=== PATIENT | male | born 2000 | race Caucasian/White ===

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

== ENCOUNTER 2021-01-10 13:19 | Emergency (ER) | payer OTHER, MEDICAID ==
[~2021-01-10] VITALS: Ht 175.3 cm; Wt 90.0 kg
[2021-01-10] MEDS ORDERED: PRED20TA PO (14:54)
[2021-01-10] MEDS ORDERED: predniSONE 20 MG TAB PO ONE (14:55)
[2021-01-10 15:16] VITALS: BP 125/75
== END 2021-01-10 15:15 | disposition home or self-care (01) ==
LOC: M ED 13:19
DX: L23.9 Allergic contact dermatitis, unspecified cause (principal); Z79.899 Other long term (current) drug therapy; Z91.018 Allergy to other foods
CPT/HCPCS: 99283; J7512

== ENCOUNTER → 2021-02-11 | Emergency (ER) | payer OTHER, MEDICAID ==
[~2021-02-11] VITALS: Ht 172.7 cm; Wt 76.8 kg
[~2021-02-11] MED LIST changes: +PRED20TA PO; +VRAY6CAP PO
[2021-02-11 19:05] LABS: HEMATOCRIT 48.2 % (42.0-52.0); HEMOGLOBIN 16.7 g/dl (13.5-17.5); MEAN CORPUSCULAR HEMOGLOBIN 30.4 pg (27.0-33.0); MEAN CORPUSCULAR HGB CONC 34.6 g/dl (32.0-36.5); MEAN CORPUSCULAR VOLUME 87.8 fl (80.0-96.0); PLATELET COUNT, AUTOMATED 238 10^3/uL (150-450); RED BLOOD COUNT 5.49 10^6/uL (4.30-6.10); WHITE BLOOD COUNT 6.7 10^3/uL (4.0-10.0)
[2021-02-11 19:55] LABS: AMPHETAMINES LEVEL URINE NEGATIVE (NEGATIVE); BARBITURATES URINE NEGATIVE (NEGATIVE); BENZODIAZEPINES URINE NEGATIVE (NEGATIVE); CANNABINOIDS URINE NEGATIVE (NEGATIVE); COCAINE METABOLITE URINE NEGATIVE (NEGATIVE); METHADONE URINE NEGATIVE (NEGATIVE); OPIATES URINE NEGATIVE (NEGATIVE); PHENCYCLIDINE URINE NEGATIVE (NEGATIVE)
[2021-02-11 22:24] LABS: ACETAMINOPHEN LEVEL < 2.0 UG/ML (10.0-30.0); ALBUMIN 4.1 GM/DL (3.2-5.2); ALT/SGPT 61 U/L (12-78); BILIRUBIN,DIRECT 0.1 MG/DL (0.0-0.2); BILIRUBIN,TOTAL 0.3 MG/DL (0.2-1.0); BLOOD UREA NITROGEN 13 MG/DL (7-18); CALCIUM LEVEL 8.8 MG/DL (8.5-10.1); CARBON DIOXIDE LEVEL 25 MEQ/L (21-32); CHLORIDE LEVEL 111 MEQ/L (98-107); ETHYL ALCOHOL (ETHANOL) 0.004 % (0.000-0.010); GLUCOSE, FASTING 121 MG/DL (70-100); POTASSIUM SERUM 3.9 MEQ/L (3.5-5.1); SALICYLATE LEVEL < 1.7 MG/DL (5.0-30.0); SODIUM LEVEL 143 MEQ/L (136-145); TOTAL PROTEIN 7.3 GM/DL (6.4-8.2)
[2021-02-11 23:48] VITALS: BP 136/71
== END | disposition home or self-care (01) ==
LOC: M ED 18:31
DX: F43.0 Acute stress reaction (principal); J45.909 Unspecified asthma, uncomplicated; F31.9 Bipolar disorder, unspecified; F90.9 Attention-deficit hyperactivity disorder, unspecified type; F43.10 Post-traumatic stress disorder, unspecified; Z79.899 Other long term (current) drug therapy; Z91.018 Allergy to other foods

== ENCOUNTER 2021-02-12 02:16 | Inpatient (IN) | payer OTHER, MEDICAID ==
[~2021-02-12] VITALS: Ht 170.2 cm; Wt 76.8 kg
[2021-02-12] MEDS ORDERED: VRAY6CAP PO (02:40)
[2021-02-12] MEDS ORDERED: PRAZ2CAP PO (02:40)
[2021-02-12] MEDS ORDERED: PRAZ1CAP PO (02:40)
[2021-02-12] MEDS ORDERED: HOME MED LIST COMPLETE! XX SCH (02:45)
[2021-02-12] MEDS ORDERED: OLANZapine ORAL DISINTEGRATING TAB 5MG PO ONE (02:55)
[2021-02-12] MEDS ORDERED: LORazepam 2 MG TAB PO ONE (02:55)
[2021-02-12 03:20] LABS: MEAN CORPUSCULAR HEMOGLOBIN 30.9 pg (27.0-33.0); MEAN CORPUSCULAR HGB CONC 34.8 g/dl (32.0-36.5); MEAN CORPUSCULAR VOLUME 88.8 fl (80.0-96.0); PLATELET COUNT, AUTOMATED 228 10^3/uL (150-450); RED BLOOD COUNT 5.18 10^6/uL (4.30-6.10); WHITE BLOOD COUNT 7.6 10^3/uL (4.0-10.0)
[2021-02-12 03:48] LABS: AMPHETAMINES LEVEL URINE NEGATIVE (NEGATIVE); BARBITURATES URINE NEGATIVE (NEGATIVE); BENZODIAZEPINES URINE NEGATIVE (NEGATIVE); CANNABINOIDS URINE NEGATIVE (NEGATIVE); COCAINE METABOLITE URINE NEGATIVE (NEGATIVE); METHADONE URINE NEGATIVE (NEGATIVE); OPIATES URINE NEGATIVE (NEGATIVE); PHENCYCLIDINE URINE NEGATIVE (NEGATIVE)
[2021-02-12 04:02] LABS: ACETAMINOPHEN LEVEL < 2.0 UG/ML (10.0-30.0); ALBUMIN 3.8 GM/DL (3.2-5.2); ALT/SGPT 54 U/L (12-78); BILIRUBIN,DIRECT < 0.1 MG/DL (0.0-0.2); BILIRUBIN,TOTAL 0.2 MG/DL (0.2-1.0); BLOOD UREA NITROGEN 14 MG/DL (7-18); CALCIUM LEVEL 8.7 MG/DL (8.5-10.1); CARBON DIOXIDE LEVEL 27 MEQ/L (21-32); CHLORIDE LEVEL 109 MEQ/L (98-107); CREATININE FOR GFR 1.07 MG/DL (0.70-1.30); ETHYL ALCOHOL (ETHANOL) < 0.003 % (0.000-0.010); GLUCOSE, FASTING 155 MG/DL (70-100); POTASSIUM SERUM 3.6 MEQ/L (3.5-5.1); SALICYLATE LEVEL < 1.7 MG/DL (5.0-30.0); SODIUM LEVEL 143 MEQ/L (136-145); TOTAL PROTEIN 6.7 GM/DL (6.4-8.2)
--- NOTE | 2021-02-12 16:21 | MHIPNPDOC ---
[facility] Progress Note Progress Note DATE OF SERVICE: 02/12/21 Communicated to PSA for admission after being presented the patient. Patient is a 20-year-old man who was disposed of his discharge last night went back to [facility] in [place] and had argument with his cousin, broke up with his girlfriend and had a plan to jump [place] the [place] and burn cousins house down killing him. Has a history of bipolar, ADHD, PTSD. Was last admitted to [facility] in October 2020. Vital Signs Vital Signs Date Time Temp Pulse Resp B/P (MAP) Pulse Ox O2 Delivery O2 Flow Rate FiO2 02/12/21 15:28 97.8 95 16 133/67 (89) 95 02/12/21 06:20 Room Air Laboratory Data 24H Labs Laboratory Tests 2 02/12/21 02:59: Nucleated Red Blood Cells % (auto) 0.0, Anion Gap 7L, Calcium Level 8.7, Total Bilirubin 0.2, Direct Bilirubin < 0.1, Aspartate Amino Transf (AST/SGOT) 24, A lanine Aminotransferase (ALT/SGPT) 54, Alkaline Phosphatase 89, Total Protein 6.7, Albumin 3.8, Albumin/Globulin Ratio 1.3, Thyroid Stimulating Hormone (TSH) 3.230, Salicylates Level < 1.7L, Urine Opiates Screen NEGATIVE, Urine Methadone Screen NEGATIVE, Acetaminophen Level < 2.0L, Urine Barbiturates Screen NEGATIVE, Urine Phencyclidine Screen NEGATIVE, Urine Amphetamines Screen NEGATIVE, Urine Benzodiazepines Screen NEGATIVE, Urine Cocaine Metabolite Screen NEGATIVE, Urine Cannabinoids Screen NEGATIVE, Ethyl Alcohol Level < 0.003 CBC/BMP Laboratory Tests 02/12/21 02:59 Current Medications Current Medications Medications (Trade) Dose Ordered Sig/Yessi Route PRN Reason Start Time Stop Time Status Last Admin Dose Admin Home Med (Home Med List Complete!) ASDIRECTED XX 02/12/21 02:45 02/12/21 02:47 DC Allergies Coded Allergies: Kiwi (Verified Allergy, Severe, SWELLING, 07/25/18) ELOY MORAN MD Feb 12, 2021 16:21
[2021-02-12] MEDS ORDERED: MOM 30ML SUSPENSION UDC PO PRN (20:05)
[2021-02-12] MEDS ORDERED: ACETAMINOPHEN TAB 650MG DOSE (2X325MG) PO PRN (20:05)
[2021-02-12] MEDS ORDERED: MAALOX 30 ML SUSP *UDC PO PRN (20:05)
[2021-02-12 21:45] LABS: RSV AMPLIFICATION NEGATIVE (NEGATIVE)
[2021-02-12 22:15] VITALS: BP 144/95
[2021-02-13] VITALS (9 sets, daily range): BP systolic 116–171; BP diastolic 57–92
--- NOTE | 2021-02-13 12:03 | MHHPEPDOC ---
General Legal Status: 9.39 Chief Complaint I have suicidal thoughts ". History of Present Illness HISTORY OF THE PRESENT ILLNESS: Patient is a 20 -year-old , male, who is diagnosed with bipolar disorder and has multiple psychiatric hospitalizations, recently admitted to [facility] in December 08. Now currently complains of suicidal thoughts without plans. Reports he has been depressed for the last 4 to 5 days and 2 days ago he broke up with his girlfriend, he thinks his cousin is responsible for it. Complains of decreased sleep, low energy , hopelessness and helplessness denies any grandiosity or manic symptoms. Complains of suicidal thoughts without plans but no homicidal thoughts. E D report :Pt brought to ED from [id number]) on a 9.41 after pt was evaluated and discharged from [facility] earlier tonight. Pt denied SI and HI prior to discharge, however once he returned home he began arguing with cousin again. Pt then expressed SI with plan to jump into the [place] and then made homicidal threats towards cousin with plan to burn her house down. Pt was uncooperative upon arrival... * pt states, "I was fine when I left, but when I got home my cousin started accusing me of being a meth addict and selling my prescription drugs." States he was unable to control his anger due GF terminating their relationship over cousin's accusations. He admits losing his temper and threatened to kill his cousin with a plan to burn her house down, and then made a suicidal threat with a plan to jump into the [place] and drown himself. Pt is calm currently, but continues to express SI with plan and HI with plan. Pt has a long hx of Bipolar Disorder, Borderline Personality Disorder, ADHD, ODD and PTSD, last admitted to [facility] 11/13/20 and d/c 11/18/20.. Past Psychiatric History Previous Psychiatric Diagnosis: Bipolar, ADHD, ODD Previous Psychiatric Admissions: [facility] [place] when he was an adolescent, 2 psychiatric admissions to this facility as an adult Suicide Attempts: None Psychiatric Follow-up: [facility] Psychiatric medications: Trazodone and Prazosin and Vraylar Past Medical History Medical Problems Asthma No surgeries Head Injury: No Seizures: No Hospitalizations: Yes Surgeries: No Family Medical/Psychiatric HX Medical Problems Medical Problems Maternal Aunt - Diabetes Psychiatric Disorders: Yes (Bio Mother has had many psychiatric admissions) Addiction: Yes (Biological Mother - Drugs) Suicide Attemps/Completions: No Addiction History denies Social History Childhood: Born in [place], special classes, decribes childhood as "living hell when he was younger" Adopted from age 6. Was kicked out of his adoptive family and his mother kicked him out, May 2020 Abuse/Trauma: yes Current Living Situation: living on his own Education: in 12th grade Employment: [employer] Social Support: Friends and Family Legal: None Marital: Not , no children Mental Status Examination General Appearance: well groomed Build: average Demeanor: average Eye Contact: average Activity: average Behavior: cooperative Speech: clear Mood: depressed, anxious Affect: appropriate Thought Process: logical/linear Thought Content (Delusions): none reported Thought Content (Other): none reported Thought Content (Aggressive): none reported Perception (Hallucinations): none reported Perception (Other): none reported Cognition (Impairment of): none reported Oriented: Awake, Alert, Oriented times three Insight: good, fair Psychosis: Denies Diagnoses 1. Major depressive disorder #2 rule out bipolar disorder unspecified A-FIB/CHADSVASC A-FIB History Current/History of A-Fib/PAF?: No Current PO Anticoag Therapy: No Age/Risk Factor Scoring CHADSVASC: CHADSVASC Response (Comments) Value Age Risk Factor Age < 65 years old 0 Gender Risk Factor Male 0 Hx of CHF No 0 Hx of HTN No 0 Hx of Stroke/TIA/or VTE No 0 Hx of Diabetes No 0 Hx of Vascular Disease No 0 Total 0 Assessment Patient has a history of bipolar disorder and history of significant drug use issue, currently denies any homicidal thoughts however continues to have some depressed mood will place him on Vryalar 6 mg Prazocin 2 mg hs Initial Treatment Plan 1. Patient was admitted on a [9.39] status. 2. Complete history was obtained. 3. With patients permission, family will be contacted and database will be expanded. 4. Patients medication regimen will be reviewed and changed accordingly. 5. Patient will be provided with protected environment. 6. Patient will be treated with individual, group, and milieu therapies. 7. Patient will receive supportive psych-education. 8. Discharge planning will commence immediately. 9. Outpatient follow-up treatment will be strongly recommended. 10. The initial treatment plan will focus initially on: * Depression. * Risk for suicide. ESTIMATED LENGTH OF STAY: - DAYS. TIME SPENT COUNSELING AND COORDINATING INITIAL CARE: minutes. Tobacco Cessation Screen Tobacco Cessation Tx Ordered?: No r/t adverse reaction Pt Refused Vital Signs Vital Signs Date Time Temp Pulse Resp B/P (MAP) Pulse Ox O2 Delivery O2 Flow Rate FiO2 02/13/21 08:03 Room Air 02/13/21 05:36 98.7 65 16 134/67 (89) 96 Laboratory Data 24H Labs Laboratory Tests 2 02/12/21 20:47: Coronavirus (COVID-19)(PCR) NEGATIVE, Influenza Type A (RT-PCR) NEGATIVE, Influenza Type B (RT-PCR) NEGATIVE, Respiratory Syncytial Virus (PCR) NEGATIVE Medications Scheduled Cariprazine HCl (Vraylar) 6 Mg Capsule, 6 MG PO QHS, (Reported) Prazosin Hcl (Prazosin HCl) 1 Mg Capsule, 1 MG PO QHS, (Reported) TAKES WITH 2MG FOR 3MG TOTAL Prazosin Hcl (Prazosin HCl) 2 Mg Capsule, 2 MG PO QHS, (Reported) TAKES WITH 1MG FOR 3 MG TOTAL Scheduled PRN Trazodone HCl (Trazodone HCl) 50 Mg Tablet, 50 MG PO QHS PRN for INSOMNIA, (Reported) Allergies Coded Allergies: Kiwi (Verified Allergy, Severe, SWELLING, 07/25/18) DONNA ALEX MD Feb 13, 2021 12:03
--- NOTE | 2021-02-13 14:55 | HPEPDOC ---
General Date of Admission Feb 12, 2021 at 20:02 Date of Service: Feb 13, 2021 Attending Physician: Td Rey MD Chief Complaint The patient is a 20-year-old male admitted with a reason for visit of Unspecified Psychotic Disorder. Source: Patient, Old records History of Present Illness Americo was admitted with concerns for suicidal and homicidal ideation. He states that he has been dealing with difficulties in his life surrounding his adoptive family, accusations they are levying against him, and the impact this had on the relationship with his girlfriend. Please see the psychiatric history and physical for full details. He has no acute medical concerns. Home Medications Scheduled Cariprazine HCl (Vraylar) 6 Mg Capsule, 6 MG PO QHS, (Reported) Prazosin Hcl (Prazosin HCl) 1 Mg Capsule, 1 MG PO QHS, (Reported) TAKES WITH 2MG FOR 3MG TOTAL Prazosin Hcl (Prazosin HCl) 2 Mg Capsule, 2 MG PO QHS, (Reported) TAKES WITH 1MG FOR 3 MG TOTAL Scheduled PRN Trazodone HCl (Trazodone HCl) 50 Mg Tablet, 50 MG PO QHS PRN for INSOMNIA, (Reported) Allergies Coded Allergies: Kiwi (Verified Allergy, Severe, SWELLING, 07/25/18) Past Medical History Medical History Asthma Psychiatric diagnoses including: Bipolar disorder, ADHD, oppositional defiant disorder, borderline personality disorder, posttraumatic stress disorder Family History He is adopted and does not know an awful lot about his biological family. He does not know who his father is. He does know that his mother has been admitted for psychiatric illness multiple times and that she is currently in shelter because of involvement with production of methamphetamines. He has a brother who is alive with no known medical problems. He has 2 sisters who are alive one of them has a history of depression. Social History * Smoker: current smoker, less than 1 pack/day (He reports 2 cigarettes daily) Alcohol: occationally (He reports he drinks 1-2 beers about twice a month) Drugs: denies (In fact accusations that he uses other substances was a large part of the problem and brought him here) He is currently living in [facility] with 12 other individuals. He is sexually active. He reports 1 lifetime sexual partner. He reports no concerns for sexually transmitted diseases as he "gets tested regularly." A-FIB/CHADSVASC A-FIB History Current/History of A-Fib/PAF?: No Current PO Anticoag Therapy: No Age/Risk Factor Scoring CHADSVASC: CHADSVASC Response (Comments) Value Age Risk Factor Age < 65 years old 0 Gender Risk Factor Male 0 Hx of CHF No 0 Hx of HTN No 0 Hx of Stroke/TIA/or VTE No 0 Hx of Diabetes No 0 Hx of Vascular Disease No 0 Total 0 Review of Systems Constitutional: Denies: Chills, Fever ENT: Reports: Dysphagia; Denies: Head Aches, Ear Pain Skin: Denies: Rash, Lesions Pulmonary: Denies: Dyspnea, Cough Cardiovascular: Denies: Chest Pain, Palpitations Gastrointestinal: Denies: Nausea, Vomiting, Abdominal Pain, Diarrhea, Constipation, Melena, Hematochezia Genitourinary: Denies: Dysuria, Hematuria Endocrine: Denies: Heat Intolerance, Cold Intolerance Musculoskeletal: Denies: Joint Pain, Muscle Pain Neurological: Denies: Change in speech, Confusion Physical Examination General Exam: Positive: Alert, Cooperative, No Acute Distress Eye Exam: Positive: PERRLA, Conjunctiva & lids normal, EOMI; Negative: Sclera icteric ENT Exam: Positive: Atraumatic, Mucous membr. moist/pink, Pharynx Normal Neck Exam: Positive: Supple; Negative: JVD, thyromegaly, Lymphadenopathy Chest Exam: Positive: Clear to auscultation, Normal air movement Heart Exam: Positive: Rate Normal, Regular Rhythm, Normal S1, Normal S2; Negative: Murmurs, Rubs Abdomen Exam: Positive: Normal bowel sounds, Soft; Negative: Tenderness, Hepatospenomegaly Extremity Exam: Negative: Edema, Tenderness Skin Exam: Positive: Nl turgor and temperature Neuro Exam: Positive: Normal Gait, Normal Speech, Normal Tone, Sensation Intact Psych Exam: Positive: Mood NL (Reported as depressed and bored), Memory Intact, Oriented x 3; Negative: Mental status NL (His affect is restricted eye contact is moderate at best) Vital Signs Vital Signs Date Time Temp Pulse Resp B/P (MAP) Pulse Ox O2 Delivery O2 Flow Rate FiO2 02/13/21 08:03 Room Air 02/13/21 05:36 98.7 65 16 134/67 (89) 96 Laboratory Data Labs 24H Laboratory Tests 2 02/12/21 20:47: Coronavirus (COVID-19)(PCR) NEGATIVE, Influenza Type A (RT-PCR) NEGATIVE, Influenza Type B (RT-PCR) NEGATIVE, Respiratory Syncytial Virus (PCR) NEGATIVE Problems (1) Suicidal ideations Status: Acute Problem Text: He is receiving psychiatric care on the inpatient mental health unit. I will defer to them. (2) Homicidal ideation Status: Acute Problem Text: He is receiving psychiatric care on the inpatient mental health unit. I will defer to them. (3) Asthma Status: Chronic Response to Treatment: Stable Problem Text: He reports that he has not used a rescue inhaler for about 3 years. This makes me wonder if he has outgrown his asthma. Nonetheless, at this time, we will leave it on his list of chronic medical problems until he has a chance to have follow-up pulmonary function tests and clarify whether or not he still has asthma. I am going to order albuterol as needed, but I doubt that he will need it. (4) Tobacco use Status: Chronic Problem Text: We discussed the fact that he no longer addicted to nicotine, but rather has a hand mouth habit that he uses for stress release. I encouraged him to find a different habit to work to relieve his stressors. Certainly continued tobacco use, even at low levels, is not helping his asthma. I do not think that he needs nicotine replacement therapy as I do not think he is addicted to nicotine per se. Plan / VTE VTE Prophylaxis Ordered?: No VTE Exclusion Mechanical Proph: Low Risk for VTE VTE Exclusion Pharmacological: At Low Risk for VTE Td Rey MD Feb 13, 2021 14:55
[2021-02-13] MEDS ORDERED: ALBUTEROL 90 MCG/ACT 8GM HFA INHALER INH PRN (15:00)
[2021-02-13] MEDS: NICOTINE 21MG/24HR 1 EA TRANSDERMAL TD PRN (16:37)
[2021-02-13] MEDS ORDERED: HALOPERIDOL 5MG/ML VIAL (J1630 PER 1) IM STA ×2 (22:00→22:31)
[2021-02-13] MEDS ORDERED: LORazepam 2 MG/ML VIAL IM STA (22:00)
[2021-02-13] MEDS ORDERED: diphenhydrAMINE 50MG/ML VIAL (J1200) IM STA (22:00)
[2021-02-14 06:44] VITALS: BP 106/51
[2021-02-14 16:22] VITALS: BP 145/87
[2021-02-14] MEDS: NICOTINE 21MG/24HR 1 EA TRANSDERMAL TD PRN (16:48)
[2021-02-14] MEDS: PRAZOSIN 1 MG CAP PO SCH (20:19)
[2021-02-14] MEDS: OLANZapine ORAL DISINTEGRATING TAB 5MG PO PRN (20:19)
[2021-02-14] MEDS: CARIPRAZINE 3MG CAPSULE (VRAYLAR) PO SCH (20:19)
[2021-02-15 06:21] VITALS: BP 135/56
[2021-02-15] MEDS: OLANZapine ORAL DISINTEGRATING TAB 5MG PO PRN (15:02)
[2021-02-15 19:05] VITALS: BP 143/89
--- NOTE | 2021-02-15 20:56 | MHIPN ---
[facility] PROGRESS NOTE DATE: 02/14/2021 SUBJECTIVE: Patient was diagnosed with schizoaffective disorder, had suicidal thoughts, recently broke up with his girlfriend, had argument with his cousin, he wanted to jump out in the [facility]. He has been diagnosed with bipolar disorder, borderline personality disorder, and attention deficit hyperactivity disorder (ADHD). Currently reports he is doing better. Patient was medicated yesterday for acting out behavior on the unit. He was given Haldol and Ativan. Today, he has been feeling better. He reports he is not angry or agitated. OBJECTIVE: He is a 20-year-old, male diagnosed with schizoaffective disorder, was admitted because of suicidal thoughts after he broke up with his girlfriend, was medicated yesterday for acting out behavior. He has also been diagnosed with bipolar disorder, borderline personality disorder, and ADHD. He has a history of multiple psychiatric hospitalizations. MENTAL STATUS EXAMINATION: Cooperative, made good eye contact, wearing clean clothes. Psychomotor activity is normal. Speech rate, rhythm, volume are good. Thought process linear, goal-directed. Denied any auditory or visual hallucinations. Denied any suicidal or homicidal ideas. He is oriented to time, place, and person. His memory immediate, remote, recent are good. Mood is depressed, affect is constricted. VITAL SIGNS: Temperature 97.4, pulse 69, respirations 18, blood pressure 106/51, pulse oximetry 96. CURRENT MEDICATIONS: - cariprazine (Vraylar) 6 mg at night - prazosin 3 mg at night LABORATORY DATA: CBC within normal limits. Chemistry within normal limits. Toxicology was negative. DIAGNOSES: 1. Bipolar 1 disorder with psychotic features. 2. Rule out schizoaffective disorder. 3. Attention deficit hyperactivity disorder (ADHD) by history. PLAN: Is to: Continue Vraylar 6 mg at night and continue prazosin 3 mg at night. Estimated length of stay: 4-5 days. Time spent is 25 minutes.
[2021-02-15] MEDS: CARIPRAZINE 3MG CAPSULE (VRAYLAR) PO SCH (21:52)
[2021-02-15] MEDS: PRAZOSIN 1 MG CAP PO SCH (21:54)
[2021-02-16 06:20] VITALS: BP 122/57
--- NOTE | 2021-02-16 08:44 | MHIPN ---
[facility] PROGRESS NOTE DATE: 02/15/2021 SUBJECTIVE: "I did not sleep well yesterday, I felt cold." OBJECTIVE: He is a 20-year-old, male diagnosed with bipolar disorder with history of multiple psychiatric hospitalizations, was admitted because of suicidal thoughts. He recently broke up with his girlfriend. He was angry with his cousin, thinks that she was responsible for the breakup. Patient currently was unwilling to wake up, he was somewhat disheveled. Otherwise, reported that he is doing fine. Reported that he does not have any suicidal thoughts. Compliant with his medications, denied any side effects. MENTAL STATUS EXAMINATION: Casually dressed in hospital attire, disheveled. Made intermittent eye contact. Speech is few words, however goal-directed. Thought content: Denied any suicidal or homicidal ideas or delusions. Mood is mildly depressed, affect is appropriate for the mood. Insight and judgment are limited. He is oriented to time, place, and person. VITAL SIGNS: Temperature is 97.6, pulse is 56, respiratory rate is 16, blood pressure is 135/56, pulse oximetry 98. MEDICATIONS: - prazosin 3 mg at night - cariprazine 6 mg at night DIAGNOSES: 1. Major depressive disorder. 2. Rule out bipolar disorder unspecified. ASSESSMENT: Patient needs further prompting about his personal hygiene. Continue current medications. ESTIMATED LENGTH OF STAY: 4-5 days. TIME SPENT: 25 minutes.
--- NOTE | 2021-02-16 11:36 | MHIPNPDOC ---
[facility] Progress Note Progress Note DATE OF SERVICE: 02/16/21 SUBJECTIVE: "I have been doing well, I slept well trazodone is helping me." OBJECTIVE: He is a 20-year-old, male diagnosed with bipolar disorder with history of multiple psychiatric hospitalizations, was admitted because of suicidal thoughts. He recently broke up with his girlfriend. He was angry with his cousin, thinks that she was responsible for the breakup. Patient currently was unwilling to wake up, he was somewhat disheveled. Otherwise, reported that he is doing fine. Reported that he does not have any suicidal thoughts. Compliant with his medications, denied any side effects. MENTAL STATUS EXAMINATION: Casually dressed in hospital attire, disheveled. Made intermittent eye contact. Speech is few words, however goal-directed. Thought content: Denied any suicidal or homicidal ideas or delusions. Mood is mildly depressed, affect is appropriate for the mood. Insight and judgment are limited. He is oriented to time, place, and person. MEDICATIONS: - prazosin 3 mg at night - cariprazine 6 mg at night -Trazodone 50 mg at night DIAGNOSES: 1. Revised, bipolar disorder unspecified. 2 PTSD ASSESSMENT: Patient seems to be improving, reports trazodone is helping him denies any psychosis or mood swings. ESTIMATED LENGTH OF STAY: 1-2 days. Vital Signs Vital Signs Date Time Temp Pulse Resp B/P (MAP) Pulse Ox O2 Delivery O2 Flow Rate FiO2 02/16/21 06:20 97.3 76 18 122/57 (78) 97 Room Air Current Medications Current Medications Medications (Trade) Dose Ordered Sig/Yessi Route PRN Reason Start Time Stop Time Status Last Admin Dose Admin Acetaminophen (Tylenol Tab) 650 mg Q6HP PRN PO HEADACHE or MILD DISCOMFORT 02/12/21 20:05 Al Hydrox/Mg Hydrox/Simethicone (Mylanta) 30 ml Q4HP PRN PO HEARTBURN/INDIGESTION 02/12/21 20:05 Albuterol Sulfate (Proventil, Ventolin Hfa) 2 puff Q4HP PRN INH SHORTNESS OF BREATH 02/13/21 15:00 Cariprazine (Vraylar) 6 mg QHS PO 02/14/21 21:00 02/15/21 21:52 Diphenhydramine HCl (Benadryl) 50 mg STAT STAT IM 02/13/21 22:00 02/13/21 22:02 DC 02/13/21 22:07 Haloperidol (Haldol) 5 mg STAT STAT IM 02/13/21 22:00 02/13/21 22:02 DC 02/13/21 22:07 Haloperidol (Haldol) 5 mg STAT STAT IM 02/13/21 22:31 02/13/21 22:32 DC 02/13/21 22:34 Home Med (Home Med List Complete!) ASDIRECTED XX 02/12/21 02:45 02/12/21 02:47 DC Lorazepam (Ativan) 2 mg STAT STAT IM 02/13/21 22:00 02/13/21 22:02 DC 02/13/21 22:07 Magnesium Hydroxide (Milk Of Magnesia) 30 ml DAILYPRN PRN PO CONSTIPATION 02/12/21 20:05 Nicotine (Nicoderm Cq 21mg) 1 patch DAILY PRN TD NICOTINE WITHDRAWAL 02/12/21 20:05 02/14/21 16:48 Olanzapine (ZyPREXA ZYDIS) 5 mg Q4HP PRN PO AGITATION 02/12/21 20:05 02/15/21 15:02 Prazosin HCl (Minipress) 3 mg QHS PO 02/14/21 21:00 02/15/21 21:54 Trazodone HCl (Desyrel) 50 mg QHSP PRN PO INSOMNIA 02/12/21 20:05 Allergies Coded Allergies: Kiwi (Verified Allergy, Severe, SWELLING, 07/25/18) DONNA ALEX MD Feb 16, 2021 11:36
[2021-02-16 16:32] VITALS: BP 140/88
[2021-02-16] MEDS: NICOTINE 21MG/24HR 1 EA TRANSDERMAL TD PRN (18:15)
[2021-02-16] MEDS: PRAZOSIN 1 MG CAP PO SCH (20:11)
[2021-02-16] MEDS: CARIPRAZINE 3MG CAPSULE (VRAYLAR) PO SCH (20:11)
[2021-02-16] MEDS: traZODone 50 MG TAB PO PRN (21:18)
--- NOTE | 2021-02-16 22:14 | IPNPDOC ---
Text Note Date of Service The patient was seen on 02/13/21, at 22:20 NOTE CODE 25 Report: Subjective: Patient was combative and being aggressive towards staff. Physical exam: Vitals: Tech obtaining after restraints are placed. General:Patient is laying in bed, patient has rakan appearance after screaming, all 4 extremities are restrained, 2 finger widths allowable within the restraints and patient with brisk cap refill, patient during course of res traints begins to have withdrawn affect and not answering questions. Assessment and Plan: - Patient was restrained - The patient was a danger to the staff - Failed de-escalation interventions - Staff has contacted Psychiatry; they have placed orders for physical and chemical restraints with de-escalation parameters accordingly VS,Fishbone, I+O VS, Fishbone, I+O Vital Signs Date Time Temp Pulse Resp B/P (MAP) Pulse Ox O2 Delivery O2 Flow Rate FiO2 02/16/21 20:11 151/78 02/16/21 16:32 98.1 99 18 96 Room Air DWAYNE MALONE NP Feb 16, 2021 22:12
[2021-02-17 05:53] VITALS: BP 128/60
[2021-02-17] MEDS: OLANZapine ORAL DISINTEGRATING TAB 5MG PO PRN (12:03)
--- NOTE | 2021-02-17 13:07 | MHIPNPDOC ---
[facility] Progress Note Progress Note DATE OF SERVICE: 02/17/21 SUBJECTIVE: "I have been doing well, I slept well trazodone is helping me." I do not have any suicidal or homicidal thoughts. OBJECTIVE: He is a 20-year-old, male diagnosed with bipolar disorder with history of multiple psychiatric hospitalizations, was admitted because of suicidal thoughts. He recently broke up with his girlfriend. He was angry with his cousin, thinks that she was responsible for the breakup. Patient currently was unwilling to wake up, he was somewhat disheveled. Otherwise, reported that he is doing fine. Reported that he does not have any suicidal thoughts. Compliant with his medications, denied any side effects. MENTAL STATUS EXAMINATION: Casually dressed in hospital attire, disheveled. Made intermittent eye contact. Speech is few words, however goal-directed. Thought content: Denied any suicidal or homicidal ideas or delusions. Mood is mildly depressed, affect is appropriate for the mood. Insight and judgment are limited. He is oriented to time, place, and person. MEDICATIONS: - prazosin 3 mg at night - cariprazine 6 mg at night -Trazodone 50 mg at night DIAGNOSES: 1. Revised, bipolar disorder unspecified. 2 PTSD ASSESSMENT: Patient seems to be improving, reports trazodone is helping him denies any psychosis or mood swings. Can be discharged tomorrow ESTIMATED LENGTH OF STAY: 1-2 days. Vital Signs Vital Signs Date Time Temp Pulse Resp B/P (MAP) Pulse Ox O2 Delivery O2 Flow Rate FiO2 02/17/21 05:53 97.3 67 16 128/60 (82) 96 Room Air Current Medications Current Medications Medications (Trade) Dose Ordered Sig/Yessi Route PRN Reason Start Time Stop Time Status Last Admin Dose Admin Acetaminophen (Tylenol Tab) 650 mg Q6HP PRN PO HEADACHE or MILD DISCOMFORT 02/12/21 20:05 Al Hydrox/Mg Hydrox/Simethicone (Mylanta) 30 ml Q4HP PRN PO HEARTBURN/INDIGESTION 02/12/21 20:05 Albuterol Sulfate (Proventil, Ventolin Hfa) 2 puff Q4HP PRN INH SHORTNESS OF BREATH 02/13/21 15:00 Cariprazine (Vraylar) 6 mg QHS PO 02/14/21 21:00 02/16/21 20:11 Diphenhydramine HCl (Benadryl) 50 mg STAT STAT IM 02/13/21 22:00 02/13/21 22:02 DC 02/13/21 22:07 Haloperidol (Haldol) 5 mg STAT STAT IM 02/13/21 22:00 02/13/21 22:02 DC 02/13/21 22:07 Haloperidol (Haldol) 5 mg STAT STAT IM 02/13/21 22:31 02/13/21 22:32 DC 02/13/21 22:34 Home Med (Home Med List Complete!) ASDIRECTED XX 02/12/21 02:45 02/12/21 02:47 DC Lorazepam (Ativan) 2 mg STAT STAT IM 02/13/21 22:00 02/13/21 22:02 DC 02/13/21 22:07 Magnesium Hydroxide (Milk Of Magnesia) 30 ml DAILYPRN PRN PO CONSTIPATION 02/12/21 20:05 Nicotine (Nicoderm Cq 21mg) 1 patch DAILY PRN TD NICOTINE WITHDRAWAL 02/12/21 20:05 02/16/21 18:15 Olanzapine (ZyPREXA ZYDIS) 5 mg Q4HP PRN PO AGITATION 02/12/21 20:05 02/17/21 12:03 Prazosin HCl (Minipress) 3 mg QHS PO 02/14/21 21:00 02/16/21 20:11 Trazodone HCl (Desyrel) 50 mg QHSP PRN PO INSOMNIA 02/12/21 20:05 02/16/21 21:18 Allergies Coded Allergies: Kiwi (Verified Allergy, Severe, SWELLING, 07/25/18) DONNA ALEX MD Feb 17, 2021 13:07
[2021-02-17] MEDS: NICOTINE 21MG/24HR 1 EA TRANSDERMAL TD PRN (14:22)
[2021-02-17 18:59] VITALS: BP 135/87
[2021-02-17] MEDS: traZODone 50 MG TAB PO PRN (20:26)
[2021-02-17] MEDS: PRAZOSIN 1 MG CAP PO SCH (20:26)
[2021-02-17] MEDS: CARIPRAZINE 3MG CAPSULE (VRAYLAR) PO SCH (20:26)
[2021-02-18 06:09] VITALS: BP 119/56
--- NOTE | 2021-02-18 13:16 | MHIPNPDOC ---
[facility] Progress Note Progress Note DATE OF SERVICE: 02/18/21 SUBJECTIVE: Patient was upset because his discharge was delayed, reportedly he made a statement to appear in [facility] stating That he will take care of his cousin once he is discharged. Patient reports that he is not to it is only he said That he would not like to confront her, denied any homicidal thoughts or suicidal thoughts. OBJECTIVE: He is a 20-year-old, male diagnosed with bipolar disorder with history of multiple psychiatric hospitalizations, was admitted because of suicidal thoughts. He recently broke up with his girlfriend. He was angry with his cousin, thinks that she was responsible for the breakup. Patient currently was unwilling to wake up, he was somewhat disheveled. Otherwise, reported that he is doing fine. Reported that he does not have any suicidal thoughts. Compliant with his medications, denied any side effects. Patient's discharge was delayed because of the statements reportedly he made but patient denies it. Otherwise patient is doing well. MENTAL STATUS EXAMINATION: Casually dressed in hospital attire, disheveled. Made intermittent eye contact. Speech is few words, however goal-directed. Thought content: Denied any suicidal or homicidal ideas or delusions. Mood is mildly depressed, affect is appropriate for the mood. Insight and judgment are limited. He is oriented to time, place, and person. MEDICATIONS: - prazosin 3 mg at night - cariprazine 6 mg at night -Trazodone 50 mg at night DIAGNOSES: 1. Revised, bipolar disorder unspecified. 2 PTSD ASSESSMENT: The marriage and family social worker will call [facility] for further clarification and the patient is stable we can discharge him tomorrow. End of dictation ESTIMATED LENGTH OF STAY: 1-2 days. Vital Signs Vital Signs Date Time Temp Pulse Resp B/P (MAP) Pulse Ox O2 Delivery O2 Flow Rate FiO2 02/18/21 06:09 99.0 73 18 119/56 (77) 100 Room Air Current Medications Current Medications Medications (Trade) Dose Ordered Sig/Yessi Route PRN Reason Start Time Stop Time Status Last Admin Dose Admin Acetaminophen (Tylenol Tab) 650 mg Q6HP PRN PO HEADACHE or MILD DISCOMFORT 02/12/21 20:05 Al Hydrox/Mg Hydrox/Simethicone (Mylanta) 30 ml Q4HP PRN PO HEARTBURN/INDIGESTION 02/12/21 20:05 Albuterol Sulfate (Proventil, Ventolin Hfa) 2 puff Q4HP PRN INH SHORTNESS OF BREATH 02/13/21 15:00 Cariprazine (Vraylar) 6 mg QHS PO 02/14/21 21:00 02/17/21 20:26 Diphenhydramine HCl (Benadryl) 50 mg STAT STAT IM 02/13/21 22:00 02/13/21 22:02 DC 02/13/21 22:07 Haloperidol (Haldol) 5 mg STAT STAT IM 02/13/21 22:00 02/13/21 22:02 DC 02/13/21 22:07 Haloperidol (Haldol) 5 mg STAT STAT IM 02/13/21 22:31 02/13/21 22:32 DC 02/13/21 22:34 Home Med (Home Med List Complete!) ASDIRECTED XX 02/12/21 02:45 02/12/21 02:47 DC Lorazepam (Ativan) 2 mg STAT STAT IM 02/13/21 22:00 02/13/21 22:02 DC 02/13/21 22:07 Magnesium Hydroxide (Milk Of Magnesia) 30 ml DAILYPRN PRN PO CONSTIPATION 02/12/21 20:05 Nicotine (Nicoderm Cq 21mg) 1 patch DAILY PRN TD NICOTINE WITHDRAWAL 02/12/21 20:05 02/17/21 14:22 Olanzapine (ZyPREXA ZYDIS) 5 mg Q4HP PRN PO AGITATION 02/12/21 20:05 02/17/21 12:03 Prazosin HCl (Minipress) 3 mg QHS PO 02/14/21 21:00 02/17/21 20:26 Trazodone HCl (Desyrel) 50 mg QHSP PRN PO INSOMNIA 02/12/21 20:05 02/17/21 20:26 Allergies Coded Allergies: Kiwi (Verified Allergy, Severe, SWELLING, 07/25/18) DONNA ALEX MD Feb 18, 2021 13:16
[2021-02-18 16:08] VITALS: BP 138/65
[2021-02-18] MEDS: CARIPRAZINE 3MG CAPSULE (VRAYLAR) PO SCH (20:44)
[2021-02-18] MEDS: traZODone 50 MG TAB PO PRN (20:44)
[2021-02-18 20:45] VITALS: BP 130/83
[2021-02-18] MEDS: PRAZOSIN 1 MG CAP PO SCH (20:45)
[2021-02-19 06:39] VITALS: BP 148/67
--- NOTE | 2021-02-19 09:42 | MHDSPDOC ---
[facility] Discharge Summary Discharge Summary DATE OF ADMISSION: Feb 12, 2021 at 20:02 DATE OF DISCHARGE: 02/19/2021 DISCHARGE DIAGNOSES: Bipolar disorder unspecified Rule out bipolar 2 disorder History of Present Illness HISTORY OF THE PRESENT ILLNESS: Patient is a 20 -year-old , male, who is diagnosed with bipolar disorder and has multiple psychiatric hospitalizations, recently admitted to [facility] in December 08. Now currently complains of suicidal thoughts without plans. Reports he has been depressed for the last 4 to 5 days and 2 days ago he broke up with his girlfriend, he thinks his cousin is responsible for it. Complains of decreased sleep, low energy , hopelessness and helplessness denies any grandiosity or manic symptoms. Complains of suicidal thoughts without plans but no homicidal thoughts. E D report :Pt brought to ED from [facility](Tpr #[id number]) on a 9.41 after pt was evaluated and discharged from [facility] earlier tonight. Pt denied SI and HI prior to discharge, however once he returned home he began arguing with cousin again. Pt then expressed SI with plan to jump into the [place] and then made homicidal threats towards cousin with plan to burn her house down. Pt was uncooperative upon arrival... * pt states, "I was fine when I left, but when I got home my cousin started accusing me of being a meth addict and selling my prescription drugs." States he was unable to control his anger due GF terminating their relationship over cousin's accusations. He admits losing his temper and threatened to kill his cousin with a plan to burn her house down, and then made a suicidal threat with a plan to jump into the [place] and drown himself. Pt is calm currently, but continues to express SI with plan and HI with plan. Pt has a long hx of Bipolar Disorder, Borderline Personality Disorder, ADHD, ODD and PTSD, last admitted to [facility] 11/13/20 and d/c 11/18/20.. Past Psychiatric History Previous Psychiatric Diagnosis: Bipolar, ADHD, ODD Previous Psychiatric Admissions: [facility] when he was an adolescent, 2 psychiatric admissions to this facility as an adult Suicide Attempts: None Psychiatric Follow-up: [facility] Psychiatric medications: Trazodone and Prazosin and Vraylar Past Medical History Medical Problems Asthma No surgeries Head Injury: No Seizures: No Hospitalizations: Yes Surgeries: No Family Medical/Psychiatric HX Medical Problems Medical Problems Maternal Aunt - Diabetes Psychiatric Disorders: Yes (Bio Mother has had many psychiatric admissions) Addiction: Yes (Biological Mother - Drugs) Suicide Attemps/Completions: No Addiction History denies Social History Childhood: Born in [place], special classes, decribes childhood as "living hell when he was younger" Adopted from age 6. Was kicked out of his adoptive family and his mother kicked him out, May 2020 Abuse/Trauma: yes Current Living Situation: living on his own Education: in 12th grade Employment: [employer] Social Support: Friends and Family Legal: None Marital: Not , no children Mental Status Examination General Appearance: well groomed Build: average Demeanor: average Eye Contact: average Activity: average Behavior: cooperative Speech: clear Mood: depressed, anxious Affect: appropriate Thought Process: logical/linear Thought Content (Delusions): none reported Thought Content (Other): none reported Thought Content (Aggressive): none reported Perception (Hallucinations): none reported Perception (Other): none reported Cognition (Impairment of): none reported Oriented: Awake, Alert, Oriented times three Insight: good, fair Psychosis: Denies Course in the hospital: Patient initially was depressed and was angry once he had to be medicated for acting out behavior, he was placed on Vryalar 6 mg at night and prazosin 3 mg at night Patient also received individual group and milieu therapy and psychoeducation. Patient made gradual recovery started attending groups and activities. There wa s a report that he made a statement To a friend in [facility] that he will take care of his cousin after the discharge. However after clarification by the child protective services social worker at [facility] and by asking the patient he only told that he did not want to confront his cousin He had no thoughts of hurting anybody. Patient denied any suicidal thoughts he slept better attended groups and attended activities interacted well with the peers and staff. Denied any side effects from the medications ETOH/Disorder Med Rx ETOH/DRUG DISORDER RX: N/A Vital Signs/I&Os Vital Signs Date Time Temp Pulse Resp B/P (MAP) Pulse Ox O2 Delivery O2 Flow Rate FiO2 02/19/21 06:39 97.9 67 20 148/67 (94) 95 Room Air Laboratory Data Labs 24H Within normal limits CBC/BMP Within normal limits Medications Scheduled Cariprazine HCl (Vraylar) 6 Mg Capsule, 6 MG PO QHS, (Reported) Prazosin Hcl (Prazosin HCl) 1 Mg Capsule, 1 MG PO QHS, (Reported) TAKES WITH 2MG FOR 3MG TOTAL Prazosin Hcl (Prazosin HCl) 2 Mg Capsule, 2 MG PO QHS, (Reported) TAKES WITH 1MG FOR 3 MG TOTAL Scheduled PRN Trazodone HCl (Trazodone HCl) 50 Mg Tablet, 50 MG PO QHS PRN for INSOMNIA, (Reported) Allergies Coded Allergies: Davonte (Verified Allergy, Severe, SWELLING, 07/25/18) DONNA ALEX MD Feb 19, 2021 09:42
== END 2021-02-19 11:08 | disposition home or self-care (01) | DRG 885 ==
LOC: M ED 02:16 → M ED INP 20:02 → M PSY 22:00
PROVIDERS: ADMIT Student in an Organized Health Care Education/Training Program; ATTEND Psychiatry & Neurology Psychiatry
DX: F31.9 Bipolar disorder, unspecified (principal); R45.851 Suicidal ideations; F90.9 Attention-deficit hyperactivity disorder, unspecified type; F43.10 Post-traumatic stress disorder, unspecified; Z91.018 Allergy to other foods; Z20.822 Contact with and (suspected) exposure to COVID-19; Z79.899 Other long term (current) drug therapy; J45.909 Unspecified asthma, uncomplicated; F91.3 Oppositional defiant disorder; F60.3 Borderline personality disorder; F17.210 Nicotine dependence, cigarettes, uncomplicated; R45.850 Homicidal ideations; Z63.0 Problems in relationship with spouse or partner; Z78.1 Physical restraint status

== ENCOUNTER → 2021-04-27 | Outpatient (CLI) | payer OTHER, MEDICAID ==
--- NOTE | 2021-04-27 13:56 | REP ---
INDICATION: PAIN IN RIGHT FINGER(S). COMPARISON: None. FINDINGS: The joint spaces are symmetric and relatively well maintained. There is no evidence of acute fracture or destructive osseous lesion. IMPRESSION: Negative hand. <Electronically signed by Agus Fischer > 04/27/21 [id number]
== END ==
LOC: M RAD 09:49
PROVIDERS: ATTEND Pediatrics
DX: M79.644 Pain in right finger(s) (principal)

== ENCOUNTER 2021-04-29 21:10 | Emergency (ER) | payer OTHER, MEDICAID ==
[~2021-04-29] VITALS: Ht 172.7 cm; Wt 104.1 kg
--- OUTSIDE RECORDS SUMMARY | 2021-04-29 21:16 | CCD ---
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 Name Role Phone DEBRA MORIN MD 3 [phone] Allergies Code Code System Name Reaction Severity Status Onset NKDA Notes: SEASONAL | KIWI FRUIT Medications Name Status Start Date Stop Date amoxicillin 500 mg capsule Completed 04/25 aripiprazole 30 mg tablet TAKE ONE TABLET BY MOUTH EVERY DAY Completed 08/18 buspirone 15 mg tablet Completed buspirone 5 mg tablet TAKE 1 TABLET BY MOUTH 3 TIMES A DAY NEEDED FOR ANXIETY/AGITATION Completed 09/02/2020 clonidine HCl 0.2 mg tablet TAKE ONE TABLET BY MOUTH DAILY AT BEDTIME Completed 09/02/2020 divalproex 250 mg tablet,delayed release Completed 09/02/2020 famotidine 40 mg tablet Take 1 tablet every day by oral route. Active Not available guanfacine 1 mg tablet TAKE 1/2 TABLET BY MOUTH EVERY MORNING Completed 09/02/2020 methylphenidate ER 36 mg tablet,extended release 24 hr Completed 04/25/2020 methylphenidate ER 54 mg tablet,extended release 24 hr Completed 09/02/2020 nicotine 7 mg/24 hr daily transdermal [facility] Apply 1 patch every day by transdermal route. Active Not available ondansetron 4 mg disintegrating tablet DISSOLVE 1 TABLET IN MOUTH EVERY 6 TO 8 HOURS NEEDED FOR NAUSEA AND VOMITING Completed 06/06/2020 prazosin 1 mg capsule Active Not availa ble prazosin 2 mg capsule Active Not availa ble trazodone 50 mg tablet Active Not avail able Vitamin D3 50 mcg (2,000 unit) capsule Take 1 capsule by oral route. Active Not avail able Vraylar 1.5 mg capsule TAKE 3 CAPSULES 4.5MG BY MOUTH DAILY FOR MOOD Completed 03/13/2021 Vraylar 3 mg capsule Completed 03/13/2021 Vraylar 6 mg capsule Active Not availab le Problems Name Status Onset Date Source Mood Disorder Active 06/29/2012 History Reactive Attachment Disorder of Claim Auditor Active 06/29/2012 History Procedure Unknown 06/29/2012 History Influenza Vaccine Needed Unknown 04/24/2013 History Exposure to Second Hand Tobacco Smoke Active 07/28/2015 History Overweight in Childhood Unknown 03/03/2016 History Overweight Unknown 11/22/2019 History Gastroesophageal Reflux Disease Active 03/13/2021 Vitamin D Deficiency Active 04/24/2021 Nicotine Dependence with Current Use Active 04/24/2021 Procedures Date Name Performed by 04/24/2021 XR, Hand, 3 or More View [facility] [address] [place] [address] (Work Place) Notes: APPENDECTAMY- AGE 14, CIRCUMSCION AT Results Lab Results Date Name Specimen Result Interpretation Description Value Range Status Address 04/16/2021 SARS CoV 2 RdRp Gene, QL Probe, Respiratory Spec imen Nasopharyngeal Normal Sars-cov-2 negative negative Final [facility] Medical: [address] [facility] 04/01/2021 Lipid Panel, Serum Blood venous Normal Delmi sterol, Total 153 mg/dL <170 mg/dL Final [facility]: [address] [facility] Blood venous Low HDL Cholesterol 38 mg/dL >45 mg/dL Final [facility]: [address] [facility] Blood venous Normal Triglycerides 74 mg/dL <90 mg /dL Final [facility]: [address] [facility] Blood venous Normal LDL-cholesterol 99 mg/dL (calc) <110 mg/dL (calc) Final [facility]: [address] [facility] Blood venous Normal Chol/hdlc Ratio 4.0 (calc) <5 .0 (calc) Final [facility]: [address] [facility] Blood venous Normal Non HDL Cholesterol 115 mg/dL (calc) <120 mg/dL (calc) Final [facility]: [address] [facility] 04/01/2021 CMP, Serum or Plasma Blood venous Normal Glucose 98 mg/dL 65-99 mg/dL Final [facility]: [address] [facility] Blood venous Normal Urea Nitrogen (BUN) 19 mg/dL 7-20 mg/dL Final [facility]: [address] [facility] Blood venous Normal Creatinine 0.90 mg/dL 0.60-1. 26 mg/dL [facility]: [address] [facility] Blood venous Normal eGFR Non-afr. [place] 1 23 mL/min/1.73m2 > or = 60 mL/min/1.73m2 Final [facility]: [address] [facility] Blood venous Normal eGFR 14 3 mL/min/1.73m2 > or = 60 mL/min/1.73m2 Final [facility]: [address] [facility] Blood venous BUN/creatinine Ratio not applicable (calc) 6-22 (calc) [facility]: [address] [facility] Blood venous Normal Sodium 142 mmol/L 135-146 mmo l/L [facility]: [address] [facility] Blood venous Normal Potassium 4.6 mmol/L 3.8-5.1 mmol/L [facility]: [address] [facility] Blood venous Normal Chloride 107 mmol/L 98-110 mm ol/L [facility]: [address] [facility] Blood venous Normal Carbon Dioxide 28 mmol/L 20-3 2 mmol/L [facility]: [address] [facility] Blood venous Normal Calcium 9.9 mg/dL 8.9-10.4 mg /dL [facility]: [address] [facility] Blood venous Normal Protein, Total 7.1 g/dL 6.3-8 .2 g/dL [facility]: [address] [facility] Blood venous Normal Albumin 4.7 g/dL 3.6-5.1 g/dL [facility]: [address] [facility] Blood venous Normal Globulin 2.4 g/dL (calc) 2.1- 3.5 g/dL (calc) [facility]: [address] [facility] Blood venous Normal Albumin/globulin Ratio 2 .0 (calc) 1.0-2.5 (calc) [facility] [address] [facility] Normal Bilirubin, Total 0.4 mg/dL 0. 2-1.1 mg/dL [facility]: [address] [facility] Blood venous Normal Alkaline Phosphatase 86 U/L 4 6-169 U/L Final [facility]: [address] [facility] Blood venous Normal Ast 17 U/L 12-32 U/L Final [facility]: [address] [facility] Blood venous Normal Alt 35 U/L 8-46 U/L Final [facility]: [address] [facility] 04/01/2021 Tsh Blood venous Normal Tsh 3.05 mIU/L 0.50-4.30 mIU/L Final [facility]: [address] [facility] 04/01/2021 Vitamin D, 25-Hydroxy, Total, Serum Blood venous Low Vitamin D,25-Oh,total,ia 19 NG/mL 30-100 NG/mL Final [facility]: [address] [facility] 04/01/2021 HbA1C (Hemoglobin a1C), Blood Blood venous Normal Hemoglobin a1C 5.0 % of total HGB <5.7 % of total HGB Final [facility]: [address] [facility] 09/16/2020 CT + NG DNA, Qual, PCR, Unspecified Specimen No rmal Chlamydia DNA Amplification negative negative [facility] ical Center: 0 [facility] Normal GC DNA Amplification negative negati ve [facility]: [address] [facility] 09/16/2020 Hepatitis C Ab, Serum Blood venous Normal Hepatitis C Virus Anu Index < 0.0 index <0.8 index Final [facility]: 0 [facility] 09/16/2020 Syphilis Normal Syphilis nonreactive nonreacti ve [facility]: [address] [facility] 09/16/2020 HIV 1+2 AB + HIV 1 P24 Ag, Qualitative Immunoassay, Serum Normal HIV 1&2 Screen Centaur negative negative Final [facility]: [address] [facility] 07/02/2020 Troponin I, Blood Normal Troponin I < 0.02 NG/mL < 0.10 NG/mL [facility]: [address] [facility] 07/01/2020 Glucose, Fingerstick, Blood Normal Bedside Glucose 93 mg/dL 70- 105 mg/dL [facility]: 83 0 [facility] 07/01/2020 Cbc Normal White Blood Count 6.9 10 4.0-10. 0 10 [facility]: [address] [facility] Normal Red Blood Count 5.34 10 4.30-6.10 10 [facility]: [address] [facility] Normal Hemoglobin 16.0 g/dL 13.5-17.5 g/dL [facility]: [address] [facility] Normal Hematocrit 48.0 % 42.0-52.0 % [facility]: [address] [facility] Normal Mean Corpuscular Volume 89.9 fL 80.0 -96.0 fL [facility]: [address] [facility] Normal Mean Corpuscular Hemoglobin 30.0 pg 27.0-33.0 pg [facility]: [address] [facility] Normal Mean Corpuscular HGB Conc 33.3 g/dL 32.0-36.5 g/dL [facility]: [address] [facility] Normal Red Cell Distribution Width 12.3 % 1 1.5-14.5 % [facility]: [address] [facility] Normal Platelet Count, Automated 207 10 150 -450 10 [facility]: [address] [facility] Normal Nucleated Red Blood Cell % 0.0 % 0- 0 % [facility]: [address] [facility] 07/01/2020 CMP, Serum or Plasma Normal Glucose, Fastin g 88 mg/dL 70-100 mg/dL [facility]: [address] 0 [facility] High Blood Urea Nitrogen 19 mg/dL 7-18 mg /dL [facility]: 0 [facility] Normal Creatinine for GFR 1.03 mg/dL 0.70-1 .30 mg/dL [facility]: [address] [facility] Normal Sodium Level 141 mEq/L 136-145 mEq/L [facility]: [address] [facility] Normal Potassium Serum 3.7 mEq/L 3.5-5.1 mE q/L [facility]: [address] [facility] Normal Chloride Level 106 mEq/L 98-107 mEq/ L [facility]: 0 [facility] High Carbon Dioxide Level 33 mEq/L 21-32 mEq/L [facility]: 0 [facility] Low Anion Gap 2 mEq/L 8-16 mEq/L [facility]: [address] [facility] Normal Calcium Level 9.5 mg/dL 8.5-10.1 mg/ dL [facility]: [address] [facility] Normal AST/SGOT 8 U/L 7-37 U/L [facility]: [address] [facility] Normal ALT/SGPT 23 U/L 12-78 U/L [facility]: 0 [facility] Normal Alkaline Phosphatase 103 U/L 45-117 U/L [facility]: 0 [facility] Normal Bilirubin,total 0.6 mg/dL 0.2-1.0 mg /dL [facility]: 0 [facility] Normal Total Protein 7.3 gm/dL 6.4-8.2 gm/d L [facility]: 0 [facility] Normal Albumin 4.5 gm/dL 3.2-5.2 gm/dL Meri l [facility]: 0 [facility] Normal Albumin/globulin Ratio 1.6 [facility]: [address] [facility] 07/01/2020 Troponin I, Blood Normal Troponin I < 0.02 NG/mL < 0.10 NG/mL [facility]: 0 [facility] 07/01/2020 Troponin I, Blood Normal Troponin I < 0.02 NG/mL < 0.10 NG/mL [facility]: 0 [facility] 06/18/2020 Influenza A/B RSV Covid Amp Normal Influenza a Amplification negative negative [facility] nter: [address] [facility] Normal Influenza B Amplification negative n egative [facility]: [address] [facility] Normal RSV Amplification negative negative [facility]: [address] [facility] Normal Sars Covid-19 Amplification negative negative [facility]: [address] [facility] 05/20/2020 CBC W/ Auto Diff Normal White Blood Count 5.3 10 4.0-10.0 10 [facility]: [address] [facility] Normal Red Blood Count 5.84 10 4.30-6.10 10 [facility]: [address] [facility] Normal Hemoglobin 17.3 g/dL 13.5-17.5 g/dL [facility]: [address] [facility] Normal Hematocrit 51.4 % 42.0-52.0 % [facility]: [address] [place] [address] Normal Mean Corpuscular Volume 88.0 fL 80.0 -96.0 fL [facility]: [address] [facility] Normal Mean Corpuscular Hemoglobin 29.6 pg 27.0-33.0 pg [facility]: [address] [facility] Normal Mean Corpuscular HGB Conc 33.7 g/dL 32.0-36.5 g/dL [facility]: 0 [facility] Normal Red Cell Distribution Width 12.7 % 1 1.5-14.5 % [facility]: 0 [facility] Normal Platelet Count, Automated 227 10 150 -450 10 [facility]: [address] [facility] Normal Neutrophils % 52.9 % 36.0-66.0 % [facility]: [address] [facility] Normal Lymph % 35.5 % 24.0-44.0 % Final [facility]: [address] [facility] High Rincon % 5.9 % 0.0-5.0 % Final [facility]: [address] [facility] High Eos % 4.9 % 0.0-3.0 % [facility]: [address] [facility] Normal Baso % 0.6 % 0.0-1.0 % [facility]: [address] [facility] Normal Immature Granulocyte % 0.2 % 0-3.0 % [facility]: [address] [facility] Normal Nucleated Red Blood Cell % 0.0 % 0- 0 % [facility]: [address] [facility] Normal Neutrophils # 2.8 10 1.5-8.5 10 [facility]: [address] [facility] Normal Lymph # 1.9 10 1.5-5.0 10 [facility]: [address] [facility] Normal [place]con # 0.3 10 0.0-0.8 10 [facility]: [address] [facility] Normal Eos # 0.3 10 0.0-0.5 10 [facility]: [address] [facility] Normal Baso # 0.0 10 0.0-0.2 10 [facility]: [address] [facility] 05/20/2020 Hepatic Function Panel, Serum Normal AST/SG OT 19 U/L 7-37 U/L [facility]: 0 [facility] Normal ALT/SGPT 40 U/L 12-78 U/L [facility]: [address] [facility] Normal Alkaline Phosphatase 109 U/L 45-117 U/L [facility]: 0 [facility] Normal Bilirubin,total 0.6 mg/dL 0.2-1.0 mg /dL [facility]: 0 [facility] Normal Bilirubin,direct 0.2 mg/dL 0.0-0.2 m g/dL [facility]: 0 [facility] Normal Total Protein 7.5 gm/dL 6.4-8.2 gm/d L [facility]: 0 [facility] Normal Albumin 4.5 gm/dL 3.2-5.2 gm/dL [facility]: [address] [facility] Normal Albumin/globulin Ratio 1.5 [facility]: [address] [facility] 05/20/2020 BMP, Serum or Plasma Normal Glucose, Fastin g 90 mg/dL 70-100 mg/dL [facility]: 83 0 [facility] Normal Blood Urea Nitrogen 15 mg/dL 7-18 mg /dL [facility]: 0 [facility] Normal Creatinine for GFR 0.84 mg/dL 0.70-1 .30 mg/dL [facility]: [address] [facility] Normal Sodium Level 139 mEq/L 136-145 mEq/L [facility]: [address] [place] [address] Normal Potassium Serum 4.3 mEq/L 3.5-5.1 mE q/L [facility]: [address] [place] [address] Normal Chloride Level 105 mEq/L 98-107 mEq/ L [facility]: 0 [facility] Normal Carbon Dioxide Level 28 mEq/L 21-32 mEq/L [facility]: [address] [facility] Low Anion Gap 6 mEq/L 8-16 mEq/L [facility]: 0 [facility] Normal Calcium Level 9.8 mg/dL 8.5-10.1 mg/ dL [facility]: [address] [facility] 05/20/2020 SARS CoV 2 RNA, QL, Nasopharynx NASOPHARYNX No observation recorded. [facility]: [address] [place] [address] Past Encounters 04/24/2021 Nicotine Dependence with Current Use; Gastroesophageal Reflux Disease; Vitamin D Deficiency; Pain in Right Thumb; Administration of Influenza Vaccine Debra Morin MD: [address] [place] [phone], Ph. 04/16/2021 Exposure to SARS-CoV-2 Josué Bee MD: [address] [place] [phone], Ph. 04/01/2021 Hyperlipidemia Screening; Vitamin D Deficiency; Endocrine/metabolic Screening Jsoué Bee MD: [address] [place] [address], Ph. 03/13/2021 Adult Health Examination; Nicotine Dependence with Current Use; Body Mass Index 30+ - Obesity; Gastroesophageal Reflux Disease; Hyperlipidemia Screening; Endocrine/metabolic Screening; Vitamin D Deficiency Debra Morin MD: [address] [place] [address], Ph. 09/16/2020 Venereal Disease Screening Debra Mroin MD: [address] [place] [address] [address], [place] [address], Ph. 09/02/2020 Moderate Recurrent Major Depression; Venereal Disease Screening; Hospital Inpatient Stay within past 30 Days Debra Morin MD: [address] [facility] [address], [place] [address], Ph. 08/19/2020 Removal of Suture [place] Vel[facility]: [address] [place] [address], Ph. 08/12/2020 Open Wound of Hand [place] [facility]: [address] [place] [address], Ph. 06/06/2020 Attention Deficit Hyperactivity Disorder, Combined Type; Medication Monitoring [place] [facility]: [address] [place] [address], Ph. 04/25/2020 Administration of Influenza Vaccine [place] [facility]: [address] [place] [address], Ph. Social History Tobacco Smoking Status Former Smoker Vaccine List Vaccine Type COVID-19, mRNA, LNP-S, PF, 30 mcg/0.3 mL dose 11/27/2020 12/18/2020 HPV, quadrivalent 04/24/20130.5 mL 07/03/20130.5 mL 10/25/20130.5 mL influenza, injectable, quadrivalent, pre servative free 04/25/20200.5 mL 04/24/2021 influenza, seasonal, injectable 06/30/20120.5 mL 04/23/20150.5 mL 04/02/20160.5 mL 05/30/20170.5 mL 05/22/20180.5 mL influenza, seasonal, injectable, preserv ative free 06/05/20130.5 mL 04/11/2014 meningococcal B, OMV 09/14/20180.5 mL 10/18/20180.5 mL meningococcal MCV4O 09/14/20180.5 mL meningococcal MCV4P 07/03/20130.5 mL Tdap 04/24/20130.5 mL Notes: has had covid vaccine-will bring card next time Plan of Care Reminders Provider Appointments None recorded. Lab None recorded. Referral None recorded. Procedures None recorded. Surgeries None recorded. Imaging None recorded. Vitals 04/24/2021 03:00PM ESTABLISHED [id number] Height Weight BMI Blood Pressure 68.8 in 219 lbs 6 oz 32.6 kg/m2 129/79 mm[Hg] 03/13/2021 02:20PM ANNUAL EXAM Height Weight BMI Blood Pressure 68.8 in 211 lbs 2 oz 31.4 kg/m2 122/79 mm[Hg] 09/02/2020 02:00PM HOSPITAL DISCHARGE Height Weight BMI Blood Pressure 68.8 in 180 lbs 9.6 oz 26.8 kg/m2 129/82 mm[Hg ] 08/19/2020 10:15AM ESTABLISHED PATIENT 15 Height 68.8 in 08/12/2020 10:30AM ESTABLISHED PATIENT 15 Height 68.8 in 06/06/2020 10:45AM ESTABLISHED PATIENT 15 Height Weight BMI Blood Pressure 68.8 in 169 lbs 16 oz 25.3 kg/m2 128/82 mm[Hg] 04/25/2020 10:00AM ESTABLISHED PATIENT 15 Height Weight BMI Blood Pressure 68.8 in 164 lbs 8 oz 24.4 kg/m2 133/78 mm[Hg] 11/22/2019 Height Weight BMI Blood Pressure 68.8 in 177 lbs 26.39 kg/m2 115/72 mm[Hg] 04/27/2019 Weight 175 lbs 6.4 oz 09/06/2018 Height Weight BMI Blood Pressure 67.4 in 194 lbs 30.13 kg/m2 110/60 mm[Hg]"
--- OUTSIDE RECORDS SUMMARY | 2021-04-29 21:16 | CCD ---
Author Organization Unknown Address [address] [place] [address] Phone [phone] Care Team Providers Care Hospitality House Supervisor Name Role Phone DEBRA MORIN MD 3 [phone] Allergies Code Code System Name Reaction Severity [...] release Completed 09/02/2020 famotidine 40 mg tablet Active Not avai lable guanfacine 1 mg tablet TAKE 1/2 TABLET BY MOUTH EVERY MORNING Completed 09/02/2020 methylphenidate ER 36 mg tablet,extended release 24 hr Completed 04/25/2020 methylphenidate ER 54 mg tablet,extended release 24 hr Completed 09/02/2020 nicotine 7 mg/24 hr daily transdermal pa tc Apply 1 patch every day by transdermal route. 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 History Procedure Unknown 06/29/2012 History Influenza Vaccine Needed Unknown 04/24/2013 History Exposure to Second Hand Tobacco Smoke Active 07/28/2015 History Overweight in Childhood Unknown 03/03/2016 History Overweight Unknown 11/22/2019 History Gastroesophageal Reflux Disease Active 03/13/2021 Procedures Notes: APPENDECTAMY- AGE 14, CIRCUMSCION AT Results Lab Results Date Name Specimen Result Interpretation Description Value Range Status Address 04/16/2021 SARS CoV 2 RdRp Gene, QL Probe, Respiratory Spec imen Nasopharyngeal Normal Sars-cov-2 negative negative Final [facility] Medical: [address] [facility] 04/01/2021 Lipid Panel, Serum Blood venous Normal Delmi sterol, Total 153 mg/dL <170 mg/dL Final [facility]: [address] [facility] Blood venous Low HDL Cholesterol 38 mg/dL >45 mg/dL Final [facility]: [address] [facility] Blood venous Normal Triglycerides 74 mg/dL <90 mg /dL Final [facility]: [address] [facility] Blood venous Normal LDL-cholesterol 99 mg/dL (calc) <110 mg/dL (calc) Final [facility]: [address] [facility] Blood venous Normal Chol/hdlc Ratio 4.0 (calc) <5 .0 (calc) Final [facility]: [address] [facility] [facility] Blood venous Normal Non HDL Cholesterol 115 mg/dL (calc) <120 mg/dL (calc) Final [facility]: [address] [facility] [facility] 04/01/2021 CMP, Serum or Plasma Blood venous Normal Glucose 98 mg/dL 65-99 mg/dL Final [facility]: [address] [facility] Blood venous Normal Urea Nitrogen (BUN) 19 mg/dL 7-20 mg/dL Final [facility]: [address] [facility] Blood venous Normal Creatinine 0.90 mg/dL 0.60-1. 26 mg/dL Final [facility]: [address] [facility] Blood venous Normal eGFR Non-afr. Niuean 1 23 mL/min/1.73m2 > or = 60 mL/min/1.73m2 Final [facility]: [address] [facility] Blood venous Normal eGFR 14 3 mL/min/1.73m2 > or = 60 mL/min/1.73m2 [facility] [address] [facility] Blood venous BUN/creatinine Ratio not applicable (calc) 6-22 (calc) [facility]: [address] [facility] Blood venous Normal Sodium 142 mmol/L 135-146 mmo l/L [facility]: [address] [facility] Blood venous Normal Potassium 4.6 mmol/L 3.8-5.1 mmol/L [facility]: [address] [facility] Blood venous Normal Chloride 107 mmol/L 98-110 mm ol/L [facility]: [address] [facility] Blood venous Normal Carbon Dioxide 28 mmol/L 20-3 2 mmol/L [facility]: [address] [facility] Blood venous Normal Calcium 9.9 mg/dL 8.9-10.4 mg /dL [facility]: [address] [facility] Blood venous Normal Protein, Total 7.1 g/dL 6.3-8 .2 g/dL [facility]: [address] [facility] Blood venous Normal Albumin 4.7 g/dL 3.6-5.1 g/dL [facility]: [address] [facility] Blood venous Normal Globulin 2.4 g/dL (calc) 2.1- 3.5 g/dL (calc) [facility]: [address] [facility] Blood venous Normal Albumin/globulin Ratio 2 .0 (calc) 1.0-2.5 (calc) [facility]: [address] [facility] Blood venous Normal Bilirubin, Total 0.4 mg/dL 0. 2-1.1 mg/dL [facility]: [address] [facility] Blood venous Normal Alkaline Phosphatase 86 U/L 4 6-169 U/L [facility]: [address] [facility] Blood venous Normal Ast 17 U/L 12-32 U/L [facility]: [address] [facility] Blood venous Normal Alt 35 U/L 8-46 U/L Final [facility]: [address] [facility] 04/01/2021 Tsh Blood venous Normal Tsh 3.05 mIU/L 0.50-4.30 mIU/L Final [facility]: [address] [place] 04/01/2021 Vitamin D, 25-Hydroxy, Total, Serum Blood venous Low Vitamin D,25-Oh,total,ia 19 NG/mL 30-100 NG/mL Final [facility]: [address] [place] 04/01/2021 HbA1C (Hemoglobin a1C), Blood Blood venous Normal Hemoglobin a1C 5.0 % of total HGB <5.7 % of total HGB Final [facility]: [address] [place] 09/16/2020 CT + NG DNA, Qual, PCR, Unspecified Specimen No rmal Chlamydia DNA Amplification negative negative [facility] Center: 0 [facility] Normal GC DNA Amplification negative negati ve [facility]: 0 [facility] 09/16/2020 Hepatitis C Ab, Serum Blood venous Normal Hepatitis C Virus Anu Index < 0.0 index <0.8 index [facility] Center: [address] [facility] 09/16/2020 Syphilis Normal Syphilis nonreactive nonreacti ve [facility]: 0 [facility] 09/16/2020 HIV 1+2 AB + HIV 1 P24 Ag, Qualitative Immunoassay, Serum Normal HIV 1&2 Screen [facility] negative [facility]: [address] [facility] 07/02/2020 Troponin I, Blood Normal Troponin I < 0.02 NG/mL < 0.10 NG/mL [facility]: [address] [facility] 07/01/2020 Glucose, Fingerstick, Blood Normal Bedside Glucose 93 mg/dL 70- 105 mg/dL [facility]: 83 0 [facility] 07/01/2020 Cbc Normal White Blood Count 6.9 10 4.0-10. 0 10 [facility]: [address] [facility] Normal Red Blood Count 5.34 10 4.30-6.10 10 [facility]: [address] [facility] Normal Hemoglobin 16.0 g/dL 13.5-17.5 g/dL [facility]: [address] [facility] Normal Hematocrit 48.0 % 42.0-52.0 % [facility]: [address] [facility] Normal Mean Corpuscular Volume 89.9 fL 80.0 -96.0 fL [facility]: 0 [facility] Normal Mean Corpuscular Hemoglobin 30.0 pg 27.0-33.0 pg [facility]: [address] [facility] Normal Mean Corpuscular HGB Conc 33.3 g/dL 32.0-36.5 g/dL [facility]: 0 [facility] Normal Red Cell Distribution Width 12.3 % 1 1.5-14.5 % [facility]: 0 [facility] Normal Platelet Count, Automated 207 10 150 -450 10 [facility]: 0 [facility] Normal Nucleated Red Blood Cell % 0.0 % 0- 0 % [facility]: [address] [facility] 07/01/2020 CMP, Serum or Plasma Normal Glucose, Fastin g 88 mg/dL 70-100 mg/dL [facility]: 83 0 [facility] High Blood Urea Nitrogen 19 mg/dL 7-18 mg /dL [facility]: [address] [place] [address] Normal Creatinine for GFR 1.03 mg/dL 0.70-1 .30 mg/dL [facility]: [address] [facility] Normal Sodium Level 141 mEq/L 136-145 mEq/L [facility]: 0 [facility] Normal Potassium Serum 3.7 mEq/L 3.5-5.1 mE q/L [facility]: 0 [facility] Normal Chloride Level 106 mEq/L 98-107 mEq/ L [facility]: 0 [facility] High Carbon Dioxide Level 33 mEq/L 21-32 mEq/L [facility]: 0 [facility] Low Anion Gap 2 mEq/L 8-16 mEq/L [facility]: [address] [facility] Normal Calcium Level 9.5 mg/dL 8.5-10.1 mg/ dL [facility]: [address] [facility] Normal AST/SGOT 8 U/L 7-37 U/L [facility]: [address] [facility] Normal ALT/SGPT 23 U/L 12-78 U/L [facility]: [address] [facility] Normal Alkaline Phosphatase 103 U/L 45-117 U/L [facility]: 8[address] [facility] Normal Bilirubin,total 0.6 mg/dL 0.2-1.0 mg /dL [facility]: [address] [facility] Normal Total Protein 7.3 gm/dL 6.4-8.2 gm/d L [facility]: [address] [facility] Normal Albumin 4.5 gm/dL 3.2-5.2 gm/dL Mer[facility]: [address] [facility] Normal Albumin/globulin Ratio 1.6 [facility]: [address] [facility] 07/01/2020 Troponin I, Blood Normal Troponin I < 0.02 NG/mL < 0.10 NG/mL [facility]: [address] [facility] 07/01/2020 Troponin I, Blood Normal Troponin I < 0.02 NG/mL < 0.10 NG/mL [facility]: 8[address] [facility] 06/18/2020 Influenza A/B RSV Covid Amp Normal Influenza a Amplification negative negative [facility] nter: 8[address] [facility] Normal Influenza B Amplification negative n egative [facility]: [address] [facility] Normal RSV Amplification negative negative [facility]: [address] [facility] Normal Sars Covid-19 Amplification negative negative [facility]: 8[address] [facility] 05/20/2020 CBC W/ Auto Diff Normal White Blood Count 5.3 10 4.0-10.0 10 [facility]: 8[address] [facility] Normal Red Blood Count 5.84 10 4.30-6.10 10 [facility]: 8[address] [facility] Normal Hemoglobin 17.3 g/dL 13.5-17.5 g/dL [facility]: [address] [place] [address] Normal Hematocrit 51.4 % 42.0-52.0 % [facility]: [address] [place] [address] Normal Mean Corpuscular Volume 88.0 fL 80.0 -96.0 fL [facility]: [address] [place] [address] Normal Mean Corpuscular Hemoglobin 29.6 pg 27.0-33.0 pg [facility]: [address] [place] [address] Normal Mean Corpuscular HGB Conc 33.7 g/dL 32.0-36.5 g/dL [facility]: [address] [place] [address] Normal Red Cell Distribution Width 12.7 % 1 1.5-14.5 % [facility]: [address] [place] [address] Normal Platelet Count, Automated 227 10 150 -450 10 [facility]: 0 [facility] Normal Neutrophils % 52.9 % 36.0-66.0 % Fin [facility]: 0 [facility] Normal Lymph % 35.5 % 24.0-44.0 % [facility]: [address] [facility] High [facility] % 5.9 % 0.0-5.0 % [facility]: 0 [facility] High Eos % 4.9 % 0.0-3.0 % [facility]: 0 [facility] Normal Baso % 0.6 % 0.0-1.0 % [facility]: [address] [place] [address] Normal Immature Granulocyte % 0.2 % 0-3.0 % [facility]: [address] [place] [address] Normal Nucleated Red Blood Cell % 0.0 % 0- 0 % [facility]: [address] [place] [address] Normal Neutrophils # 2.8 10 1.5-8.5 10 [facility]: [address] [facility] Normal Lymph # 1.9 10 1.5-5.0 10 [facility]: [address] [facility] Normal [facility] # 0.3 10 0.0-0.8 10 [facility]: [address] [facility] Normal Eos # 0.3 10 0.0-0.5 10 [facility]: [address] [facility] Normal Baso # 0.0 10 0.0-0.2 10 [facility]: [address] [facility] 05/20/2020 Hepatic Function Panel, Serum Normal AST/SG OT 19 U/L 7-37 U/L [facility]: 8[address] [facility] Normal ALT/SGPT 40 U/L 12-78 U/L [facility]: [address] [facility] Normal Alkaline Phosphatase 109 U/L 45-117 U/L [facility]: 8[address] [facility] Normal Bilirubin,total 0.6 mg/dL 0.2-1.0 mg /dL [facility]: 0 [facility] Normal Bilirubin,direct 0.2 mg/dL 0.0-0.2 m g/dL [facility]: 0 [facility] Normal Total Protein 7.5 gm/dL 6.4-8.2 gm/d L [facility]: [address] [facility] Normal Albumin 4.5 gm/dL 3.2-5.2 gm/dL [facility]: [address] [facility] Normal Albumin/globulin Ratio 1.5 [facility]: 0 [facility] 05/20/2020 BMP, Serum or Plasma Normal Glucose, Fastin g 90 mg/dL 70-100 mg/dL [facility]: 83 0 [facility] Normal Blood Urea Nitrogen 15 mg/dL 7-18 mg /dL [facility]: 0 [facility] Normal Creatinine for GFR 0.84 mg/dL 0.70-1 .30 mg/dL Final [facility]: [address] [place] [address] Normal Sodium Level 139 mEq/L 136-145 mEq/L Final [facility]: [address] [place] [address] Normal Potassium Serum 4.3 mEq/L 3.5-5.1 mE q/L Final [facility]: [address] [place] [address] Normal Chloride Level 105 mEq/L 98-107 mEq/ L Final [facility]: [address] [place] [address] Normal Carbon Dioxide Level 28 mEq/L 21-32 mEq/L Final [facility]: [address] [place] [address] Low Anion Gap 6 mEq/L 8-16 mEq/L [facility]: [address] [place] [address] Normal Calcium Level 9.8 mg/dL 8.5-10.1 mg/ dL [facility]: [address] [place] [address] 05/20/2020 SARS CoV 2 RNA, QL, Nasopharynx NASOPHARYNX No observation recorded. [facility]: [address] [place] [address] Past Encounters 04/16/2021 Exposure to SARS-CoV-2 Josué Bee MD: [address] [place] [phone], Ph. 04/01/2021 Hyperlipidemia Screening; Vitamin D Deficiency; Endocrine/metabolic Screening Josué Bee MD: [address] [place] [address], Ph. 03/13/2021 Adult Health Examination; Nicotine Dependence with Current Use; Body Mass Index 30+ - Obesity; Gastroesophageal Reflux Disease; Hyperlipidemia Screening; Endocrine/metabolic Screening; Vitamin D Deficiency Debra Morin MD: [address] [place] [address], Ph. 09/16/2020 Venereal Disease Screening Debra Morin MD: [address] [facility], [facility] [address] [address], Ph. 09/02/2020 Moderate Recurrent Major Depression; Venereal Disease Screening; Hospital Inpatient Stay within past 30 Days Debra Morin MD: [address] [facility], [address], [place] [address], Ph. 08/19/2020 Removal of Suture BOWEN VelazquezC: [address] [place] [address], Ph. 08/12/2020 Open Wound of Hand BOWEN VelazquezC: [address] [place] [address], Ph. 06/06/2020 Attention Deficit Hyperactivity Disorder, Combined Type; Medication Monitoring [place] Velazquez: [address] [place] [address], Ph. 04/25/2020 Administration of Influenza Vaccine BOWEN VelazquezC: [address] [place] [address], Ph. Social History Tobacco Smoking Status Current Every Day Smoker Vaccine List Vaccine Type HPV, quadrivalent 04/24/20130.5 mL 07/03/20130.5 mL 10/25/20130.5 mL influenza, injectable, quadrivalent, pre servative free 04/25/20200.5 mL influenza, seasonal, injectable 06/30/20120.5 mL 04/23/20150.5 mL [...] Surgeries None recorded. Imaging None recorded. Vitals 03/13/2021 02:20PM ANNUAL EXAM Height Weight BMI [...]
--- OUTSIDE RECORDS SUMMARY | 2021-04-29 21:17 | CCD ---
Author Author Ray Jenkins Organization Unknown Address [address] [address] Phone Care Team Providers Care Lead Software Qa Engineer Name Role Phone Carol Jenkins PCP Allergies, Adverse Reactions, Alerts Concept Allergy Name Reaction Severity Onset Date Status Documentation Date Phone Number Npid Taxonomy Code Taxonomy Desc Author Last Name Author Rodolfo rst Name Concept Type [id number] kiwi Unknown Active 03/05/2020 [id number] [phone] [id number] Nurse Practitioner Marck Mcclellan FDDC Problem List Concept Problem Description Status Start Date Created Date Resolv ed Date Snomed Code F31.81 Bipolar II Disorder Active 04/01/2021 F90.2 Attention-Deficit/Hyperactivity Disorder, Combined pre sentation Active 04/01/2021 Medications Rx Norm Medication Route Route Concept Start Date Stop Date Dosage Amilcar quency Duration Formula Strength Dosage Form Dosage Form Code Dosage Description Medication Id Account Npid Author First Name Author Last Name Taxonomy Code Taxonomy Desc Phone Number [id number] prazosin by mouth [id number] 01/16/2021 05/02/2021 at bedtime 30 1 mg capsule [id number] [phone] Nimisha Stephenson [id number] Nurse Amish christy [phone] [id number] prazosin by mouth [id number] 03/03/2021 05/02/2021 at bedtime 30 2 mg capsule [id number] Nimisha Sachin [id number] Nurse Amish christy [phone] Social History Social History Element Description Concept Effective Date Smoking Status Unknown if ever smoked [id number] Immunizations No Data in Section Vital Signs No Data in Section Procedures Date Concept Id Description Targeted Site Concept Targeted Site Concept Type 04/01/2021 31371 Extended Individual Psychotherapy - 45 min CPT Patient has no history of implantable de vices Encounters Encounter Start Date End Date Encounter Type Description Diagnosis Di agnosis Desc Location Author First Name Author Last Name Npid Taxonomy Cod e Taxonomy Desc Phone Number Location Addr1 Location Addr2 Location [facility] Location Sta te Location Zip [id number] 04/01/2021 04/01/2021 [id number] Extended Individual Psych otherapy - 45 min F31.81 Bipolar II disorder [facility] Alice Medina [phone] [id number] Mental Health [phone] [address] [address] Plan of Treatment No Data in Section Lab Results No Data in Section Instructions No Data in Section Insurance Providers Insurance Id Policy Effective Date Policy Thru Date Company N [employer] [id number] [facility] [id number] 2018 MEDICAID
--- OUTSIDE RECORDS SUMMARY | 2021-04-29 21:17 | CCD ---
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 ical Center: [address] [facility] Normal GC DNA Amplification negative negati ve [facility]: [address] [facility] 09/16/2020 Hepatitis C Ab, Serum Blood venous Normal Hepatitis C Virus Anu Index < 0.0 index <0.8 index [facility] Center: [address] [facility] 09/16/2020 Syphilis Normal Syphilis nonreactive nonreacti ve [facility]: [address] [facility] 09/16/2020 HIV 1+2 AB + HIV 1 P24 Ag, Qualitative Immunoassay, Serum Normal HIV 1&2 Screen Centaur negative negative [facility] Center: [address] [facility] 07/02/2020 Troponin I, Blood Normal Troponin I < 0.02 NG/mL < 0.10 NG/mL [facility]: [address] [facility] 07/01/2020 Glucose, Fingerstick, Blood Normal Bedside Glucose 93 mg/dL 70- 105 mg/dL [facility]: [address] 0 [facility] 07/01/2020 Cbc Normal White Blood Count 6.9 10 4.0-10. 0 10 [facility]: [address] [facility] Normal Red Blood Count 5.34 10 4.30-6.10 10 [facility]: [address] [facility] Normal Hemoglobin 16.0 g/dL 13.5-17.5 g/dL [facility]: [address] [facility] Normal Hematocrit 48.0 % 42.0-52.0 % [facility]: [address] [facility] Normal Mean Corpuscular Volume 89.9 fL 80.0 -96.0 fL [facility]: [address] [facility] Normal Mean Corpuscular Hemoglobin 30.0 pg 27.0-33.0 pg [facility]: [address] [facility] Normal Mean Corpuscular HGB Conc 33.3 g/dL 32.0-36.5 g/dL [facility]: [address] [facility] Normal Red Cell Distribution Width 12.3 % 1 1.5-14.5 % [facility]: [address] [facility] Normal Platelet Count, Automated 207 10 150 -450 10 [facility]: 0 [facility] Normal Nucleated Red Blood Cell % 0.0 % 0- 0 % [facility]: 0 [facility] 07/01/2020 CMP, Serum or Plasma Normal Glucose, Fastin g 88 mg/dL 70-100 mg/dL [facility]: [address] [facility] High Blood Urea Nitrogen 19 mg/dL 7-18 mg /dL [facility]: 0 [facility] Normal Creatinine for GFR 1.03 mg/dL 0.70-1 .30 mg/dL [facility]: 0 [facility] Normal Sodium Level 141 mEq/L 136-145 mEq/L [facility]: 0 [facility] Normal Potassium Serum 3.7 mEq/L 3.5-5.1 mE q/L [facility]: [address] [facility] Normal Chloride Level 106 mEq/L 98-107 mEq/ L [facility]: 0 [facility] High Carbon Dioxide Level 33 mEq/L 21-32 mEq/L [facility]: 0 [facility] Low Anion Gap 2 mEq/L 8-16 mEq/L [facility]: 0 [facility] Normal Calcium Level 9.5 mg/dL 8.5-10.1 mg/ dL [facility]: 0 [facility] Normal AST/SGOT 8 U/L 7-37 U/L [facility]: [address] [facility] Normal ALT/SGPT 23 U/L 12-78 U/L [facility]: [address] [facility] Normal Alkaline Phosphatase 103 U/L 45-117 U/L [facility]: [address] [facility] Normal Bilirubin,total 0.6 mg/dL 0.2-1.0 mg /dL [facility]: [address] [facility] Normal Total Protein 7.3 gm/dL 6.4-8.2 gm/d L [facility]: [address] [facility] Normal Albumin 4.5 gm/dL 3.2-5.2 gm/dL Meri l [facility]: [address] [facility] Normal Albumin/globulin Ratio 1.6 [facility]: [address] [facility] 07/01/2020 Troponin I, Blood Normal Troponin I < 0.02 NG/mL < 0.10 NG/mL [facility]: [address] [facility] 07/01/2020 Troponin I, Blood Normal Troponin I < 0.02 NG/mL < 0.10 NG/mL [facility]: [address] [facility] 06/18/2020 Influenza A/B RSV Covid Amp Normal Influenza a Amplification negative negative [facility] nter: [address] [facility] Normal Influenza B Amplification negative n egative [facility]: [address] [facility] Normal RSV Amplification negative negative [facility]: [address] [facility] Normal Sars Covid-19 Amplification negative negative [facility]: [address] [facility] 05/20/2020 CBC W/ Auto Diff Normal White Blood Count 5.3 10 4.0-10.0 10 [facility]: [address] [facility] Normal Red Blood Count 5.84 10 4.30-6.10 10 [facility]: [address] [facility] Normal Hemoglobin 17.3 g/dL 13.5-17.5 g/dL Final [facility]: [address] [facility] Normal Hematocrit 51.4 % 42.0-52.0 % [facility]: [address] [place] [address] Normal Mean Corpuscular Volume 88.0 fL 80.0 -96.0 fL [facility]: [address] [place] [address] Normal Mean Corpuscular Hemoglobin 29.6 pg 27.0-33.0 pg Final [facility]: [address] [facility] Normal Mean Corpuscular HGB Conc 33.7 g/dL 32.0-36.5 g/dL Final [facility]: [address] [place] [address] Normal Red Cell Distribution Width 12.7 % 1 1.5-14.5 % [facility]: [address] [place] [address] Normal Platelet Count, Automated 227 10 150 -450 10 [facility]: 0 [facility] Normal Neutrophils % 52.9 % 36.0-66.0 % [facility]: [address] [facility] Normal Lymph % 35.5 % 24.0-44.0 % [facility]: [address] [facility] High [place] % 5.9 % 0.0-5.0 % [facility]: 0 [facility] High Eos % 4.9 % 0.0-3.0 % [facility]: 0 [facility] Normal Baso % 0.6 % 0.0-1.0 % [facility]: [address] [facility] Normal Immature Granulocyte % 0.2 % 0-3.0 % [facility]: [address] [place] [address] Normal Nucleated Red Blood Cell % 0.0 % 0- 0 % [facility]: 0 [facility] Normal Neutrophils # 2.8 10 1.5-8.5 10 [facility]: [address] [facility] Normal Lymph # 1.9 10 1.5-5.[address] [facility]: [address] [facility] Normal [place] # 0.3 10 0.0-0.8 10 [facility]: [address] [facility] Normal Eos # 0.3 10 0.0-0.5 10 [facility]: [address] [facility] Normal Baso # 0.0 10 0.0-0.2 10 [facility]: [address] [facility] 05/20/2020 Hepatic Function Panel, Serum Normal AST/SG OT 19 U/L 7-37 U/L [facility]: [address] [facility] Normal ALT/SGPT 40 U/L 12-78 U/L [facility]: [address] [facility] Normal Alkaline Phosphatase 109 U/L 45-117 U/L [facility]: [address] [facility] Normal Bilirubin,total 0.6 mg/dL 0.2-1.0 mg /dL [facility]: [address] [facility] Normal Bilirubin,direct 0.2 mg/dL 0.0-0.2 m g/dL [facility]: [address] [facility] Normal Total Protein 7.5 gm/dL 6.4-8.2 gm/d L [facility]: [address] [facility] Normal Albumin 4.5 gm/dL 3.2-5.2 gm/dL Meri l [facility]: [address] [facility] Normal Albumin/globulin Ratio 1.5 [facility]: [address] [facility] 05/20/2020 BMP, Serum or Plasma Normal Glucose, Fastin g 90 mg/dL 70-100 mg/dL [facility]: [address] 0 [facility] Normal Blood Urea Nitrogen 15 mg/dL 7-18 mg /dL [facility]: 0 [facility] Normal Creatinine for GFR 0.84 mg/dL 0.70-1 .30 mg/dL [facility]: [address] [facility] Normal Sodium Level 139 mEq/L 136-145 mEq/L [facility]: [address] [facility] Normal Potassium Serum 4.3 mEq/L 3.5-5.1 mE q/L [facility]: [address] [place] [address] Normal Chloride Level 105 mEq/L 98-107 mEq/ L [facility]: [address] [place] [address] Normal Carbon Dioxide Level 28 mEq/L 21-32 mEq/L [facility]: [address] [place] [address] Low Anion Gap 6 mEq/L 8-16 mEq/L [facility]: [address] [place] [address] Normal Calcium Level 9.8 mg/dL 8.5-10.1 mg/ dL [facility]: [address] [place] [address] 05/20/2020 SARS CoV 2 RNA, QL, Nasopharynx NASOPHARYNX No observation recorded. [facility]: [address] [place] [address] Past Encounters 03/13/2021 Adult Health Examination; Nicotine Dependence with Current Use; Body Mass Index 30+ - Obesity; Gastroesophageal Reflux Disease; Hyperlipidemia Screening; Endocrine/metabolic Screening; Vitamin D Deficiency Debra Morin MD: [address] [place] [address], Ph. 09/16/2020 Venereal Disease Screening Debra Morin MD: [address] [facility] [address] [address], Ph. 09/02/2020 Moderate Recurrent Major Depression; Venereal Disease Screening; Hospital Inpatient Stay within past 30 Days Debra Morin MD: [address] [facility] [address], [place] [address], Ph. 08/19/2020 Removal of Suture BOWEN VelazquezC: [address] [place] [address], Ph. 08/12/2020 Open Wound of Hand BOWEN VelazquezC: [address] [place] [address], Ph. 06/06/2020 Attention Deficit Hyperactivity Disorder, Combined Type; Medication Monitoring Dianna ArmendarizAGUSTIN-C: [address] [place] [address], Ph. 04/25/2020 Administration of Influenza Vaccine Dianna ArmendarizAGUSTIN-C: [address] [place] [address], Ph. Social History Tobacco Smoking Status Current [...]
--- OUTSIDE RECORDS SUMMARY | 2021-04-29 21:17 | CCD ---
Author Author Rya Panchal Organization [facility] Address Unknown Phone Unavailable Care Team Providers Care Vice President Pharmacy Name Role Phone Norah Panchal PCP Unavailable Allergies, Adverse Reactions, Alerts Allergy Substance Code C odeSystem Reaction Severity Critic ality Status Start Date Moderate Medications Medication Medication Code Medication CodeSystem Start Date Stop Date Route Dose Status Fill Instructions RxNorm Problems Problem Name Code CodeSy stem Alternate Code Alternate CodeSystem Start Date End Date Status Narrative Recurrent depressive disorder, current episode mild 565125734 SNOMED-CT 2020-09-09 Active Relevant diagnostic tests/laboratory data Narrative No Information Procedures Procedure Name Code Code System Target Site Date of Procedure Status Service Delivery Location Device Cod e Device Name Device UID SNOMED-CT () 2020-10-18 completed [facility] [address] [place], [place], [id number] SNOMED-CT () 2020-11-18 completed [facility] [address] [place], [place], [id number] SNOMED-CT () 2020-12-18 completed [facility] [address] [place], [place], [id number] SNOMED-CT () 2021-01-18 completed [facility] [address] [place], [place], [id number] SNOMED-CT () 2021-02-18 completed [facility] [address] [place], [place], [id number] SNOMED-CT () 2021-03-20 completed [facility] [address] [place], [id number] [id number] SNOMED-CT () 2020-10-18 completed [facility] [address] [place], [id number] SNOMED-CT () 2020-11-18 completed [facility] [address] [place], [id number] SNOMED-CT () 2020-12-18 completed [facility] [address] [place], [id number] SNOMED-CT () 2021-01-18 completed [facility] [address] [place], [place], [id number] SNOMED-CT () 2021-02-18 completed [facility] [address] [place], [place], [id number] SNOMED-CT () 2021-03-20 completed [facility] [address] [place], [place], [address] [id number] SNOMED-CT () 2020-08-18 completed [facility] [address] [place], [place], [address] [id number] SNOMED-CT () 2020-09-18 completed [facility] [address] [place], [place], [id number] Encounters/Encounter Diagnoses Encounter Name Encounter Code Diagnosis Code Diagnosis Name Diagnosis CodeSystem Date of Diagnosis Service Delivery L ocation non-billable [id number] Recurrent depressive disorder, current episode mild SNOMED- CT 2021-03-23 [facility] , , , Vital Signs No Information Social History Element Description Description Start Date End Date Code CodeSystem AdditionalInfo SexAssignedAtBirth Male 2000 M AdministrativeGender Hospital Discharge Instructions * Reason For Referral Medical Equipment * FDA Assessments * Goals Section Goals Planned DateTime I want to be independent with my medications. 2020-10-06 I will make a conscious effort to be chris re of my personal hygiene and take care myself as needed. 2020-10-06 I will keep better track of my appointme nts so that I don't have to rely on staff. 2020-10-06 I will learn how to independently schedu le my own transportation for my appointments. 2020-10-06 AT: I want to be more assertive. 06-25-16 SM: I will utilize new coping skills. 2021-03-03 RC: I will set goals to allow me to be more successful . 2021-03-03
--- OUTSIDE RECORDS SUMMARY | 2021-04-29 21:17 | CCD ---
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: [address] [facility] Blood venous Low HDL Cholesterol 38 mg/dL >45 mg/dL Final [facility]: [address] [facility] Blood venous Normal Triglycerides 74 mg/dL <90 mg /dL Final [facility]: [address] [facility] Blood venous Normal LDL-cholesterol 99 mg/dL (calc) <110 mg/dL (calc) Final [facility] Normal Chol/hdlc Ratio 4.0 (calc) <5 .0 (calc) Final [facility]: [address] [facility] Blood venous Normal Non HDL Cholesterol 115 mg/dL (calc) <120 mg/dL (calc) Final [facility]: [address] [facility] 04/01/2021 CMP, Serum or Plasma Blood venous Normal Glucose 98 mg/dL 65-99 mg/dL Final [facility]: [address] [facility] Blood venous Normal Urea Nitrogen (BUN) 19 mg/dL 7-20 mg/dL Final [facility]: [address] [facility] Blood venous Normal Creatinine 0.90 mg/dL 0.60-1. 26 mg/dL Final [facility]: [address] [facility] Blood venous Normal eGFR Non-afr. Lithuanian 1 23 mL/min/1.73m2 > or = 60 mL/min/1.73m2 Final [facility]: [address] [facility] Blood venous Normal eGFR 14 3 mL/min/1.73m2 > or = 60 mL/min/1.73m2 Final [facility]: [address] [facility] Blood venous BUN/creatinine Ratio not applicable (calc) 6-22 (calc) Final [facility] [place]: [address] , [place] Blood venous Normal Sodium 142 mmol/L 135-146 mmo l/L [facility]: [address] [facility] Blood venous Normal Potassium 4.6 mmol/L 3.8-5.1 mmol/L [facility]: [address] [facility] Blood venous Normal Chloride 107 mmol/L 98-110 mm ol/L [facility]: [address] [facility] Blood venous Normal Carbon Dioxide 28 mmol/L 20-3 2 mmol/L [facility]: [address] [facility] Blood venous Normal Calcium 9.9 mg/dL 8.9-10.4 mg /dL [facility]: [address] [facility] Blood venous Normal Protein, Total 7.1 g/dL 6.3-8 .2 g/dL [facility]: [address] [facility] Blood venous Normal Albumin 4.7 g/dL 3.6-5.1 g/dL [facility]: [address] [facility] Blood venous Normal Globulin 2.4 g/dL (calc) 2.1- 3.5 g/dL (calc) [facility]: [address] [facility] Blood venous Normal Albumin/globulin Ratio 2 .0 (calc) 1.0-2.5 (calc) [facility] Blood venous Normal Bilirubin, Total 0.4 mg/dL 0. 2-1.1 mg/dL [facility]: [address] [facility] Blood venous Normal Alkaline Phosphatase 86 U/L 4 6-169 U/L [facility]: [address] [facility] Blood venous Normal Ast 17 U/L 12-32 U/L [facility]: [address] [facility] Blood venous Normal Alt 35 U/L 8-46 U/L Final [facility]: [address] [facility] 04/01/2021 Tsh Blood venous Normal Tsh 3.05 mIU/L 0.50-4.30 mIU/L [facility]: [address] [facility] 04/01/2021 Vitamin D, 25-Hydroxy, Total, Serum Blood venous Low Vitamin D,25-Oh,total,ia 19 NG/mL 30-100 NG/mL Final [facility]: [address] [facility] 04/01/2021 HbA1C (Hemoglobin a1C), Blood Blood venous Normal Hemoglobin a1C 5.0 % of total HGB <5.7 % of total HGB Final [facility]: [address] [facility] 09/16/2020 CT + NG DNA, Qual, PCR, Unspecified Specimen No rmal Chlamydia DNA Amplification negative negative Final [facility] ical Center: [address] [facility] Normal GC DNA Amplification negative negati ve [facility]: [address] [facility] 09/16/2020 Hepatitis C Ab, Serum Blood venous Normal Hepatitis C Virus Anu Index < 0.0 index <0.8 index [facility] Center: 0 [facility] 09/16/2020 Syphilis Normal Syphilis nonreactive nonreacti ve [facility]: [address] [facility] 09/16/2020 HIV 1+2 AB + HIV 1 P24 Ag, Qualitative Immunoassay, Serum Normal HIV 1&2 Screen Centaur negative negative [facility]: [address] [facility] 07/02/2020 Troponin I, Blood Normal Troponin I < 0.02 NG/mL < 0.10 NG/mL [facility]: [address] [facility] 07/01/2020 Glucose, Fingerstick, Blood Normal Bedside Glucose 93 mg/dL 70- 105 mg/dL [facility]: 83 0 [facility] 07/01/2020 Cbc Normal White Blood Count 6.9 10 4.0-10. 0 10 [facility]: [address] [facility] Normal Red Blood Count 5.34 10 4.30-6.10 10 [facility]: 8[address] [facility] Normal Hemoglobin 16.0 g/dL 13.5-17.5 g/dL [facility]: [address] [facility] Normal Hematocrit 48.0 % 42.0-52.0 % [facility]: [address] [facility] Normal Mean Corpuscular Volume 89.9 fL 80.0 -96.0 fL [facility]: [address] [facility] Normal Mean Corpuscular Hemoglobin 30.0 pg 27.0-33.0 pg [facility]: [address] [facility] Normal Mean Corpuscular HGB Conc 33.3 g/dL 32.0-36.5 g/dL [facility]: [address] [facility] Normal Red Cell Distribution Width 12.3 % 1 1.5-14.5 % [facility]: [address] [facility] Normal Platelet Count, Automated 207 10 150 -450 10 [facility]: [address] [facility] Normal Nucleated Red Blood Cell % 0.0 % 0- 0 % [facility]: [address] [facility] 07/01/2020 CMP, Serum or Plasma Normal Glucose, Fastin g 88 mg/dL 70-100 mg/dL [facility]: 83 0 [facility] High Blood Urea Nitrogen 19 mg/dL 7-18 mg /dL [facility]: 0 [facility] Normal Creatinine for GFR 1.03 mg/dL 0.70-1 .30 mg/dL [facility]: [address] [facility] Normal Sodium Level 141 mEq/L 136-145 mEq/L [facility]: 0 [facility] Normal Potassium Serum 3.7 mEq/L 3.5-5.1 mE q/L [facility]: [address] [facility] Normal Chloride Level 106 mEq/L 98-107 mEq/ L [facility]: 0 [facility] High Carbon Dioxide Level 33 mEq/L 21-32 mEq/L [facility]: 0 [facility] Low Anion Gap 2 mEq/L 8-16 mEq/L [facility]: [address] [facility] Normal Calcium Level 9.5 mg/dL 8.5-10.1 mg/ dL [facility]: [address] [facility] Normal AST/SGOT 8 U/L 7-37 U/L [facility]: [address] [facility] Normal ALT/SGPT 23 U/L 12-78 U/L [facility]: [address] [facility] Normal Alkaline Phosphatase 103 U/L 45-117 U/L [facility]: [address] [facility] Normal Bilirubin,total 0.6 mg/dL 0.2-1.0 mg /dL [facility]: [address] [facility] Normal Total Protein 7.3 gm/dL 6.4-8.2 gm/d L [facility]: [address] [facility] Normal Albumin 4.5 gm/dL 3.2-5.2 gm/dL [facility]: [address] [facility] Normal Albumin/globulin Ratio 1.6 [facility]: [address] [facility] 07/01/2020 Troponin I, Blood Normal Troponin I < 0.02 NG/mL < 0.10 NG/mL [facility]: [address] [facility] 07/01/2020 Troponin I, Blood Normal Troponin I < 0.02 NG/mL < 0.10 NG/mL [facility]: [address] [facility] 06/18/2020 Influenza A/B RSV Covid Amp Normal Influenza a Amplification negative negative [facility] nter: [address] [facility] Normal Influenza B Amplification negative n egative [facility]: [address] [facility] Normal RSV Amplification negative negative [facility]: [address] [facility] Normal Sars Covid-19 Amplification negative negative [facility]: [address] [facility] 05/20/2020 CBC W/ Auto Diff Normal White Blood Count 5.3 10 4.0-10.0 10 [facility]: [address] [facility] Normal Red Blood Count 5.84 10 4.30-6.10 10 [facility]: [address] [facility] Normal Hemoglobin 17.3 g/dL 13.5-17.5 g/dL [facility]: [address] [facility] Normal Hematocrit 51.4 % 42.0-52.0 % [facility]: [address] [place] [address] Normal Mean Corpuscular Volume 88.0 fL 80.0 -96.0 fL [facility]: [address] [place] [address] Normal Mean Corpuscular Hemoglobin 29.6 pg 27.0-33.0 pg Final [facility]: [address] [facility] Normal Mean Corpuscular HGB Conc 33.7 g/dL 32.0-36.5 g/dL Final [facility]: [address] [place] [address] Normal Red Cell Distribution Width 12.7 % 1 1.5-14.5 % [facility]: [address] [place] [address] Normal Platelet Count, Automated 227 10 150 -450 10 [facility]: 0 [facility] Normal Neutrophils % 52.9 % 36.0-66.0 % [facility]: [address] [facility] Normal Lymph % 35.5 % 24.0-44.0 % [facility]: [address] [facility] High [place] % 5.9 % 0.0-5.0 % Final [facility]: 0 [facility] High Eos % 4.9 % 0.0-3.0 % [facility]: [address] [facility] Normal Baso % 0.6 % 0.0-1.0 % [facility]: 0 [facility] Normal Immature Granulocyte % 0.2 % 0-3.0 % [facility]: 0 [facility] Normal Nucleated Red Blood Cell % 0.0 % 0- 0 % [facility]: 0 [facility] Normal Neutrophils # 2.8 10 1.5-8.5 10 [facility]: [address] [facility] Normal Lymph # 1.9 10 1.5-5.0 10 [facility]: [address] [facility] Normal [place] # 0.3 10 0.0-0.8 10 [facility]: [address] [facility] Normal Eos # 0.3 10 0.0-0.[address] [facility] [place]: [address] [facility] Normal Baso # 0.0 10 0.0-0.2 10 [facility]: 8[address] [facility] 05/20/2020 Hepatic Function Panel, Serum Normal AST/SG OT 19 U/L 7-37 U/L [facility]: 8[address] [facility] Normal ALT/SGPT 40 U/L 12-78 U/L [facility]: 8[address] [facility] Normal Alkaline Phosphatase 109 U/L 45-117 U/L [facility]: 8[address] [facility] Normal Bilirubin,total 0.6 mg/dL 0.2-1.0 mg /dL [facility]: [address] [facility] Normal Bilirubin,direct 0.2 mg/dL 0.0-0.2 m g/dL [facility]: [address] [facility] Normal Total Protein 7.5 gm/dL 6.4-8.2 gm/d L [facility]: [address] [facility] Normal Albumin 4.5 gm/dL 3.2-5.2 gm/dL [facility]: [address] [facility] Normal Albumin/globulin Ratio 1.5 [facility]: [address] [facility] 05/20/2020 BMP, Serum or Plasma Normal Glucose, Fastin g 90 mg/dL 70-100 mg/dL [facility]: 83 0 [facility] Normal Blood Urea Nitrogen 15 mg/dL 7-18 mg /dL [facility]: 0 [facility] Normal Creatinine for GFR 0.84 mg/dL 0.70-1 .30 mg/dL [facility]: [address] [facility] Normal Sodium Level 139 mEq/L 136-145 mEq/L [facility]: [address] [place] [address] Normal Potassium Serum 4.3 mEq/L 3.5-5.1 mE q/L Final [facility]: [address] [place] [address] Normal Chloride Level 105 mEq/L 98-107 mEq/ L [facility]: [address] [place] [address] Normal Carbon Dioxide Level 28 mEq/L 21-32 mEq/L [facility]: [address] [place] [address] Low Anion Gap 6 mEq/L 8-16 mEq/L [facility]: [address] [place] [address] Normal Calcium Level 9.8 mg/dL 8.5-10.1 mg/ dL [facility]: [address] [place] [address] 05/20/2020 SARS CoV 2 RNA, QL, Nasopharynx NASOPHARYNX No observation recorded. [facility]: [address] [place] [address] Past Encounters 04/01/2021 Hyperlipidemia Screening; Vitamin D Deficiency; Endocrine/metabolic Screening Josué Bee MD: [address] [place] [address], Ph. 03/13/2021 Adult Health Examination; Nicotine Dependence with Current Use; Body Mass Index 30+ - Obesity; Gastroesophageal Reflux Disease; Hyperlipidemia Screening; Endocrine/metabolic Screening; Vitamin D Deficiency Debra Morin MD: [address] [place] [phone], Ph. 09/16/2020 Venereal Disease Screening Debra Morin MD: [address] [place] [address] [address] [address], Ph. 09/02/2020 Moderate Recurrent Major Depression; Venereal Disease Screening; Hospital Inpatient Stay within past 30 Days Debra Morin MD: [address] [facility] [address] [address], Ph. 08/19/2020 Removal of Suture AGUSTIN Velazquez-C: [address] [place] [address], Ph. 08/12/2020 Open Wound of Hand AGUSTIN Velazquez-C: [address] [place] [address], Ph. 06/06/2020 Attention Deficit Hyperactivity Disorder, Combined Type; Medication Monitoring AGUSTIN Velazquez-C: [address] [place] [address], Ph. 04/25/2020 Administration of Influenza Vaccine AGUSTIN Velazquez-C: [address] [place] [address], Ph. Social History Tobacco Smoking Status Current [...]
--- OUTSIDE RECORDS SUMMARY | 2021-04-29 21:17 | CCD ---
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 Name Role Phone Eleuterio Acharya PCP Allergies, Adverse Reactions, Alerts Concept Allergy Name Reaction Severity Onset Date Status Documentation Date Phone Number Npid Taxonomy Code Taxonomy Desc Author Last Name Author Fi rst Name Concept Type [id number] kiwi Unknown Active 03/05/2020 [id number] [phone] [id number] Nurse Practitioner Marck Mcclellan FDDC Problem List Concept Problem Description Status Start Date Created Date Resolv ed Date Snomed Code F31.81 Bipolar II Disorder Active 03/12/2021 F90.2 Attention-Deficit/Hyperactivity Disorder, Combined pre sentation Active 03/12/2021 Medications Rx Norm Medication Route Route Concept Start Date Stop Date Dosage Amilcar quency Duration Formula Strength Dosage Form Dosage Form Code Dosage Description Medication Id Account Npid Author First Name Author Last Name Taxonomy Code Taxonomy Desc Phone Number [phone] Vraylar by mouth [id number] 01/16/2021 03/21/2021 at bedtime 30 6 mg capsule [id number] [phone] Eleuterio Acharya [id number] Nurse Pr actitioner [phone] [id number] trazodone by mouth [id number] 01/16/2021 03/21/2021 at bedtime 30 50 mg tablet as needed 66639 [id number] [id number] Eleuterio Acharya [id number] Nurse Practitioner [phone] [id number] prazosin by mouth [id number] 01/16/2021 05/02/2021 at bedtime 30 1 mg capsule [id number] Nimisha Stephenson [id number] Nurse P ractitioner [phone] [id number] prazosin by mouth [id number] 03/03/2021 05/02/2021 at bedtime 30 2 mg capsule 68315 [id number] [id number] Nimisha Stephenson [id number] Nurse P marviner [phone] Social History Social History Element Description Concept Effective Date Smoking Status Unknown if ever smoked [id number] Immunizations No Data in Section Vital Signs No Data in Section Procedures Date Concept Id Description Targeted Site Concept Targeted Site Concept Type 03/12/2021 [id number] [facility] Telemed E/M Lvl 3--Est pt CPT Patient has no history of implantable de vices Encounters Encounter Start Date End Date Encounter Type Description Diagnosis Di agnosis Desc Location Author First Name Author Last Name Npid Taxonomy Cod e Taxonomy Desc Phone Number Location Addr1 Location Addr2 Location City Location Sta te Location Zip [id number] 03/12/2021 03/12/2021 [id number] [facility] Telemed E/M Lvl 3--Est p t F31.81 Bipolar II disorder [facility] Eleuterio [phone] [id number] Nurse Practitioner [phone] [address] [address] Plan of Treatment No Data in Section Lab Results No Data in Section Instructions No Data in Section Functional Cognitive Status No Data in Section Insurance Providers Insurance Id Policy Effective Date Policy Thru Date Company N [employer] [id number] [facility] [id number] 2018 MEDICAID
--- OUTSIDE RECORDS SUMMARY | 2021-04-29 21:17 | CCD ---
Author Author Ray Panchal Organization [facility] Address Unknown Phone Unavailable Care Team Providers Care Spike Driver Name Role Phone Norah Panchal PCP Unavailable Allergies, Adverse Reactions, Alerts Allergy Substance Code C odeSystem Reaction Severity Critic ality Status Start Date Moderate Medications Medication Medication Code Medication CodeSystem Start Date Stop Date Route Dose Status Fill Instructions RxNorm Problems Problem Name Code CodeSy stem Alternate Code Alternate CodeSystem Start Date End Date Status Narrative Recurrent depressive disorder, current episode mild [id number] SNOMED-CT 2020-09-09 Active Relevant diagnostic tests/laboratory data Narrative No Information Procedures Procedure Name Code Code System Target Site Date of Procedure Status Service Delivery Location Device Cod e Device Name Device UID SNOMED-CT () 2020-10-18 completed [facility] [address], [place], [id number] SNOMED-CT () 2020-11-18 completed [facility] [address], [id number] SNOMED-CT () 2020-12-18 completed [facility] [address], [id number] SNOMED-CT () 2021-01-18 completed [facility] [address], [place], [address] [id number] SNOMED-CT () 2021-02-18 completed [facility] [address], [id number] [id number] SNOMED-CT () 2020-10-18 completed [facility] [address], [address] [id number] SNOMED-CT () 2020-11-18 completed [facility] [address], [place], [address] [id number] SNOMED-CT () 2020-12-18 completed [facility] [address], [place], [address] [id number] SNOMED-CT () 2021-01-18 completed [facility] [address], [place], [address] [id number] SNOMED-CT () 2021-02-18 completed [facility] [address], [place], [address] [id number] SNOMED-CT () 2020-08-18 completed [facility] [address], [place], [address] [id number] SNOMED-CT () 2020-09-18 completed [facility] [address], [place], [address] [id number] Encounters/Encounter Diagnoses Encounter Name Encounter Code Diagnosis Code Diagnosis Name Diagnosis CodeSystem Date of Diagnosis Service Delivery L ocation non-billable [id number] [phone] Recurrent depressive disorder, current episode mild SNOMED- CT 2021-02-[facility] , , , Vital [...]
--- OUTSIDE RECORDS SUMMARY | 2021-04-29 21:19 | CCD ---
Author Author [facility] Organization [facility] Address Unknown Phone Unavailable Care Team Providers Care Administrative Executive Name Role Phone Tahira Bee MD Unavailable Unavailable Tahira Bee MD Unavailable Unavailable Tahira Bee MD Unavailable Unavailable Tahira Bee MD Unavailable Unavailable Tahira Bee MD Unavailable Unavailable Tahira Bee MD Unavailable Unavailable Tahira Bee MD Unavailable Unavailable Tahira Bee MD Unavailable Unavailable Tahira Bee MD Unavailable Unavailable Tahira Bee MD Unavailable Unavailable Tahira Bee MD Unavailable Unavailable Tahira Bee MD Unavailable Unavailable Tahira Bee MD Unavailable Unavailable Tahira Bee MD Unavailable Unavailable Tahira Bee MD Unavailable Unavailable Tahira Bee MD Unavailable Unavailable Tahira Bee MD Unavailable Unavailable Tahira Bee MD Unavailable Unavailable Tahira Bee MD Unavailable Unavailable Tahira Bee MD Unavailable Unavailable Tahira Bee MD Unavailable Unavailable Tahira Bee MD Unavailable Unavailable Tahira Bee MD Unavailable Unavailable Tahira Bee MD Unavailable Unavailable Tahira Bee MD Unavailable Unavailable Tahira Bee MD Unavailable Unavailable Tahira Bee MD Unavailable Unavailable Tahira Bee MD Unavailable Unavailable Tahira Bee MD Unavailable Unavailable Tahira Bee MD Unavailable Unavailable Tahira Bee MD Unavailable Unavailable Tahira Bee MD Unavailable Unavailable Tahira Bee MD Unavailable Unavailable Tahira Bee MD Unavailable Unavailable Tahira Bee MD Unavailable Unavailable Tahira Bee MD Unavailable Unavailable Tahira Bee MD Unavailable Unavailable Tahira Bee MD Unavailable Unavailable Tahira Bee MD Unavailable Unavailable Tahira Bee MD Unavailable Unavailable Tahira Bee MD Unavailable Unavailable Tahira Bee MD Unavailable Unavailable Tahira Bee MD Unavailable Unavailable Tahira Bee MD Unavailable Unavailable Tahira Bee MD Unavailable Unavailable Tahira Bee MD Unavailable Unavailable Tahira Bee MD Unavailable Unavailable Tahira Bee MD Unavailable Unavailable Tahira Bee MD Unavailable Unavailable Tahira Bee MD Unavailable Unavailable Tahira Bee MD Unavailable Unavailable Tahira Bee MD Unavailable Unavailable Tahira Bee MD Unavailable Unavailable Tahira Bee MD Unavailable Unavailable Tahira Bee MD Unavailable Unavailable Tahira Bee MD Unavailable Unavailable Tahira Bee MD Unavailable Unavailable Tahira Bee MD Unavailable Unavailable Tahira Bee MD Unavailable Unavailable Tahira Bee MD Unavailable Unavailable Tahira Bee MD Unavailable Unavailable Tahira Bee MD Unavailable Unavailable Tahira Bee MD Unavailable Unavailable Tahira Bee MD Unavailable Unavailable Tahira Bee MD Unavailable Unavailable Tahira Bee MD Unavailable Unavailable Tahira Bee MD Unavailable Unavailable Tahira Bee MD Unavailable Unavailable Tahira Bee MD Unavailable Unavailable Tahira Bee MD Unavailable Unavailable Tahira Bee MD Unavailable Unavailable Tahira Bee MD Unavailable Unavailable Tahira Bee MD Unavailable Unavailable Tahira Bee MD Unavailable Unavailable Tahira Bee MD Unavailable Unavailable Tahira Bee MD Unavailable Unavailable Tahira Bee MD Unavailable Unavailable Tahira Bee MD Unavailable Unavailable Tahira Bee MD Unavailable Unavailable Rohit, Tahira Moses MD Unavailable Unavailable Tahira Bee MD Unavailable Unavailable Tahira Bee MD Unavailable Unavailable Tahira Bee MD Unavailable Unavailable Tahira Bee MD Unavailable Unavailable Tahira Bee MD Unavailable Unavailable Rohit, Tahira Moses MD Unavailable Unavailable Rohit, Tahira Moses MD Unavailable Unavailable Rohit, Tahira Moses MD Unavailable Unavailable Rohit, Tahira Moses MD Unavailable Unavailable Rohit, Tahira Moses MD Unavailable Unavailable Tahira Bee MD Unavailable Unavailable Rohit, Tahira Moses MD Unavailable Unavailable Tahira Bee MD Unavailable Unavailable Acharya, R Eleuterio CLEAN UP PERSON Unavailable Unavailable Acharya, R Eleuterio CLEAN UP PERSON Unavailable Unavailable Acharya, R Eleuterio CLEAN UP PERSON Unavailable Unavailable Emperatriz, Mirian Unavailable Unavailable Emperatriz, Mirian Unavailable Unavailable Emperatriz, Mirian Unavailable Unavailable Emperatriz, Mirian Unavailable Unavailable Emperatriz, Mirian Unavailable Unavailable Emperatriz, Mirian Unavailable Unavailable Emperatriz, Mirian Unavailable Unavailable Emperatriz, Mirian Unavailable Unavailable Emperatriz, Mirian Unavailable Unavailable Emperatriz, Mirian Unavailable Unavailable Emperatriz, Mirian Unavailable Unavailable Emperatriz, Mirian Unavailable Unavailable Emperatriz, Mirian Unavailable Unavailable Emperatriz, Mirian Unavailable Unavailable Emperatriz, Mirian Unavailable Unavailable Emperatriz, Mirian Unavailable Unavailable Emperatriz, Mirian Unavailable Unavailable Emperatriz, Mirian Unavailable Unavailable Emperatriz, Mirian Unavailable Unavailable Emperatriz, Mirian Unavailable Unavailable Emperatriz, Mirian Unavailable Unavailable Emperatriz, Mirian Unavailable Unavailable Emperatriz, Mirian Unavailable Unavailable Emperatriz, Mirian Unavailable Unavailable Emperatriz, Mirian Unavailable Unavailable Emperatriz, Mirian Unavailable Unavailable Chantelle Hussein Unavailable Rosa Elena Gutierrez Unavailable Carol Chase Unavailable Unavailable Kyle Mistry PA-C Unavailable Kyle Mistry PA-C Unavailable Kyle Mistry PA-C Unavailable Kyle Mistry PA-C Unavailable Fede Kyle PA-C Unavailable Armendariz, [place] Dianna Unavailable Unavailable Armendariz, [place] Dianna Unavailable Unavailable Armendariz, [place] Dianna Unavailable Unavailable Armendariz, [place] Dianna Unavailable Unavailable Armendariz, [place] Dianna Unavailable Unavailable Armendariz, [place] Dianna Unavailable Unavailable Armendariz, [place] Dianna Unavailable Unavailable Armendariz, [place] Dianna Unavailable Unavailable Armendariz, [place] Dianna Unavailable Unavailable Armendariz, [place] Dianna Unavailable Unavailable Armendariz, [place] Dianna Unavailable Unavailable Armendariz, [place] Dianna Unavailable Unavailable Armendariz, [place] Dianna Unavailable Unavailable Re-disclosure Warning The records that [...] is protected by Article 27-F of the [facility] Public Health law. If you continue you may have access to information: Regarding HIV / AIDS; Provided by facilities licensed or operated by the [facility] Office of Mental Health; or Provided by the [facility] Office for People With Developmental Disabilities. If such information is present, then the following [facility] mandated warning applies: This information has [...] law may result in a fine or intermediate sentence or both. A general authorization for the release of medical or other information is NOT sufficient authorization for further disc losure. Allergies and Adverse Reactions Type Description Substance Reaction Status Data Source(s ) Propensity to adverse reactions to substance kiwi Aspirin / Caffeine Oral Powder Active [facility] ([facility] Propensity to adverse reactions to substance kiwi Aspirin / Caffeine Oral Powder Active [facility] ([facility]) Allergy to substance Allergy to substance Allergy to substance [facility] ([facility]) Allergy to substance Allergy to substance Allergy to substance [facility] ([facility]) Allergy to substance Allergy to substance Allergy to substance [facility] ([facility]) Allergy to substance Allergy to substance Allergy to substance [facility] ([facility]) Encounters Encounter Providers Location Date Indications Data Source(s ) Brianne Awan MD: [address] [place] [phone], Ph. Attender: Brianne Awan [facility] Medical 04/24/2021 12:00:00 AM EDT [facility] ([facility]) Josué Bee MD: [address] [place] [phone], Ph. Attender: Josué Bee MD [facility] Medical 04/16/2021 12:00:00 AM EDT [facility] ([facility]) Josué Bee MD: [address] [place] [phone], Ph. Attender: Josué Bee MD [facility] Medical 04/16/2021 12:00:00 AM EDT [facility] ([facility]) Extended Individual Psychotherapy - 45 min Attender: Carol Chase [facility] 04/01/2021 02:00:00 AM EDT - 04/01/2021 02:00:00 AM EDT [facility] ([facility]) oJsué Bee MD: [address] [place] [phone], Ph. Attender: Josué Bee MD [facility] Medical 04/01/2021 12:00:00 AM EDT [facility] ([facility]) Josué Bee MD: [address] [place] [address], Ph. Attender: Josué Bee MD [facility] Medical 04/01/2021 12:00:00 AM EDT [facility] ([facility]) Josué Bee MD: [address] [place] [address], Ph. Attender: Josué Bee MD [facility] Medical 04/01/2021 12:00:00 AM EDT [facility] ([facility]) Attender: Carol Chase 04/01/2021 12:00:00 AM EDT [facility] ([facility]) non-billable Behavioral Health Clinic 03/23/2021 12:00:00 AM EDT [facility] ([facility]) Brianne Awan MD: [address] , [place] [address], Ph. Attender: Brianne Awan [facility] Medical 03/13/2021 12:00:00 AM EDT [facility] ([facility]) Brianne Awan MD: [address], [place] [address], Ph. Attender: Brianne Awan [facility] Medical 03/13/2021 12:00:00 AM EDT [facility] ([facility]) Brianne Awan MD: [address], [facility] [place] [address], Ph. Attender: Brianne Awan [facility] Medical 03/13/2021 12:00:00 AM EDT [facility] ([facility]) Brianne Awan MD: [address], [facility] [place] [place] [address], Ph. Attender: Brianne Awna [facility] Medical 03/13/2021 12:00:00 AM EDT [facility] ([facility]) Outpatient Attender: Eleuterio Acharya NP [facility] 03/12/2021 04:00:00 AM EDT - 03/12/2021 04:00:00 AM EDT [facility] ([facility]) Attender: Eleuterio Acharya NP 03/12/2021 12:00:00 AM EDT [facility] ([facility]) non-billable Behavior[facility] Health Clinic 02/18/2021 12:00:00 AM EDT [facility] ([facility]) non-billable [facility] Clinic 01/20/2021 12:00:00 AM EDT [facility] ([facility]) Brief Individual Psychotherapy - 30 min Attender: Carol [facility] 01/01/2021 09:00:00 AM EDT - 01/01/2021 09:00:00 AM EDT [facility] ([facility]) Attender: Carol Chase 01/01/2021 12:00:00 AM EDT [facility] ([facility]) non-billable [facility] 12/23/2020 12:00:00 AM EDT [facility] ([facility]) Outpatient Attender: Eleuterio Acharya NP [facility] 12/19/2020 10:00:00 AM EDT - 12/19/2020 10:00:00 AM EDT [facility] ([facility]) Extended Individual Psychotherapy - 45 min Attender: Carol Salvatore [facility] 12/19/2020 09:00:00 AM EDT - 12/19/2020 09:00:00 AM EDT [facility] ([facility]) Attender: Eleuterio Acharya NP 12/19/2020 12:00:00 AM EDT [facility] ([facility]) Attender: Carol Chase 12/19/2020 12:00:00 AM EDT [facility] ([facility]) Attender: Carol Chase 12/03/2020 12:00:00 AM EDT [facility] ([facility]) Brief Individual Psychotherapy - 30 min Attender: Carol [facility] 12/02/2020 05:30:00 AM EDT - 12/02/2020 05:30:00 AM EDT [facility] ([facility]) Outpatient Attender: Eleuterio Acharya NP [facility] 11/28/2020 04:00:00 AM EDT - 11/28/2020 04:00:00 AM EDT [facility] ([facility]) Attender: Eleuterio Acharya NP 11/28/2020 12:00:00 AM EDT [facility] ([facility]) non-billable [facility] Health Clinic 11/18/2020 12:00:00 AM EDT [facility] ([facility]) Extended Individual Psychotherapy - 45 min Attender: Carol Salvatore [facility] 10/24/2020 11:45:00 AM EDT - 10/24/2020 11:45:00 AM EDT [facility] ([facility]) Attender: Carol Chase 10/24/2020 12:00:00 AM EDT [facility] ([facility]) Emergency Attender: Kyle Mistry PA-C EMERGENCY ROOM-ER 08/2020 09:53:00 PM EDT - 10/20/2020 10:00:00 PM T [facility] Patient discharged. Outpatient Attender: Eleuterio Acharya NP [facility] 10/09/2020 04:00:00 AM EDT - 10/09/2020 04:00:00 AM EDT [facility] ([facility]) Attender: Eleuterio Acharya NP 10/09/2020 12:00:00 AM EDT [facility] ([facility]) Brief Individual Psychotherapy - 30 min Attender: Carol courtney [facility] 10/08/2020 03:00:00 AM EDT - 10/08/2020 03:00:00 AM EDT [facility] ([facility]) Attender: Carol Chase 10/08/2020 12:00:00 AM EDT [facility] ([facility]) Extended Individual Psychotherapy - 45 min Attender: Carol Chase [facility] 09/17/2020 11:15:00 AM EDT - 09/17/2020 11:15:00 AM EDT [facility] ([facility]) Attender: Carol Chase 09/17/2020 12:00:00 AM EDT [facility] ([facility]) Brianne Awan MD: [address], [place] [address], Ph. Attender: Brianne Awan [facility] Medical 09/16/2020 12:00:00 AM EDT [facility] ([facility]) Brianne Awan MD: [address], [address], [place] [address], Ph. Attender: Brianne Awan [facility] Medical 09/16/2020 12:00:00 AM EDT [facility] ([facility]) Brianne Awan MD: [address], [address], [place] [address], Ph. Attender: Brianne Awan [facility] Medical 09/16/2020 12:00:00 AM EDT [facility] ([facility]) Brianne Awan MD: [address], [address], [place] [address], Ph. Attender: Brianne Awan [facility] Medical 09/16/2020 12:00:00 AM EDT [facility] ([facility]) Brianne Awan MD: [address], [place] [address], Ph. Attender: Brianne Awan [facility] Medical 09/16/2020 12:00:00 AM EDT [facility] ([facility]) Outpatient Attender: Eleuterio Acharya NP [facility] 09/12/2020 09:30:00 AM EDT - 09/12/2020 09:30:00 AM EDT [facility] Attender: Eleuterio Acharya CLEAN UP PERSON 09/12/2020 12:00:00 AM EDT [facility] ([facility]) Brianne Awan MD: [address], [address], [place] [address], Ph. Attender: Brianne Awan [facility] Medical 09/02/2020 12:00:00 AM EDT [facility] ([facility]) Brianne Awan MD: [address], [address], [place] [address], Ph. Attender: Brianne Awan [facility] Medical 09/02/2020 12:00:00 AM EDT [facility] ([facility]) Brianne Awan MD: [address], [place] [address], Ph. Attender: Brianne Awan [facility] Medical 09/02/2020 12:00:00 AM EDT [facility] ([facility]) Brianne Awan MD: [address], [address], [place] [address], Ph. Attender: Brianne Awan [facility] Medical 09/02/2020 12:00:00 AM EDT [facility] ([facility]) Brianne Awan MD: [address], [place] [address], Ph. Attender: Brianne Awan [facility] Medical 09/02/2020 12:00:00 AM EDT [facility] ([facility]) Brianne Awan MD: [facility], [address], [place] [address], Ph. Attender: Brianne Awan [facility] Medical 09/02/2020 12:00:00 AM EDT [facility] ([facility]) Brief Individual Psychotherapy - 30 min Attender: Chantelle tam [facility] 09/01/2020 02:00:00 AM EDT - 09/01/2020 02:00:00 AM EDT [facility] ([facility]) Attender: Chantelle Hussein 09/01/2020 12:00:00 AM EDT [facility] ([facility]) Outpatient Attender: Eleuterio Acharya NP [facility] 08/29/2020 03:00:00 AM EST - 08/29/2020 03:00:00 AM EST [facility] ([facility]) Attender: Eleuterio Acharya NP 08/29/2020 12:00:00 AM EST [facility] ([facility]) BOWEN VelazquezC: [address] [place] [phone], Ph. Attender: Dianna Armendariz [facility] Medical 08/19/2020 12:00:00 AM EST [facility] ([facility]) BOWEN VelazquezC: [address] [place] [address], Ph. Attender: Dianna Armendariz [facility] Medical 08/19/2020 12:00:00 AM EST [facility] ([facility]) BOWEN VelazquezC: [address] [place] [address], Ph. Attender: Dianna Armendariz [facility] Medical 08/19/2020 12:00:00 AM EST [facility] ([facility]) BOWEN VelazquezC: [address] [place] [address], Ph. Attender: Dianna Armendariz [facility] Medical 08/19/2020 12:00:00 AM EST [facility] ([facility]) BOWEN VelazquezC: [address] [place] [address], Ph. Attender: Dianna Armendariz [facility] Medical 08/19/2020 12:00:00 AM EST [facility] ([facility]) BOWEN VelazquezC: [address] [place] [address], Ph. Attender: Dianna Armendariz [facility] Medical 08/19/2020 12:00:00 AM EST [facility] ([facility]) BOWEN VelazquezC: [address] [place] [address], Ph. Attender: Dianna Armendariz [facility] Medical 08/19/2020 12:00:00 AM EST [facility] ([facility]) BOWEN VelazquezC: [address] [place] [address], Ph. Attender: Dianna Armendariz [facility] Medical 08/12/2020 12:00:00 AM EST [facility] ([facility]) BOWEN VelazquezC: [address] [place] [address], Ph. Attender: Dianna Armendariz [facility] Medical 08/12/2020 12:00:00 AM EST [facility] ([facility]) BOWEN VelazquezC: [address] [place] [address], Ph. Attender: Diannajocelyn Armendariz [facility] Medical 08/12/2020 12:00:00 AM EST [facility] ([facility]) AGUSTIN Velazquez-C: [address] [place] [address], Ph. Attender: Dianna Armendariz [facility] Medical 08/12/2020 12:00:00 AM EST [facility] ([facility]) BOWEN VelazquezC: [facility] [place] [address], Ph. Attender: Dianna Armendariz [facility] Medical 08/12/2020 12:00:00 AM EST [facility] ([facility]) BOWEN VelazquezC: [facility] [place] [address], Ph. Attender: Dianna Armendariz [facility] Medical 08/12/2020 12:00:00 AM EST [facility] ([facility]) BOWEN VelazquezC: [address] [place] [address], Ph. Attender: Dianna Armendariz [facility] Medical 08/12/2020 12:00:00 AM EST [facility] ([facility]) BOWEN VelazquezC: [facility] [place] [address], Ph. Attender: Dianna Armendariz [facility] Medical 08/12/2020 12:00:00 AM EST [facility] ([facility]) Outpatient Attender: Eleuterio Acharya NP [facility] 08/08/2020 01:00:00 AM EST - 08/08/2020 01:00:00 AM EST [facility] ([facility]) Attender: Eleuterio Acharya NP 08/08/2020 12:00:00 AM EST [facility] ([facility]) [id number]"Psychotherapy Attender: Rosa Elena Gutierrez [facility] 07/25/2020 03:00:00 AM EST - 07/25/2020 03:00:00 AM EST [facility] ([facility]) Attender: Rosa Elena Gutierrez 07/25/2020 12:00:00 AM EST [facility] ([facility]) Outpatient Attender: Eleuterio Acharya NP [facility] 07/18/2020 01:00:00 AM EST - 07/18/2020 01:00:00 AM EST [facility] ([facility]) Attender: Eleuterio Acharya NP 07/18/2020 12:00:00 AM EST [facility] ([facility]) Extended Individual Psychotherapy - 45 min Attender: Michelle Gutierrez [facility] 07/02/2020 05:00:00 AM EST - 07/02/2020 05:00:00 AM EST [facility] ([facility]) Attender: Rosa Elena Gutierrez 07/02/2020 12:00:00 AM EST [facility] ([facility]) AGUSTIN Velazquez-C: [address] [place] [address], Ph. Attender: Dianna Armendariz [facility] Medical 06/06/2020 12:00:00 AM EST [facility] ([facility]) BOWEN VelazquezC: [address] [place] [address], Ph. Attender: Dianna Armendariz [facility] Medical 06/06/2020 12:00:00 AM EST [facility] ([facility]) BOWEN VelazquezC: [address] [place] [address], Ph. Attender: Dianna Armendariz [facility] Medical 06/06/2020 12:00:00 AM EST [facility] ([facility]) BOWEN VelazquezC: [address] [place] [address], Ph. Attender: Dianna Armendariz [facility] Medical 06/06/2020 12:00:00 AM EST [facility] ([facility]) BOWEN VelazquezC: [address] [place] [address], Ph. Attender: Dianna Armendariz [facility] Medical 06/06/2020 12:00:00 AM EST [facility] ([facility]) BOWEN VelazquezC: [address] [place] [address], Ph. Attender: Dianna Armendariz [facility] Medical 06/06/2020 12:00:00 AM EST [facility] ([facility]) BOWEN VelazquezC: [address] [place] [address], Ph. Attender: Dianna Armendariz [facility] Medical 06/06/2020 12:00:00 AM EST [facility] ([facility]) BOWEN VelazquezC: [address] [place] [address], Ph. Attender: Dianna Armendariz [facility] Medical 06/06/2020 12:00:00 AM EST [facility] ([facility]) BOWEN VelazquezC: [address] [place] [address], Ph. Attender: Dianna Armendariz [facility] Medical 06/06/2020 12:00:00 AM EST [facility] ([facility]) Outpatient Attender: Eleuterio [facility] 06/04/2020 08:30:00 AM EST - 06/04/2020 08:30:00 AM EST [facility] ([facility]) Extended Individual Psychotherapy - 45 min Attender: Michelle Gutierrez [facility] 06/04/2020 05:00:00 AM EST - 06/04/2020 05:00:00 AM EST [facility] ([facility]) Attender: Rosa Elena Gutierrez 06/04/2020 12:00:00 AM EST [facility] ([facility]) Attender: Eleuterio Acharya NP 06/04/2020 12:00:00 AM EST [facility] ([facility]) Extended Individual Psychotherapy - 45 min [facility] 03:00:00 AM EST - 04/25/2020 03:00:00 AM EST [facility] ([facility]) BOWEN VelazquezC: [address] [place] [address], Ph. Attender: Dianna Armendariz [facility] Medical 04/25/2020 12:00:00 AM EST ANGELICA ([facility]) BOWEN VelazquezC: [address] [place] [address], Ph. Attender: Dianna Armendariz [facility] Medical 04/25/2020 12:00:00 AM EST ANGELICA ([facility]) BOWEN VelazquezC: [address] [place] [address], Ph. Attender: Dianna Armendariz [facility] Medical 04/25/2020 12:00:00 AM EST ANGELICA ([facility]) BOWEN VelazquezC: [address] [place] [address], Ph. Attender: Dianna Armendariz [facility] Medical 04/25/2020 12:00:00 AM EST ANGELICA ([facility]) BOWEN VelazquezC: [address] [place] [address], Ph. Attender: Dianna DIAS [facility] Medical 04/25/2020 12:00:00 AM EST ANGELICA ([facility]) BOWEN VelazquezC: [address] [place] [address], Ph. Attender: Dianna Armendariz [facility] Medical 04/25/2020 12:00:00 AM EST ANGELICA ([facility]) BOWEN VelazquezC: [address] [place] [address], Ph. Attender: Dianna Armendariz [facility] Medical 04/25/2020 12:00:00 AM EST ANGELICA ([facility]) BOWEN VelazquezC: [address] [place] [address], Ph. Attender: Dianna DIAS [facility] Medical 04/25/2020 12:00:00 AM EST ANGELICA ([facility]) BOWEN VelazquezC: [address] [place] [address], Ph. Attender: Dianna Armendariz [facility] Medical 04/25/2020 12:00:00 AM EST ANGELICA ([facility]) Attender: Rosa Elena Gutierrez 04/25/2020 12:00:00 AM EST [facility] ([facility]) BOWEN VelazquezC: [address] [place] [address], Ph. Attender: Dianna Armendariz [facility] Medical 04/25/2020 12:00:00 AM EST ANGELICA ([facility]) Outpatient Attender: Eleuterio Acharya NP [facility] 04/17/2020 08:30:00 AM EDT - 04/17/2020 08:30:00 AM EDT [facility] ([facility]) Attender: Eleuterio Acharya NP 04/17/2020 12:00:00 AM EDT [facility] ([facility]) Extended Individual Psychotherapy - 45 min [facility]19/2020 03:00:00 AM EDT - 03/19/2020 03:00:00 AM EDT [facility] ([facility]) Attender: Rosa Elena Gutierrez 03/19/2020 12:00:00 AM EDT [facility] ([facility]) Functional Status Immunizations Vaccine Date Status Description Data Source(s) New in 2011. IIV4 04/24/2021 03:09:00 PM EDT completed 04/24/20 21 ANGELICA ([facility]) COVID-19, mRNA, LNP-S, PF, 30 mcg/0.3 mL dose 12/18/2020 12: 00:00 AM EDT completed 12/18/2020 ANGELICA ([facility]) COVID-19 VACCINE Pfizer 12/18/2020 12:00:00 AM EDT completed [place] Vaccine Series Complete: YESThis Data wa s Submitted to [facility] Via [employer]. COVID-19, mRNA, LNP-S, PF, 30 mcg/0.3 mL dose 11/27/2020 12: 00:00 AM EDT completed 11/27/2020 ANGELICA ([facility]) COVID-19 VACCINE Pfizer 11/27/2020 12:00:00 AM EDT completed [place] Vaccine Series Complete: NOThis Data was Submitted to [facility] Via [employer]. New in 2011. IIV4 04/25/2020 11:43:57 AM EST completed 0.5 mL ANGELICA ([facility]) New in 2011. IIV4 04/25/2020 11:43:57 AM EST completed .5 mL ANGELICA ([facility]) New in 2011. IIV4 04/25/2020 11:43:57 AM EST completed .5 mL ANGELICA ([facility]) New in 2011. IIV4 04/25/2020 11:43:57 AM EST completed .5 mL ANGELICA ([facility]) New in 2011. IIV4 04/25/2020 11:43:57 AM EST completed .5 mL ANGELICA ([facility]) New in 2011. IIV4 04/25/2020 11:43:57 AM EST completed .5 mL ANGELICA ([facility]) New in 2011. IIV4 04/25/2020 11:43:57 AM EST completed .5 mL ANGELICA ([facility]) New in 2011. IIV4 04/25/2020 11:43:57 AM EST completed .5 mL ANGELICA ([facility]) New in 2011. IIV4 04/25/2020 11:43:57 AM EST completed .5 mL ANGELICA ([facility]) New in 2011. IIV4 04/25/2020 11:43:57 AM EST completed .5 mL ANGELICA ([facility]) Medications Medication Brand Name Start Date Product Form Dose Route Admi nistrative Instructions Pharmacy Instructions Status Indications Reaction Description Data Source(s) Prazosin 2 MG Oral Capsule prazosin 03/03/2021 12:00:00 AM EDT 2 mg by mouth completed <td ID="Medicat ionRxNorm_2">622704</td><td ID="MedicationMedication_2">prazosin</td><td ID="MedicationRoute_2">by mouth</td><td ID="MedicationRouteConcept_2">H32236</td><td ID="MedicationStartDate_2">03/03/2021</td><td ID="MedicationStopDate_2">05/02/2021</td><td ID="MedicationDosageFrequency_2">at bedtime</td><td ID="MedicationDuration_2">30</td><td ID="MedicationFormulaStrength_2">2 mg</td><td ID="MedicationDosageForm_2">capsule</td><td ID="MedicationDosageFormCode_2"></td><td ID="MedicationDosageDescription_2"></td><td ID="MedicationMedicationId_2">[id number]</td><td ID="MedicationAccount_2">[id number]</td><td ID="MedicationNpid_2">[id number]</td><td ID="MedicationAuthorFirstName_2">Nimisha</td><td ID="MedicationAuthorLastName_2">Sachin</td><td ID="MedicationTaxonomyCode_2">[id number]</td><td ID="MedicationTaxonomyDesc_2">Nurse Practitioner</td><td ID="MedicationPhoneNumber_2">[phone]</td> [facility] ([facility]) Prazosin 2 MG Oral Capsule prazosin 03/03/2021 12:00:00 AM EDT 2 mg by mouth completed <td ID="Medicat ionRxNorm_4">090558</td><td ID="MedicationMedication_4">prazosin</td><td ID="MedicationRoute_4">by mouth</td><td ID="MedicationRouteConcept_4">E85111</td><td ID="MedicationStartDate_4">03/03/2021</td><td ID="MedicationStopDate_4">05/02/2021</td><td ID="MedicationDosageFrequency_4">at bedtime</td><td ID="MedicationDuration_4">30</td><td ID="MedicationFormulaStrength_4">2 mg</td><td ID="MedicationDosageForm_4">capsule</td><td ID="MedicationDosageFormCode_4"></td><td ID="MedicationDosageDescription_4"></td><td ID="MedicationMedicationId_4">[id number]</td><td ID="MedicationAccount_4">[id number]</td><td ID="MedicationNpid_4">[id number]</td><td ID="MedicationAuthorFirstName_4">Nimisha</td><td ID="MedicationAuthorLastName_4">Sachin</td><td ID="MedicationTaxonomyCode_4">[id number]</td><td ID="MedicationTaxonomyDesc_4">Nurse Practitioner</td><td ID="MedicationPhoneNumber_4">[phone]</td> [facility] ([facility]) Prazosin 1 MG Oral Capsule prazosin 01/16/2021 12:00:00 AM EDT 1 mg by mouth completed <td ID="Medicat ionRxNorm_3">753640</td><td ID="MedicationMedication_3">prazosin</td><td ID="MedicationRoute_3">by mouth</td><td ID="MedicationRouteConcept_3">A73726</td><td ID="MedicationStartDate_3">01/16/2021</td><td ID="MedicationStopDate_3">05/02/2021</td><td ID="MedicationDosageFrequency_3">at bedtime</td><td ID="MedicationDuration_3">30</td><td ID="MedicationFormulaStrength_3">1 mg</td><td ID="MedicationDosageForm_3">capsule</td><td ID="MedicationDosageFormCode_3"></td><td ID="MedicationDosageDescription_3"></td><td ID="MedicationMedicationId_3">[id number]</td><td ID="MedicationAccount_3">[id number]</td><td ID="MedicationNpid_3">[id number]</td><td ID="MedicationAuthorFirstName_3">Nimisha</td><td ID="MedicationAuthorLastName_3">Sachin</td><td ID="MedicationTaxonomyCode_3">[id number]</td><td ID="MedicationTaxonomyDesc_3">Nurse Practitioner</td><td ID="MedicationPhoneNumber_3">[phone]</td> [facility] ([facility]) Prazosin 1 MG Oral Capsule prazosin 01/16/2021 12:00:00 AM EDT 1 mg by mouth completed <td ID="Medicat ionRxNorm_1">295115</td><td ID="MedicationMedication_1">prazosin</td><td ID="MedicationRoute_1">by mouth</td><td ID="MedicationRouteConcept_1">I64623</td><td ID="MedicationStartDate_1">01/16/2021</td><td ID="MedicationStopDate_1">05/02/2021</td><td ID="MedicationDosageFrequency_1">at bedtime</td><td ID="MedicationDuration_1">30</td><td ID="MedicationFormulaStrength_1">1 mg</td><td ID="MedicationDosageForm_1">capsule</td><td ID="MedicationDosageFormCode_1"></td><td ID="MedicationDosageDescription_1"></td><td ID="MedicationMedicationId_1">[id number]</td><td ID="MedicationAccount_1">[id number]</td><td ID="MedicationNpid_1">[id number]</td><td ID="MedicationAuthorFirstName_1">Nimisha</td><td ID="MedicationAuthorLastName_1">Sachin</td><td ID="MedicationTaxonomyCode_1">[id number]</td><td ID="MedicationTaxonomyDesc_1">Nurse Practitioner</td><td ID="MedicationPhoneNumber_1">[phone]</td> [facility] ([facility]) Vraylar Vraylar 01/16/2021 12:00:00 AM EDT 6 mg by mouth completed <td ID="MedicationRxNorm_1">4988500</td><td ID="MedicationMedication_1">Vraylar</td><td ID="MedicationRoute_1">by mouth</td><td ID="MedicationRouteConcept_1">R43088</td><td ID="MedicationStartDate_1">01/16/2021</td><td ID="MedicationStopDate_1">03/21/2021</td><td ID="MedicationDosageFrequency_1">at bedtime</td><td ID="MedicationDuration_1">30</td><td ID="MedicationFormulaStrength_1">6 mg</td><td ID="MedicationDosageForm_1">capsule</td><td ID="MedicationDosageFormCode_1"></td><td ID="MedicationDosageDescription_1"></td><td ID="MedicationMedicationId_1">[id number]</td><td ID="MedicationAccount_1">[id number]</td><td ID="MedicationNpid_1">[id number]</td><td ID="MedicationAuthorFirstName_1">Eleuterio</td><td ID="MedicationAuthorLastName_1">Acharya</td><td ID="MedicationTaxonomyCode_1">[id number]</td><td ID="MedicationTaxonomyDesc_1">Nurse Practitioner</td><td ID="MedicationPhoneNumber_1">[phone]</td> [facility] ([facility]) Trazodone Hydrochloride 50 MG Oral Tablet trazodone 2020 12:00:00 AM EDT 50 mg by mouth completed <td ID="Medic ationRxNorm_2">434180</td><td ID="MedicationMedication_2">trazodone</td><td ID="MedicationRoute_2">by mouth</td><td ID="MedicationRouteConcept_2">Z38111</td><td ID="MedicationStartDate_2">01/16/2021</td><td ID="MedicationStopDate_2">03/21/2021</td><td ID="MedicationDosageFrequency_2">at bedtime</td><td ID="MedicationDuration_2">30</td><td ID="MedicationFormulaStrength_2">50 mg</td><td ID="MedicationDosageForm_2">tablet</td><td ID="MedicationDosageFormCode_2"></td><td ID="MedicationDosageDescription_2">as needed</td><td ID="MedicationMedicationId_2">[id number]</td><td ID="MedicationAccount_2">[id number]</td><td ID="MedicationNpid_2">[id number]</td><td ID="MedicationAuthorFirstName_2">Eleuterio</td><td ID="MedicationAuthorLastName_2">Acharya</td><td ID="MedicationTaxonomyCode_2">[id number]</td><td ID="MedicationTaxonomyDesc_2">Nurse Practitioner</td><td ID="MedicationPhoneNumber_2">[phone]</td> [facility] ([facility]) 1.5 mg 11/18/2020 12:00:00 AM EDT capsule 21 TAKE 3 CAPSULES (4.5MG) BY MOUTH DAILY FOR MOOD TAKE 3 CAPSULES (4.5MG) BY MOUTH DAILY FOR MOOD SOLD: 11/19/2020 [facility] 1.5 mg 11/18/2020 12:00:00 AM EDT capsule 21 TAKE 3 CAPSULES (4.5MG) BY MOUTH DAILY FOR MOOD TAKE 3 CAPSULES (4.5MG) BY MOUTH DAILY FOR MOOD SOLD: 12/04/2020 [facility] Trazodone Hydrochloride 50 MG Oral Tablet trazodone 2020 12:00:00 AM EDT 50 mg by mouth completed <td ID="Medic ationRxNorm_2">349701</td><td ID="MedicationMedication_2">trazodone</td><td ID="MedicationRoute_2">by mouth</td><td ID="MedicationRouteConcept_2">Z40381</td><td ID="MedicationStartDate_2">11/13/2020</td><td ID="MedicationStopDate_2">01/12/2021</td><td ID="MedicationDosageFrequency_2">at bedtime</td><td ID="MedicationDuration_2">30</td><td ID="MedicationFormulaStrength_2">50 mg</td><td ID="MedicationDosageForm_2">tablet</td><td ID="MedicationDosageFormCode_2"></td><td ID="MedicationDosageDescription_2"></td><td ID="MedicationMedicationId_2">[id number]</td><td ID="MedicationAccount_2">[id number]</td><td ID="MedicationNpid_2">[id number]</td><td ID="MedicationAuthorFirstName_2">Eleuterio</td><td ID="MedicationAuthorLastName_2">Acharya</td><td ID="MedicationTaxonomyCode_2">[id number]</td><td ID="MedicationTaxonomyDesc_2">Nurse Practitioner</td><td ID="MedicationPhoneNumber_2">[phone]</td> [facility] ([facility]) Vraylar Vraylar 11/13/2020 12:00:00 AM EDT 6 mg by mouth completed <td ID="MedicationRxNorm_3">3312739</td><td ID="MedicationMedication_3">Vraylar</td><td ID="MedicationRoute_3">by mouth</td><td ID="MedicationRouteConcept_3">P75201</td><td ID="MedicationStartDate_3">11/13/2020</td><td ID="MedicationStopDate_3">01/12/2021</td><td ID="MedicationDosageFrequency_3">at bedtime</td><td ID="MedicationDuration_3">30</td><td ID="MedicationFormulaStrength_3">6 mg</td><td ID="MedicationDosageForm_3">capsule</td><td ID="MedicationDosageFormCode_3"></td><td ID="MedicationDosageDescription_3"></td><td ID="MedicationMedicationId_3">[id number]</td><td ID="MedicationAccount_3">[id number]</td><td ID="MedicationNpid_3">[id number]</td><td ID="MedicationAuthorFirstName_3">Eleuterio</td><td ID="MedicationAuthorLastName_3">Acharya</td><td ID="MedicationTaxonomyCode_3">[id number]</td><td ID="MedicationTaxonomyDesc_3">Nurse Practitioner</td><td ID="MedicationPhoneNumber_3">[phone]</td> [facility] ([facility]) Divalproex Sodium 250 MG Delayed Release Oral Tablet divalpr oex 07/16/2020 12:00:00 AM EST 250 mg by mouth completed <td ID="MedicationRxNorm_6">1720288</td><td ID="MedicationMedication_6">divalproex</td><td ID="MedicationRoute_6">by mouth</td><td ID="MedicationRouteConcept_6">J48773</td><td ID="MedicationStartDate_6">07/16/2020</td><td ID="MedicationStopDate_6">09/14/2020</td><td ID="MedicationDosageFrequency_6">three times a day</td><td ID="MedicationDuration_6">30</td><td ID="MedicationFormulaStrength_6">250 mg</td><td ID="MedicationDosageForm_6">tablet,delayed release (DR/EC)</td><td ID="MedicationDosageFormCode_6"></td><td ID="MedicationDosageDescription_6"></td><td ID="MedicationMedicationId_6">[id number]</td><td ID="MedicationAccount_6">[id number]</td><td ID="MedicationNpid_6">[id number]</td><td ID="MedicationAuthorFirstName_6">Eleuterio</td><td ID="MedicationAuthorLastName_6">Acharya</td><td ID="MedicationTaxonomyCode_6">[id number]</td><td ID="MedicationTaxonomyDesc_6"> Nurse Practitioner</td><td ID="MedicationPhoneNumber_6">[phone]</td> [facility] ([facility]) buspirone hydrochloride 15 MG Oral Tablet buspirone 2020 12:00:00 AM EST 15 mg by mouth completed <td ID="Medic ationRxNorm_4">078692</td><td ID="MedicationMedication_4">buspirone</td><td ID="MedicationRoute_4">by mouth</td><td ID="MedicationRouteConcept_4">D31506</td><td ID="MedicationStartDate_4">07/16/2020</td><td ID="MedicationStopDate_4">09/14/2020</td><td ID="MedicationDosageFrequency_4">three times a day</td><td ID="MedicationDuration_4">30</td><td ID="MedicationFormulaStrength_4">15 mg</td><td ID="MedicationDosageForm_4">tablet</td><td ID="MedicationDosageFormCode_4"></td><td ID="MedicationDosageDescription_4"> </td><td ID="MedicationMedicationId_4">[id number]</td><td ID="MedicationAccount_4">[id number]</td><td ID="MedicationNpid_4">[id number]</td><td ID="MedicationAuthorFirstName_4">Eleuterio</td><td ID="MedicationAuthorLastName_4">Acharya</td><td ID="MedicationTaxonomyCode_4">[id number]</td><td ID="MedicationTaxonomyDesc_4">Nurse Practitioner</td><td ID="MedicationPhoneNumber_4">[phone]</td> [facility] ([facility]) Vraylar Vraylar 07/16/2020 12:00:00 AM EST 3 mg by mouth completed <td ID="MedicationRxNorm_5">4851208</td><td ID="MedicationMedication_5">Vraylar</td><td ID="MedicationRoute_5">by mouth</td><td ID="MedicationRouteConcept_5">V91128</td><td ID="MedicationStartDate_5">07/16/2020</td><td ID="MedicationStopDate_5">09/14/2020</td><td ID="MedicationDosageFrequency_5">at bedtime</td><td ID="MedicationDuration_5">30</td><td ID="MedicationFormulaStrength_5">3 mg</td><td ID="MedicationDosageForm_5">capsule</td><td ID="MedicationDosageFormCode_5"></td><td ID="MedicationDosageDescription_5"></td><td ID="MedicationMedicationId_5">[id number]</td><td ID="MedicationAccount_5">[id number]</td><td ID="MedicationNpid_5">[id number]</td><td ID="MedicationAuthorFirstName_5">Eleuterio</td><td ID="MedicationAuthorLastName_5">Acharya</td><td ID="MedicationTaxonomyCode_5">[id number]</td><td ID="MedicationTaxonomyDesc_5">Nurse Practitioner</td><td ID="MedicationPhoneNumber_5">[phone]</td> [facility] ([facility]) Trazodone Hydrochloride 50 MG Oral Tablet trazodone 2020 12:00:00 AM EST 50 mg by mouth completed <td ID="Medic ationRxNorm_7">181445</td><td ID="MedicationMedication_7">trazodone</td><td ID="MedicationRoute_7">by mouth</td><td ID="MedicationRouteConcept_7">P67923</td><td ID="MedicationStartDate_7">07/16/2020</td><td ID="MedicationStopDate_7">09/14/2020</td><td ID="MedicationDosageFrequency_7">at bedtime</td><td ID="MedicationDuration_7">30</td><td ID="MedicationFormulaStrength_7">50 mg</td><td ID="MedicationDosageForm_7">tablet</td><td ID="MedicationDosageFormCode_7"></td><td ID="MedicationDosageDescription_7">as needed</td><td ID="MedicationMedicationId_7">[id number]</td><td ID="MedicationAccount_7">[id number]</td><td ID="MedicationNpid_7">[id number]</td><td ID="MedicationAuthorFirstName_7">Eleuterio</td><td ID="MedicationAuthorLastName_7">Acharya</td><td ID="MedicationTaxonomyCode_7">[id number]</td><td ID="MedicationTaxonomyDesc_7">Nurse Practitioner</td><td ID="MedicationPhoneNtracey_7">[phone]</td> [facility] ([facility]) 24 HR Methylphenidate Hydrochloride 54 MG Extended Rel ease Oral Tablet methylphenidate HCl 07/14/2020 12:00:00 AM EST 54 mg by mouth completed <td ID="MedicationRxNorm_3">4962823</td> <td ID="MedicationMedication_3">methylphenidate HCl</td><td ID="MedicationRoute_3">by mouth</td><td ID="MedicationRouteConcept_3">X41023</td><td ID="MedicationStartDate_3">07/14/2020</td><td ID="MedicationStopDate_3">08/13/2020</td><td ID="MedicationDosageFrequency_3">once a day</td><td ID="MedicationDuration_3">30</td><td ID="MedicationFormulaStrength_3">54 mg</td><td ID="MedicationDosageForm_3">tablet extended release 24hr</td><td ID="MedicationDosageFormCode_3"></td><td ID="MedicationDosageDescription_3"></td><td ID="MedicationMedicationId_3">[id number]</td><td ID="MedicationAccount_3">[id number]</td><td ID="MedicationNpid_3">[id number]</td><td ID="MedicationAuthorFirstName_3">Eleuterio</td><td ID="MedicationAuthorLastName_3">Acharya</td><td ID="MedicationTaxonomyCode_3">[id number]</td><td ID="MedicationTaxonomyDesc_3"> Nurse Practitioner</td><td ID="MedicationPhoneNumber_3">[phone]</td> [facility] ([facility]) Diphenhydramine Hydrochloride 25 MG Oral Capsule diphenhydra mine HCl 07/11/2020 12:00:00 AM EST 25 mg by mouth completed <td ID="MedicationRxNorm_1">3614101</td><td ID="MedicationMedication_1">diphenhydramine HCl</td><td ID="MedicationRoute_1">by mouth</td><td ID="MedicationRouteConcept_1">T37628</td><td ID="MedicationStartDate_1">07/11/2020</td><td ID="MedicationStopDate_1">08/10/2020</td><td ID="MedicationDosageFrequency_1">once a day</td><td ID="MedicationDuration_1">30</td><td ID="MedicationFormulaStrength_1">25 mg</td><td ID="MedicationDosageForm_1">capsule</td><td ID="MedicationDosageFormCode_1"></td><td ID="MedicationDosageDescription_1">as needed</td><td ID="MedicationMedicationId_1">[id number]</td><td ID="MedicationAccount_1">[id number]</td><td ID="MedicationNpid_1">[id number]</td><td ID="MedicationAuthorFirstName_1">Eleuterio</td><td ID="MedicationAuthorLastName_1">Acharya</td><td ID="MedicationTaxonomyCode_1">[id number]</td><td ID="MedicationTaxonomyDesc_1">Nurse Practitioner</td><td ID="MedicationPhoneNumber_1">[phone]</td> [facility] ([facility]) buspirone hydrochloride 5 MG Oral Tablet BUSPIRONE HCL 07/08/2020 12:00:00 AM EST tablet 21 TAKE 1 TABLET BY MOUTH 3 TIMES A DAY NEEDED FOR ANXIETY/AGITATION TAKE 1 TABLET BY MOUTH 3 TIMES A DAY NEEDED FOR ANXIETY/AGITATION SOLD: 07/08/2020 [facility] 50 mg 07/08/2020 12:00:00 AM EST tablet 7 TAKE ONE TABLET BY MOUTH AT BEDTIME NEEDED FOR INSOMNIA TAKE ONE TABLET BY MOUTH AT BEDTIME N EEDED FOR INSOMNIA SOLD: 07/08/2020 [facility] 250 mg 07/08/2020 12:00:00 AM EST tablet,delayed release (DR/EC) 21 TAKE ONE TABLET BY MOUTH THREE TIMES A DAY FOR MOOD TAKE ONE TABLET BY MOUTH THREE TIMES A DAY FOR MOOD SOLD: 07/08/2020 [facility] 3 mg 07/08/2020 12:00:00 AM EST capsule 7 TAKE ONE CAPSULE BY MOUTH AT BEDTIME FOR MOOD TAKE ONE CAPSULE BY MOUTH AT BEDTIME FOR MOOD SOLD: 07/08/19 21 [facility] 2 mg 07/08/2020 12:00:00 AM EST capsule 7 TAKE ONE CAPSULE BY MOUTH AT BEDTIME FOR NIGHTMARES TAKE ONE CAPSULE BY MOUTH AT BEDTIME FOR NIGHTMARES SO LD: 07/08/2020 [facility] 4 mg 05/20/2020 12:00:00 AM EST tablet,disintegrating 1 6 DISSOLVE 1 TABLET IN MOUTH EVERY 6 TO 8 HOURS NEEDED FOR NAUSEA AND VOMITING DISSOLVE 1 TABLET IN MOUTH EVERY 6 TO 8 HOURS NEEDED FOR NAUSEA AND VOMITING SOLD: 05/20/2020 [facility] Clonidine Hydrochloride 0.2 MG Oral Tablet CLONIDINE HCL 05/16/2020 12:00:00 AM EST tablet 30 TAKE ONE TABLET BY MOUTH AMBIKA LY AT BEDTIME TAKE ONE TABLET BY MOUTH DAILY AT BEDTIME SOLD: 05/20/2020 [facility] 2 mg 05/16/2020 12:00:00 AM EST capsule 30 TAKE ONE CAPSULE BY MOUTH DAILY AT BEDTIME TAKE ONE CAPSULE BY MOUTH DAILY AT BEDTIME SOLD: 05/20/2020 [facility] Clonidine Hydrochloride 0.2 MG Oral Tablet CLONIDINE HCL 04/11/2020 12:00:00 AM EDT tablet 30 TAKE ONE TABLET BY MOUTH AT BEDTIME TAKE ONE TABLET BY MOUTH AT BEDTIME SOLD: 04/11/2020 [facility] 54 mg 04/11/2020 12:00:00 AM EDT tablet extended release 24hr 30 TAKE ONE TABLET BY MOUTH EVERY MORNING MAXIMUM DAILY DOSE = 1 TABLET (54 MG) TAKE ONE TABLET BY MOUTH EVERY MORNING MAXIMUM DAILY DOSE = 1 TABLET (54 MG) SOLD: 04/11/2020 [facility] 1 mg 04/11/2020 12:00:00 AM EDT tablet 15 TAKE 1/2 TABLET BY MOUTH EVERY MORNING TAKE 1/2 TABLET BY MOUTH EVERY MORNING SOLD: 04/11/2020 [facility] 30 mg 04/11/2020 12:00:00 AM EDT tablet 30 TAKE ONE TABLET BY MOUTH EVERY DAY TAKE ONE TABLET BY MOUTH EVERY DAY SOLD: 04/11/2020 [facility] 24 HR Methylphenidate Hydrochloride 54 MG Extended Rel ease Oral Tablet methylphenidate HCl 03/17/2020 12:00:00 AM EDT 54 mg by mouth completed <td ID="MedicationRxNorm_1">[id number]</td> <td ID="MedicationMedication_1">methylphenidate HCl</td><td ID="MedicationRoute_1">by mouth</td><td ID="MedicationRouteConcept_1">[id number]</td><td ID="MedicationStartDate_1">03/17/2020</td><td ID="MedicationStopDate_1"></td><td ID="MedicationDosageFrequency_1">every morning</td><td ID="MedicationDuration_1">30</td><td ID="MedicationFormulaStrength_1">54 mg</td><td ID="MedicationDosageForm_1">tablet extended release 24hr</td><td ID="MedicationDosageFormCode_1"></td><td ID="MedicationDosageDescription_1"></td><td ID="MedicationMedicationId_1">[id number]</td><td ID="MedicationAccount_1">[id number]</td><td ID="MedicationNpid_1">[id number]</td><td ID="MedicationAuthorFirstName_1">Eleuterio</td><td ID="MedicationAuthorLastName_1">Acharya</td><td ID="MedicationTaxonomyCode_1">[id number]</td><td ID="MedicationTaxonomyDesc_1"> Nurse Practitioner</td><td ID="MedicationPhoneNumber_1">[phone]</td> [facility] ([facility]) Clonidine Hydrochloride 0.2 MG Oral Tablet clonidine HCl 03/05/2020 12:00:00 AM EDT 0.2 mg by mouth completed <td ID="MedicationRxNorm_5">828819</td><td ID="MedicationMedication_5">clonidine HCl</td><td ID="MedicationRoute_5">by mouth</td><td ID="MedicationRouteConcept_5">Q39540</td><td ID="MedicationStartDate_5">03/05/2020</td><td ID="MedicationStopDate_5">08/12/2020</td><td ID="MedicationDosageFrequency_5">at bedtime</td><td ID="MedicationDuration_5">30</td><td ID="MedicationFormulaStrength_5">0.2 mg</td><td ID="MedicationDosageForm_5">tablet</td><td ID="MedicationDosageFormCode_5"></td><td ID="MedicationDosageDescription_5"></td><td ID="MedicationMedicationId_5">[id number]</td><td ID="MedicationAccount_5">[id number]</td><td ID="MedicationNpid_5">[id number]</td><td ID="MedicationAuthorFirstName_5">Kaitlin</td><td ID="MedicationAuthorLastName_5">Egorho</td><td ID="MedicationTaxonomyCode_5">[id number]</td><td ID="MedicationTaxonomyDesc_5">Nurse Practitioner</td><td ID="MedicationPhoneNumber_5">[phone]</td> [facility] ([facility]) aripiprazole 30 MG Oral Tablet aripiprazole 03/05/2020 12:00:00 AM ED T 30 mg by mouth completed <td ID="Medica tionRxNorm_5">392077</td><td ID="MedicationMedication_5">aripiprazole</td><td ID="MedicationRoute_5">by mouth</td><td ID="MedicationRouteConcept_5">S64544</td><td ID="MedicationStartDate_5">03/05/2020</td><td ID="MedicationStopDate_5"></td><td ID="MedicationDosageFrequency_5">once a day</td><td ID="MedicationDuration_5">30</td><td ID="MedicationFormulaStrength_5">30 mg</td><td ID="MedicationDosageForm_5">tablet</td><td ID="MedicationDosageFormCode_5"></td><td ID="MedicationDosageDescription_5"></td><td ID="MedicationMedicationId_5">[id number]</td><td ID="MedicationAccount_5">[id number]</td><td ID="MedicationNpid_5">[id number]</td><td ID="MedicationAuthorFirstName_5">Eleuterio</td><td ID="MedicationAuthorLastName_5">Acharya</td><td ID="MedicationTaxonomyCode_5">[id number]</td><td ID="MedicationTaxonomyDesc_5">Nurse Practitioner</td><td ID="MedicationPhoneNumber_5">[phone]</td> [facility] ([facility]) Guanfacine 1 MG Oral Tablet guanfacine 03/05/2020 12:00:00 AM EDT 1 mg by mouth completed <td ID="Medica tionRxNorm_2">455682</td><td ID="MedicationMedication_2">guanfacine</td><td ID="MedicationRoute_2">by mouth</td><td ID="MedicationRouteConcept_2">U25161</td><td ID="MedicationStartDate_2">03/05/2020</td><td ID="MedicationStopDate_2"></td><td ID="MedicationDosageFrequency_2">every morning</td><td ID="MedicationDuration_2">30</td><td ID="MedicationFormulaStrength_2">1 mg</td><td ID="MedicationDosageForm_2">tablet</td><td ID="MedicationDosageFormCode_2"></td><td ID="MedicationDosageDescription_2"></td><td ID="MedicationMedicationId_2">[id number]</td><td ID="MedicationAccount_2">[id number]</td><td ID="MedicationNpid_2">[id number]</td><td ID="MedicationAuthorFirstName_2">Eleuterio</td><td ID="MedicationAuthorLastName_2">Acharya</td><td ID="MedicationTaxonomyCode_2">[id number]</td><td ID="MedicationTaxonomyDesc_2">Nurse Practitioner</td><td ID="MedicationPhoneNumber_2">[phone]</td> [facility] ([facility]) Guanfacine 1 MG Oral Tablet guanfacine 03/05/2020 12:00:00 AM EDT 1 mg by mouth completed <td ID="Medica tionRxNorm_3">215491</td><td ID="MedicationMedication_3">guanfacine</td><td ID="MedicationRoute_3">by mouth</td><td ID="MedicationRouteConcept_3">E58525</td><td ID="MedicationStartDate_3">03/05/2020</td><td ID="MedicationStopDate_3"></td><td ID="MedicationDosageFrequency_3">every morning</td><td ID="MedicationDuration_3">30</td><td ID="MedicationFormulaStrength_3">1 mg</td><td ID="MedicationDosageForm_3">tablet</td><td ID="MedicationDosageFormCode_3"></td><td ID="MedicationDosageDescription_3"></td><td ID="MedicationMedicationId_3">[id number]</td><td ID="MedicationAccount_3">[id number]</td><td ID="MedicationNpid_3">[id number]</td><td ID="MedicationAuthorFirstName_3">Eleuterio</td><td ID="MedicationAuthorLastName_3">Acharya</td><td ID="MedicationTaxonomyCode_3">[id number]</td><td ID="MedicationTaxonomyDesc_3">Nurse Practitioner</td><td ID="MedicationPhoneNumber_3">[phone]</td> [facility] ([facility]) Clonidine Hydrochloride 0.2 MG Oral Tablet clonidine HCl 03/05/2020 12:00:00 AM EDT 0.2 mg by mouth completed <td ID="MedicationRxNorm_4">964739</td><td ID="MedicationMedication_4">clonidine HCl</td><td ID="MedicationRoute_4">by mouth</td><td ID="MedicationRouteConcept_4">L04008</td><td ID="MedicationStartDate_4">03/05/2020</td><td ID="MedicationStopDate_4"></td><td ID="MedicationDosageFrequency_4">at bedtime</td><td ID="MedicationDuration_4">30</td><td ID="MedicationFormulaStrength_4">0.2 mg</td><td ID="MedicationDosageForm_4">tablet</td><td ID="MedicationDosageFormCode_4"></td><td ID="MedicationDosageDescription_4"></td><td ID="MedicationMedicationId_4">[id number]</td><td ID="MedicationAccount_4">[id number]</td><td ID="MedicationNpid_4">[id number]</td><td ID="MedicationAuthorFirstName_4">Eleuterio</td><td ID="MedicationAuthorLastName_4">Acharya</td><td ID="MedicationTaxonomyCode_4">[id number]</td><td ID="MedicationTaxonomyDesc_4">Nurse Practitioner</td><td ID="MedicationPhoneNumber_4">[phone]</td> [facility] ([facility]) aripiprazole 30 MG Oral Tablet aripiprazole 03/05/2020 12:00:00 AM ED T 30 mg by mouth completed <td ID="Medica tionRxNorm_3">491759</td><td ID="MedicationMedication_3">aripiprazole</td><td ID="MedicationRoute_3">by mouth</td><td ID="MedicationRouteConcept_3">X24250</td><td ID="MedicationStartDate_3">03/05/2020</td><td ID="MedicationStopDate_3"></td><td ID="MedicationDosageFrequency_3">once a day</td><td ID="MedicationDuration_3">30</td><td ID="MedicationFormulaStrength_3">30 mg</td><td ID="MedicationDosageForm_3">tablet</td><td ID="MedicationDosageFormCode_3"></td><td ID="MedicationDosageDescription_3"></td><td ID="MedicationMedicationId_3">[id number]</td><td ID="MedicationAccount_3">[id number]</td><td ID="MedicationNpid_3">[id number]</td><td ID="MedicationAuthorFirstName_3">Eleuterio</td><td ID="MedicationAuthorLastName_3">Acharya</td><td ID="MedicationTaxonomyCode_3">[id number]</td><td ID="MedicationTaxonomyDesc_3">Nurse Practitioner</td><td ID="MedicationPhoneNumber_3">[phone]</td> [facility] ([facility]) Clonidine Hydrochloride 0.2 MG Oral Tablet CLONIDINE HCL 01/17/2020 12:00:00 AM EDT tablet 30 TAKE ONE TABLET BY MOUTH AT BEDTIME TAKE ONE TABLET BY MOUTH AT BEDTIME SOLD: 03/12/2020 [facility] Amoxicillin 500 MG Oral Capsule amoxicillin 500 mg cap karen amoxicillin 500 mg capsule completed amoxicillin 50 0 MG Oral Capsule ANGELICA ([facility]) Vraylar 3 mg capsule [id number] completed cariprazine 3 MG Oral Capsule [Vraylar] ANGELICA ([facility]) Clonidine Hydrochloride 0.2 MG Oral Tabl et clonidine HCl 0.2 mg tablet TAKE ONE TABLET BY MOUTH DAILY AT BEDTIME clonidine HCl 0.2 mg tablet TAKE ONE TAB LET BY MOUTH DAILY AT BEDTIME completed clonidine hydrochloride 0.2 MG Oral Tablet [facility] ([facility]) Vraylar 1.5 mg capsule TAKE 3 CAPSULES 4.5MG BY MOUTH DAILY FO R MOOD [id number] completed cariprazine 1. 5 MG Oral Capsule [Vraylar] AN[facility]ICA ([facility]) Clonidine Hydrochloride 0.2 MG Oral Tabl et clonidine HCl 0.2 mg tablet TAKE ONE TABLET BY MOUTH DAILY AT BEDTIME clonidine HCl 0.2 mg tablet TAKE ONE TAB LET BY MOUTH DAILY AT BEDTIME completed clonidine hydrochloride 0.2 MG Oral Tablet [facility] ([facility]) Prazosin 1 MG Oral Capsule prazosin 1 mg capsule prazosin 1 mg capsule completed prazosin 1 MG Oral Capsul e AN[facility]ICA ([facility]) Guanfacine 1 MG Oral Tablet guanfacine 1 mg tablet TAKE 1/2 TABLET BY MOUTH EVERY MORNING guanfacine 1 mg tablet TAKE 1/2 TABLET BY MOUTH EVERY MORNING completed guanfacine 1 MG Oral T ablet AN[facility]ICA ([facility]) Prazosin 1 MG Oral Capsule prazosin 1 mg capsule prazosin 1 mg capsule completed prazosin 1 MG Oral Capsul e AN[facility]ICA ([facility]) buspirone hydrochloride 15 MG Oral Tablet buspirone 15 mg tablet buspirone 15 mg tablet completed buspirone hydr ochloride 15 MG Oral Tablet [facility] ([facility]) Vraylar 3 mg capsule [id number] completed cariprazine 3 MG Oral Capsule [Vraylar] ANGELICA ([facility]) methylphenidate ER 54 mg tablet,extended release 24 hr [id number] completed BX Rating 24 HR meth ylphenidate hydrochloride 54 MG Extended Release Oral Tablet AN[facility] ([facility]) buspirone hydrochloride 5 MG Oral Tablet buspirone 5 mg tablet TAKE 1 TABLET BY MOUTH 3 TIMES A DAY NEEDED FOR ANXIETY/AGITATION buspirone 5 mg tablet TAKE 1 TABLET BY MOUTH 3 TIMES A DAY NEEDED FOR ANXIETY/AGITATION completed buspirone hydrochloride 5 MG Ora l Tablet AN[facility]ICA ([facility]) Guanfacine 1 MG Oral Tablet guanfacine 1 mg tablet TAKE 1/2 TABLET BY MOUTH EVERY MORNING guanfacine 1 mg tablet TAKE 1/2 TABLET BY MOUTH EVERY MORNING completed guanfacine 1 MG Oral T ablet AN[facility]ICA ([facility]) Divalproex Sodium 250 MG Delayed Release Oral Tablet divalproex 250 mg tablet,delayed release divalproex 250 mg tablet,delayed release completed divalproex sodium 250 MG Delayed Release Oral Tablet [facility] ([facility]) Ondansetron 4 MG Disintegrating Oral Tab let ondansetron 4 mg disintegrating tablet DISSOLVE 1 TABLET IN MOUTH EVERY 6 TO 8 HOURS NEEDED FOR NAUSEA AND VOMITING ondansetron 4 mg disintegrating tablet D ISSOLVE 1 TABLET IN MOUTH EVERY 6 TO 8 HOURS NEEDED FOR NAUSEA AND VOMITING completed ondansetron 4 MG Disintegrating Oral Tablet [facility] ([facility]) buspirone hydrochloride 15 MG Oral Tablet buspirone 15 mg tablet buspirone 15 mg tablet completed buspirone hydr ochloride 15 MG Oral Tablet [facility] ([facility]) Ondansetron 4 MG Disintegrating Oral Tab let ondansetron 4 mg disintegrating tablet DISSOLVE 1 TABLET IN MOUTH EVERY 6 TO 8 HOURS NEEDED FOR NAUSEA AND VOMITING ondansetron 4 mg disintegrating tablet D ISSOLVE 1 TABLET IN MOUTH EVERY 6 TO 8 HOURS NEEDED FOR NAUSEA AND VOMITING completed ondansetron 4 MG Disintegrating Oral Tablet [facility] ([facility]) Amoxicillin 500 MG Oral Capsule amoxicillin 500 mg cap karen amoxicillin 500 mg capsule completed amoxicillin 50 0 MG Oral Capsule [facility] ([facility]) aripiprazole 30 MG Oral Tablet aripipraz ole 30 mg tablet TAKE ONE TABLET BY MOUTH EVERY DAY aripiprazole 30 mg tablet TAKE ONE TABLET BY MOUTH EVERY DAY completed aripiprazole 3 0 MG Oral Tablet [facility] ([facility]) Clonidine Hydrochloride 0.2 MG Oral Tabl et clonidine HCl 0.2 mg tablet TAKE ONE TABLET BY MOUTH DAILY AT BEDTIME clonidine HCl 0.2 mg tablet TAKE ONE TAB LET BY MOUTH DAILY AT BEDTIME completed clonidine hydrochloride 0.2 MG Oral Tablet [facility] ([facility]) Amoxicillin 500 MG Oral Capsule amoxicillin 500 mg cap karen amoxicillin 500 mg capsule completed amoxicillin 50 0 MG Oral Capsule [facility] ([facility]) Guanfacine 1 MG Oral Tablet guanfacine 1 mg tablet TAKE 1/2 TABLET BY MOUTH EVERY MORNING guanfacine 1 mg tablet TAKE 1/2 TABLET BY MOUTH EVERY MORNING completed guanfacine 1 MG Oral T ablet [facility] ([facility]) Ondansetron 4 MG Disintegrating Oral Tab let ondansetron 4 mg disintegrating tablet DISSOLVE 1 TABLET IN MOUTH EVERY 6 TO 8 HOURS NEEDED FOR NAUSEA AND VOMITING ondansetron 4 mg disintegrating tablet D ISSOLVE 1 TABLET IN MOUTH EVERY 6 TO 8 HOURS NEEDED FOR NAUSEA AND VOMITING completed ondansetron 4 MG Disintegrating Oral Tablet [facility] ([facility]) Clonidine Hydrochloride 0.2 MG Oral Tabl et clonidine HCl 0.2 mg tablet TAKE ONE TABLET BY MOUTH DAILY AT BEDTIME clonidine HCl 0.2 mg tablet TAKE ONE TAB LET BY MOUTH DAILY AT BEDTIME completed clonidine hydrochloride 0.2 MG Oral Tablet [facility] ([facility]) buspirone hydrochloride 5 MG Oral Tablet buspirone 5 mg tablet TAKE 1 TABLET BY MOUTH 3 TIMES A DAY NEEDED FOR ANXIETY/AGITATION buspirone 5 mg tablet TAKE 1 TABLET BY MOUTH 3 TIMES A DAY NEEDED FOR ANXIETY/AGITATION completed buspirone hydrochloride 5 MG Ora l Tablet [facility] ([facility]) Vraylar 1.5 mg capsule TAKE 3 CAPSULES 4.5MG BY MOUTH DAILY FO R MOOD [id number] completed cariprazine 1. 5 MG Oral Capsule [Vraylar] [facility] ([facility]) buspirone hydrochloride 15 MG Oral Tablet buspirone 15 mg tablet buspirone 15 mg tablet completed buspirone hydr ochloride 15 MG Oral Tablet [facility] ([facility]) buspirone hydrochloride 5 MG Oral Tablet buspirone 5 mg tablet TAKE 1 TABLET BY MOUTH 3 TIMES A DAY NEEDED FOR ANXIETY/AGITATION buspirone 5 mg tablet TAKE 1 TABLET BY MOUTH 3 TIMES A DAY NEEDED FOR ANXIETY/AGITATION completed buspirone hydrochloride 5 MG Ora l Tablet [facility] ([facility]) Amoxicillin 500 MG Oral Capsule amoxicillin 500 mg cap karen amoxicillin 500 mg capsule completed amoxicillin 50 0 MG Oral Capsule [facility] ([facility]) Ondansetron 4 MG Disintegrating Oral Tab let ondansetron 4 mg disintegrating tablet DISSOLVE 1 TABLET IN MOUTH EVERY 6 TO 8 HOURS NEEDED FOR NAUSEA AND VOMITING ondansetron 4 mg disintegrating tablet D ISSOLVE 1 TABLET IN MOUTH EVERY 6 TO 8 HOURS NEEDED FOR NAUSEA AND VOMITING completed ondansetron 4 MG Disintegrating Oral Tablet [facility] ([facility]) methylphenidate ER 54 mg tablet,extended release 24 hr [id number] completed BX Rating 24 HR meth ylphenidate hydrochloride 54 MG Extended Release Oral Tablet [facility] ([facility]) Amoxicillin 500 MG Oral Capsule amoxicillin 500 mg cap karen amoxicillin 500 mg capsule completed amoxicillin 50 0 MG Oral Capsule [facility] ([facility]) Divalproex Sodium 250 MG Delayed Release Oral Tablet divalproex 250 mg tablet,delayed release divalproex 250 mg tablet,delayed release completed divalproex sodium 250 MG Delayed Release Oral Tablet [facility] ([facility]) Guanfacine 1 MG Oral Tablet guanfacine 1 mg tablet TAKE 1/2 TABLET BY MOUTH EVERY MORNING guanfacine 1 mg tablet TAKE 1/2 TABLET BY MOUTH EVERY MORNING completed guanfacine 1 MG Oral T ablet [facility] ([facility]) aripiprazole 30 MG Oral Tablet aripipraz ole 30 mg tablet TAKE ONE TABLET BY MOUTH EVERY DAY aripiprazole 30 mg tablet TAKE ONE TABLET BY MOUTH EVERY DAY completed aripiprazole 3 0 MG Oral Tablet [facility] ([facility]) Amoxicillin 500 MG Oral Capsule amoxicillin 500 mg cap karen amoxicillin 500 mg capsule completed amoxicillin 50 0 MG Oral Capsule [facility] ([facility]) buspirone hydrochloride 5 MG Oral Tablet buspirone 5 mg tablet TAKE 1 TABLET BY MOUTH 3 TIMES A DAY NEEDED FOR ANXIETY/AGITATION buspirone 5 mg tablet TAKE 1 TABLET BY MOUTH 3 TIMES A DAY NEEDED FOR ANXIETY/AGITATION completed buspirone hydrochloride 5 MG Ora l Tablet [facility] ([facility]) Vraylar 1.5 mg capsule TAKE 3 CAPSULES 4.5MG BY MOUTH DAILY FO R MOOD [id number] completed cariprazine 1. 5 MG Oral Capsule [Vraylar] [facility] ([facility]) Prazosin 1 MG Oral Capsule prazosin 1 mg capsule prazosin 1 mg capsule completed prazosin 1 MG Oral Capsul e [facility]) methylphenidate ER 54 mg tablet,extended release 24 hr [id number] completed BX Rating 24 HR meth ylphenidate hydrochloride 54 MG Extended Release Oral Tablet [facility] ([facility]) Ondansetron 4 MG Disintegrating Oral Tab let ondansetron 4 mg disintegrating tablet DISSOLVE 1 TABLET IN MOUTH EVERY 6 TO 8 HOURS NEEDED FOR NAUSEA AND VOMITING ondansetron 4 mg disintegrating tablet D ISSOLVE 1 TABLET IN MOUTH EVERY 6 TO 8 HOURS NEEDED FOR NAUSEA AND VOMITING completed ondansetron 4 MG Disintegrating Oral Tablet [facility] ([facility]) Guanfacine 1 MG Oral Tablet guanfacine 1 mg tablet TAKE 1/2 TABLET BY MOUTH EVERY MORNING guanfacine 1 mg tablet TAKE 1/2 TABLET BY MOUTH EVERY MORNING completed guanfacine 1 MG Oral T ablet [facility] ([facility]) Amoxicillin 500 MG Oral Capsule amoxicillin 500 mg cap karen amoxicillin 500 mg capsule completed amoxicillin 50 0 MG Oral Capsule [facility] ([facility]) Clonidine Hydrochloride 0.2 MG Oral Tabl et clonidine HCl 0.2 mg tablet TAKE ONE TABLET BY MOUTH DAILY AT BEDTIME clonidine HCl 0.2 mg tablet TAKE ONE TAB LET BY MOUTH DAILY AT BEDTIME completed clonidine hydrochloride 0.2 MG Oral Tablet [facility] ([facility]) aripiprazole 30 MG Oral Tablet aripipraz ole 30 mg tablet TAKE ONE TABLET BY MOUTH EVERY DAY aripiprazole 30 mg tablet TAKE ONE TABLET BY MOUTH EVERY DAY completed aripiprazole 3 0 MG Oral Tablet [facility] ([facility]) methylphenidate ER 54 mg tablet,extended release 24 hr [id number] completed BX Rating 24 HR meth ylphenidate hydrochloride 54 MG Extended Release Oral Tablet [facility] ([facility]) Prazosin 1 MG Oral Capsule prazosin 1 mg capsule prazosin 1 mg capsule completed prazosin 1 MG Oral Capsul e [facility] ([facility]) Ondansetron 4 MG Disintegrating Oral Tab let ondansetron 4 mg disintegrating tablet DISSOLVE 1 TABLET IN MOUTH EVERY 6 TO 8 HOURS NEEDED FOR NAUSEA AND VOMITING ondansetron 4 mg disintegrating tablet D ISSOLVE 1 TABLET IN MOUTH EVERY 6 TO 8 HOURS NEEDED FOR NAUSEA AND VOMITING completed ondansetron 4 MG Disintegrating Oral Tablet [facility] ([facility]) Vraylar 3 mg capsule [id number] completed cariprazine 3 MG Oral Capsule [Vraylar] [facility] ([facility]) Amoxicillin 500 MG Oral Capsule amoxicillin 500 mg cap karen amoxicillin 500 mg capsule completed amoxicillin 50 0 MG Oral Capsule [facility] ([facility]) methylphenidate ER 36 mg tablet,extended release 24 hr [id number] completed BX Rating 24 HR meth ylphenidate hydrochloride 36 MG Extended Release Oral Tablet [facility] ([facility]) Vraylar 1.5 mg capsule TAKE 3 CAPSULES 4.5MG BY MOUTH DAILY FO R MOOD [id number] completed cariprazine 1. 5 MG Oral Capsule [Vraylar] [facility] ([facility]) Divalproex Sodium 250 MG Delayed Release Oral Tablet divalproex 250 mg tablet,delayed release divalproex 250 mg tablet,delayed release completed divalproex sodium 250 MG Delayed Release Oral Tablet [facility] ([facility]) Guanfacine 1 MG Oral Tablet guanfacine 1 mg tablet TAKE 1/2 TABLET BY MOUTH EVERY MORNING guanfacine 1 mg tablet TAKE 1/2 TABLET BY MOUTH EVERY MORNING completed guanfacine 1 MG Oral T ablet [facility] ([facility]) buspirone hydrochloride 15 MG Oral Tablet buspirone 15 mg tablet buspirone 15 mg tablet completed buspirone hydr ochloride 15 MG Oral Tablet [facility] ([facility]) buspirone hydrochloride 5 MG Oral Tablet buspirone 5 mg tablet TAKE 1 TABLET BY MOUTH 3 TIMES A DAY NEEDED FOR ANXIETY/AGITATION buspirone 5 mg tablet TAKE 1 TABLET BY MOUTH 3 TIMES A DAY NEEDED FOR ANXIETY/AGITATION completed buspirone hydrochloride 5 MG Ora l Tablet [facility] ([facility]) Ondansetron 4 MG Disintegrating Oral Tab let ondansetron 4 mg disintegrating tablet DISSOLVE 1 TABLET IN MOUTH EVERY 6 TO 8 HOURS NEEDED FOR NAUSEA AND VOMITING ondansetron 4 mg disintegrating tablet D ISSOLVE 1 TABLET IN MOUTH EVERY 6 TO 8 HOURS NEEDED FOR NAUSEA AND VOMITING completed ondansetron 4 MG Disintegrating Oral Tablet [facility] ([facility]) buspirone hydrochloride 5 MG Oral Tablet buspirone 5 mg tablet TAKE 1 TABLET BY MOUTH 3 TIMES A DAY NEEDED FOR ANXIETY/AGITATION buspirone 5 mg tablet TAKE 1 TABLET BY MOUTH 3 TIMES A DAY NEEDED FOR ANXIETY/AGITATION completed buspirone hydrochloride 5 MG Ora l Tablet [facility] ([facility]) Prazosin 1 MG Oral Capsule prazosin 1 mg capsule prazosin 1 mg capsule completed prazosin 1 MG Oral Capsul e [facility] ([facility]) methylphenidate ER 36 mg tablet,extended release 24 hr [id number] completed BX Rating 24 HR meth ylphenidate hydrochloride 36 MG Extended Release Oral Tablet [facility] ([facility]) Clonidine Hydrochloride 0.2 MG Oral Tabl et clonidine HCl 0.2 mg tablet TAKE ONE TABLET BY MOUTH DAILY AT BEDTIME clonidine HCl 0.2 mg tablet TAKE ONE TAB LET BY MOUTH DAILY AT BEDTIME completed clonidine hydrochloride 0.2 MG Oral Tablet [facility] ([facility]) methylphenidate ER 36 mg tablet,extended release 24 hr [id number] completed BX Rating 24 HR meth ylphenidate hydrochloride 36 MG Extended Release Oral Tablet [facility] ([facility]) Ondansetron 4 MG Disintegrating Oral Tab let ondansetron 4 mg disintegrating tablet DISSOLVE 1 TABLET IN MOUTH EVERY 6 TO 8 HOURS NEEDED FOR NAUSEA AND VOMITING ondansetron 4 mg disintegrating tablet D ISSOLVE 1 TABLET IN MOUTH EVERY 6 TO 8 HOURS NEEDED FOR NAUSEA AND VOMITING completed ondansetron 4 MG Disintegrating Oral Tablet [facility] ([facility]) Amoxicillin 500 MG Oral Capsule amoxicillin 500 mg cap karen amoxicillin 500 mg capsule completed amoxicillin 50 0 MG Oral Capsule [facility] ([facility]) aripiprazole 30 MG Oral Tablet aripipraz ole 30 mg tablet TAKE ONE TABLET BY MOUTH EVERY DAY aripiprazole 30 mg tablet TAKE ONE TABLET BY MOUTH EVERY DAY completed aripiprazole 3 0 MG Oral Tablet [facility] ([facility]) Amoxicillin 500 MG Oral Capsule amoxicillin 500 mg cap karen amoxicillin 500 mg capsule completed amoxicillin 50 0 MG Oral Capsule [facility] ([facility]) aripiprazole 30 MG Oral Tablet aripipraz ole 30 mg tablet TAKE ONE TABLET BY MOUTH EVERY DAY aripiprazole 30 mg tablet TAKE ONE TABLET BY MOUTH EVERY DAY completed aripiprazole 3 0 MG Oral Tablet [facility] ([facility]) methylphenidate ER 36 mg tablet,extended release 24 hr 103696 completed BX Rating 24 HR meth ylphenidate hydrochloride 36 MG Extended Release Oral Tablet [facility] ([facility]) Divalproex Sodium 250 MG Delayed Release Oral Tablet divalproex 250 mg tablet,delayed release divalproex 250 mg tablet,delayed release completed divalproex sodium 250 MG Delayed Release Oral Tablet [facility] ([facility]) methylphenidate ER 36 mg tablet,extended release 24 hr 004650 completed BX Rating 24 HR meth ylphenidate hydrochloride 36 MG Extended Release Oral Tablet [facility] ([facility]) methylphenidate ER 54 mg tablet,extended release 24 hr [id number] completed BX Rating 24 HR meth ylphenidate hydrochloride 54 MG Extended Release Oral Tablet ANGELICA ([facility]) methylphenidate ER 36 mg tablet,extended release 24 hr [id number] completed BX Rating 24 HR meth ylphenidate hydrochloride 36 MG Extended Release Oral Tablet ANGELICA ([facility]) Divalproex Sodium 250 MG Delayed Release Oral Tablet divalproex 250 mg tablet,delayed release divalproex 250 mg tablet,delayed release completed divalproex sodium 250 MG Delayed Release Oral Tablet LAWN ([facility]) Divalproex Sodium 250 MG Delayed Release Oral Tablet divalproex 250 mg tablet,delayed release divalproex 250 mg tablet,delayed release completed divalproex sodium 250 MG Delayed Release Oral Tablet LAWN ([facility]) buspirone hydrochloride 15 MG Oral Tablet buspirone 15 mg tablet buspirone 15 mg tablet completed buspirone hydr ochloride 15 MG Oral Tablet LAWN ([facility]) methylphenidate ER 36 mg tablet,extended release 24 hr [id number] completed BX Rating 24 HR meth ylphenidate hydrochloride 36 MG Extended Release Oral Tablet LAWN ([facility]) aripiprazole 30 MG Oral Tablet aripipraz ole 30 mg tablet TAKE ONE TABLET BY MOUTH EVERY DAY aripiprazole 30 mg tablet TAKE ONE TABLET BY MOUTH EVERY DAY completed aripiprazole 3 0 MG Oral Tablet LAWN ([facility]) buspirone hydrochloride 15 MG Oral Tablet buspirone 15 mg tablet buspirone 15 mg tablet completed buspirone hydr ochloride 15 MG Oral Tablet LAWN ([facility]) methylphenidate ER 36 mg tablet,extended release 24 hr [id number] completed BX Rating 24 HR meth ylphenidate hydrochloride 36 MG Extended Release Oral Tablet ANGELICA ([facility]) methylphenidate ER 54 mg tablet,extended release 24 hr [id number] completed BX Rating 24 HR meth ylphenidate hydrochloride 54 MG Extended Release Oral Tablet ANGELICA ([facility]) Ondansetron 4 MG Disintegrating Oral Tab let ondansetron 4 mg disintegrating tablet DISSOLVE 1 TABLET IN MOUTH EVERY 6 TO 8 HOURS NEEDED FOR NAUSEA AND VOMITING ondansetron 4 mg disintegrating tablet D ISSOLVE 1 TABLET IN MOUTH EVERY 6 TO 8 HOURS NEEDED FOR NAUSEA AND VOMITING completed ondansetron 4 MG Disintegrating Oral Tablet ANGELICA ([facility]) methylphenidate ER 36 mg tablet,extended release 24 hr [id number] completed BX Rating 24 HR meth ylphenidate hydrochloride 36 MG Extended Release Oral Tablet ANGELICA ([facility]) Vraylar 3 mg capsule [id number] completed cariprazine 3 MG Oral Capsule [Vraylar] ANGELICA ([facility]) methylphenidate ER 36 mg tablet,extended release 24 hr 061927 completed BX Rating 24 HR meth ylphenidate hydrochloride 36 MG Extended Release Oral Tablet ANGELICA ([facility]) Insurance Providers Payer name Policy type / Coverage type Policy ID Covered alliance party ID Covered alliance party's relationship to martin Policy Martin Plan Information [facility] P [id number] O [id number] U [id number] Child [id number] EXCELLUS I [id number] Self [id number] Managed Care BCBS [id number] S [id number] Medicaid S [id number] S [id number] MEDICAID M [id number] Self [id number] [place] 12 [id number] O [id number] PGBA [facility] [id number] FA2 [id number] [facility] P [id number] O 0 [id number] Medicaid S [id number] S [id number] Medicaid S [id number] S [id number] Medicaid S [id number] S [id number] Medicaid P [id number] S [id number] [facility] PL[facility] U [id number] Se lf [id number] [facility] [id number] SP [id number] Medicaid S [id number] S [id number] Medicaid S [id number] S [id number] MEDICAID [id number] S [id number] Medicaid Dental 10 [id number] S [id number] D 13 [id number] O [id number] D [employer] Dental Program O [id number] S [id number] [facility]ILABLE S UNAVAILA BLE zzMedicaid FFS O [id number] S [id number] D Managed Care [facility] O [id number] S [id number] [facility] MEDICAID [id number] SP [id number] C [id number] [facility] [id number] SP [id number] FAMILY HEALTH PLAN [id number] S [id number] MEDICAID [id number] S [id number] SELF PAY UNAVAILABLE S UNAVAILA BLE [facility] [id number] SP [id number] [facility] O [id number] S [id number] MEDICAID M [id number] S [id number] [facility] P [id number] O 0 [id number] MEDICAID [id number] SP [id number] [facility] [id number] SP [id number] [facility] O [id number] S [id number] [facility] O [id number] S [id number] [employer] [id number] SP [id number] [facility] O [id number] S [id number] [employer] [place] PLAN [id number] SP [id number] [facility] [place] O [id number] C [id number] [facility] O UNAVAILABLE [id number] S UNAV AILABLE Problems, Conditions, and Diagnoses Code Display Name Description Problem Type Effective Dates Data Source(s) 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 Diagnosis 10/20/2020 09:53:00 PM [facility] 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 Diagnosis 10/20/2020 09:53:00 PM [facility] Z20.822 CONTACT WITH AND (SUSPECTED) EXPOSURE TO COVID-19 CONTACT WITH AND (SUSPECTED) EXPOSURE TO COVID-19 Diagnosis 10/20/2020 09:53:00 PM [facility] F90.9 Attention-deficit hyperactivity disorder , unspecified type ATTENTION- DEFICIT HYPERACTIVITY DISORDER, UNSPECIF Diagnosis 10/20/2020 09:53:00 PM [facility] Z00.00 Encounter for general adult medical examination without abnormal findings ENCNTR FOR GENERAL ADULT MEDICAL EXAM W/O ABNORMAL Diagnosis 10/20/2020 09:53:00 PM [facility] M79.10 MYALGIA, UNSPECIFIED SITE MYALGIA, UNSPECIFIED SITE Di agnosis 10/20/2020 09:53:00 PM EDT [facility] [id number] Nicotine dependence with current use Ihsan otine Dependence with Current Use Problem 04/24/2021 12:00:00 AM EDT ANGELICA ([facility]) [id number] Vitamin D deficiency Vitamin D Deficiency Problem 04/24/2021 12:00:00 AM EDT ANGELICA ([facility]) F90.2 Attention-deficit hyperactivity disorder , combined type Attention- Deficit/Hyperactivity Disorder, Combined presentation Condition 04/01/2021 12:00:00 AM EDT [facility] ([facility]) F31.81 Bipolar II disorder Bipolar II Disorder Condition 1 12:00:00 AM EDT [facility] [id number] Gastroesophageal reflux disease Gastroesophageal Reflux Disease Problem 03/13/2021 12:00:00 AM EDT ANGELICA ([facility]) [id number] Gastroesophageal reflux disease Gastroesophageal Reflux Disease Problem 03/13/2021 12:00:00 AM EDT ANGELICA ([facility]) [id number] Gastroesophageal reflux disease Gastroesophageal Reflux Disease Problem 03/13/2021 12:00:00 AM EDT ANGELICA ([facility]) [id number] Gastroesophageal reflux disease Gastroesophageal Reflux Disease Problem 03/13/2021 12:00:00 AM EDT ANGELICA ([facility]) F33.0 Major depressive disorder, recurrent, mi ld Major Depressive Disorder, Recurrent episode, Mild Condition 01/01/2021 12:00:00 AM EDT [facility] ([facility]) [id number] Recurrent depressive disorder, current e pisode mild Recurrent depressive disorder, current episode mild Condition 09/09/2020 12:00:0 0 AM EDT [employer] ([facility]) [id number] Recurrent depressive disorder, current e pisode mild Recurrent depressive disorder, current episode mild Condition 09/09/2020 12:00:0 0 AM EDT [employer] ([facility]) [id number] Recurrent depressive disorder, current e pisode mild Recurrent depressive disorder, current episode mild Condition 09/09/2020 12:00:0 0 AM EDT [employer] ([facility]) [id number] Recurrent depressive disorder, current e pisode mild Recurrent depressive disorder, current episode mild Condition 09/09/2020 12:00:0 0 AM EDT [facility] ([facility]) 334726182 Recurrent depressive disorder, current e pisode mild Recurrent depressive disorder, current episode mild Condition 09/09/2020 12:00:0 0 AM EDT Ranjana ([facility]) 286977199 Overweight Overweight Problem 11/22/2019 12:0 0:00 AM EDT - 09/02/2020 12:00:00 AM EDT ANGELICA ([facility]) 504713815 Overweight Overweight Problem 11/22/2019 12:0 0:00 AM EDT - 09/02/2020 12:00:00 AM EDT ANGELICA ([facility]) 537931503 Overweight Overweight Problem 11/22/2019 12:0 0:00 AM EDT - 09/02/2020 12:00:00 AM EDT ANGELICA ([facility]) [id number] Overweight Overweight Problem 11/22/2019 12:0 0:00 AM EDT - 09/02/2020 12:00:00 AM EDT ANGELICA ([facility]) 662644985 Overweight Overweight Problem 11/22/2019 12:0 0:00 AM EDT - 09/02/2020 12:00:00 AM EDT ANGELICA ([facility]) 714769465 Overweight Overweight Problem 11/22/2019 12:0 0:00 AM EDT - 09/02/2020 12:00:00 AM EDT ANGELICA ([facility]) 771397504 Overweight in childhood Overweight in Childhood Proble 03/03/2016 12:00:00 AM EDT - 09/02/2020 12:00:00 AM EDT ANGELICA ([facility]) 587152214 Overweight in childhood Overweight in Childhood Proble 03/03/2016 12:00:00 AM EDT - 09/02/2020 12:00:00 AM EDT ANGELICA ([facility]) 071845443 Overweight in childhood Overweight in Childhood Proble 03/03/2016 12:00:00 AM EDT - 09/02/2020 12:00:00 AM EDT ANGELICA ([facility]) 358329194 Overweight in childhood Overweight in Childhood Proble 03/03/2016 12:00:00 AM EDT - 09/02/2020 12:00:00 AM EDT ANGELICA ([facility]) 059218526 Overweight in childhood Overweight in Childhood Proble 03/03/2016 12:00:00 AM EDT - 09/02/2020 12:00:00 AM EDT ANGELICA ([facility]) 395307112 Overweight in childhood Overweight in Childhood Proble 03/03/2016 12:00:00 AM EDT - 09/02/2020 12:00:00 AM EDT ANGELICA ([facility]) [id number] Influenza vaccine needed Influenza Vaccine Needed Pro blem 04/24/2013 12:00:00 AM EST - 06/06/2020 12:00:00 AM EST ANGELICA ([facility]) [id number] Influenza vaccine needed Influenza Vaccine Needed Pro blem 04/24/2013 12:00:00 AM EST - 06/06/2020 12:00:00 AM EST ANGELICA ([facility]) [id number] Influenza vaccine needed Influenza Vaccine Needed Pro blem 04/24/2013 12:00:00 AM EST - 06/06/2020 12:00:00 AM EST ANGELICA ([facility]) [id number] Influenza vaccine needed Influenza Vaccine Needed Pro blem 04/24/2013 12:00:00 AM EST - 06/06/2020 12:00:00 AM EST ANGELICA ([facility]) [id number] Influenza vaccine needed Influenza Vaccine Needed Pro blem 04/24/2013 12:00:00 AM EST - 06/06/2020 12:00:00 AM EST ANGELICA ([facility]) [id number] Influenza vaccine needed Influenza Vaccine Needed Pro blem 04/24/2013 12:00:00 AM EST - 06/06/2020 12:00:00 AM EST ANGELICA ([facility]) [id number] Influenza vaccine needed Influenza Vaccine Needed Pro blem 04/24/2013 12:00:00 AM EST - 06/06/2020 12:00:00 AM EST ANGELICA ([facility]) [id number] Influenza vaccine needed Influenza Vaccine Needed Pro blem 04/24/2013 12:00:00 AM EST - 06/06/2020 12:00:00 AM EST ANGELICA ([facility]) [id number] Influenza vaccine needed Influenza Vaccine Needed Pro blem 04/24/2013 12:00:00 AM EST - 06/06/2020 12:00:00 AM EST ANGELICA ([facility]) [id number] Procedure Procedure Problem 06/29/2012 12:0 0:00 AM EST - 09/02/2020 12:00:00 AM EDT ANGELICA ([facility]) [id number] Procedure Procedure Problem 06/29/2012 12:0 0:00 AM EST - 09/02/2020 12:00:00 AM EDT ANGELICA ([facility]) [id number] Procedure Procedure Problem 06/29/2012 12:0 0:00 AM EST - 09/02/2020 12:00:00 AM EDT ANGELICA ([facility]) [id number] Procedure Procedure Problem 06/29/2012 12:0 0:00 AM EST - 09/02/2020 12:00:00 AM EDT ANGELICA ([facility]) [id number] Procedure Procedure Problem 06/29/2012 12:0 0:00 AM EST - 09/02/2020 12:00:00 AM EDT ANGELICA ([facility]) [id number] Procedure Procedure Problem 06/29/2012 12:0 0:00 AM EST - 09/02/2020 12:00:00 AM EDT ANGELICA ([facility]) Surgeries/Procedures Procedure Description Date Indications Data Source(s) Extended Individual Psychotherapy - 45 min 04/01/2021 12:00:00 AM EDT - 04/01/2021 12:00:00 AM EDT [facility] ([facility]) Extended Individual Psychotherapy - 45 min 12:00:00 AM EDT [facility] ([facility]) [facility] Telemed E/M Lvl 3--Est pt 03/12/2021 12:00:00 AM EDT - 03/12/2021 12:00:00 AM EDT [facility] ([facility]) MHC Telemed E/M Lvl 3--Est pt 03/12/2021 12:00:00 AM E DT [facility] ([facility]) Brief Individual Psychotherapy - 30 min 01/01/2021 12:00:00 AM EDT - 01/01/2021 12:00:00 AM EDT [facility] ([facility]) Brief Individual Psychotherapy - 30 min 01/01/2021 12: 00:00 AM EDT [facility] ([facility]) MHCTelemed E/M Lvl 4--Est pt 12/19/2020 12:00:00 AM EDT - 12/19/2020 12:00:00 AM EDT [facility] ([facility]) MHCTelemed E/M Lvl 4--Est pt 12/19/2020 12:00:00 AM ED T [facility] ([facility]) Extended Individual Psychotherapy - 45 min 12/19/2020 12:00:00 AM EDT - 12/19/2020 12:00:00 AM EDT [facility] ([facility]) Extended Individual Psychotherapy - 45 min 12:00:00 AM EDT [facility] ([facility]) Brief Individual Psychotherapy - 30 min 12/03/2020 12:00:00 AM EDT - 12/03/2020 12:00:00 AM EDT [facility] ([facility]) Brief Individual Psychotherapy - 30 min 12/02/2020 12: 00:00 AM EDT [facility] ([facility]) MHC Telemed E/M Lvl 3--Est pt 11/28/2020 12:00:00 AM EDT - 11/28/2020 12:00:00 AM EDT [facility] ([facility]) MHC Telemed E/M Lvl 3--Est pt 11/28/2020 12:00:00 AM E DT [facility] ([facility]) Extended Individual Psychotherapy - 45 min 10/24/2020 12:00:00 AM EDT - 10/24/2020 12:00:00 AM EDT [facility] ([facility]) Extended Individual Psychotherapy - 45 min 12:00:00 AM EDT [facility] ([facility]) MHC Telemed E/M Lvl 3--Est pt 10/09/2020 12:00:00 AM EDT - 10/09/2020 12:00:00 AM EDT [facility] ([facility]) MHC Telemed E/M Lvl 3--Est pt 10/09/2020 12:00:00 AM E DT [facility] ([facility]) Brief Individual Psychotherapy - 30 min 10/08/2020 12:00:00 AM EDT - 10/08/2020 12:00:00 AM EDT [facility] ([facility]) Brief Individual Psychotherapy - 30 min 10/08/2020 12: 00:00 AM EDT [facility] ([facility]) Extended Individual Psychotherapy - 45 min 09/17/2020 12:00:00 AM EDT - 09/17/2020 12:00:00 AM EDT [facility] ([facility]) Extended Individual Psychotherapy - 45 min 12:00:00 AM EDT [facility] ([facility]) MHC Telemed E/M Lvl 3--Est pt 09/12/2020 12:00:00 AM EDT - 09/12/2020 12:00:00 AM EDT [facility] ([facility]) MHC Telemed E/M Lvl 3--Est pt 09/12/2020 12:00:00 AM E DT [facility] ([facility]) Brief Individual Psychotherapy - 30 min 09/01/2020 12:00:00 AM EDT - 09/01/2020 12:00:00 AM EDT [facility] ([facility]) Brief Individual Psychotherapy - 30 min 09/01/2020 12: 00:00 AM EDT [facility] ([facility]) MHC Telemed E/M Lvl 3--Est pt 08/29/2020 12:00:00 AM EST - 08/29/2020 12:00:00 AM EST [facility] ([facility]) MHC Telemed E/M Lvl 3--Est pt 08/29/2020 12:00:[address] [facility] ([facility]) MHC Telemed E/M Lvl 3--Est pt 08/08/2020 12:00:00 AM EST - 08/08/2020 12:00:00 AM EST [facility] ([facility]) MHC Telemed E/M Lvl 3--Est pt 08/08/2020 12:00:[address] [facility] ([facility]) [id number]"Psychotherapy 12:00:00 AM EST - 07/25/2020 12:00:00 AM EST [facility] ([facility]) [id number]"Psychotherapy 07/25/2020 12:00:00 AM EST [facility] ([facility]) MHC Telemed E/M Lvl 3--Est pt 07/18/2020 12:00:00 AM EST - 07/18/2020 12:00:00 AM EST [facility] ([facility]) MHC Telemed E/M Lvl 3--Est pt 07/18/2020 12:00:[address] [facility] ([facility]) Extended Individual Psychotherapy - 45 min 07/02/2020 12:00:00 AM EST - 07/02/2020 12:00:00 AM EST [facility] ([facility]) Extended Individual Psychotherapy - 45 min 12:00:00 AM EST [facility] ([facility]) Extended Individual Psychotherapy - 45 min 06/04/2020 12:00:00 AM EST - 06/04/2020 12:00:00 AM EST [facility] ([facility]) Extended Individual Psychotherapy - 45 min 12:00:00 AM EST [facility] ([facility]) MHC Telemed E/M Lvl 3--Est pt 06/04/2020 12:00:00 AM EST - 06/04/2020 12:00:00 AM EST [facility] ([facility]) MHC Telemed E/M Lvl 3--Est pt 06/04/2020 12:00:[address] [facility] ([facility]) Extended Individual Psychotherapy - 45 min 04/25/2020 12:00:00 AM EST - 04/25/2020 12:00:00 AM EST [facility] ([facility]) Extended Individual Psychotherapy - 45 min 0 12:00:00 AM EST [facility] ([facility]) MHC Telemed E/M Lvl 3--Est pt 04/17/2020 12:00:00 AM EDT - 04/17/2020 12:00:00 AM EDT [facility] ([facility]) Telemed A/O 30" 04/17/2020 12:00:00 AM EDT [facility] ([facility]) MHC Telemed E/M Lvl 3--Est pt 04/17/2020 12:00:00 AM E DT [facility] ([facility]) Extended Individual Psychotherapy - 45 min 03/19/2020 12:00:00 AM EDT - 03/19/2020 12:00:00 AM EDT [facility] ([facility]) Extended Individual Psychotherapy - 45 min 0 12:00:00 AM EDT [facility] ([facility]) Results ID Date Data Source [id number] 04/16/2021 08:21:00 AM EDT [facility]) Name Value Range Interpretation Code Description Data Roz rce(s) Supporting Document(s) sars-cov-2 negative negative Sars-cov-2 [facility]) ID Date Data Source [id number] 04/16/2021 08:21:00 AM EDT [facility]) Name Value Range Interpretation Code Description Data Roz rce(s) Supporting Document(s) sars-cov-2 negative negative Sars-cov-2 LAWN ([facility]) ID Date Data Source [id number] 04/16/2021 08:20:00 AM EDT [facility] Name Value Range Interpretation Code Description Data Roz rce(s) Supporting Document(s) SARS coronavirus 2 RdRp gene [Presence] in Respiratory specimen by JEN with probe detection Not detected [facility] This lab was ordered by [facility] and reported by [facility]. ID Date Data Source [id number] 04/01/2021 08:50:00 AM EDT LAWN ([facility]) Name Value Range Interpretation Code Description Data Roz rce(s) Supporting Document(s) Hemoglobin A1c/Hemoglobin.total in Blood 5.0 %_of_total_HGB <5.7 Hemoglobin a1C LAWN ([facility]) ID Date Data Source [id number] 04/01/2021 08:50:00 AM EDT [facility]) Name Value Range Interpretation Code Description Data Roz rce(s) Supporting Document(s) Calcidiol [Mass/volume] in Serum or Plasma 19 NG/mL 30-100 Below low normal Vitamin D,25-Oh,total,ia [facility]) ID Date Data Source [id number] 04/01/2021 08:50:00 AM EDT [facility]) Name Value Range Interpretation Code Description Data Roz rce(s) Supporting Document(s) Thyrotropin [Units/volume] in Serum or Plasma 3.05 mIU/L 0.50-4.30 Tsh [facility]) ID Date Data Source [id number] 04/01/2021 08:50:00 AM EDT [facility]) Name Value Range Interpretation Code Description Data Roz rce(s) Supporting Document(s) Urea nitrogen [Mass/volume] in Serum or Plasma 19 mg/dL 7-20 Urea Nitrogen (BUN) ANGELICA ([facility]) Glucose [Mass/volume] in Serum or Plasma 98 mg/dL 65-99 Glucose ANGELICA ([facility]) Glomerular filtration rate/1.73 sq M.pre dicted among blacks [Volume Rate/Area] in Serum, Plasma or Blood by Creatinine-based formula (CKD-EPI) 143 mL/min/1.73m2 > or = 60 eGFR ANGELICA ([facility]) Creatinine [Mass/volume] in Serum or Plasma 0.90 mg/dL 0.60-1.26 Creatinine ANGELICA ([facility]) Glomerular filtration rate/1.73 sq M.pre dicted among non-blacks [Volume Rate/Area] in Serum, Plasma or Blood by Creatinine-based formula (CKD-EPI) 123 mL/min/1.73m2 > or = 60 eGFR Non-afr. Syrian ANGELICA ([facility]) Sodium [Moles/volume] in Serum or Plasma 142 mmol/L 135-146 Sodium ANGELICA ([facility]) Urea nitrogen/Creatinine [Mass Ratio] in Serum or Plasma not applic able 6-22 BUN/creatinine Ratio ANGELICA ([facility]) Potassium [Moles/volume] in Serum or Plasma 4.6 mmol/L 3.8-5.1 Potassium ANGELICA ([facility]) Carbon dioxide, total [Moles/volume] in Serum or Plasma 28 mmol/L 20-32 Carbon Dioxide ANGELICA ([facility]) Chloride [Moles/volume] in Serum or Plasma 107 mmol/L 98-110 Chloride ANGELICA ([facility]) Protein [Mass/volume] in Serum or Plasma 7.1 g/dL 6.3-8.2 Protein, Total ANGELICA ([facility]) Albumin [Mass/volume] in Serum or Plasma 4.7 g/dL 3.6-5.1 Albumin ANGELICA ([facility]) Calcium [Mass/volume] in Serum or Plasma 9.9 mg/dL 8.9-10.4 [facility]cium [facility] Globulin [Mass/volume] in Serum by calculation 2.4 g/dL_(calc) 2.1- 3.5 Globulin ANGELICA ([facility]) Albumin/Globulin [Mass Ratio] in Serum or Plasma 2.0 (calc) 1.0-2 .5 Albumin/globulin Ratio ANGELICA ([facility]) Alkaline phosphatase [Enzymatic activity/volume] in Serum or Plasma 86 U/L 46-169 Alkaline Phosphatase ANGELICA ([facility]) Bilirubin.total [Mass/volume] in Serum or Plasma 0.4 mg/dL 0.2-1 .1 Bilirubin, Total ANGELICA ([facility]) Aspartate aminotransferase [Enzymatic activity/volume] in Serum or Plasma 17 U/L 12-32 Ast ANGELICA ([facility]) Alanine aminotransferase [Enzymatic activity/volume] in Seru m or Plasma 35 U/L 8-46 Alt ANGELICA ([facility]) ID Date Data Source [id number] 04/01/2021 08:50:00 AM EDT ANGELICA ([facility]) Name Value Range Interpretation Code Description Data Roz rce(s) Supporting Document(s) Cholesterol [Mass/volume] in Serum or Plasma 153 mg/dL <170 Cholesterol, Total ANGELICA ([facility]) Triglyceride [Mass/volume] in Serum or Plasma 74 mg/dL <90 Triglycerides ANGELICA ([facility]) Cholesterol in HDL [Mass/volume] in Serum or Plasma 38 mg/dL >45 Below low normal HDL Cholesterol ANGELICA ([facility]) Cholesterol in LDL [Mass/volume] in Serum or Plasma by calculation 99 mg/dL_(calc) <110 LDL-cholesterol ANGELICA ([facility]) Cholesterol.total/Cholesterol in HDL [Mass Ratio] in Serum o r Plasma 4.0 (calc) <5.0 Chol/hdlc Ratio ANGELICA ([facility]) Cholesterol non HDL [Mass/volume] in Serum or Plasma 115 mg/dL_(stephenie c) <120 Non HDL Cholesterol ANGELICA ([facility]) ID Date Data Source [id number] 04/01/2021 08:50:00 AM EDT LAWN ([facility]) Name Value Range Interpretation Code Description Data Roz rce(s) Supporting Document(s) Hemoglobin A1c/Hemoglobin.total in Blood 5.0 %_of_total_HGB <5.7 Hemoglobin a1C LAWN ([facility]) ID Date Data Source [id number] 04/01/2021 08:50:00 AM EDT [facility]) Name Value Range Interpretation Code Description Data Roz rce(s) Supporting Document(s) Calcidiol [Mass/volume] in Serum or Plasma 19 NG/mL 30-100 Below low normal Vitamin D,25-Oh,total,ia [facility]) ID Date Data Source [id number] 04/01/2021 08:50:00 AM EDT [facility]) Name Value Range Interpretation Code Description Data Roz rce(s) Supporting Document(s) Thyrotropin [Units/volume] in Serum or Plasma 3.05 mIU/L 0.50-4.30 Tsh [facility]) ID Date Data Source [id number] 04/01/2021 08:50:00 AM EDT [facility]) Name Value Range Interpretation Code Description Data Roz rce(s) Supporting Document(s) Glucose [Mass/volume] in Serum or Plasma 98 mg/dL 65-99 Glucose ANGELICA ([facility]) Creatinine [Mass/volume] in Serum or Plasma 0.90 mg/dL 0.60-1.26 Creatinine LAWN ([facility]) Urea nitrogen [Mass/volume] in Serum or Plasma 19 mg/dL 7-20 Urea Nitrogen (BUN) [facility] Glomerular filtration rate/1.73 sq M.pre dicted among non-blacks [Volume Rate/Area] in Serum, Plasma or Blood by Creatinine-based formula (CKD-EPI) 123 mL/min/1.73m2 > or = 60 eGFR Non-afr. Syrian ANGELICA ([facility]) Urea nitrogen/Creatinine [Mass Ratio] in Serum or Plasma not applic able 6-22 BUN/creatinine Ratio [facility]) Glomerular filtration rate/1.73 sq M.pre dicted among blacks [Volume Rate/Area] in Serum, Plasma or Blood by Creatinine-based formula (CKD-EPI) 143 mL/min/1.73m2 > or = 60 eGFR ANGELICA ([facility]) Sodium [Moles/volume] in Serum or Plasma 142 mmol/L 135-146 Sodium ANGELICA ([facility]) Potassium [Moles/volume] in Serum or Plasma 4.6 mmol/L 3.8-5.1 Potassium ANGELICA ([facility]) Carbon dioxide, total [Moles/volume] in Serum or Plasma 28 mmol/L 20-32 Carbon Dioxide ANGELICA ([facility]) Chloride [Moles/volume] in Serum or Plasma 107 mmol/L 98-110 Chloride ANGELICA ([facility]) Protein [Mass/volume] in Serum or Plasma 7.1 g/dL 6.3-8.2 Protein, Total LAWN ([facility]) Albumin [Mass/volume] in Serum or Plasma 4.7 g/dL 3.6-5.1 Albumin ANGELICA ([facility]) Calcium [Mass/volume] in Serum or Plasma 9.9 mg/dL 8.9-10.4 Calcium LAWN ([facility]) Globulin [Mass/volume] in Serum by calculation 2.4 g/dL_(calc) 2.1- 3.5 Globulin LAWN ([facility]) Albumin/Globulin [Mass Ratio] in Serum or Plasma 2.0 (calc) 1.0-2 .5 Albumin/globulin Ratio LAWN ([facility]) Bilirubin.total [Mass/volume] in Serum or Plasma 0.4 mg/dL 0.2-1 .1 Bilirubin, Total ANGELICA ([facility]) Aspartate aminotransferase [Enzymatic activity/volume] in Serum or Plasma 17 U/L 12-32 Ast ANGELICA ([facility]) Alkaline phosphatase [Enzymatic activity/volume] in Serum or Plasma 86 U/L 46-169 Alkaline Phosphatase ANGELICA ([facility]) Alanine aminotransferase [Enzymatic activity/volume] in Seru m or Plasma 35 U/L 8-46 Alt ANGELICA ([facility]) ID Date Data Source [id number] 04/01/2021 08:50:00 AM EDT LAWN ([facility]) Name Value Range Interpretation Code Description Data Roz rce(s) Supporting Document(s) Cholesterol [Mass/volume] in Serum or Plasma 153 mg/dL <170 Cholesterol, Total ANGELICA ([facility]) Cholesterol in HDL [Mass/volume] in Serum or Plasma 38 mg/dL >45 Below low normal HDL Cholesterol ANGELICA ([facility]) Cholesterol in LDL [Mass/volume] in Serum or Plasma by calculation 99 mg/dL_(calc) <110 LDL-cholesterol ANGELICA ([facility]) Triglyceride [Mass/volume] in Serum or Plasma 74 mg/dL <90 Triglycerides ANGELICA ([facility]) Cholesterol.total/Cholesterol in HDL [Mass Ratio] in Serum o r Plasma 4.0 (calc) <5.0 Chol/hdlc Ratio ANGELICA ([facility]) Cholesterol non HDL [Mass/volume] in Serum or Plasma 115 mg/dL_(stephenie c) <120 Non HDL Cholesterol ANGELICA ([facility]) ID Date Data Source [id number] 04/01/2021 08:50:00 AM EDT LAWN ([facility]) Name Value Range Interpretation Code Description Data Roz rce(s) Supporting Document(s) Hemoglobin A1c/Hemoglobin.total in Blood 5.0 %_of_total_HGB <5.7 Hemoglobin a1C ANGELICA ([facility]) ID Date Data Source [id number] 04/01/2021 08:50:00 AM EDT LAWN ([facility]) Name Value Range Interpretation Code Description Data Roz rce(s) Supporting Document(s) Calcidiol [Mass/volume] in Serum or Plasma 19 NG/mL 30-100 Below low normal Vitamin D,25-Oh,total,ia ANGELICA ([facility]) ID Date Data Source [id number] 04/01/2021 08:50:00 AM EDT [facility]) Name Value Range Interpretation Code Description Data Roz rce(s) Supporting Document(s) Thyrotropin [Units/volume] in Serum or Plasma 3.05 mIU/L 0.50-4.30 Tsh [facility]) ID Date Data Source [id number] 04/01/2021 08:50:00 AM EDT ANGELICA ([facility]) Name Value Range Interpretation Code Description Data Roz rce(s) Supporting Document(s) Glucose [Mass/volume] in Serum or Plasma 98 mg/dL 65-99 Glucose LAWN ([facility]) Urea nitrogen [Mass/volume] in Serum or Plasma 19 mg/dL 7-20 Urea Nitrogen (BUN) [facility]) Glomerular filtration rate/1.73 sq M.pre dicted among blacks [Volume Rate/Area] in Serum, Plasma or Blood by Creatinine-based formula (CKD-EPI) 143 mL/min/1.73m2 > or = 60 eGFR ANGELICA ([facility]) Creatinine [Mass/volume] in Serum or Plasma 0.90 mg/dL 0.60-1.26 Creatinine LAWN ([facility]) Glomerular filtration rate/1.73 sq M.pre dicted among non-blacks [Volume Rate/Area] in Serum, Plasma or Blood by Creatinine-based formula (CKD-EPI) 123 mL/min/1.73m2 > or = 60 eGFR Non-afr. Syrian ANGELICA ([facility]) Urea nitrogen/Creatinine [Mass Ratio] in Serum or Plasma not applic able 6-22 BUN/creatinine Ratio ANGELICA ([facility]) Sodium [Moles/volume] in Serum or Plasma 142 mmol/L 135-146 Sodium ANGELICA ([facility]) Carbon dioxide, total [Moles/volume] in Serum or Plasma 28 mmol/L 20-32 Carbon Dioxide ANGELICA ([facility]) Chloride [Moles/volume] in Serum or Plasma 107 mmol/L 98-110 Chloride ANGELICA ([facility]) Potassium [Moles/volume] in Serum or Plasma 4.6 mmol/L 3.8-5.1 Potassium ANGELICA ([facility]) Albumin [Mass/volume] in Serum or Plasma 4.7 g/dL 3.6-5.1 Albumin ANGELICA ([facility]) Protein [Mass/volume] in Serum or Plasma 7.1 g/dL 6.3-8.2 Protein, Total ANGELICA ([facility]) Calcium [Mass/volume] in Serum or Plasma 9.9 mg/dL 8.9-10.4 Calcium ANGELICA ([facility]) Globulin [Mass/volume] in Serum by calculation 2.4 g/dL_(calc) 2.1- 3.5 Globulin ANGELICA ([facility]) Bilirubin.total [Mass/volume] in Serum or Plasma 0.4 mg/dL 0.2-1 .1 Bilirubin, Total ANGELICA ([facility]) Albumin/Globulin [Mass Ratio] in Serum or Plasma 2.0 (calc) 1.0-2 .5 Albumin/globulin Ratio ANGELICA ([facility]) Alkaline phosphatase [Enzymatic activity/volume] in Serum or Plasma 86 U/L 46-169 Alkaline Phosphatase ANGELICA ([facility]) Alanine aminotransferase [Enzymatic activity/volume] in Seru m or Plasma 35 U/L 8-46 Alt ANGELICA ([facility]) Aspartate aminotransferase [Enzymatic activity/volume] in Serum or Plasma 17 U/L 12-32 Ast ANEGLICA ([facility]) ID Date Data Source [id number] 04/01/2021 08:50:00 AM EDT ANGELICA ([facility]) Name Value Range Interpretation Code Description Data Roz rce(s) Supporting Document(s) Cholesterol [Mass/volume] in Serum or Plasma 153 mg/dL <170 Cholesterol, Total ANGELICA ([facility]) Cholesterol in HDL [Mass/volume] in Serum or Plasma 38 mg/dL >45 Below low normal HDL Cholesterol ANGELICA ([facility]) Cholesterol in LDL [Mass/volume] in Serum or Plasma by calculation 99 mg/dL_(calc) <110 LDL-cholesterol ANGELICA ([facility]) Triglyceride [Mass/volume] in Serum or Plasma 74 mg/dL <90 Triglycerides ANGELICA ([facility]) Cholesterol.total/Cholesterol in HDL [Mass Ratio] in Serum o r Plasma 4.0 (calc) <5.0 Chol/hdlc Ratio ANGELICA ([facility]) Cholesterol non HDL [Mass/volume] in Serum or Plasma 115 mg/dL_(stephenie c) <120 Non HDL Cholesterol ANGELICA ([facility]) ID Date Data Source [id number] 02/12/2021 08:47:00 PM EDT [facility] Name Value Range Interpretation Code Description Data Roz rce(s) Supporting Document(s) SARS coronavirus 2 RNA [Presence] in Res piratory specimen by JEN with probe detection NEGATIVE [facility] This lab was ordered by [facility] a nd reported by [facility]. ID Date Data Source [id number] 11/13/2020 03:35:00 PM EDT [facility] Name Value Range Interpretation Code Description Data Roz rce(s) Supporting Document(s) SARS coronavirus 2 RNA [Presence] in Res piratory specimen by JEN with probe detection POSITIVE [facility] This lab was ordered by [facility] a nd reported by [facility]. ID Date Data Source [id number] 10/20/2020 10:15:00 PM EDT [facility] Patient: FLOR CARTAGENA Observation Rep ort - Physicians/Mid Levels . [facility].VisitID: [id number] [place] [address] [phone], MRegistration Date/Time: 10/20/2020 21:15 Weight:81.1 kg (S). Height/Length:67 inches (S). BMI:28. Growth Chart Percentile: Weight:82.5%. Height/Length:18.4% PAST HISTORYProblems:ADHD - Attention Deficit Hyperactivity Disorder.Bipolar Disorder. Additional Surgeries:Appendectomy. Medications:Vraylar Oral unknown, daily, last dose last night.Prazosin HCl Oral (Capsule 2 mg) 1 capsule, daily, last dose yesterday.cloNIDine HCl Oral (Tablet 0.2 mg), last dose yesterday. Allergies:No Known Drug Allergy. FAMILY HISTORYNo significant family medical history. (Electronically signed by Kyle Mistry PA-C 10/20/2020 22:12) Name Value Range Interpretation Code Description Data Roz rce(s) Supporting Document(s) ID Date Data Source [id number] 10/20/2020 09:41:00 PM EDT [facility] [id number] Name Value Range Interpretation Code Description Data Roz rce(s) Supporting Document(s) COVID-19 NEGATIVE NEGATIVE [facility] Negative results should be treated as pr esumptive and, ifinconsistent with clinical signs and symptoms or necessaryfor patient management, should be tested with differentauthorized or cleared molecular tests.Negative results do not preclude SARS-CoV-2 infection andshould not be used as the sole basis for patient managementdecisions.This is a rapid molecular isothermal nucleic acidamplification technology (NAAT) in vitro diagnostic testutilizing a loop mediated isothermal amplification (LAMP)test with nicking endonuclease amplification reaction(NEAR) intended for the qualitative detection of nucleica bobbi from the SARS-CoV-2 viral RNA in direct nasal,nasopharyngeal or throat swabs from individuals who aresuspected of COVID-19.Results are for the indentification of SARS-CoV-2 RNA. KbzIPIX-IkM-4 RNA is generally detectable in respiratorysamples during the actue phase of infection. ID Date Data Source [id number] 09/16/2020 02:28:00 PM EDT [facility]) Name Value Range Interpretation Code Description Data Roz rce(s) Supporting Document(s) chlamydia DNA amplification negative negative Chlamydi a DNA Amplification [facility]) GC DNA amplification negative negative GC DNA Amplific ation [facility]) ID Date Data Source [id number] 09/16/2020 02:28:00 PM EDT [facility]) Name Value Range Interpretation Code Description Data Roz rce(s) Supporting Document(s) chlamydia DNA amplification negative negative Chlamydi a DNA Amplification [facility]) GC DNA amplification negative negative GC DNA Amplific ation ANGELICA ([facility]) ID Date Data Source [id number] 09/16/2020 02:28:00 PM EDT [facility]) Name Value Range Interpretation Code Description Data Roz rce(s) Supporting Document(s) chlamydia DNA amplification negative negative Chlamydi a DNA Amplification [facility]WN ([facility]) GC DNA amplification negative negative GC DNA Amplific ation [facility]) ID Date Data Source [id number] 09/16/2020 02:28:00 PM EDT [facility]) Name Value Range Interpretation Code Description Data Roz rce(s) Supporting Document(s) chlamydia DNA amplification negative negative Chlamydi a DNA Amplification LAWN ([facility]) GC DNA amplification negative negative GC DNA Amplific ation [facility]) ID Date Data Source [id number] 09/16/2020 02:26:00 PM EDT [facility]) Name Value Range Interpretation Code Description Data Roz rce(s) Supporting Document(s) HIV 1&2 screen [facility] negative negative HIV 1&2 Scree n [facility]WN ([facility]) ID Date Data Source [id number] 09/16/2020 02:26:00 PM EDT [place]WN ([facility]) Name Value Range Interpretation Code Description Data Roz rce(s) Supporting Document(s) syphilis nonreactive nonreactive Syphilis ANGELICA ([facility]) ID Date Data Source [id number] 09/16/2020 02:26:00 PM EDT [facility]) Name Value Range Interpretation Code Description Data Roz rce(s) Supporting Document(s) hepatitis C virus quintin index < 0.0 <0.8 Hepatiti s C Virus Quintin Index LAWN ([facility]) ID Date Data Source [id number] 09/16/2020 02:26:00 PM EDT [facility]) Name Value Range Interpretation Code Description Data Roz rce(s) Supporting Document(s) HIV 1&2 screen centaur negative negative HIV 1&2 Scree n [facility] ANGELICA ([facility]) ID Date Data Source [id number] 09/16/2020 02:26:00 PM EDT [facility]) Name Value Range Interpretation Code Description Data Roz rce(s) Supporting Document(s) syphilis nonreactive nonreactive Syphilis LAWN ([facility]) ID Date Data Source [id number] 09/16/2020 02:26:00 PM EDT [facility]) Name Value Range Interpretation Code Description Data Roz rce(s) Supporting Document(s) hepatitis C virus quintin index < 0.0 <0.8 Hepatiti s C Virus Quintin Index LAWN ([facility]) ID Date Data Source [id number] 09/16/2020 02:26:00 PM EDT [facility]) Name Value Range Interpretation Code Description Data Roz rce(s) Supporting Document(s) HIV 1&2 screen centaur negative negative HIV 1&2 Scree n [facility] ANGELICA ([facility]) ID Date Data Source [id number] 09/16/2020 02:26:00 PM EDT [facility]) Name Value Range Interpretation Code Description Data Roz rce(s) Supporting Document(s) syphilis nonreactive nonreactive Syphilis ANGELICA ([facility]) ID Date Data Source [id number] 09/16/2020 02:26:00 PM EDT LAWN ([facility]) Name Value Range Interpretation Code Description Data Roz rce(s) Supporting Document(s) hepatitis C virus quintin index < 0.0 <0.8 Hepatiti s C Virus Quintin Index LAWN ([facility]) ID Date Data Source [id number] 09/16/2020 02:26:00 PM EDT [facility]WN ([facility]) Name Value Range Interpretation Code Description Data Roz rce(s) Supporting Document(s) HIV 1&2 screen centaur negative negative HIV 1&2 Scree n Cent[facility] LAWN ([facility]) ID Date Data Source [id number] 09/16/2020 02:26:00 PM EDT [facility]) Name Value Range Interpretation Code Description Data Roz rce(s) Supporting Document(s) syphilis nonreactive nonreactive Syphilis ANGELICA ([facility]) ID Date Data Source [id number] 09/16/2020 02:26:00 PM EDT [facility]) Name Value Range Interpretation Code Description Data Roz rce(s) Supporting Document(s) hepatitis C virus quintin index < 0.0 <0.8 Hepatiti s C Virus Quintin Index LAWN ([facility]) ID Date Data Source [id number] 08/25/2020 12:50:00 PM EST [facility] Name Value Range Interpretation Code Description Data Roz rce(s) Supporting Document(s) SARS coronavirus 2 RNA [Presence] in Res piratory specimen by JEN with probe detection NEGATIVE [facility] This lab was ordered by [facility] a nd reported by [facility]. ID Date Data Source [id number] 07/02/2020 05:30:00 AM EST LAWN ([facility]) Name Value Range Interpretation Code Description Data Roz rce(s) Supporting Document(s) troponin I < 0.02 < 0.10 Troponin I ANGELICA ([facility]) ID Date Data Source [id number] 07/02/2020 05:30:00 AM EST ANGELICA ([facility]) Name Value Range Interpretation Code Description Data Roz rce(s) Supporting Document(s) troponin I < 0.02 < 0.10 Troponin I ANGELICA ([facility]) ID Date Data Source [id number] 07/02/2020 05:30:00 AM EST ANGELICA ([facility]) Name Value Range Interpretation Code Description Data Roz rce(s) Supporting Document(s) troponin I < 0.02 < 0.10 Troponin I ANGELICA ([facility]) ID Date Data Source [id number] 07/02/2020 05:30:00 AM EST ANGELICA ([facility]) Name Value Range Interpretation Code Description Data Roz rce(s) Supporting Document(s) troponin I < 0.02 < 0.10 Troponin I ANGELICA ([facility]) ID Date Data Source [id number] 07/02/2020 05:30:00 AM EST ANGELICA [facility]) Name Value Range Interpretation Code Description Data Roz rce(s) Supporting Document(s) troponin I < 0.02 < 0.10 Troponin I ANGELICA ([facility]) ID Date Data Source [id number] 07/02/2020 05:30:00 AM EST ANGELICA ([facility]) Name Value Range Interpretation Code Description Data Roz rce(s) Supporting Document(s) troponin I < 0.02 < 0.10 Troponin I ANGELICA ([facility]) ID Date Data Source [id number] 07/02/2020 05:30:00 AM EST ANGELICA [facility]) Name Value Range Interpretation Code Description Data Roz rce(s) Supporting Document(s) troponin I < 0.02 < 0.10 Troponin I ANGELICA ([facility]) ID Date Data Source [id number] 07/02/2020 05:30:00 AM EST ANGELICA ([facility]) Name Value Range Interpretation Code Description Data Roz rce(s) Supporting Document(s) troponin I < 0.02 < 0.10 Troponin I ANGELICA ([facility]) ID Date Data Source [id number] 07/01/2020 11:51:00 PM EST ANGELICA ([facility]) Name Value Range Interpretation Code Description Data Roz rce(s) Supporting Document(s) troponin I < 0.02 < 0.10 Troponin I ANGELICA ([facility]) ID Date Data Source [id number] 07/01/2020 11:51:00 PM EST ANGELICA ([facility]) Name Value Range Interpretation Code Description Data Roz rce(s) Supporting Document(s) troponin I < 0.02 < 0.10 Troponin I ANGELICA ([facility]) ID Date Data Source [id number] 07/01/2020 11:51:00 PM EST ANGELICA ([facility]) Name Value Range Interpretation Code Description Data Roz rce(s) Supporting Document(s) troponin I < 0.02 < 0.10 Troponin I ANGELICA ([facility]) ID Date Data Source [id number] 07/01/2020 11:51:00 PM EST ANGELICA ([facility]) Name Value Range Interpretation Code Description Data Roz rce(s) Supporting Document(s) troponin I < 0.02 < 0.10 Troponin I ANGELICA ([facility]) ID Date Data Source [id number] 07/01/2020 11:51:00 PM EST ANGELICA ([facility]) Name Value Range Interpretation Code Description Data Roz rce(s) Supporting Document(s) troponin I < 0.02 < 0.10 Troponin I ANGELICA ([facility]) ID Date Data Source [id number] 07/01/2020 11:51:00 PM EST ANGELICA ([facility]) Name Value Range Interpretation Code Description Data Roz rce(s) Supporting Document(s) troponin I < 0.02 < 0.10 Troponin I ANGELICA ([facility]) ID Date Data Source [id number] 07/01/2020 11:51:00 PM EST ANGELICA ([facility]) Name Value Range Interpretation Code Description Data Roz rce(s) Supporting Document(s) troponin I < 0.02 < 0.10 Troponin I ANGELICA ([facility]) ID Date Data Source [id number] 07/01/2020 11:51:00 PM EST ANGELICA ([facility]) Name Value Range Interpretation Code Description Data Roz rce(s) Supporting Document(s) troponin I < 0.02 < 0.10 Troponin I ANGELICA ([facility]) ID Date Data Source [id number] 07/01/2020 05:57:00 PM EST ANGELICA ([facility]) Name Value Range Interpretation Code Description Data Roz rce(s) Supporting Document(s) troponin I < 0.02 < 0.10 Troponin I ANGELICA ([facility]) ID Date Data Source [id number] 07/01/2020 05:57:00 PM EST ANGELICA ([facility]) Name Value Range Interpretation Code Description Data Roz rce(s) Supporting Document(s) troponin I < 0.02 < 0.10 Troponin I ANGELICA ([facility]) ID Date Data Source [id number] 07/01/2020 05:57:00 PM EST ANGELICA ([facility]) Name Value Range Interpretation Code Description Data Roz rce(s) Supporting Document(s) troponin I < 0.02 < 0.10 Troponin I ANGELICA ([facility]) ID Date Data Source [id number] 07/01/2020 05:57:00 PM EST ANGELICA ([facility]) Name Value Range Interpretation Code Description Data Roz rce(s) Supporting Document(s) troponin I < 0.02 < 0.10 Troponin I ANGELICA ([facility]) ID Date Data Source [id number] 07/01/2020 05:57:00 PM EST ANGELICA ([facility]) Name Value Range Interpretation Code Description Data Roz rce(s) Supporting Document(s) troponin I < 0.02 < 0.10 Troponin I ANGELICA ([facility]) ID Date Data Source [id number] 07/01/2020 05:57:00 PM EST ANGELICA ([facility]) Name Value Range Interpretation Code Description Data Roz rce(s) Supporting Document(s) troponin I < 0.02 < 0.10 Troponin I ANGELICA ([facility]) ID Date Data Source [id number] 07/01/2020 05:57:00 PM EST ANGELICA ([facility]) Name Value Range Interpretation Code Description Data Roz rce(s) Supporting Document(s) troponin I < 0.02 < 0.10 Troponin I ANGELICA ([facility]) ID Date Data Source [id number] 07/01/2020 05:57:00 PM EST ANGELICA ([facility]) Name Value Range Interpretation Code Description Data Roz rce(s) Supporting Document(s) troponin I < 0.02 < 0.10 Troponin I ANGELICA ([facility]) ID Date Data Source [id number] 07/01/2020 02:15:00 PM EST ANGELICA ([facility]) Name Value Range Interpretation Code Description Data Roz rce(s) Supporting Document(s) glucose, fasting 88 mg/dL 70-100 Glucose, Fasting AT [facility] ([facility]) blood urea nitrogen 19 mg/dL 7-18 Above high normal Blood Ure a Nitrogen ANGELICA ([facility]) creatinine for GFR 1.03 mg/dL 0.70-1.30 Creatinine for GF R ANGELICA ([facility]) sodium level 141 mEq/L 136-145 Sodium Level ANGELICA ([facility]) chloride level 106 mEq/L 98-107 Chloride Level ANGELICA ([facility]) potassium serum 3.7 mEq/L 3.5-5.1 Potassium Serum ATHE NA ([facility]) anion gap 2 mEq/L 8-16 Below low normal Anion Gap ANGELICA ( [facility]) carbon dioxide level 33 mEq/L 21-32 Above high normal Carbon D ioxide Level ANGELICA ([facility]) calcium level 9.5 mg/dL 8.5-10.1 Calcium Level ANGELICA ( [facility]) AST/SGOT 8 U/L 7-37 AST/SGOT ANGELICA ([facility]) ALT/SGPT 23 U/L 12-78 ALT/SGPT ANGELICA ([facility]) alkaline phosphatase 103 U/L 45-117 Alkaline Phosph atase ANGELICA ([facility]) total protein 7.3 gm/dL 6.4-8.2 Total Protein ANGELICA ( [facility]) albumin/globulin ratio Albumin/globu dana Ratio ANGELICA ([facility]) bilirubin,total 0.6 mg/dL 0.2-1.0 Bilirubin,total ATHE NA ([facility]) albumin 4.5 gm/dL 3.2-5.2 Albumin ANGELICA ([facility]) ID Date Data Source [id number] 07/01/2020 02:15:00 PM EST ANGELICA ([facility]) Name Value Range Interpretation Code Description Data Roz rce(s) Supporting Document(s) white blood count 6.9 10 4.0-10.0 White Blood Count ANGELICA ([facility]) hemoglobin 16.0 g/dL 13.5-17.5 Hemoglobin ANGELICA ([facility]) hematocrit 48.0 % 42.0-52.0 Hematocrit ANGELICA ([facility]) red blood count 5.34 10 4.30-6.10 Red Blood Count ATHE ([facility]) mean corpuscular hemoglobin 30.0 pg 27.0-33.0 Mean Cor puscular Hemoglobin LAWN ([facility]) mean corpuscular volume 89.9 fL 80.0-96.0 Mean Corpusc ular Volume LAWN ([facility]) mean corpuscular HGB conc 33.3 g/dL 32.0-36.5 Mean Corpu scular HGB Conc [facility] ([facility]) platelet count, automated 207 10 150-450 Platelet C ount, Automated [facility] ([facility]) nucleated red blood cell % 0.0 % 0-0 Nucleated Red Blood Cell % [facility]WN ([facility]) red cell distribution width 12.3 % 11.5-14.5 Red Cell Distribution Width [facility]WN ([facility]) ID Date Data Source [id number] 07/01/2020 02:15:00 PM EST ANGELICA ([facility]) Name Value Range Interpretation Code Description Data Roz rce(s) Supporting Document(s) blood urea nitrogen 19 mg/dL 7-18 Above high normal Blood Ure a Nitrogen ANGELICA ([facility]) glucose, fasting 88 mg/dL 70-100 Glucose, Fasting AT [facility]INA ([facility]) potassium serum 3.7 mEq/L 3.5-5.1 Potassium Serum ATHE NA ([facility]) creatinine for GFR 1.03 mg/dL 0.70-1.30 Creatinine for GF R LAWN ([facility]) sodium level 141 mEq/L 136-145 Sodium Level ANGELICA (No Pending sale to [facility]) carbon dioxide level 33 mEq/L 21-32 Above high normal Carbon D ioxide Level ANGELICA ([facility]) anion gap 2 mEq/L 8-16 Below low normal Anion Gap ANGELICA ( [facility]) chloride level 106 mEq/L 98-107 Chloride Level ANGELICA ([facility]) calcium level 9.5 mg/dL 8.5-10.1 Calcium Level ANGELICA ( [facility]) AST/SGOT 8 U/L 7-37 AST/SGOT ANGELICA ([facility]) ALT/SGPT 23 U/L 12-78 ALT/SGPT ANGELICA ([facility]) alkaline phosphatase 103 U/L 45-117 Alkaline Phosph atase ANGELICA ([facility]) albumin 4.5 gm/dL 3.2-5.2 Albumin ANGELICA ([facility]) total protein 7.3 gm/dL 6.4-8.2 Total Protein ANGELICA ( [facility]) bilirubin,total 0.6 mg/dL 0.2-1.0 Bilirubin,total ATHE ([facility]) albumin/globulin ratio Albumin/globu dana Ratio ANGELICA ([facility]) ID Date Data Source [id number] 07/01/2020 02:15:00 PM EST ANGELICA ([facility]) Name Value Range Interpretation Code Description Data Roz rce(s) Supporting Document(s) red blood count 5.34 10 4.30-6.10 Red Blood Count ATHE ([facility]) white blood count 6.9 10 4.0-10.0 White Blood Count ANGELICA ([facility]) hemoglobin 16.0 g/dL 13.5-17.5 Hemoglobin ANGELICA ([facility]) hematocrit 48.0 % 42.0-52.0 Hematocrit ANGELICA ([facility]) mean corpuscular volume 89.9 fL 80.0-96.0 Mean Corpusc ular Volume ANGELICA ([facility]) mean corpuscular hemoglobin 30.0 pg 27.0-33.0 Mean Cor puscular Hemoglobin ANGELICA ([facility]) mean corpuscular HGB conc 33.3 g/dL 32.0-36.5 Mean Corpu scular HGB Conc ANGLEICA ([facility]) nucleated red blood cell % 0.0 % 0-0 Nucleated Red Blood Cell % ANGELICA ([facility]) platelet count, automated 207 10 150-450 Platelet C ount, Automated ANGELICA ([facility]) red cell distribution width 12.3 % 11.5-14.5 Red Cell Distribution Width [facility]WN ([facility]) ID Date Data Source [id number] 07/01/2020 02:15:00 PM EST [facility]WN ([facility]) Name Value Range Interpretation Code Description Data Roz rce(s) Supporting Document(s) glucose, fasting 88 mg/dL 70-100 Glucose, Fasting AT [facility]) blood urea nitrogen 19 mg/dL 7-18 Above high normal Blood Ure a Nitrogen ANGELICA ([facility]) chloride level 106 mEq/L 98-107 Chloride Level LAWN ([facility]) sodium level 141 mEq/L 136-145 Sodium Level LAWN ([facility]) creatinine for GFR 1.03 mg/dL 0.70-1.30 Creatinine for GF R ANGELICA ([facility]) potassium serum 3.7 mEq/L 3.5-5.1 Potassium Serum ATH NA ([facility]) anion gap 2 mEq/L 8-16 Below low normal Anion Gap LAWN ( [facility]) carbon dioxide level 33 mEq/L 21-32 Above high normal Carbon D ioxide Level LAWN ([facility]) calcium level 9.5 mg/dL 8.5-10.1 Calcium Level ANGELICA ( [facility]) AST/SGOT 8 U/L 7-37 AST/SGOT LAWN ([facility]) ALT/SGPT 23 U/L 12-78 ALT/SGPT LAWN ([facility]) alkaline phosphatase 103 U/L 45-117 Alkaline Phosph atase LAWN ([facility]) bilirubin,total 0.6 mg/dL 0.2-1.0 Bilirubin,total ATHE NA ([facility]) total protein 7.3 gm/dL 6.4-8.2 Total Protein ANGELICA ( [facility]) albumin 4.5 gm/dL 3.2-5.2 Albumin ANGELICA ([facility]) albumin/globulin ratio Albumin/globu dana Ratio ANGELICA ([facility]) ID Date Data Source [id number] 07/01/2020 02:15:00 PM EST ANGELICA ([facility]) Name Value Range Interpretation Code Description Data Roz rce(s) Supporting Document(s) white blood count 6.9 10 4.0-10.0 White Blood Count ANGELICA ([facility]) hematocrit 48.0 % 42.0-52.0 Hematocrit ANGELICA ([facility]) red blood count 5.34 10 4.30-6.10 Red Blood Count ATHE NA ([facility]) hemoglobin 16.0 g/dL 13.5-17.5 Hemoglobin ANGELICA ([facility]) mean corpuscular hemoglobin 30.0 pg 27.0-33.0 Mean Cor puscular Hemoglobin ANGELICA ([facility]) mean corpuscular volume 89.9 fL 80.0-96.0 Mean Corpusc ular Volume ANGELICA ([facility]) platelet count, automated 207 10 150-450 Platelet C ount, Automated ANGELICA ([facility]) mean corpuscular HGB conc 33.3 g/dL 32.0-36.5 Mean Corpu scular HGB Conc ANGELICA ([facility]) red cell distribution width 12.3 % 11.5-14.5 Red Cell Distribution Width ANGELICA ([facility]) nucleated red blood cell % 0.0 % 0-0 Nucleated Red Blood Cell % ANGELICA ([facility]) ID Date Data Source [id number] 07/01/2020 02:15:00 PM EST ANGELICA ([facility]) Name Value Range Interpretation Code Description Data Roz rce(s) Supporting Document(s) glucose, fasting 88 mg/dL 70-100 Glucose, Fasting AT [facility] ([facility]) creatinine for GFR 1.03 mg/dL 0.70-1.30 Creatinine for GF R ANGELICA ([facility]) potassium serum 3.7 mEq/L 3.5-5.1 Potassium Serum ATHE ([facility]) blood urea nitrogen 19 mg/dL 7-18 Above high normal Blood Ure a Nitrogen ANGELICA ([facility]) sodium level 141 mEq/L 136-145 Sodium Level ANGELICA (No Pending sale to [facility]) chloride level 106 mEq/L 98-107 Chloride Level ANGELICA ([facility]) carbon dioxide level 33 mEq/L 21-32 Above high normal Carbon D ioxide Level [facility]WN ([facility]) anion gap 2 mEq/L 8-16 Below low normal Anion Gap ANGELICA ( [facility]) AST/SGOT 8 U/L 7-37 AST/SGOT ANGELICA ([facility]) calcium level 9.5 mg/dL 8.5-10.1 Calcium Level ANGELICA ( [facility]) ALT/SGPT 23 U/L 12-78 ALT/SGPT ANGELICA ([facility]) total protein 7.3 gm/dL 6.4-8.2 Total Protein ANGELICA ( [facility]) alkaline phosphatase 103 U/L 45-117 Alkaline Phosph atase ANGELICA ([facility]) bilirubin,total 0.6 mg/dL 0.2-1.0 Bilirubin,total ATHE ([facility]) albumin 4.5 gm/dL 3.2-5.2 Albumin ANGELICA ([facility]) albumin/globulin ratio Albumin/globu dana Ratio ANGELICA ([facility]) ID Date Data Source [id number] 07/01/2020 02:15:00 PM EST ANGELICA ([facility]) Name Value Range Interpretation Code Description Data Roz rce(s) Supporting Document(s) white blood count 6.9 10 4.0-10.0 White Blood Count [facility] ([facility]) red blood count 5.34 10 4.30-6.10 Red Blood Count ATHE ([facility]) hemoglobin 16.0 g/dL 13.5-17.5 Hemoglobin ANGELICA ([facility]) mean corpuscular volume 89.9 fL 80.0-96.0 Mean Corpusc ular Volume ANGELICA ([facility]) hematocrit 48.0 % 42.0-52.0 Hematocrit ANGELICA ([facility]) mean corpuscular hemoglobin 30.0 pg 27.0-33.0 Mean Cor puscular Hemoglobin ANGELICA ([facility]) red cell distribution width 12.3 % 11.5-14.5 Red Cell Distribution Width ANGELICA ([facility]) mean corpuscular HGB conc 33.3 g/dL 32.0-36.5 Mean Corpu scular HGB Conc ANGELICA ([facility]) nucleated red blood cell % 0.0 % 0-0 Nucleated Red Blood Cell % [facility] ([facility]) platelet count, automated 207 10 150-450 Platelet C ount, Automated ANGELICA ([facility]) ID Date Data Source [id number] 07/01/2020 02:15:00 PM EST LAWN ([facility]) Name Value Range Interpretation Code Description Data Roz rce(s) Supporting Document(s) blood urea nitrogen 19 mg/dL 7-18 Above high normal Blood Ure a Nitrogen LAWN ([facility]) glucose, fasting 88 mg/dL 70-100 Glucose, Fasting AT [facility] ([facility]) creatinine for GFR 1.03 mg/dL 0.70-1.30 Creatinine for GF R ANGELICA ([facility]) sodium level 141 mEq/L 136-145 Sodium Level ANGELICA (No Pending sale to [facility]) carbon dioxide level 33 mEq/L 21-32 Above high normal Carbon D ioxide Level LAWN ([facility]) potassium serum 3.7 mEq/L 3.5-5.1 Potassium Serum ATHE NA ([facility]) chloride level 106 mEq/L 98-107 Chloride Level LAWN ([facility]) anion gap 2 mEq/L 8-16 Below low normal Anion Gap ANGELICA ( [facility]) AST/SGOT 8 U/L 7-37 AST/SGOT ANGELICA ([facility]) calcium level 9.5 mg/dL 8.5-10.1 Calcium Level ANGELICA ( [facility]) ALT/SGPT 23 U/L 12-78 ALT/SGPT ANGELICA ([facility]) bilirubin,total 0.6 mg/dL 0.2-1.0 Bilirubin,total ATHE NA ([facility]) alkaline phosphatase 103 U/L 45-117 Alkaline Phosph atase ANGELICA ([facility]) albumin 4.5 gm/dL 3.2-5.2 Albumin ANGELICA ([facility]) total protein 7.3 gm/dL 6.4-8.2 Total Protein ANGELICA ( [facility]) albumin/globulin ratio Albumin/globu dana Ratio ANGELICA ([facility]) ID Date Data Source [id number] 07/01/2020 02:15:00 PM EST ANGELICA ([facility]) Name Value Range Interpretation Code Description Data Roz rce(s) Supporting Document(s) red blood count 5.34 10 4.30-6.10 Red Blood Count ATHE ([facility]) white blood count 6.9 10 4.0-10.0 White Blood Count ANGELICA ([facility]) mean corpuscular volume 89.9 fL 80.0-96.0 Mean Corpusc ular Volume ANGELICA ([facility]) hematocrit 48.0 % 42.0-52.0 Hematocrit ANGELICA ([facility]) hemoglobin 16.0 g/dL 13.5-17.5 Hemoglobin ANGELICA ([facility]) mean corpuscular HGB conc 33.3 g/dL 32.0-36.5 Mean Corpu scular HGB Conc ANGELICA ([facility]) red cell distribution width 12.3 % 11.5-14.5 Red Cell Distribution Width ANGELICA ([facility]) mean corpuscular hemoglobin 30.0 pg 27.0-33.0 Mean Cor puscular Hemoglobin ANGELICA ([facility]) nucleated red blood cell % 0.0 % 0-0 Nucleated Red Blood Cell % ANGELICA ([facility]) platelet count, automated 207 10 150-450 Platelet C ount, Automated ANGELICA ([facility]) ID Date Data Source [id number] 07/01/2020 02:15:00 PM EST ANGELICA ([facility]) Name Value Range Interpretation Code Description Data Roz rce(s) Supporting Document(s) glucose, fasting 88 mg/dL 70-100 Glucose, Fasting AT [facility] ([facility]) blood urea nitrogen 19 mg/dL 7-18 Above high normal Blood Ure a Nitrogen ANGELICA ([facility]) sodium level 141 mEq/L 136-145 Sodium Level ANGELICA (No Pending sale to [facility]) creatinine for GFR 1.03 mg/dL 0.70-1.30 Creatinine for GF R ANGELICA ([facility]) potassium serum 3.7 mEq/L 3.5-5.1 Potassium Serum ATHE NA ([facility]) carbon dioxide level 33 mEq/L 21-32 Above high normal Carbon D ioxide Level ANGELICA ([facility]) chloride level 106 mEq/L 98-107 Chloride Level [facility] ([facility]) calcium level 9.5 mg/dL 8.5-10.1 Calcium Level ANGELICA ( [facility]) anion gap 2 mEq/L 8-16 Below low normal Anion Gap ANGELICA ( [facility]) AST/SGOT 8 U/L 7-37 AST/SGOT ANGELICA ([facility]) alkaline phosphatase 103 U/L 45-117 Alkaline Phosph atase ANGELICA ([facility]) ALT/SGPT 23 U/L 12-78 ALT/SGPT ANGELICA ([facility]) albumin 4.5 gm/dL 3.2-5.2 Albumin ANGELICA ([facility]) bilirubin,total 0.6 mg/dL 0.2-1.0 Bilirubin,total ATHE NA ([facility]) total protein 7.3 gm/dL 6.4-8.2 Total Protein ANGELICA ( [facility]) albumin/globulin ratio Albumin/globu dana Ratio ANGELICA ([facility]) ID Date Data Source [id number] 07/01/2020 02:15:00 PM EST ANGELICA ([facility]) Name Value Range Interpretation Code Description Data Roz rce(s) Supporting Document(s) white blood count 6.9 10 4.0-10.0 White Blood Count ANGELICA ([facility]) hemoglobin 16.0 g/dL 13.5-17.5 Hemoglobin ANGELICA ([facility]) hematocrit 48.0 % 42.0-52.0 Hematocrit ANGELICA ([facility]) red blood count 5.34 10 4.30-6.10 Red Blood Count ATHE ([facility]) mean corpuscular hemoglobin 30.0 pg 27.0-33.0 Mean Cor puscular Hemoglobin ANGELICA ([facility]) mean corpuscular volume 89.9 fL 80.0-96.0 Mean Corpusc ular Volume ANGELICA ([facility]) platelet count, automated 207 10 150-450 Platelet C ount, Automated ANGELICA ([facility]) red cell distribution width 12.3 % 11.5-14.5 Red Cell Distribution Width ANGELICA ([facility]) mean corpuscular HGB conc 33.3 g/dL 32.0-36.5 Mean Corpu scular HGB Conc ANGELICA ([facility]) nucleated red blood cell % 0.0 % 0-0 Nucleated Red Blood Cell % [facility] [facility] ID Date Data Source [id number] 07/01/2020 02:15:00 PM EST ANGELICA ([facility]) Name Value Range Interpretation Code Description Data Roz rce(s) Supporting Document(s) glucose, fasting 88 mg/dL 70-100 Glucose, Fasting AT [facility] ([facility]) blood urea nitrogen 19 mg/dL 7-18 Above high normal Blood Ure a Nitrogen ANGELICA ([facility]) creatinine for GFR 1.03 mg/dL 0.70-1.30 Creatinine for GF R ANGELICA ([facility]) potassium serum 3.7 mEq/L 3.5-5.1 Potassium Serum ATHE NA ([facility]) sodium level 141 mEq/L 136-145 Sodium Level ANGELICA ([facility]) anion gap 2 mEq/L 8-16 Below low normal Anion Gap ANGELICA ( [facility]) chloride level 106 mEq/L 98-107 Chloride Level ANGELICA ([facility]) carbon dioxide level 33 mEq/L 21-32 Above high normal Carbon D ioxide Level ANGELICA ([facility]) AST/SGOT 8 U/L 7-37 AST/SGOT ANGELICA ([facility]) calcium level 9.5 mg/dL 8.5-10.1 Calcium Level ANGELICA ( [facility]) bilirubin,total 0.6 mg/dL 0.2-1.0 Bilirubin,total ATHE ([facility]) ALT/SGPT 23 U/L 12-78 ALT/SGPT ANGELICA ([facility]) alkaline phosphatase 103 U/L 45-117 Alkaline Phosph atase ANGELICA ([facility]) albumin/globulin ratio Albumin/globu dana Ratio ANGELICA ([facility]) albumin 4.5 gm/dL 3.2-5.2 Albumin ANGELICA ([facility]) total protein 7.3 gm/dL 6.4-8.2 Total Protein ANGELICA ( [facility]) ID Date Data Source [id number] 07/01/2020 02:15:00 PM EST ANGELICA ([facility]) Name Value Range Interpretation Code Description Data Roz rce(s) Supporting Document(s) white blood count 6.9 10 4.0-10.0 White Blood Count ANGELICA ([facility]) red blood count 5.34 10 4.30-6.10 Red Blood Count ATHE ([facility]) mean corpuscular volume 89.9 fL 80.0-96.0 Mean Corpusc ular Volume ANGELICA ([facility]) hematocrit 48.0 % 42.0-52.0 Hematocrit ANGELICA ([facility]) hemoglobin 16.0 g/dL 13.5-17.5 Hemoglobin ANGELICA ([facility]) mean corpuscular hemoglobin 30.0 pg 27.0-33.0 Mean Cor puscular Hemoglobin ANGELICA ([facility]) red cell distribution width 12.3 % 11.5-14.5 Red Cell Distribution Width ANGELICA ([facility]) mean corpuscular HGB conc 33.3 g/dL 32.0-36.5 Mean Corpu scular HGB Conc ANGELICA ([facility]) nucleated red blood cell % 0.0 % 0-0 Nucleated Red Blood Cell % LAWN ([facility]) platelet count, automated 207 10 150-450 Platelet C ount, Automated LAWN ([facility]) ID Date Data Source [id number] 07/01/2020 02:15:00 PM EST LAWN ([facility]) Name Value Range Interpretation Code Description Data Roz rce(s) Supporting Document(s) glucose, fasting 88 mg/dL 70-100 Glucose, Fasting AT [facility]) blood urea nitrogen 19 mg/dL 7-18 Above high normal Blood Ure a Nitrogen LAWN ([facility]) potassium serum 3.7 mEq/L 3.5-5.1 Potassium Serum ATH NA ([facility]) sodium level 141 mEq/L 136-145 Sodium Level LAWN (No Pending sale to [facility]) creatinine for GFR 1.03 mg/dL 0.70-1.30 Creatinine for GF R ANGELICA ([facility]) calcium level 9.5 mg/dL 8.5-10.1 Calcium Level ANGELICA ( [facility]) chloride level 106 mEq/L 98-107 Chloride Level ANGELICA ([facility]) anion gap 2 mEq/L 8-16 Below low normal Anion Gap LAWN ( [facility]) carbon dioxide level 33 mEq/L 21-32 Above high normal Carbon D ioxide Level [facility]WN ([facility]) alkaline phosphatase 103 U/L 45-117 Alkaline Phosph atase ANGELICA ([facility]) ALT/SGPT 23 U/L 12-78 ALT/SGPT LAWN ([facility]) AST/SGOT 8 U/L 7-37 AST/SGOT ANGELICA ([facility]) albumin 4.5 gm/dL 3.2-5.2 Albumin ANGELICA ([facility]) total protein 7.3 gm/dL 6.4-8.2 Total Protein ANGELICA ( [facility]) bilirubin,total 0.6 mg/dL 0.2-1.0 Bilirubin,total ATHE NA ([facility]) albumin/globulin ratio Albumin/globu dana Ratio ANGELICA ([facility]) ID Date Data Source [id number] 07/01/2020 02:15:00 PM EST ANGELICA ([facility]) Name Value Range Interpretation Code Description Data Roz rce(s) Supporting Document(s) red blood count 5.34 10 4.30-6.10 Red Blood Count ATHE NA ([facility]) white blood count 6.9 10 4.0-10.0 White Blood Count ANGELICA ([facility]) hemoglobin 16.0 g/dL 13.5-17.5 Hemoglobin ANGELICA ([facility]) hematocrit 48.0 % 42.0-52.0 Hematocrit ANGELICA ([facility]) mean corpuscular volume 89.9 fL 80.0-96.0 Mean Corpusc ular Volume ANGELICA ([facility]) mean corpuscular hemoglobin 30.0 pg 27.0-33.0 Mean Cor puscular Hemoglobin ANGELICA ([facility]) mean corpuscular HGB conc 33.3 g/dL 32.0-36.5 Mean Corpu scular HGB Conc ANGELICA ([facility]) red cell distribution width 12.3 % 11.5-14.5 Red Cell Distribution Width ANGELICA ([facility]) nucleated red blood cell % 0.0 % 0-0 Nucleated Red Blood Cell % ANGELICA ([facility]) platelet count, automated 207 10 150-450 Platelet C ount, Automated ANGELICA ([facility]) ID Date Data Source [id number] 07/01/2020 12:57:00 PM EST ANGELICA ([facility]) Name Value Range Interpretation Code Description Data Roz rce(s) Supporting Document(s) bedside glucose 93 mg/dL 70-105 Bedside Glucose ATHE JERRICA ([facility]) ID Date Data Source [id number] 07/01/2020 12:57:00 PM EST ANGELICA ([facility]) Name Value Range Interpretation Code Description Data Roz rce(s) Supporting Document(s) bedside glucose 93 mg/dL 70-105 Bedside Glucose ATHE NA ([facility]) ID Date Data Source [id number] 07/01/2020 12:57:00 PM EST ANGELICA ([facility]) Name Value Range Interpretation Code Description Data Roz rce(s) Supporting Document(s) bedside glucose 93 mg/dL 70-105 Bedside Glucose ATHE NA ([facility]) ID Date Data Source [id number] 07/01/2020 12:57:00 [facility] Name Value Range Interpretation Code Description Data Roz rce(s) Supporting Document(s) bedside glucose 93 mg/dL 70-105 Bedside Glucose ATHE NA ([facility]) ID Date Data Source [id number] 07/01/2020 12:57:00 PM EST ANGELICA ([facility]) Name Value Range Interpretation Code Description Data Roz rce(s) Supporting Document(s) bedside glucose 93 mg/dL 70-105 Bedside Glucose ATHE NA ([facility]) ID Date Data Source [id number] 07/01/2020 12:57:00 PM [facility] Name Value Range Interpretation Code Description Data Roz rce(s) Supporting Document(s) bedside glucose 93 mg/dL 70-105 Bedside Glucose ATHE NA ([facility]) ID Date Data Source [id number] 07/01/2020 12:57:00 PM EST ANGELICA ([facility]) Name Value Range Interpretation Code Description Data Roz rce(s) Supporting Document(s) bedside glucose 93 mg/dL 70-105 Bedside Glucose ATHE NA ([facility]) ID Date Data Source [id number] 07/01/2020 12:57:00 PM EST ANGELICA ([facility]) Name Value Range Interpretation Code Description Data Roz rce(s) Supporting Document(s) bedside glucose 93 mg/dL 70-105 Bedside Glucose ATHE JERRICA ([facility]) ID Date Data Source [id number] 06/18/2020 09:40:00 PM EST ANGELICA ([facility]) Name Value Range Interpretation Code Description Data Roz rce(s) Supporting Document(s) influenza A amplification negative negative Influenza a Amplification ANGELICA ([facility]) influenza B amplification negative negative Influenza B Amplification [facility] ([facility]) sars covid-19 amplification negative negative Sars Cov id-19 [facility] RSV amplification negative negative RSV Amplification [facility]) ID Date Data Source [id number] 06/18/2020 09:40:00 PM EST ANGELICA ([facility]) Name Value Range Interpretation Code Description Data Roz rce(s) Supporting Document(s) influenza A amplification negative negative Influenza a Amplification ANGELICA ([facility]) influenza B amplification negative negative Influenza B Amplification ANGELICA ([facility]) RSV amplification negative negative RSV Amplification ANGELICA ([facility]) sars covid-19 amplification negative negative Sars Cov id-19 Amplification [facility]) ID Date Data Source [id number] 06/18/2020 09:40:00 PM [facility] Name Value Range Interpretation Code Description Data Roz rce(s) Supporting Document(s) influenza B amplification negative negative Influenza B Amplification ANGELICA ([facility]) RSV amplification negative negative RSV Amplification ANGELICA ([facility]) influenza A amplification negative negative Influenza a Amplification ANGELICA ([facility]) sars covid-19 amplification negative negative Sars Cov id-19 [facility] ID Date Data Source [id number] 06/18/2020 09:40:00 PM EST [facility] Name Value Range Interpretation Code Description Data Roz rce(s) Supporting Document(s) influenza A amplification negative negative Influenza a [facility] influenza B amplification negative negative Influenza B [facility] sars covid-19 amplification negative negative Sars Cov id-19 [facility] RSV amplification negative negative RSV [facility] ID Date Data Source [id number] 06/18/2020 09:40:00 PM EST [facility] Name Value Range Interpretation Code Description Data Roz rce(s) Supporting Document(s) influenza A amplification negative negative Influenza a [facility] influenza B amplification negative negative Influenza B Amplification ANGELICA ([facility]) sars covid-19 amplification negative negative Sars Cov id-19 [facility] RSV amplification negative negative RSV [facility] ID Date Data Source [id number] 06/18/2020 09:40:00 PM EST [facility] Name Value Range Interpretation Code Description Data Roz rce(s) Supporting Document(s) influenza A amplification negative negative Influenza a [facility] RSV amplification negative negative RSV Amplification ANGELICA ([facility]) sars covid-19 amplification negative negative Sars Cov id-19 [facility] influenza B amplification negative negative Influenza B Amplification ANGELICA ([facility]) ID Date Data Source [id number] 06/18/2020 09:40:00 PM EST [facility]) Name Value Range Interpretation Code Description Data Roz rce(s) Supporting Document(s) RSV amplification negative negative RSV Amplification ANGELICA ([facility]) influenza B amplification negative negative Influenza B Amplification [facility] ([facility]) influenza A amplification negative negative Influenza a Amplification [facility]) sars covid-19 amplification negative negative Sars Cov id-19 Amplification [facility]) ID Date Data Source [id number] 06/18/2020 09:40:00 PM EST [facility]) Name Value Range Interpretation Code Description Data Roz rce(s) Supporting Document(s) influenza A amplification negative negative Influenza a Amplification [facility]) RSV amplification negative negative RSV Amplification [facility]) influenza B amplification negative negative Influenza B Amplification [facility] ([facility]) sars covid-19 amplification negative negative Sars Cov id-19 Amplification [facility]) ID Date Data Source [id number] 06/18/2020 09:40:00 PM EST [facility] Name Value Range Interpretation Code Description Data Roz rce(s) Supporting Document(s) SARS coronavirus 2 RNA [Presence] in Res piratory specimen by JEN with probe detection [facility] This lab was ordered by [facility] a nd reported by [facility]. ID Date Data Source [id number] 05/20/2020 11:26:00 AM EST [facility]) Name Value Range Interpretation Code Description Data Roz rce(s) Supporting Document(s) ID Date Data Source [id number] 05/20/2020 11:26:00 AM EST [facility]) Name Value Range Interpretation Code Description Data Roz rce(s) Supporting Document(s) glucose, fasting 90 mg/dL 70-100 Glucose, Fasting AT [facility] ([facility]) blood urea nitrogen 15 mg/dL 7-18 Blood Urea Nitro gen ANGELICA ([facility]) sodium level 139 mEq/L 136-145 Sodium Level ANGELICA (No Pending sale to [facility]) creatinine for GFR 0.84 mg/dL 0.70-1.30 Creatinine for GF R ANGELICA ([facility]) anion gap 6 mEq/L 8-16 Below low normal Anion Gap ANGELICA ( [facility]) carbon dioxide level 28 mEq/L 21-32 Carbon Dioxide Level ANGELICA ([facility]) chloride level 105 mEq/L 98-107 Chloride Level ANGELICA ([facility]) potassium serum 4.3 mEq/L 3.5-5.1 Potassium Serum ATHE ([facility]) calcium level 9.8 mg/dL 8.5-10.1 Calcium Level [facility] ( [facility]) ID Date Data Source [id number] 05/20/2020 11:26:00 AM EST ANGELICA ([facility]) Name Value Range Interpretation Code Description Data Roz rce(s) Supporting Document(s) AST/SGOT 19 U/L 7-37 AST/SGOT ANGELICA ([facility]) alkaline phosphatase 109 U/L 45-117 Alkaline Phosph atase ANGELICA ([facility]) ALT/SGPT 40 U/L 12-78 ALT/SGPT ANGELICA ([facility]) bilirubin,total 0.6 mg/dL 0.2-1.0 Bilirubin,total ATHE NA ([facility]) total protein 7.5 gm/dL 6.4-8.2 Total Protein ANGELICA ( [facility]) bilirubin,direct 0.2 mg/dL 0.0-0.2 Bilirubin,direct AT [facility] ([facility]) albumin 4.5 gm/dL 3.2-5.2 Albumin ANGELICA ([facility]) albumin/globulin ratio Albumin/globu dana Ratio ANGELICA ([facility]) ID Date Data Source [id number] 05/20/2020 11:26:00 AM EST ANGELICA ([facility]) Name Value Range Interpretation Code Description Data Roz rce(s) Supporting Document(s) white blood count 5.3 10 4.0-10.0 White Blood Count ANGELICA ([facility]) hemoglobin 17.3 g/dL 13.5-17.5 Hemoglobin ANGELICA ([facility]) red blood count 5.84 10 4.30-6.10 Red Blood Count ATHE NA ([facility]) mean corpuscular HGB conc 33.7 g/dL 32.0-36.5 Mean Corpu scular HGB Conc ANGELICA ([facility]) mean corpuscular volume 88.0 fL 80.0-96.0 Mean Corpusc ular Volume ANGELICA ([facility]) mean corpuscular hemoglobin 29.6 pg 27.0-33.0 Mean Cor puscular Hemoglobin ANGELICA ([facility]) hematocrit 51.4 % 42.0-52.0 Hematocrit ANGELICA ([facility]) neutrophils % 52.9 % 36.0-66.0 Neutrophils % ANGELICA ( [facility]) lymph % 35.5 % 24.0-44.0 Lymph % ANGELICA ([facility]) platelet count, automated 227 10 150-450 Platelet C ount, Automated ANGELICA ([facility]) red cell distribution width 12.7 % 11.5-14.5 Red Cell Distribution Width ANGELICA ([facility]) immature granulocyte % 0.2 % 0-3.0 Immature Gran ulocyte % ANGELICA ([facility]) mono % 5.9 % 0.0-5.0 Above high normal Ada % ANGELICA ([facility]) baso % 0.6 % 0.0-1.0 Baso % ANGELICA ([facility]) eos % 4.9 % 0.0-3.0 Above high normal Eos % ANGELICA ([facility]) mono # 0.3 10 0.0-0.8 Ada # ANGELICA ([facility]) lymph # 1.9 10 1.5-5.0 Lymph # ANGELICA ([facility]) neutrophils # 2.8 10 1.5-8.5 Neutrophils # ANGELICA ( [facility]) nucleated red blood cell % 0.0 % 0-0 Nucleated Red Blood Cell % ANGELICA ([facility]) eos # 0.3 10 0.0-0.5 Eos # ANGELICA ([facility]) baso # 0.0 10 0.0-0.2 Baso # ANGELICA ([facility]) ID Date Data Source [id number] 05/20/2020 11:26:00 AM EST ANGELICA ([facility]) Name Value Range Interpretation Code Description Data Roz rce(s) Supporting Document(s) ID Date Data Source [id number] 05/20/2020 11:26:00 AM EST ANGELICA ([facility]) Name Value Range Interpretation Code Description Data Roz rce(s) Supporting Document(s) glucose, fasting 90 mg/dL 70-100 Glucose, Fasting AT [facility]) blood urea nitrogen 15 mg/dL 7-18 Blood Urea Nitro gen [facility] ([facility]) potassium serum 4.3 mEq/L 3.5-5.1 Potassium Serum ATHE NA ([facility]) creatinine for GFR 0.84 mg/dL 0.70-1.30 Creatinine for GF R [facility] ([facility]) chloride level 105 mEq/L 98-107 Chloride Level [facility] ([facility]) sodium level 139 mEq/L 136-145 Sodium Level ANGELICA (No Pending sale to [facility]) calcium level 9.8 mg/dL 8.5-10.1 Calcium Level LAWN ( [facility]) anion gap 6 mEq/L 8-16 Below low normal Anion Gap [facility]WN ( [facility]) carbon dioxide level 28 mEq/L 21-32 Carbon Dioxide Level [facility] ([facility]) ID Date Data Source [id number] 05/20/2020 11:26:00 AM EST ANGELICA ([facility]) Name Value Range Interpretation Code Description Data Roz rce(s) Supporting Document(s) AST/SGOT 19 U/L 7-37 AST/SGOT ANGELICA ([facility]) ALT/SGPT 40 U/L 12-78 ALT/SGPT ANGELICA ([facility]) alkaline phosphatase 109 U/L 45-117 Alkaline Phosph atase ANGELICA ([facility]) bilirubin,direct 0.2 mg/dL 0.0-0.2 Bilirubin,direct AT [facility] ([facility]) total protein 7.5 gm/dL 6.4-8.2 Total Protein ANGELICA ( [facility]) bilirubin,total 0.6 mg/dL 0.2-1.0 Bilirubin,total ATHE NA ([facility]) albumin 4.5 gm/dL 3.2-5.2 Albumin ANGELICA ([facility]) albumin/globulin ratio Albumin/globu dana Ratio ANGELICA ([facility]) ID Date Data Source [id number] 05/20/2020 11:26:00 AM EST ANGELICA ([facility]) Name Value Range Interpretation Code Description Data Roz rce(s) Supporting Document(s) white blood count 5.3 10 4.0-10.0 White Blood Count ANGELICA ([facility]) hematocrit 51.4 % 42.0-52.0 Hematocrit ANGELICA ([facility]) red blood count 5.84 10 4.30-6.10 Red Blood Count ATHE NA ([facility]) hemoglobin 17.3 g/dL 13.5-17.5 Hemoglobin ANGELICA ([facility]) mean corpuscular hemoglobin 29.6 pg 27.0-33.0 Mean Cor puscular Hemoglobin ANGELICA ([facility]) mean corpuscular volume 88.0 fL 80.0-96.0 Mean Corpusc ular Volume ANGELICA ([facility]) mean corpuscular HGB conc 33.7 g/dL 32.0-36.5 Mean Corpu scular HGB Conc ANGELICA ([facility]) red cell distribution width 12.7 % 11.5-14.5 Red Cell Distribution Width ANGELICA ([facility]) neutrophils % 52.9 % 36.0-66.0 Neutrophils % ANGELICA ( [facility]) platelet count, automated 227 10 150-450 Platelet C ount, Automated ANGELICA ([facility] Clinics) lymph % 35.5 % 24.0-44.0 Lymph % ANGELICA ([facility]) eos % 4.9 % 0.0-3.0 Above high normal Eos % ANGELICA ([facility]) baso % 0.6 % 0.0-1.0 Baso % ANGELICA ([facility]) mono % 5.9 % 0.0-5.0 Above high normal Ada % ANGELICA ([facility]) immature granulocyte % 0.2 % 0-3.0 Immature Gran ulocyte % ANGELICA ([facility]) neutrophils # 2.8 10 1.5-8.5 Neutrophils # ANGELICA ( [facility]) lymph # 1.9 10 1.5-5.0 Lymph # ANGELICA ([facility]) nucleated red blood cell % 0.0 % 0-0 Nucleated Red Blood Cell % ANGELICA ([facility]) mono # 0.3 10 0.0-0.8 Ada # ANGELICA ([facility]) baso # 0.0 10 0.0-0.2 Baso # ANGELICA ([facility]) eos # 0.3 10 0.0-0.5 Eos # ANGELICA ([facility]) ID Date Data Source [id number] 05/20/2020 11:26:00 AM EST ANGELICA ([facility]) Name Value Range Interpretation Code Description Data Roz rce(s) Supporting Document(s) ID Date Data Source [id number] 05/20/2020 11:26:00 AM EST ANGELICA ([facility]) Name Value Range Interpretation Code Description Data Roz rce(s) Supporting Document(s) glucose, fasting 90 mg/dL 70-100 Glucose, Fasting AT [facility]) chloride level 105 mEq/L 98-107 Chloride Level ANGELICA ([facility]) blood urea nitrogen 15 mg/dL 7-18 Blood Urea Nitro gen ANGELICA ([facility]) sodium level 139 mEq/L 136-145 Sodium Level ANGELICA (No Pending sale to [facility]) potassium serum 4.3 mEq/L 3.5-5.1 Potassium Serum ATHE NA ([facility]) creatinine for GFR 0.84 mg/dL 0.70-1.30 Creatinine for GF R ANGELICA ([facility]) carbon dioxide level 28 mEq/L 21-32 Carbon Dioxide Level ANGELICA ([facility]) anion gap 6 mEq/L 8-16 Below low normal Anion Gap ANGELICA ( [facility]) calcium level 9.8 mg/dL 8.5-10.1 Calcium Level ANGELICA ( [facility]) ID Date Data Source [id number] 05/20/2020 11:26:00 AM EST ANGELICA ([facility]) Name Value Range Interpretation Code Description Data Roz rce(s) Supporting Document(s) ALT/SGPT 40 U/L 12-78 ALT/SGPT ANGELICA ([facility]) AST/SGOT 19 U/L 7-37 AST/SGOT ANGELICA ([facility]) bilirubin,direct 0.2 mg/dL 0.0-0.2 Bilirubin,direct AT [facility] ([facility]) alkaline phosphatase 109 U/L 45-117 Alkaline Phosph atase ANGELICA ([facility]) bilirubin,total 0.6 mg/dL 0.2-1.0 Bilirubin,total ATHE NA ([facility]) albumin 4.5 gm/dL 3.2-5.2 Albumin ANGELICA ([facility]) albumin/globulin ratio Albumin/globu dana Ratio ANGELICA ([facility]) total protein 7.5 gm/dL 6.4-8.2 Total Protein ANGELICA ( [facility]) ID Date Data Source [id number] 05/20/2020 11:26:00 AM EST ANGELICA ([facility]) Name Value Range Interpretation Code Description Data Roz rce(s) Supporting Document(s) white blood count 5.3 10 4.0-10.0 White Blood Count ANGELICA ([facility]) hemoglobin 17.3 g/dL 13.5-17.5 Hemoglobin ANGELICA ([facility]) mean corpuscular volume 88.0 fL 80.0-96.0 Mean Corpusc ular Volume ANGELICA ([facility]) red blood count 5.84 10 4.30-6.10 Red Blood Count ATHE NA ([facility]) hematocrit 51.4 % 42.0-52.0 Hematocrit ANGELICA ([facility]) platelet count, automated 227 10 150-450 Platelet C ount, Automated ANGELICA ([facility]) red cell distribution width 12.7 % 11.5-14.5 Red Cell Distribution Width ANGELICA ([facility]) mean corpuscular hemoglobin 29.6 pg 27.0-33.0 Mean Cor puscular Hemoglobin ANGELICA ([facility]) mean corpuscular HGB conc 33.7 g/dL 32.0-36.5 Mean Corpu scular HGB Conc ANGELICA ([facility]) neutrophils % 52.9 % 36.0-66.0 Neutrophils % LAWN ( [facility]) eos % 4.9 % 0.0-3.0 Above high normal Eos % ANGELICA ([facility]) mono % 5.9 % 0.0-5.0 Above high normal Ada % ANGELICA ([facility]) lymph % 35.5 % 24.0-44.0 Lymph % ANGELICA ([facility]) neutrophils # 2.8 10 1.5-8.5 Neutrophils # LAWN ( [facility]) immature granulocyte % 0.2 % 0-3.0 Immature Gran ulocyte % ANGELICA ([facility]) baso % 0.6 % 0.0-1.0 Baso % LAWN ([facility]) nucleated red blood cell % 0.0 % 0-0 Nucleated Red Blood Cell % ANGELICA ([facility]) lymph # 1.9 10 1.5-5.0 Lymph # ANGELICA ([facility]) eos # 0.3 10 0.0-0.5 Eos # ANGELICA ([facility]) baso # 0.0 10 0.0-0.2 Baso # ANGELICA ([facility]) mono # 0.3 10 0.0-0.8 Ada # ANGELICA ([facility]) ID Date Data Source [id number] 05/20/2020 11:26:00 AM EST ANGELICA ([facility]) Name Value Range Interpretation Code Description Data Roz rce(s) Supporting Document(s) ID Date Data Source [id number] 05/20/2020 11:26:00 AM EST ANGELICA ([facility]) Name Value Range Interpretation Code Description Data Roz rce(s) Supporting Document(s) blood urea nitrogen 15 mg/dL 7-18 Blood Urea Nitro gen LAWN ([facility]) glucose, fasting 90 mg/dL 70-100 Glucose, Fasting AT [facility]) creatinine for GFR 0.84 mg/dL 0.70-1.30 Creatinine for GF R LAWN ([facility]) sodium level 139 mEq/L 136-145 Sodium Level ANGELICA ([facility]) potassium serum 4.3 mEq/L 3.5-5.1 Potassium Serum ATHE NA ([facility]) carbon dioxide level 28 mEq/L 21-32 Carbon Dioxide Level LAWN ([facility]) chloride level 105 mEq/L 98-107 Chloride Level ANGELICA ([facility]) calcium level 9.8 mg/dL 8.5-10.1 Calcium Level ANGELICA ( [facility]) anion gap 6 mEq/L 8-16 Below low normal Anion Gap LAWN ( [facility]) ID Date Data Source [id number] 05/20/2020 11:26:00 [facility] Name Value Range Interpretation Code Description Data Roz rce(s) Supporting Document(s) alkaline phosphatase 109 U/L 45-117 Alkaline Phosph atase LAWN ([facility]) bilirubin,total 0.6 mg/dL 0.2-1.0 Bilirubin,total ATHE NA ([facility]) AST/SGOT 19 U/L 7-37 AST/SGOT ANGELICA ([facility]) ALT/SGPT 40 U/L 12-78 ALT/SGPT ANGELICA ([facility]) albumin 4.5 gm/dL 3.2-5.2 Albumin ANGELICA ([facility]) total protein 7.5 gm/dL 6.4-8.2 Total Protein ANGELICA ( [facility]) albumin/globulin ratio Albumin/globu dana Ratio ANGELICA ([facility]) bilirubin,direct 0.2 mg/dL 0.0-0.2 Bilirubin,direct AT [facility] ([facility]) ID Date Data Source [id number] 05/20/2020 11:26:00 AM EST LAWN ([facility]) Name Value Range Interpretation Code Description Data Roz rce(s) Supporting Document(s) white blood count 5.3 10 4.0-10.0 White Blood Count ANGELICA ([facility]) hematocrit 51.4 % 42.0-52.0 Hematocrit ANGELICA ([facility]) hemoglobin 17.3 g/dL 13.5-17.5 Hemoglobin ANGELICA ([facility]) red blood count 5.84 10 4.30-6.10 Red Blood Count ATHE ([facility]) mean corpuscular volume 88.0 fL 80.0-96.0 Mean Corpusc ular Volume ANGELICA ([facility]) red cell distribution width 12.7 % 11.5-14.5 Red Cell Distribution Width ANGELICA ([facility]) platelet count, automated 227 10 150-450 Platelet C ount, Automated ANGELICA ([facility]) mean corpuscular HGB conc 33.7 g/dL 32.0-36.5 Mean Corpu scular HGB Conc ANGELICA ([facility]) mean corpuscular hemoglobin 29.6 pg 27.0-33.0 Mean Cor puscular Hemoglobin ANGELICA ([facility]) neutrophils % 52.9 % 36.0-66.0 Neutrophils % ANGELICA ( [facility]) lymph % 35.5 % 24.0-44.0 Lymph % ANGELICA ([facility]) mono % 5.9 % 0.0-5.0 Above high normal Ada % ANGELICA ([facility]) eos % 4.9 % 0.0-3.0 Above high normal Eos % ANGELICA ([facility]) nucleated red blood cell % 0.0 % 0-0 Nucleated Red Blood Cell % ANGELICA ([facility]) neutrophils # 2.8 10 1.5-8.5 Neutrophils # LAWN ( [facility]) immature granulocyte % 0.2 % 0-3.0 Immature Gran ulocyte % LAWN ([facility]) baso % 0.6 % 0.0-1.0 Baso % LAWN ([facility]) eos # 0.3 10 0.0-0.5 Eos # ANGELICA ([facility]) lymph # 1.9 10 1.5-5.0 Lymph # ANGELICA ([facility]) mono # 0.3 10 0.0-0.8 Ada # ANGELICA ([facility]) baso # 0.0 10 0.0-0.2 Baso # ANGELICA ([facility]) ID Date Data Source [id number] 05/20/2020 11:26:00 AM EST ANGELICA ([facility]) Name Value Range Interpretation Code Description Data Roz rce(s) Supporting Document(s) ID Date Data Source [id number] 05/20/2020 11:26:00 AM EST ANGELICA ([facility]) Name Value Range Interpretation Code Description Data Roz rce(s) Supporting Document(s) creatinine for GFR 0.84 mg/dL 0.70-1.30 Creatinine for GF R LAWN ([facility]) glucose, fasting 90 mg/dL 70-100 Glucose, Fasting AT [facility] ([facility]) blood urea nitrogen 15 mg/dL 7-18 Blood Urea Nitro gen ANGELICA ([facility]) sodium level 139 mEq/L 136-145 Sodium Level ANGELICA (No Pending sale to [facility]) potassium serum 4.3 mEq/L 3.5-5.1 Potassium Serum ATHE NA ([facility]) carbon dioxide level 28 mEq/L 21-32 Carbon Dioxide Level ANGELICA ([facility]) chloride level 105 mEq/L 98-107 Chloride Level ANGELICA ([facility]) anion gap 6 mEq/L 8-16 Below low normal Anion Gap ANGELICA ( [facility]) calcium level 9.8 mg/dL 8.5-10.1 Calcium Level ANGELICA ( [facility]) ID Date Data Source [id number] 05/20/2020 11:26:00 AM EST ANGELICA ([facility]) Name Value Range Interpretation Code Description Data Roz rce(s) Supporting Document(s) ALT/SGPT 40 U/L 12-78 ALT/SGPT ANGELICA ([facility]) AST/SGOT 19 U/L 7-37 AST/SGOT ANGELICA ([facility]) total protein 7.5 gm/dL 6.4-8.2 Total Protein ANGELICA ( [facility]) bilirubin,total 0.6 mg/dL 0.2-1.0 Bilirubin,total ATHE ([facility]) bilirubin,direct 0.2 mg/dL 0.0-0.2 Bilirubin,direct AT [facility]) alkaline phosphatase 109 U/L 45-117 Alkaline Phosph atase ANGELICA ([facility]) albumin 4.5 gm/dL 3.2-5.2 Albumin ANGELICA ([facility]) albumin/globulin ratio Albumin/globu dana Ratio ANGELICA ([facility]) ID Date Data Source [id number] 05/20/2020 11:26:00 AM EST ANGELICA ([facility]) Name Value Range Interpretation Code Description Data Roz rce(s) Supporting Document(s) white blood count 5.3 10 4.0-10.0 White Blood Count ANGELICA ([facility]) red blood count 5.84 10 4.30-6.10 Red Blood Count ATHE NA ([facility]) hemoglobin 17.3 g/dL 13.5-17.5 Hemoglobin ANGELICA ([facility]) hematocrit 51.4 % 42.0-52.0 Hematocrit ANGELICA ([facility]) mean corpuscular hemoglobin 29.6 pg 27.0-33.0 Mean Cor puscular Hemoglobin ANGELICA ([facility]) mean corpuscular volume 88.0 fL 80.0-96.0 Mean Corpusc ular Volume ANGELICA ([facility]) mean corpuscular HGB conc 33.7 g/dL 32.0-36.5 Mean Corpu scular HGB Conc ANGELICA ([facility]) neutrophils % 52.9 % 36.0-66.0 Neutrophils % ANGELICA ( [facility]) platelet count, automated 227 10 150-450 Platelet C ount, Automated ANGELICA ([facility]) red cell distribution width 12.7 % 11.5-14.5 Red Cell Distribution Width ANGELICA ([facility]) lymph % 35.5 % 24.0-44.0 Lymph % ANGELICA ([facility]) baso % 0.6 % 0.0-1.0 Baso % ANGELICA ([facility]) eos % 4.9 % 0.0-3.0 Above high normal Eos % ANGELICA ([facility]) mono % 5.9 % 0.0-5.0 Above high normal Ada % ANGELICA ([facility]) neutrophils # 2.8 10 1.5-8.5 Neutrophils # ANGELICA ( [facility]) nucleated red blood cell % 0.0 % 0-0 Nucleated Red Blood Cell % ANGELICA ([facility]) lymph # 1.9 10 1.5-5.0 Lymph # LAWN ([facility]) immature granulocyte % 0.2 % 0-3.0 Immature Gran ulocyte % ANGELICA ([facility]) mono # 0.3 10 0.0-0.8 Ada # ANGELICA ([facility]) baso # 0.0 10 0.0-0.2 Baso # ANGELICA ([facility]) eos # 0.3 10 0.0-0.5 Eos # ANGELICA ([facility]) ID Date Data Source [id number] 05/20/2020 11:26:00 AM EST ANGELICA ([facility]) Name Value Range Interpretation Code Description Data Roz rce(s) Supporting Document(s) ID Date Data Source [id number] 05/20/2020 11:26:00 AM EST ANGELICA ([facility]) Name Value Range Interpretation Code Description Data Roz rce(s) Supporting Document(s) glucose, fasting 90 mg/dL 70-100 Glucose, Fasting AT [facility]) blood urea nitrogen 15 mg/dL 7-18 Blood Urea Nitro gen LAWN ([facility]) chloride level 105 mEq/L 98-107 Chloride Level LAWN ([facility]) potassium serum 4.3 mEq/L 3.5-5.1 Potassium Serum ATH NA ([facility]) sodium level 139 mEq/L 136-145 Sodium Level ANGELICA ([facility]) creatinine for GFR 0.84 mg/dL 0.70-1.30 Creatinine for GF R ANGELICA ([facility]) carbon dioxide level 28 mEq/L 21-32 Carbon Dioxide Level ANGELICA ([facility]) calcium level 9.8 mg/dL 8.5-10.1 Calcium Level LAWN ( [facility]) anion gap 6 mEq/L 8-16 Below low normal Anion Gap LAWN ( [facility]) ID Date Data Source [id number] 05/20/2020 11:26:00 AM EST ANGELICA ([facility]) Name Value Range Interpretation Code Description Data Roz rce(s) Supporting Document(s) AST/SGOT 19 U/L 7-37 AST/SGOT ANGELICA ([facility]) ALT/SGPT 40 U/L 12-78 ALT/SGPT ANGELICA ([facility]) total protein 7.5 gm/dL 6.4-8.2 Total Protein ANGELICA ( [facility]) alkaline phosphatase 109 U/L 45-117 Alkaline Phosph atase ANGELICA ([facility]) bilirubin,direct 0.2 mg/dL 0.0-0.2 Bilirubin,direct AT [facility] ([facility]) bilirubin,total 0.6 mg/dL 0.2-1.0 Bilirubin,total ATHE NA ([facility]) albumin/globulin ratio Albumin/globu dana Ratio ANGELICA ([facility]) albumin 4.5 gm/dL 3.2-5.2 Albumin ANGELICA ([facility]) ID Date Data Source [id number] 05/20/2020 11:26:00 AM EST ANGELICA ([facility]) Name Value Range Interpretation Code Description Data Roz rce(s) Supporting Document(s) white blood count 5.3 10 4.0-10.0 White Blood Count ANGELICA ([facility]) hematocrit 51.4 % 42.0-52.0 Hematocrit ANGELICA ([facility]) red blood count 5.84 10 4.30-6.10 Red Blood Count ATHE NA ([facility]) hemoglobin 17.3 g/dL 13.5-17.5 Hemoglobin ANGELICA ([facility]) mean corpuscular HGB conc 33.7 g/dL 32.0-36.5 Mean Corpu scular HGB Conc ANGELICA ([facility]) mean corpuscular volume 88.0 fL 80.0-96.0 Mean Corpusc ular Volume ANGELICA ([facility]) mean corpuscular hemoglobin 29.6 pg 27.0-33.0 Mean Cor puscular Hemoglobin ANGELICA ([facility]) neutrophils % 52.9 % 36.0-66.0 Neutrophils % ANGELICA ( [facility]) platelet count, automated 227 10 150-450 Platelet C ount, Automated ANGELICA ([facility]) red cell distribution width 12.7 % 11.5-14.5 Red Cell Distribution Width ANGELICA ([facility]) lymph % 35.5 % 24.0-44.0 Lymph % ANGELICA ([facility]) mono % 5.9 % 0.0-5.0 Above high normal Ada % ANGELICA ([facility]) eos % 4.9 % 0.0-3.0 Above high normal Eos % ANGELICA ([facility]) neutrophils # 2.8 10 1.5-8.5 Neutrophils # ANGELICA ( [facility]) baso % 0.6 % 0.0-1.0 Baso % ANGELICA ([facility]) immature granulocyte % 0.2 % 0-3.0 Immature Gran ulocyte % ANGELICA ([facility]) nucleated red blood cell % 0.0 % 0-0 Nucleated Red Blood Cell % ANGELICA ([facility]) lymph # 1.9 10 1.5-5.0 Lymph # ANGELICA ([facility]) eos # 0.3 10 0.0-0.5 Eos # ANGELICA ([facility]) mono # 0.3 10 0.0-0.8 Ada # ANGELICA ([facility]) baso # 0.0 10 0.0-0.2 Baso # ANGELICA ([facility]) ID Date Data Source [id number] 05/20/2020 11:26:00 AM EST ANGELICA ([facility]) Name Value Range Interpretation Code Description Data Roz rce(s) Supporting Document(s) ID Date Data Source [id number] 05/20/2020 11:26:00 AM EST ANGELICA ([facility]) Name Value Range Interpretation Code Description Data Roz rce(s) Supporting Document(s) blood urea nitrogen 15 mg/dL 7-18 Blood Urea Nitro gen ANGELICA ([facility]) glucose, fasting 90 mg/dL 70-100 Glucose, Fasting AT [facility] ([facility]) creatinine for GFR 0.84 mg/dL 0.70-1.30 Creatinine for GF R ANGELICA ([facility]) potassium serum 4.3 mEq/L 3.5-5.1 Potassium Serum ATHE NA ([facility]) sodium level 139 mEq/L 136-145 Sodium Level ANGELICA ([facility]) anion gap 6 mEq/L 8-16 Below low normal Anion Gap ANGELICA ( [facility]) carbon dioxide level 28 mEq/L 21-32 Carbon Dioxide Level ANGELICA ([facility]) chloride level 105 mEq/L 98-107 Chloride Level ANGELICA ([facility]) calcium level 9.8 mg/dL 8.5-10.1 Calcium Level ANGELICA ( [facility]) ID Date Data Source [id number] 05/20/2020 11:26:00 AM EST ANGELICA ([facility]) Name Value Range Interpretation Code Description Data Roz rce(s) Supporting Document(s) ALT/SGPT 40 U/L 12-78 ALT/SGPT ANGELICA ([facility]) AST/SGOT 19 U/L 7-37 AST/SGOT ANGELICA ([facility]) alkaline phosphatase 109 U/L 45-117 Alkaline Phosph atase ANGELICA ([facility]) bilirubin,total 0.6 mg/dL 0.2-1.0 Bilirubin,total ATHE NA ([facility]) total protein 7.5 gm/dL 6.4-8.2 Total Protein ANGELICA ( [facility]) albumin 4.5 gm/dL 3.2-5.2 Albumin ANGELICA ([facility]) bilirubin,direct 0.2 mg/dL 0.0-0.2 Bilirubin,direct AT [facility] ([facility]) albumin/globulin ratio Albumin/globu dana Ratio ANGELICA ([facility]) ID Date Data Source [id number] 05/20/2020 11:26:00 AM EST ANGELICA ([facility]) Name Value Range Interpretation Code Description Data Roz rce(s) Supporting Document(s) white blood count 5.3 10 4.0-10.0 White Blood Count ANGELICA ([facility]) red blood count 5.84 10 4.30-6.10 Red Blood Count ATHE NA ([facility]) hemoglobin 17.3 g/dL 13.5-17.5 Hemoglobin ANGELICA ([facility]) mean corpuscular volume 88.0 fL 80.0-96.0 Mean Corpusc ular Volume ANGELICA ([facility]) hematocrit 51.4 % 42.0-52.0 Hematocrit ANGELICA ([facility]) mean corpuscular HGB conc 33.7 g/dL 32.0-36.5 Mean Corpu scular HGB Conc ANGELICA ([facility]) red cell distribution width 12.7 % 11.5-14.5 Red Cell Distribution Width ANGELICA ([facility]) platelet count, automated 227 10 150-450 Platelet C ount, Automated ANGELICA ([facility]) mean corpuscular hemoglobin 29.6 pg 27.0-33.0 Mean Cor puscular Hemoglobin ANGELICA ([facility]) lymph % 35.5 % 24.0-44.0 Lymph % ANGELICA ([facility]) mono % 5.9 % 0.0-5.0 Above high normal Ada % ANGELICA ([facility]) neutrophils % 52.9 % 36.0-66.0 Neutrophils % ANGELICA ( [facility]) eos % 4.9 % 0.0-3.0 Above high normal Eos % ANGELICA ([facility]) nucleated red blood cell % 0.0 % 0-0 Nucleated Red Blood Cell % ANGELICA ([facility]) baso % 0.6 % 0.0-1.0 Baso % ANGELICA ([facility]) immature granulocyte % 0.2 % 0-3.0 Immature Gran ulocyte % ANGELICA ([facility]) mono # 0.3 10 0.0-0.8 Ada # ANGELICA ([facility]) eos # 0.3 10 0.0-0.5 Eos # ANGELICA ([facility]) neutrophils # 2.8 10 1.5-8.5 Neutrophils # ANGELICA ( [facility]) lymph # 1.9 10 1.5-5.0 Lymph # ANGELICA ([facility]) baso # 0.0 10 0.0-0.2 Baso # ANGELICA ([facility]) ID Date Data Source [id number] 05/20/2020 11:26:00 AM EST ANGELICA ([facility]) Name Value Range Interpretation Code Description Data Roz rce(s) Supporting Document(s) ID Date Data Source [id number] 05/20/2020 11:26:00 AM EST ANGELICA ([facility]) Name Value Range Interpretation Code Description Data Roz rce(s) Supporting Document(s) creatinine for GFR 0.84 mg/dL 0.70-1.30 Creatinine for GF R LAWN ([facility]) blood urea nitrogen 15 mg/dL 7-18 Blood Urea Nitro gen ANGELICA ([facility]) glucose, fasting 90 mg/dL 70-100 Glucose, Fasting AT CRISTINA ([facility]) sodium level 139 mEq/L 136-145 Sodium Level ANGELICA ([facility]) chloride level 105 mEq/L 98-107 Chloride Level ANGELICA ([facility]) carbon dioxide level 28 mEq/L 21-32 Carbon Dioxide Level LAWN ([facility]) potassium serum 4.3 mEq/L 3.5-5.1 Potassium Serum ATHE NA ([facility]) anion gap 6 mEq/L 8-16 Below low normal Anion Gap ANGELICA ( [facility]) calcium level 9.8 mg/dL 8.5-10.1 Calcium Level LAWN ( [facility]) ID Date Data Source [id number] 05/20/2020 11:26:00 AM EST ANGELICA ([facility]) Name Value Range Interpretation Code Description Data Roz rce(s) Supporting Document(s) alkaline phosphatase 109 U/L 45-117 Alkaline Phosph atase ANGELICA ([facility]) AST/SGOT 19 U/L 7-37 AST/SGOT ANGELICA ([facility]) ALT/SGPT 40 U/L 12-78 ALT/SGPT ANGELICA ([facility]) albumin 4.5 gm/dL 3.2-5.2 Albumin ANGELICA ([facility]) bilirubin,direct 0.2 mg/dL 0.0-0.2 Bilirubin,direct AT CRISTINA ([facility]) bilirubin,total 0.6 mg/dL 0.2-1.0 Bilirubin,total ATHE NA ([facility]) total protein 7.5 gm/dL 6.4-8.2 Total Protein ANGELICA ( [facility]) albumin/globulin ratio Albumin/globu dana Ratio ANGELICA ([facility]) ID Date Data Source [id number] 05/20/2020 11:26:00 AM EST ANGELICA ([facility]) Name Value Range Interpretation Code Description Data Roz rce(s) Supporting Document(s) white blood count 5.3 10 4.0-10.0 White Blood Count ANGELICA ([facility]) hemoglobin 17.3 g/dL 13.5-17.5 Hemoglobin ANGELICA ([facility]) red blood count 5.84 10 4.30-6.10 Red Blood Count ATHE ([facility]) hematocrit 51.4 % 42.0-52.0 Hematocrit ANGELICA ([facility]) mean corpuscular hemoglobin 29.6 pg 27.0-33.0 Mean Cor puscular Hemoglobin ANGELICA ([facility]) mean corpuscular HGB conc 33.7 g/dL 32.0-36.5 Mean Corpu scular HGB Conc ANGELICA ([facility]) mean corpuscular volume 88.0 fL 80.0-96.0 Mean Corpusc ular Volume ANGELICA ([facility]) red cell distribution width 12.7 % 11.5-14.5 Red Cell Distribution Width ANGELICA ([facility]) platelet count, automated 227 10 150-450 Platelet C ount, Automated ANGELICA ([facility]) lymph % 35.5 % 24.0-44.0 Lymph % ANGELICA ([facility]) neutrophils % 52.9 % 36.0-66.0 Neutrophils % ANGELICA ( [facility]) baso % 0.6 % 0.0-1.0 Baso % ANGELICA ([facility]) eos % 4.9 % 0.0-3.0 Above high normal Eos % ANGELICA ([facility]) immature granulocyte % 0.2 % 0-3.0 Immature Gran ulocyte % ANGELICA ([facility]) mono % 5.9 % 0.0-5.0 Above high normal Ada % ANGELICA ([facility]) mono # 0.3 10 0.0-0.8 Ada # ANGELICA ([facility]) lymph # 1.9 10 1.5-5.0 Lymph # ANGELICA ([facility]) nucleated red blood cell % 0.0 % 0-0 Nucleated Red Blood Cell % ANGELICA ([facility]) neutrophils # 2.8 10 1.5-8.5 Neutrophils # ANGELICA ( [facility]) eos # 0.3 10 0.0-0.5 Eos # ANGELICA ([facility]) baso # 0.0 10 0.0-0.2 Baso # ANGELICA ([facility]) ID Date Data Source [id number] 05/20/2020 11:26:00 AM EST ANGELICA ([facility]) Name Value Range Interpretation Code Description Data Roz rce(s) Supporting Document(s) ID Date Data Source [id number] 05/20/2020 11:26:00 AM EST ANGELICA ([facility]) Name Value Range Interpretation Code Description Data Roz rce(s) Supporting Document(s) glucose, fasting 90 mg/dL 70-100 Glucose, Fasting AT CRISTINA ([facility]) potassium serum 4.3 mEq/L 3.5-5.1 Potassium Serum ATHE NA ([facility]) creatinine for GFR 0.84 mg/dL 0.70-1.30 Creatinine for GF R ANGELICA ([facility]) blood urea nitrogen 15 mg/dL 7-18 Blood Urea Nitro gen ANGELICA ([facility]) sodium level 139 mEq/L 136-145 Sodium Level ANGELICA (No Pending sale to [facility]) anion gap 6 mEq/L 8-16 Below low normal Anion Gap ANGELICA ( [facility]) carbon dioxide level 28 mEq/L 21-32 Carbon Dioxide Level ANGELICA ([facility]) calcium level 9.8 mg/dL 8.5-10.1 Calcium Level ANGELICA ( [facility]) chloride level 105 mEq/L 98-107 Chloride Level ANGELICA ([facility]) ID Date Data Source [id number] 05/20/2020 11:26:00 AM EST ANGELICA ([facility]) Name Value Range Interpretation Code Description Data Roz rce(s) Supporting Document(s) ALT/SGPT 40 U/L 12-78 ALT/SGPT ANGELICA ([facility]) alkaline phosphatase 109 U/L 45-117 Alkaline Phosph atase ANGELICA ([facility]) AST/SGOT 19 U/L 7-37 AST/SGOT ANGELICA ([facility]) albumin/globulin ratio Albumin/globu dana Ratio ANGELICA ([facility]) bilirubin,total 0.6 mg/dL 0.2-1.0 Bilirubin,total ATHE NA ([facility]) bilirubin,direct 0.2 mg/dL 0.0-0.2 Bilirubin,direct AT CRISTINA [facility]) total protein 7.5 gm/dL 6.4-8.2 Total Protein ANGELICA ( [facility]) albumin 4.5 gm/dL 3.2-5.2 Albumin ANGELICA ([facility]) ID Date Data Source [id number] 05/20/2020 11:26:00 AM EST ANGELICA ([facility]) Name Value Range Interpretation Code Description Data Roz rce(s) Supporting Document(s) white blood count 5.3 10 4.0-10.0 White Blood Count ANGELICA ([facility]) hemoglobin 17.3 g/dL 13.5-17.5 Hemoglobin ANGELICA ([facility]) red blood count 5.84 10 4.30-6.10 Red Blood Count ATHE NA ([facility]) hematocrit 51.4 % 42.0-52.0 Hematocrit ANGELICA ([facility]) mean corpuscular volume 88.0 fL 80.0-96.0 Mean Corpusc ular Volume ANGELICA ([facility]) mean corpuscular hemoglobin 29.6 pg 27.0-33.0 Mean Cor puscular Hemoglobin ANGELICA ([facility]) mean corpuscular HGB conc 33.7 g/dL 32.0-36.5 Mean Corpu scular HGB Conc ANGELICA ([facility]) platelet count, automated 227 10 150-450 Platelet C ount, Automated ANGELICA ([facility]) neutrophils % 52.9 % 36.0-66.0 Neutrophils % ANGELICA ( [facility]) lymph % 35.5 % 24.0-44.0 Lymph % ANGELICA ([facility]) red cell distribution width 12.7 % 11.5-14.5 Red Cell Distribution Width ANGELICA ([facility]) immature granulocyte % 0.2 % 0-3.0 Immature Gran ulocyte % ANGELICA ([facility]) baso % 0.6 % 0.0-1.0 Baso % ANGELICA ([facility]) mono % 5.9 % 0.0-5.0 Above high normal Ada % ANGELICA ([facility]) eos % 4.9 % 0.0-3.0 Above high normal Eos % ANGELICA ([facility]) neutrophils # 2.8 10 1.5-8.5 Neutrophils # ANGELICA ( [facility]) nucleated red blood cell % 0.0 % 0-0 Nucleated Red Blood Cell % ANGELICA ([facility]) mono # 0.3 10 0.0-0.8 Ada # ANGELICA ([facility]) lymph # 1.9 10 1.5-5.0 Lymph # ANGELICA ([facility]) baso # 0.0 10 0.0-0.2 Baso # ANGELICA ([facility]) eos # 0.3 10 0.0-0.5 Eos # ANGELICA ([facility]) ID Date Data Source [id number] 05/20/2020 11:26:00 AM EST [facility] Name Value Range Interpretation Code Description Data Roz rce(s) Supporting Document(s) SARS coronavirus 2 RNA [facility] This lab was ordered by [facility] and reported by [facility]. Procedure Social History Code Duration Value Status Description Data Source(s ) Smoking 04/01/2021 12:00:00 AM EDT Unknown if ever smoked comp leted Unknown if ever smoked [facility] ([facility]) Smoking 03/12/2021 12:00:00 AM EDT Unknown if ever smoked comp leted Unknown if ever smoked [facility] ([facility]) Smoking 01/01/2021 12:00:00 AM EDT Unknown if ever smoked comp leted Unknown if ever smoked [facility] ([facility]) Smoking 12/19/2020 12:00:00 AM EDT Unknown if ever smoked comp leted Unknown if ever smoked [facility] ([facility]) Smoking 12/03/2020 12:00:00 AM EDT Unknown if ever smoked comp leted Unknown if ever smoked [facility] ([facility]) Smoking 11/28/2020 12:00:00 AM EDT Unknown if ever smoked comp leted Unknown if ever smoked [facility] ([facility]) Smoking 10/24/2020 12:00:00 AM EDT Unknown if ever smoked comp leted Unknown if ever smoked [facility] ([facility]) Smoking 10/09/2020 12:00:00 AM EDT Unknown if ever smoked comp leted Unknown if ever smoked [facility] ([facility]) Smoking 10/08/2020 12:00:00 AM EDT Unknown if ever smoked comp leted Unknown if ever smoked [facility] ([facility]) Smoking 09/17/2020 12:00:00 AM EDT Unknown if ever smoked comp leted Unknown if ever smoked [facility] ([facility]) Smoking 09/12/2020 12:00:00 AM EDT Unknown if ever smoked comp leted Unknown if ever smoked [facility] ([facility]) Smoking 09/01/2020 12:00:00 AM EDT Unknown if ever smoked comp leted Unknown if ever smoked [facility] ([facility]) Smoking 08/29/2020 12:00:00 AM EST Unknown if ever smoked comp leted Unknown if ever smoked [facility] ([facility]) Smoking 08/08/2020 12:00:00 AM EST Unknown if ever smoked comp leted Unknown if ever smoked [facility] ([facility]) Smoking 07/25/2020 12:00:00 AM EST Unknown if ever smoked comp leted Unknown if ever smoked [facility] ([facility]) Smoking 07/18/2020 12:00:00 AM EST Unknown if ever smoked comp leted Unknown if ever smoked [facility] ([facility]) Smoking 07/02/2020 12:00:00 AM EST Unknown if ever smoked comp leted Unknown if ever smoked [facility] ([facility]) Smoking 06/04/2020 12:00:00 AM EST Unknown if ever smoked comp leted Unknown if ever smoked [facility] ([facility]) Smoking 04/25/2020 12:00:00 AM EST Unknown if ever smoked comp leted Unknown if ever smoked [facility] ([facility]) Smoking 04/17/2020 12:00:00 AM EDT Unknown if ever smoked comp leted Unknown if ever smoked [facility] ([facility]) Smoking 03/19/2020 12:00:00 AM EDT Unknown if ever smoked comp leted Unknown if ever smoked [facility] ([facility]) Vital Signs ID Date Data Source UNK Name Value Range Interpretation Code Description Data Source(s) Diastolic blood pressure 79 mm[Hg] 79 mm[Hg] ANGELICA ([facility]) Body height 68.8 [in_i] 68.8 [in_i] ANGELICA ([facility]) Body mass index (BMI) [Ratio] 32.6 kg/m2 32.6 k g/m2 ANGELICA ([facility]) Systolic blood pressure 129 mm[Hg] 129 mm[Hg] A THENA ([facility]) Body weight 3510 [oz_av] 3510 [oz_av] ANGELICA ([facility]) Diastolic blood pressure 79 mm[Hg] 79 mm[Hg] ANGELICA ([facility]) Systolic blood pressure 122 mm[Hg] 122 mm[Hg] A THENA ([facility]) Body weight 3378 [oz_av] 3378 [oz_av] ANGELICA ([facility]) Body mass index (BMI) [Ratio] 31.4 kg/m2 31.4 k g/m2 ANGELICA ([facility]) Body height 68.8 [in_i] 68.8 [in_i] ANGELICA ([facility]) Diastolic blood pressure 79 mm[Hg] 79 mm[Hg] ANGELICA ([facility]) Body height 68.8 [in_i] 68.8 [in_i] ANGELICA ([facility]) Body mass index (BMI) [Ratio] 31.4 kg/m2 31.4 k g/m2 ANGELICA ([facility]) Systolic blood pressure 122 mm[Hg] 122 mm[Hg] A THENA ([facility]) Body weight 3378 [oz_av] 3378 [oz_av] ANGELICA ([facility]) Diastolic blood pressure 79 mm[Hg] 79 mm[Hg] ANGELICA ([facility]) Body height 68.8 [in_i] 68.8 [in_i] ANGELICA ([facility]) Body mass index (BMI) [Ratio] 31.4 kg/m2 31.4 k g/m2 ANGELICA ([facility]) Systolic blood pressure 122 mm[Hg] 122 mm[Hg] A THENA ([facility]) Body weight 3378 [oz_av] 3378 [oz_av] ANGELICA ([facility]) Diastolic blood pressure 79 mm[Hg] 79 mm[Hg] ANGELICA ([facility]) Body height 68.8 [in_i] 68.8 [in_i] ANGELICA ([facility]) Body mass index (BMI) [Ratio] 31.4 kg/m2 31.4 k g/m2 ANGELICA ([facility]) Systolic blood pressure 122 mm[Hg] 122 mm[Hg] A THENA ([facility]) Body weight 3378 [oz_av] 3378 [oz_av] ANGELICA ([facility]) Body height 0.00 in Normal (applies to non-numeric resu lts) 0.00 in [facility] ([facility]) Body weight Measured 0.00 lbs Normal (applies to n on-numeric results) 0.00 lbs [facility] ([facility]) Body mass index (BMI) [Ratio] 0.00 kg/m2 No rmal (applies to non-numeric results) 0.00 kg/m2 [facility] ([facility]) Systolic blood pressure 0 mm[Hg] Normal (applies t o non-numeric results) 0 mm[Hg] [facility] ([facility]) Diastolic blood pressure 0 mm[Hg] Normal (applies to non-numeric results) 0 mm[Hg] [facility] ([facility]) Body height 0.00 in Normal (applies to non-numeric resu lts) 0.00 in [facility] ([facility]) Body weight Measured 0.00 lbs Normal (applies to n on-numeric results) 0.00 lbs [facility] ([facility]) Body mass index (BMI) [Ratio] 0.00 kg/m2 No rmal (applies to non-numeric results) 0.00 kg/m2 [facility]) Systolic blood pressure 0 mm[Hg] Normal (applies t o non-numeric results) 0 mm[Hg] [facility] ([facility]) Diastolic blood pressure 0 mm[Hg] Normal (applies to non-numeric results) 0 mm[Hg] [facility]) Diastolic blood pressure 82 mm[Hg] 82 mm[Hg] ANGELICA ([facility]) Body height 68.8 [in_i] 68.8 [in_i] ANGELICA ([facility]) Body mass index (BMI) [Ratio] 26.8 kg/m2 26.8 k g/m2 ANGELICA ([facility]) Systolic blood pressure 129 mm[Hg] 129 mm[Hg] A THENA ([facility]) Body weight 2889.6 [oz_av] 2889.6 [oz_av] ATHEN A ([facility]) Systolic blood pressure 129 mm[Hg] 129 mm[Hg] A THENA ([facility]) Diastolic blood pressure 82 mm[Hg] 82 mm[Hg] ANGELICA ([facility]) Body height 68.8 [in_i] 68.8 [in_i] ANGELICA ([facility]) Body weight 2889.6 [oz_av] 2889.6 [oz_av] ATHEN A ([facility]) Body mass index (BMI) [Ratio] 26.8 kg/m2 26.8 k g/m2 ANGELICA ([facility]) Diastolic blood pressure 82 mm[Hg] 82 mm[Hg] ANGELICA ([facility]) Body height 68.8 [in_i] 68.8 [in_i] ANGELICA ([facility]) Body mass index (BMI) [Ratio] 26.8 kg/m2 26.8 k g/m2 ANGELICA ([facility]) Systolic blood pressure 129 mm[Hg] 129 mm[Hg] A THENA ([facility]) Body weight 2889.6 [oz_av] 2889.6 [oz_av] ATHEN A ([facility]) Diastolic blood pressure 82 mm[Hg] 82 mm[Hg] ANGELICA ([facility]) Body height 68.8 [in_i] 68.8 [in_i] ANGELICA ([facility]) Body mass index (BMI) [Ratio] 26.8 kg/m2 26.8 k g/m2 ANGELICA ([facility]) Systolic blood pressure 129 mm[Hg] 129 mm[Hg] A THENA ([facility]) Body weight 2889.6 [oz_av] 2889.6 [oz_av] ATHEN A ([facility]) Diastolic blood pressure 82 mm[Hg] 82 mm[Hg] ANGELICA ([facility]) Body height 68.8 [in_i] 68.8 [in_i] ANGELICA ([facility]) Body mass index (BMI) [Ratio] 26.8 kg/m2 26.8 k g/m2 ANGELICA ([facility]) Systolic blood pressure 129 mm[Hg] 129 mm[Hg] A THENA ([facility]) Body weight 2889.6 [oz_av] 2889.6 [oz_av] ATHEN A ([facility]) Diastolic blood pressure 82 mm[Hg] 82 mm[Hg] ANGELICA ([facility]) Body height 68.8 [in_i] 68.8 [in_i] ANGELICA ([facility]) Body mass index (BMI) [Ratio] 26.8 kg/m2 26.8 k g/m2 ANGELICA ([facility]) Systolic blood pressure 129 mm[Hg] 129 mm[Hg] A THENA ([facility]) Body weight 2889.6 [oz_av] 2889.6 [oz_av] ATHEN A ([facility]) Body height 0.00 in Normal (applies to non-numeric resu lts) 0.00 in [facility] ([facility]) Body weight Measured 0.00 lbs Normal (applies to n on-numeric results) 0.00 lbs [facility] ([facility]) Body mass index (BMI) [Ratio] 0.00 kg/m2 No rmal (applies to non-numeric results) 0.00 kg/m2 [facility]) Systolic blood pressure 0 mm[Hg] Normal (applies t o non-numeric results) 0 mm[Hg] [facility] ([facility]) Diastolic blood pressure 0 mm[Hg] Normal (applies to non-numeric results) 0 mm[Hg] [facility] ([facility]) Body height 68.8 [in_i] 68.8 [in_i] ANGELICA ([facility]) Body height 68.8 [in_i] 68.8 [in_i] ANGELICA ([facility]) Body height 68.8 [in_i] 68.8 [in_i] ANGELICA ([facility]) Body height 68.8 [in_i] 68.8 [in_i] ANGELICA ([facility]) Body height 68.8 [in_i] 68.8 [in_i] ANGELICA ([facility]) Body height 68.8 [in_i] 68.8 [in_i] ANGELICA ([facility]) Body height 68.8 [in_i] 68.8 [in_i] ANGELICA ([facility]) Body height 68.8 [in_i] 68.8 [in_i] ANGELICA ([facility]) Body height 68.8 [in_i] 68.8 [in_i] ANGELICA ([facility]) Body height 68.8 [in_i] 68.8 [in_i] ANGELICA ([facility]) Body height 68.8 [in_i] 68.8 [in_i] ANGELICA ([facility]) Body height 68.8 [in_i] 68.8 [in_i] ANGELICA ([facility]) Body height 68.8 [in_i] 68.8 [in_i] ANGELICA ([facility]) Body height 68.8 [in_i] 68.8 [in_i] ANGELICA ([facility]) Body height 68.8 [in_i] 68.8 [in_i] ANGELICA ([facility]) Body height 0.00 in Normal (applies to non-numeric resu lts) 0.00 in [facility] ([facility]) Body weight Measured 0.00 lbs Normal (applies to n on-numeric results) 0.00 lbs [facility] ([facility]) Body mass index (BMI) [Ratio] 0.00 kg/m2 No rmal (applies to non-numeric results) 0.00 kg/m2 [facility] ([facility]) Systolic blood pressure 0 mm[Hg] Normal (applies t o non-numeric results) 0 mm[Hg] [facility] ([facility]) Diastolic blood pressure 0 mm[Hg] Normal (applies to non-numeric results) 0 mm[Hg] [facility] ([facility]) Diastolic blood pressure 82 mm[Hg] 82 mm[Hg] ANGELICA ([facility]) Body height 68.8 [in_i] 68.8 [in_i] ANGELICA ([facility]) Body mass index (BMI) [Ratio] 25.3 kg/m2 25.3 k g/m2 ANGELICA ([facility]) Systolic blood pressure 128 mm[Hg] 128 mm[Hg] A [facility] ([facility]) Body weight 2720 [oz_av] 2720 [oz_av] ANGELICA ([facility]) Body weight 2720 [oz_av] 2720 [oz_av] ANGELICA ([facility]) Body height 68.8 [in_i] 68.8 [in_i] ANGELICA ([facility]) Body mass index (BMI) [Ratio] 25.3 kg/m2 25.3 k g/m2 ANGELICA ([facility]) Systolic blood pressure 128 mm[Hg] 128 mm[Hg] A [facility] ([facility]) Diastolic blood pressure 82 mm[Hg] 82 mm[Hg] ANGELICA ([facility]) Diastolic blood pressure 82 mm[Hg] 82 mm[Hg] ANGELICA ([facility]) Body height 68.8 [in_i] 68.8 [in_i] ANGELICA ([facility]) Body mass index (BMI) [Ratio] 25.3 kg/m2 25.3 k g/m2 ANGELICA ([facility]) Systolic blood pressure 128 mm[Hg] 128 mm[Hg] A [facility] ([facility]) Body weight 2720 [oz_av] 2720 [oz_av] ANGELICA ([facility]) Body mass index (BMI) [Ratio] 25.3 kg/m2 25.3 k g/m2 ANGELICA ([facility]) Systolic blood pressure 128 mm[Hg] 128 mm[Hg] [facility]) Body weight 2720 [oz_av] 2720 [oz_av] ANGELICA ([facility]) Diastolic blood pressure 82 mm[Hg] 82 mm[Hg] ANGELICA ([facility]) Body height 68.8 [in_i] 68.8 [in_i] ANGELICA ([facility]) Diastolic blood pressure 82 mm[Hg] 82 mm[Hg] ANGELICA ([facility]) Body height 68.8 [in_i] 68.8 [in_i] ANGELICA ([facility]) Body mass index (BMI) [Ratio] 25.3 kg/m2 25.3 k g/m2 ANGELICA ([facility]) Systolic blood pressure 128 mm[Hg] 128 mm[Hg] A [facility]) Body weight 2720 [oz_av] 2720 [oz_av] ANGELICA ([facility]) Diastolic blood pressure 82 mm[Hg] 82 mm[Hg] ANGELICA ([facility]) Body height 68.8 [in_i] 68.8 [in_i] ANGELICA ([facility]) Body mass index (BMI) [Ratio] 25.3 kg/m2 25.3 k g/m2 ANGELICA ([facility]) Systolic blood pressure 128 mm[Hg] 128 mm[Hg] A [facility] ([facility]) Body weight 2720 [oz_av] 2720 [oz_av] ANGELICA ([facility]) Diastolic blood pressure 82 mm[Hg] 82 mm[Hg] ANGELICA ([facility]) Body height 68.8 [in_i] 68.8 [in_i] ANGELICA ([facility]) Body mass index (BMI) [Ratio] 25.3 kg/m2 25.3 k g/m2 ANGELICA ([facility]) Systolic blood pressure 128 mm[Hg] 128 mm[Hg] A [facility] ([facility]) Body weight 2720 [oz_av] 2720 [oz_av] ANGELICA ([facility]) Diastolic blood pressure 82 mm[Hg] 82 mm[Hg] ANGELICA ([facility]) Body height 68.8 [in_i] 68.8 [in_i] ANGELICA ([facility]) Body mass index (BMI) [Ratio] 25.3 kg/m2 25.3 k g/m2 ANGELICA ([facility]) Systolic blood pressure 128 mm[Hg] 128 mm[Hg] A [facility]) Body weight 2720 [oz_av] 2720 [oz_av] ANGELICA ([facility]) Diastolic blood pressure 82 mm[Hg] 82 mm[Hg] ANGELICA ([facility]) Body height 68.8 [in_i] 68.8 [in_i] ANGELICA ([facility]) Body mass index (BMI) [Ratio] 25.3 kg/m2 25.3 k g/m2 ANGELICA ([facility]) Systolic blood pressure 128 mm[Hg] 128 mm[Hg] A [facility]) Body weight 2720 [oz_av] 2720 [oz_av] ANGELICA ([facility]) Diastolic blood pressure 78 mm[Hg] 78 mm[Hg] ANGELICA ([facility]) Body height 68.8 [in_i] 68.8 [in_i] ANGELICA ([facility]) Body mass index (BMI) [Ratio] 24.4 kg/m2 24.4 k g/m2 ANGELICA ([facility]) Systolic blood pressure 133 mm[Hg] 133 mm[Hg] A [facility]) Body weight 2632 [oz_av] 2632 [oz_av] ANGELICA ([facility]) Body mass index (BMI) [Ratio] 24.4 kg/m2 24.4 k g/m2 ANGELICA ([facility]) Systolic blood pressure 133 mm[Hg] 133 mm[Hg] A [facility] ([facility]) Body weight 2632 [oz_av] 2632 [oz_av] ANGELICA ([facility]) Diastolic blood pressure 78 mm[Hg] 78 mm[Hg] ANGELICA ([facility]) Body height 68.8 [in_i] 68.8 [in_i] ANGELICA ([facility]) Diastolic blood pressure 78 mm[Hg] 78 mm[Hg] ANGELICA ([facility]) Body height 68.8 [in_i] 68.8 [in_i] ANGELICA ([facility]) Body mass index (BMI) [Ratio] 24.4 kg/m2 24.4 k g/m2 ANGELICA ([facility]) Systolic blood pressure 133 mm[Hg] 133 mm[Hg] A [facility] ([facility]) Body weight 2632 [oz_av] 2632 [oz_av] ANGELICA ([facility]) Diastolic blood pressure 78 mm[Hg] 78 mm[Hg] ANGELICA ([facility]) Body height 68.8 [in_i] 68.8 [in_i] ANGELICA ([facility]) Body mass index (BMI) [Ratio] 24.4 kg/m2 24.4 k g/m2 ANGELICA ([facility]) Systolic blood pressure 133 mm[Hg] 133 mm[Hg] A [facility] ([facility]) Body weight 2632 [oz_av] 2632 [oz_av] ANGELICA ([facility]) Diastolic blood pressure 78 mm[Hg] 78 mm[Hg] ANGELICA ([facility]) Body height 68.8 [in_i] 68.8 [in_i] ANGELICA ([facility]) Body mass index (BMI) [Ratio] 24.4 kg/m2 24.4 k g/m2 ANGELICA ([facility]) Systolic blood pressure 133 mm[Hg] 133 mm[Hg] A [facility]) Body weight 2632 [oz_av] 2632 [oz_av] ANGELICA ([facility]) Diastolic blood pressure 78 mm[Hg] 78 mm[Hg] ANGELICA ([facility]) Body height 68.8 [in_i] 68.8 [in_i] ANGELICA ([facility]) Body mass index (BMI) [Ratio] 24.4 kg/m2 24.4 k g/m2 ANGELICA ([facility]) Systolic blood pressure 133 mm[Hg] 133 mm[Hg] A [facility]) Body weight 2632 [oz_av] 2632 [oz_av] ANGELICA ([facility]) Diastolic blood pressure 78 mm[Hg] 78 mm[Hg] ANGELICA ([facility]) Body height 68.8 [in_i] 68.8 [in_i] ANGELICA ([facility]) Body mass index (BMI) [Ratio] 24.4 kg/m2 24.4 k g/m2 ANGELICA ([facility]) Systolic blood pressure 133 mm[Hg] 133 mm[Hg] A [facility]) Body weight 2632 [oz_av] 2632 [oz_av] ANGELICA ([facility]) Diastolic blood pressure 78 mm[Hg] 78 mm[Hg] ANGELICA ([facility]) Body height 68.8 [in_i] 68.8 [in_i] ANGELICA ([facility]) Body mass index (BMI) [Ratio] 24.4 kg/m2 24.4 k g/m2 ANGELICA ([facility]) Systolic blood pressure 133 mm[Hg] 133 mm[Hg] A [place] ([facility]) Body weight 2632 [oz_av] 2632 [oz_av] ANGELICA ([facility]) Diastolic blood pressure 78 mm[Hg] 78 mm[Hg] ANGELICA ([facility]) Body height 68.8 [in_i] 68.8 [in_i] ANGELICA ([facility]) Body mass index (BMI) [Ratio] 24.4 kg/m2 24.4 k g/m2 ANGELICA ([facility]) Systolic blood pressure 133 mm[Hg] 133 mm[Hg] A [place] ([facility]) Body weight 2632 [oz_av] 2632 [oz_av] ANGELICA ([facility]) Diastolic blood pressure 78 mm[Hg] 78 mm[Hg] ANGELICA ([facility]) Body height 68.8 [in_i] 68.8 [in_i] ANGELICA ([facility]) Body mass index (BMI) [Ratio] 24.4 kg/m2 24.4 k g/m2 ANGELICA ([facility]) Systolic blood pressure 133 mm[Hg] 133 mm[Hg] A [facility] ([facility]) Body weight 2632 [oz_av] 2632 [oz_av] ANGELICA ([facility]) Body weight Measured 0.00 lbs Normal (applies to n on-numeric results) 0.00 lbs [facility] ([facility]) Body height 0.00 in Normal (applies to non-numeric resu lts) 0.00 in [facility] ([facility]) Diastolic blood pressure 0 mm[Hg] Normal (applies to non-numeric results) 0 mm[Hg] [facility] ([facility]) Body mass index (BMI) [Ratio] 0.00 kg/m2 No rmal (applies to non-numeric results) 0.00 kg/m2 [facility] ([facility]) Systolic blood pressure 0 mm[Hg] Normal (applies t o non-numeric results) 0 mm[Hg] [facility] Patient Treatment Plan of Care Planned Activity Planned Date Details Description Data Source (s) aripiprazole 30 MG Oral Tablet ANGELICA ([facility]) Amoxicillin 500 MG Oral Capsule ANGELICA ([facility]) aripiprazole 30 MG Oral Tablet ANGELICA ([facility]) Amoxicillin 500 MG Oral Capsule ANGELICA ([facility]) Prazosin 1 MG Oral Capsule A [facility] ([facility]) Ondansetron 4 MG Disintegrating Oral Tablet ANGELICA ([facility]) methylphenidate ER 54 mg tablet,extended release 24 hr ANGELICA ([facility]) methylphenidate ER 36 mg tablet,extended release 24 hr ANGELICA ([facility]) [facility] Divalproex Sodium 250 MG Delayed Release Oral Tablet ANGELICA ([facility]) Clonidine Hydrochloride 0.2 MG Oral Tablet ANGELICA ([facility]) buspirone hydrochloride 5 MG Oral Tablet ANGELICA ([facility]) buspirone hydrochloride 15 MG Oral Tablet ANGELICA ([facility]) aripiprazole 30 MG Oral Tablet ANGELICA ([facility]) Amoxicillin 500 MG Oral Capsule ANGELICA ([facility]) Prazosin 1 MG Oral Capsule A [facility] ([facility]) Ondansetron 4 MG Disintegrating Oral Tablet ANGELICA ([facility]) methylphenidate ER 36 mg tablet,extended release 24 hr ANGELICA ([facility]) Amoxicillin 500 MG Oral Capsule ANGELICA ([facility]) Prazosin 1 MG Oral Capsule A [facility] ([facility]) Ondansetron 4 MG Disintegrating Oral Tablet ANGELICA ([facility]) methylphenidate ER 36 mg tablet,extended release 24 hr ANGELICA ([facility]) Amoxicillin 500 MG Oral Capsule ANGELICA ([facility]) Prazosin 1 MG Oral Capsule A [facility] ([facility]) Ondansetron 4 MG Disintegrating Oral Tablet ANGELICA ([facility]) methylphenidate ER 36 mg tablet,extended release 24 hr ANGELICA ([facility]) Amoxicillin 500 MG Oral Capsule ANGELICA ([facility]) methylphenidate ER 36 mg tablet,extended release 24 hr ANGELICA ([facility]) Amoxicillin 500 MG Oral Capsule ANGELICA ([facility]) Vraylar 3 mg capsule ANGELICA ([facility]) Vraylar 1.5 mg capsule TAKE 3 CAPSULES 4.5MG BY MOUTH DAILY FOR M OOD ANGELICA ([facility]) Ondansetron 4 MG Disintegrating Oral Tablet ANGELICA ([facility]) methylphenidate ER 54 mg tablet,extended release 24 hr ANGELICA ([facility]) methylphenidate ER 36 mg tablet,extended release 24 hr ANGELICA ([facility]) Guanfacine 1 MG Oral Tablet ANGELICA ([facility]) Divalproex Sodium 250 MG Delayed Release Oral Tablet ANGELICA ([facility]) Clonidine Hydrochloride 0.2 MG Oral Tablet ANGELICA ([facility]) buspirone hydrochloride 5 MG Oral Tablet ANGELICA ([facility]) buspirone hydrochloride 15 MG Oral Tablet ANGELICA ([facility]) aripiprazole 30 MG Oral Tablet ANGELICA ([facility]) Amoxicillin 500 MG Oral Capsule ANGELICA ([facility]) Vraylar 3 mg capsule ANGELICA ([facility]) Vraylar 1.5 mg capsule TAKE 3 CAPSULES 4.5MG BY MOUTH DAILY FOR M OOD ANGELICA ([facility]) Ondansetron 4 MG Disintegrating Oral Tablet ANGELICA ([facility]) methylphenidate ER 54 mg tablet,extended release 24 hr ANGELICA ([facility]) methylphenidate ER 36 mg tablet,extended release 24 hr ANGELICA ([facility]) Guanfacine 1 MG Oral Tablet ANGELICA ([facility]) Divalproex Sodium 250 MG Delayed Release Oral Tablet ANGELICA ([facility]) Clonidine Hydrochloride 0.2 MG Oral Tablet ANGELICA ([facility]) buspirone hydrochloride 5 MG Oral Tablet ANGELICA ([facility]) buspirone hydrochloride 15 MG Oral Tablet ANGELICA ([facility]) Vraylar 3 mg capsule ANGELICA ([facility]) Vraylar 1.5 mg capsule TAKE 3 CAPSULES 4.5MG BY MOUTH DAILY FOR M OOD ANGELICA ([facility]) Ondansetron 4 MG Disintegrating Oral Tablet ANGELICA ([facility]) methylphenidate ER 54 mg tablet,extended release 24 hr ANGELICA ([facility]) methylphenidate ER 36 mg tablet,extended release 24 hr ANGELICA ([facility]) Guanfacine 1 MG Oral Tablet ANGELICA ([facility]) Divalproex Sodium 250 MG Delayed Release Oral Tablet ANGELICA ([facility]) Clonidine Hydrochloride 0.2 MG Oral Tablet ANGELICA ([facility]) buspirone hydrochloride 5 MG Oral Tablet ANGELICA ([facility]) buspirone hydrochloride 15 MG Oral Tablet ANGELICA ([facility]) Vraylar 3 mg capsule ANGELICA ([facility]) Vraylar 1.5 mg capsule TAKE 3 CAPSULES 4.5MG BY MOUTH DAILY FOR M OOD ANGELICA ([facility]) Ondansetron 4 MG Disintegrating Oral Tablet ANGELICA ([facility]) methylphenidate ER 54 mg tablet,extended release 24 hr ANGELICA ([facility]) methylphenidate ER 36 mg tablet,extended release 24 hr ANGELICA ([facility]) Guanfacine 1 MG Oral Tablet ANGELICA ([facility]) Divalproex Sodium 250 MG Delayed Release Oral Tablet ANGELICA ([facility]) Clonidine Hydrochloride 0.2 MG Oral Tablet ANGELICA ([facility]) buspirone hydrochloride 5 MG Oral Tablet ANGELICA ([facility]) buspirone hydrochloride 15 MG Oral Tablet ANGELICA ([facility]) aripiprazole 30 MG Oral Tablet ANGELICA ([facility]) Amoxicillin 500 MG Oral Capsule ANGELICA ([facility]) Prazosin 1 MG Oral Capsule A THENA ([facility]) Ondansetron 4 MG Disintegrating Oral Tablet ANGELICA ([facility]) methylphenidate ER 54 mg tablet,extended release 24 hr ANGELICA ([facility]) methylphenidate ER 36 mg tablet,extended release 24 hr ANGELICA ([facility]) Guanfacine 1 MG Oral Tablet ANGELICA ([facility]) Divalproex Sodium 250 MG Delayed Release Oral Tablet ANGELICA ([facility]) Clonidine Hydrochloride 0.2 MG Oral Tablet ANGELICA ([facility]) buspirone hydrochloride 5 MG Oral Tablet ANGELICA ([facility]) buspirone hydrochloride 15 MG Oral Tablet ANGELICA ([facility]) aripiprazole 30 MG Oral Tablet ANGELICA ([facility]) Amoxicillin 500 MG Oral Capsule ANGELICA ([facility])
--- NOTE | 2021-04-29 21:36 | REPVR ---
PROCEDURE INFORMATION: Exam: XR Right Ankle Exam date and time: 04/29/2021 9:29 PM Age: 20 years old Clinical indication: Pain; Foot; Right; Additional info: Injury TECHNIQUE: Imaging protocol: XR Right ankle. Views: 3 or more views. COMPARISON: No relevant prior studies available. FINDINGS: Bones/joints: Normal. Soft tissues: Normal. IMPRESSION: No acute findings. Electronically signed by: Sim Hickman On 04/29/2021 21:36:18 PM
[2021-04-30] MEDS ORDERED: IBUP80TA PO (00:28)
[2021-04-30] MEDS ORDERED: IBUPROFEN 800 MG TAB PO ONE (00:30)
[2021-04-30 00:42] VITALS: BP 119/70
--- OUTSIDE RECORDS SUMMARY | 2021-04-30 00:59 | CCD ---
Author Author [facility] Organization [facility] Address Unknown Phone Unavailable Care Team Providers Care Care Companion Name Role Phone Tahira Bee MD Unavailable [...] Unavailable Unavailable Tahira Bee MD Unavailable Unavailable Roiht, Tahira Moses MD Unavailable Unavailable Tahira Bee [...] Bee MD Unavailable Unavailable Acharya, R Eleuterio BILLING SUPERVISOR Unavailable Unavailable Acharya, R Eleuterio BILLING SUPERVISOR Unavailable Unavailable Acharya, R Eleuterio BILLING SUPERVISOR Unavailable Unavailable Emperatriz, Mirian Unavailable Unavailable Emperatriz, [...] PA-C Unavailable Fede Kyle PA-C Unavailable Armendariz, Wyola Dianna Unavailable Unavailable Armendariz, Wyola Dianna Unavailable Unavailable Armendariz, Wyola Dianna Unavailable Unavailable Armendariz, Wyola Dianna Unavailable Unavailable Armendariz, Wyola Dianna Unavailable Unavailable Armendariz, Wyola Dianna Unavailable Unavailable Armendariz, Wyola Dianna Unavailable Unavailable Armendariz, Wyola Dianna Unavailable Unavailable Armendariz, Wyola Dianna Unavailable Unavailable Armendariz, Wyola Dianna Unavailable Unavailable Armendariz, Wyola Dianna Unavailable Unavailable Armendariz, Wyola Dianna Unavailable Unavailable Armendariz, Wyola Dianna Unavailable Unavailable Re-disclosure Warning The records [...] is protected by Article 27-F of the [facility] Public Health law. If you continue you may have access to information: Regarding HIV / AIDS; Provided by facilities licensed or operated by the [facility] Office of Mental Health; or Provided by the [facility] Office for People With Developmental Disabilities. If such information is present, then the following [facility] mandated warning applies: This information has been [...] law may result in a fine or residential sentence or both. A general authorization for the release of medical or other information is NOT sufficient authorization for further disc losure. Allergies and Adverse Reactions Type Description Substance Reaction Status Data Source(s ) Propensity to adverse reactions to substance kiwi Aspirin / Caffeine Oral Powder Active [facility] ([facility] Propensity to adverse reactions to substance kiwi Aspirin / Caffeine Oral Powder Active [facility] ([facility]) Allergy to substance Allergy to substance Allergy to substance ANGELICA ([facility]) Allergy to substance Allergy to substance Allergy to substance ANGELICA ([facility]) Allergy to substance Allergy to substance Allergy to substance ANGELICA ([facility]) Allergy to substance Allergy to substance Allergy to substance ANGELICA ([facility]) Encounters Encounter Providers Location Date Indications Data Source(s ) Brianne Awan MD: [address] [place] [phone], Ph. Attender: Brianne Awan [facility] Medical 04/24/2021 12:00:00 AM EDT ANGELICA ([facility]) Josué Bee MD: [address] [place] [phone], Ph. Attender: Josué Bee MD [facility] Medical 04/16/2021 12:00:00 AM EDT ANGELICA ([facility]) Josué Bee MD: [address] [place] [phone], Ph. Attender: Josué Bee MD [facility] Medical 04/16/2021 12:00:00 AM EDT ANGELICA ([facility]) Extended Individual Psychotherapy - 45 min Attender: Carol Chase [facility] 04/01/2021 02:00:00 AM EDT - 04/01/2021 02:00:00 AM EDT [facility] ([facility]) Josué Bee MD: [address] [place] [phone], Ph. Attender: Josué Bee MD [facility] Medical 04/01/2021 12:00:00 AM EDT ANGELICA ([facility]) Josué Bee MD: [address] [place] [address], Ph. Attender: Josué Bee MD [facility] Medical 04/01/2021 12:00:00 AM EDT ANGELICA ([facility]) Josué Bee MD: [address] [place] [address], Ph. Attender: Josué Bee MD [facility] Medical 04/01/2021 12:00:00 AM EDT ANGELICA ([facility]) Attender: Carol Chase 04/01/2021 12:00:00 AM EDT [facility] ([facility] non-billable [facility] 03/23/2021 12:00:00 AM EDT [facility] ([facility]) Brianne Awan MD: [address] , [place] [address], Ph. Attender: Brianne Awan [facility] Medical 03/13/2021 12:00:00 AM EDT ANGELICA ([facility]) Brianne Awan MD: [address], [place] [address], Ph. Attender: Brianne Awan [facility] Medical 03/13/2021 12:00:00 AM EDT ANGELICA ([facility]) Brianne Awan MD: [address], [facility] [place] [address], Ph. Attender: Brianne Awan [facility] Medical 03/13/2021 12:00:00 AM EDT ANGELICA ([facility]) Brianne Awan MD: [address], [facility] [place] [address], Ph. Attender: Brianne Awan [facility] Medical 03/13/2021 12:00:00 AM EDT ANGELICA ([facility]) Outpatient Attender: Eleuterio Acharya NP [facility] 03/12/2021 04:00:00 AM EDT - 03/12/2021 04:00:00 AM EDT [facility] ([facility]) Attender: Eleuterio Acharya NP 03/12/2021 12:00:00 AM EDT [facility] ([facility]) non-billable [facility] 02/18/2021 12:00:00 AM EDT [facility] ([facility]) non-billable [facility] 01/20/2021 12:00:00 AM EDT [facility] ([facility]) Brief Individual Psychotherapy - 30 min Attender: Carol Wilson [facility] 01/01/2021 09:00:00 AM EDT - 01/01/2021 09:00:00 AM EDT [facility] ([facility]) Attender: Carol Chase 01/01/2021 12:00:00 AM EDT [facility] ([facility]) non-billable [facility] 12/23/2020 12:00:00 AM EDT [facility] ([facility]) Outpatient Attender: Eleuterio Acharya NP [facility] 12/19/2020 10:00:00 AM EDT - 12/19/2020 10:00:00 AM EDT [facility] ([facility]) Extended Individual Psychotherapy - 45 min Attender: Carol Salvatore [facility] 12/19/2020 09:00:00 AM EDT - 12/19/2020 09:00:00 AM EDT [facility] ([facility]) Attender: Eleuterio Acharya NP 12/19/2020 12:00:00 AM EDT [facility] ([facility]) Attender: Carol Chase 12/19/2020 12:00:00 AM EDT [facility] ([facility]) Attender: Carol Chase 12/03/2020 12:00:00 AM EDT [facility] ([facility]) Brief Individual Psychotherapy - 30 min Attender: Carol Wilson [facility] 12/02/2020 05:30:00 AM EDT - 12/02/2020 05:30:00 AM EDT [facility] ([facility]) Outpatient Attender: Eleuterio Acharya NP [facility] 11/28/2020 04:00:00 AM EDT - 11/28/2020 04:00:00 AM EDT [facility] ([facility]) Attender: Eleuterio Acharya NP 11/28/2020 12:00:00 AM EDT [facility] ([facility]) non-billable [facility] Clinic 11/18/2020 12:00:00 AM EDT [facility] ([facility]) Extended Individual Psychotherapy - 45 min Attender: Carol Salvatore [facility] 10/24/2020 11:45:00 AM EDT - 10/24/2020 11:45:00 AM EDT [facility] ([facility]) Attender: Carol Chase 10/24/2020 12:00:00 AM EDT [facility] ([facility]) Emergency Attender: Kyle Mistry PA-C EMERGENCY ROOM-ER 08/2020 09:53:00 PM EDT - 10/20/2020 10:00:00 PM T [facility] Patient discharged. Outpatient Attender: Eleuterio Acharya NP [facility] 10/09/2020 04:00:00 AM EDT - 10/09/2020 04:00:00 AM EDT [facility] ([facility]) Attender: Eleuterio Acharya NP 10/09/2020 12:00:00 AM EDT [facility] ([facility]) Brief Individual Psychotherapy - 30 min Attender: Carol courtney [facility] 10/08/2020 03:00:00 AM EDT - 10/08/2020 03:00:00 AM EDT [facility] ([facility]) Attender: Carol Chase 10/08/2020 12:00:00 AM EDT [facility] ([facility]) Extended Individual Psychotherapy - 45 min Attender: Carol Chase [facility] 09/17/2020 11:15:00 AM EDT - 09/17/2020 11:15:00 AM EDT [facility] ([facility]) Attender: Carol Chase 09/17/2020 12:00:00 AM EDT [facility] ([facility]) Brianne Awan MD: [address], [place] [address], Ph. Attender: Brianne Awan [facility] Medical 09/16/2020 12:00:00 AM EDT ANGELICA ([facility]) Brianne Awan MD: [address], [place] [address], Ph. Attender: Brianne Awan [facility] Medical 09/16/2020 12:00:00 AM EDT ANGELICA ([facility]) Brianne Awan MD: [address], [place] [address], Ph. Attender: Brianne Awan [facility] Medical 09/16/2020 12:00:00 AM EDT ANGELICA ([facility]) Brianne Awan MD: [address], [place] [address], Ph. Attender: Brianne Awan [facility] Medical 09/16/2020 12:00:00 AM EDT ANGELICA ([facility]) Brianne Awan MD: [address], [place] [address], Ph. Attender: Brianne Awan [facility] Medical 09/16/2020 12:00:00 AM EDT ANGELICA ([facility]) Outpatient Attender: Eleuterio Acharya NP [facility] 09/12/2020 09:30:00 AM EDT - 09/12/2020 09:30:00 AM EDT [facility] ([facility] Attender: Eleuterio Acharya BILLING SUPERVISOR 09/12/2020 12:00:00 AM EDT [facility] ([facility]) Brianne Awan MD: [address], [place] [address], Ph. Attender: Brianne Awan [facility] Medical 09/02/2020 12:00:00 AM EDT ANGELICA ([facility]) Brianne Awan MD: [address], [place] [address], Ph. Attender: Brianne Awan [facility] Medical 09/02/2020 12:00:00 AM EDT ANGELICA ([facility]) Brianne Awan MD: [address], [place] [address], Ph. Attender: Brianne Awan [facility] Medical 09/02/2020 12:00:00 AM EDT ANGELICA ([facility]) Brianne Awan MD: [address], [place] [address], Ph. Attender: Brianne Awan [facility] Medical 09/02/2020 12:00:00 AM EDT ANGELICA ([facility]) Brianne Awan MD: [address], [place] [address], Ph. Attender: Brianne Awan [facility] Medical 09/02/2020 12:00:00 AM EDT ANGELICA ([facility]) Brianne Awan MD: [facility], [place] [address], Ph. Attender: Brianne Awan [facility] Medical 09/02/2020 12:00:00 AM EDT ANGELICA ([facility]) Brief Individual Psychotherapy - 30 min Attender: Chantelle tam [facility] 09/01/2020 02:00:00 AM EDT - 09/01/2020 02:00:00 AM EDT [facility] ([facility]) Attender: Chantelle Hussein 09/01/2020 12:00:00 AM EDT [facility] ([facility]) Outpatient Attender: Eleuterio Acharya NP [facility] 08/29/2020 03:00:00 AM EST - 08/29/2020 03:00:00 AM EST [facility] ([facility]) Attender: Eleuterio Acharya NP 08/29/2020 12:00:00 AM EST [facility] ([facility]) BOWEN VelazquezC: [address] [place] [phone], Ph. Attender: Dianna Armendariz [facility] Medical 08/19/2020 12:00:00 AM EST ANGELICA ([facility]) BOWEN VelazquezC: [address] [place] [address], Ph. Attender: Dianna Armendariz [facility] Medical 08/19/2020 12:00:00 AM EST ANGELICA ([facility]) BOWEN VelazquezC: [address] [place] [address], Ph. Attender: Dianna Armendariz [facility] Medical 08/19/2020 12:00:00 AM EST ANGELICA ([facility]) BOWEN VelazquezC: [address] [place] [address], Ph. Attender: Dianna Armendariz [facility] Medical 08/19/2020 12:00:00 AM EST ANGELICA ([facility]) BOWEN VelazquezC: [address] [place] [address], Ph. Attender: Dianna Armendariz [facility] Medical 08/19/2020 12:00:00 AM EST ANGELICA ([facility]) BOWEN VelazquezC: [address] [place] [address], Ph. Attender: Dianna Armendariz [facility] Medical 08/19/2020 12:00:00 AM EST ANGELICA ([facility]) BOWEN VelazquezC: [address] [place] [address], Ph. Attender: Dianna Armendariz [facility] Medical 08/19/2020 12:00:00 AM EST ANGELICA ([facility]) BOWEN VelazquezC: [address] [place] [address], Ph. Attender: Dianna Armendariz [facility] Medical 08/12/2020 12:00:00 AM EST ANGELICA ([facility]) BOWEN VelazquezC: [address] [place] [address], Ph. Attender: Dianna Armendariz [facility] Medical 08/12/2020 12:00:00 AM EST ANGELICA ([facility]) BOWEN VelazquezC: [address] [place] [address], Ph. Attender: Diannajocelyn Armendariz [facility] Medical 08/12/2020 12:00:00 AM EST ANGELICA ([facility]) AGUSTIN Velazquez-C: [address] [place] [address], Ph. Attender: Dianna Armendariz [facility] Medical 08/12/2020 12:00:00 AM EST ANGELICA ([facility]) BOWEN VelazquezC: [facility] [place] [address], Ph. Attender: Dianna Armendariz [facility] Medical 08/12/2020 12:00:00 AM EST ANGELICA ([facility]) BOWEN VelazquezC: [facility] [place] [address], Ph. Attender: Dianna Armendariz [facility] Medical 08/12/2020 12:00:00 AM EST ANGELICA ([facility]) BOWEN VelazquezC: [address] [place] [address], Ph. Attender: Dianna Armendariz [facility] Medical 08/12/2020 12:00:00 AM EST ANGELICA ([facility]) BOWEN VelazquezC: [facility] [place] [address], Ph. Attender: Dianna Armendariz [facility] Medical 08/12/2020 12:00:00 AM EST ANGELICA ([facility]) Outpatient Attender: Eleuterio Acharya NP [facility] 08/08/2020 01:00:00 AM EST - 08/08/2020 01:00:00 AM EST [facility] ([facility]) Attender: Eleuterio Acharya NP 08/08/2020 12:00:00 AM EST [facility] ([facility]) [id number]"Psychotherapy Attender: Rosa Elena Gutierrez [facility] 07/25/2020 03:00:00 AM EST - 07/25/2020 03:00:00 AM EST [facility] ([facility]) Attender: Rosa Elena Gutierrez 07/25/2020 12:00:00 AM EST [facility] ([facility]) Outpatient Attender: Eleuterio Acharya NP [facility] 07/18/2020 01:00:00 AM EST - 07/18/2020 01:00:00 AM EST [facility] ([facility]) Attender: Eleuterio Acharya NP 07/18/2020 12:00:00 AM EST [facility] ([facility]) Extended Individual Psychotherapy - 45 min Attender: Michelle Gutierrez [facility] 07/02/2020 05:00:00 AM EST - 07/02/2020 05:00:00 AM EST [facility] ([facility]) Attender: Rosa Elena Gutierrez 07/02/2020 12:00:00 AM EST [facility] ([facility]) AGUSTIN Velazquez-C: [address] [place] [address], Ph. Attender: Dianna Armendariz [facility] Medical 06/06/2020 12:00:00 AM EST ANGELICA ([facility]) BOWEN VelazquezC: [address] [place] [address], Ph. Attender: Dianna Armendariz [facility] Medical 06/06/2020 12:00:00 AM EST ANGELICA ([facility]) BOWEN VelazquezC: [address] [place] [address], Ph. Attender: Dianna Armendariz [facility] Medical 06/06/2020 12:00:00 AM EST ANGELICA ([facility]) BOWEN VelazquezC: [address] [place] [address], Ph. Attender: Dianna Armendariz [facility] Medical 06/06/2020 12:00:00 AM EST ANGELICA ([facility]) BOWEN VelazquezC: [address] [place] [address], Ph. Attender: Dianna Armendariz [facility] Medical 06/06/2020 12:00:00 AM EST ANGELICA ([facility]) BOWEN VelazquezC: [address] [place] [address], Ph. Attender: Dianna Armendariz [facility] Medical 06/06/2020 12:00:00 AM EST ANGELICA ([facility]) BOWEN VelazquezC: [address] [place] [address], Ph. Attender: Dianna Armendariz [facility] Medical 06/06/2020 12:00:00 AM EST ANGELICA ([facility]) BOWEN VelazquezC: [address] [place] [address], Ph. Attender: Dianna Armendariz [facility] Medical 06/06/2020 12:00:00 AM EST ANGELCIA ([facility]) BOWEN VelazquezC: [address] [place] [address], Ph. Attender: Dianna Armendariz [facility] Medical 06/06/2020 12:00:00 AM EST ANGELICA ([facility]) Outpatient Attender: Eleuterio [facility] 06/04/2020 08:30:00 AM EST - 06/04/2020 08:30:00 AM EST [facility] ([facility]) Extended Individual Psychotherapy - 45 min Attender: Michelle Gutierrez [facility] 06/04/2020 05:00:00 AM EST - 06/04/2020 05:00:00 AM EST [facility] ([facility]) Attender: Rosa Elena Gutierrez 06/04/2020 12:00:00 AM EST [facility] ([facility]) Attender: Eleuterio Acharya NP 06/04/2020 12:00:00 AM EST [facility] ([facility]) Extended Individual Psychotherapy - 45 min [facility] 03:00:00 AM EST - 04/25/2020 03:00:00 AM EST [facility] ([facility]) BOWEN VelazquezC: [address] [place] [address], Ph. Attender: Dianna Armendariz [facility] Medical 04/25/2020 12:00:00 AM EST ANGELICA ([facility]) BOWEN VelazquezC: [address] [place] [address], Ph. Attender: Dianna Armendariz [facility] Medical 04/25/2020 12:00:00 AM EST ANGELICA ([facility]) BOWEN VelazquezC: [address] [place] [address], Ph. Attender: Dianna Armendariz [facility] Medical 04/25/2020 12:00:00 AM EST ANGELICA ([facility]) BOWEN VelazquezC: [address] [place] [address], Ph. Attender: Dianna Armendariz [facility] Medical 04/25/2020 12:00:00 AM EST ANGELICA ([facility]) BOWEN VelazquezC: [address] [place] [address], Ph. Attender: Dianna DIAS [facility] Medical 04/25/2020 12:00:00 AM EST ANGELICA ([facility]) BOWEN VelazquezC: [address] [place] [address], Ph. Attender: Dianna Armendariz [facility] Medical 04/25/2020 12:00:00 AM EST ANGELICA ([facility]) BOWEN VelazquezC: [address] [place] [address], Ph. Attender: Dianna Armendariz [facility] Medical 04/25/2020 12:00:00 AM EST ANGELICA ([facility]) BOWEN VelazquezC: [address] [place] [address], Ph. Attender: Dianna DIAS [facility] Medical 04/25/2020 12:00:00 AM EST ANGELICA ([facility]) BOWEN VelazquezC: [address] [place] [address], Ph. Attender: Dianna Armendariz [facility] Medical 04/25/2020 12:00:00 AM EST ANGELICA ([facility]) Attender: Rosa Elena Gutierrez 04/25/2020 12:00:00 AM EST [facility] ([facility]) BOWEN VelazquezC: [address] [place] [address], Ph. Attender: Dianna Armendariz [facility] Medical 04/25/2020 12:00:00 AM EST ANGELICA ([facility]) Outpatient Attender: Eleuterio Acharya NP [facility] 04/17/2020 08:30:00 AM EDT - 04/17/2020 08:30:00 AM EDT [facility] ([facility]) Attender: Eleuterio Acharya NP 04/17/2020 12:00:00 AM EDT [facility] ([facility]) Extended Individual Psychotherapy - 45 min Attender: [facility] 03/19/2020 03:00:00 AM EDT - 03/19/2020 03:00:00 AM EDT [facility] ([facility]) Attender: Rosa Elena Gutierrez 03/19/2020 12:00:00 AM EDT [facility] ([facility]) Functional Status Immunizations Vaccine Date Status Description Data Source(s) New in 2011. IIV4 04/24/2021 03:09:00 PM EDT completed 04/24/20 21 ANGELICA ([facility]) COVID-19, mRNA, LNP-S, PF, 30 mcg/0.3 mL dose 12/18/2020 12: 00:00 AM EDT completed 12/18/2020 ANGELICA ([facility]) COVID-19 VACCINE Pfizer 12/18/2020 12:00:00 AM EDT completed [facility] Vaccine Series Complete: YESThis Data wa s Submitted to [facility] [employer]. COVID-19, mRNA, LNP-S, PF, 30 mcg/0.3 mL dose 11/27/2020 12: 00:00 AM EDT completed 11/27/2020 ANGELICA ([facility]) COVID-19 VACCINE Pfizer 11/27/2020 12:00:00 AM EDT completed [facility] Vaccine Series Complete: NOThis Data was Submitted to [facility] [employer]. New in 2011. IIV4 04/25/2020 11:43:57 AM EST completed 0.5 mL ANGELICA ([facility]) New in 2011. IIV4 04/25/2020 11:43:57 AM EST completed .5 mL ANGELICA ([facility]) New in 2011. IIV4 04/25/2020 11:43:57 AM EST completed .5 mL ANGELICA ([facility]) New in 2011. IIV4 04/25/2020 11:43:57 AM EST completed .5 mL ANGELICA ([facility]) New in 2011. IIV4 04/25/2020 11:43:57 AM EST completed .5 mL ANGELICA ([facility]) New in 2011. IIV4 04/25/2020 11:43:57 AM EST completed .5 mL ANGELICA ([facility]) New in 2011. IIV4 04/25/2020 11:43:57 AM EST completed .5 mL ANGELICA ([facility]) New in 2011. IIV4 04/25/2020 11:43:57 AM EST completed .5 mL ANGELICA ([facility]) New in 2011. IIV4 04/25/2020 11:43:57 AM EST completed .5 mL ANGELICA ([facility]) New in 2011. IIV4 04/25/2020 11:43:57 AM EST completed .5 mL ANGELICA ([facility]) Medications Medication Brand Name Start Date Product Form Dose Route Admi nistrative Instructions Pharmacy Instructions Status Indications Reaction Description Data Source(s) Prazosin 2 MG Oral Capsule prazosin 03/03/2021 12:00:00 AM EDT 2 mg by mouth completed <td ID="Medicat ionRxNorm_2">986079</td><td ID="MedicationMedication_2">prazosin</td><td ID="MedicationRoute_2">by mouth</td><td ID="MedicationRouteConcept_2">R12198</td><td ID="MedicationStartDate_2">03/03/2021</td><td ID="MedicationStopDate_2">05/02/2021</td><td ID="MedicationDosageFrequency_2">at bedtime</td><td ID="MedicationDuration_2">30</td><td ID="MedicationFormulaStrength_2">2 mg</td><td ID="MedicationDosageForm_2">capsule</td><td ID="MedicationDosageFormCode_2"></td><td ID="MedicationDosageDescription_2"></td><td ID="MedicationMedicationId_2">[id number]</td><td ID="MedicationAccount_2">[id number]</td><td ID="MedicationNpid_2">[id number]</td><td ID="MedicationAuthorFirstName_2">Nimisha</td><td ID="MedicationAuthorLastName_2">Sachin</td><td ID="MedicationTaxonomyCode_2">[id number]</td><td ID="MedicationTaxonomyDesc_2">Nurse Practitioner</td><td ID="MedicationPhoneNumber_2">[phone]</td> [facility] ([facility]) Prazosin 2 MG Oral Capsule prazosin 03/03/2021 12:00:00 AM EDT 2 mg by mouth completed <td ID="Medicat ionRxNorm_4">470491</td><td ID="MedicationMedication_4">prazosin</td><td ID="MedicationRoute_4">by mouth</td><td ID="MedicationRouteConcept_4">S38012</td><td ID="MedicationStartDate_4">03/03/2021</td><td ID="MedicationStopDate_4">05/02/2021</td><td ID="MedicationDosageFrequency_4">at bedtime</td><td ID="MedicationDuration_4">30</td><td ID="MedicationFormulaStrength_4">2 mg</td><td ID="MedicationDosageForm_4">capsule</td><td ID="MedicationDosageFormCode_4"></td><td ID="MedicationDosageDescription_4"></td><td ID="MedicationMedicationId_4">[id number]</td><td ID="MedicationAccount_4">[id number]</td><td ID="MedicationNpid_4">[id number]</td><td ID="MedicationAuthorFirstName_4">Nimisha</td><td ID="MedicationAuthorLastName_4">Sachin</td><td ID="MedicationTaxonomyCode_4">[id number]</td><td ID="MedicationTaxonomyDesc_4">Nurse Practitioner</td><td ID="MedicationPhoneNumber_4">[phone]</td> [facility] ([facility]) Prazosin 1 MG Oral Capsule prazosin 01/16/2021 12:00:00 AM EDT 1 mg by mouth completed <td ID="Medicat ionRxNorm_3">057309</td><td ID="MedicationMedication_3">prazosin</td><td ID="MedicationRoute_3">by mouth</td><td ID="MedicationRouteConcept_3">E42272</td><td ID="MedicationStartDate_3">01/16/2021</td><td ID="MedicationStopDate_3">05/02/2021</td><td ID="MedicationDosageFrequency_3">at bedtime</td><td ID="MedicationDuration_3">30</td><td ID="MedicationFormulaStrength_3">1 mg</td><td ID="MedicationDosageForm_3">capsule</td><td ID="MedicationDosageFormCode_3"></td><td ID="MedicationDosageDescription_3"></td><td ID="MedicationMedicationId_3">[id number]</td><td ID="MedicationAccount_3">[id number]</td><td ID="MedicationNpid_3">[id number]</td><td ID="MedicationAuthorFirstName_3">Nimisha</td><td ID="MedicationAuthorLastName_3">Sachin</td><td ID="MedicationTaxonomyCode_3">[id number]</td><td ID="MedicationTaxonomyDesc_3">Nurse Practitioner</td><td ID="MedicationPhoneNumber_3">[phone]</td> [facility] ([facility]) Prazosin 1 MG Oral Capsule prazosin 01/16/2021 12:00:00 AM EDT 1 mg by mouth completed <td ID="Medicat ionRxNorm_1">989319</td><td ID="MedicationMedication_1">prazosin</td><td ID="MedicationRoute_1">by mouth</td><td ID="MedicationRouteConcept_1">K23086</td><td ID="MedicationStartDate_1">01/16/2021</td><td ID="MedicationStopDate_1">05/02/2021</td><td ID="MedicationDosageFrequency_1">at bedtime</td><td ID="MedicationDuration_1">30</td><td ID="MedicationFormulaStrength_1">1 mg</td><td ID="MedicationDosageForm_1">capsule</td><td ID="MedicationDosageFormCode_1"></td><td ID="MedicationDosageDescription_1"></td><td ID="MedicationMedicationId_1">08116</td><td ID="MedicationAccount_1">[id number]</td><td ID="MedicationNpid_1">[id number]</td><td ID="MedicationAuthorFirstName_1">Nimisha</td><td ID="MedicationAuthorLastName_1">Sachin</td><td ID="MedicationTaxonomyCode_1">[id number]</td><td ID="MedicationTaxonomyDesc_1">Nurse Practitioner</td><td ID="MedicationPhoneNumber_1">[phone]</td> [facility] ([facility]) Vraylar Vraylar 01/16/2021 12:00:00 AM EDT 6 mg by mouth completed <td ID="MedicationRxNorm_1">4070744</td><td ID="MedicationMedication_1">Vraylar</td><td ID="MedicationRoute_1">by mouth</td><td ID="MedicationRouteConcept_1">Q48380</td><td ID="MedicationStartDate_1">01/16/2021</td><td ID="MedicationStopDate_1">03/21/2021</td><td ID="MedicationDosageFrequency_1">at bedtime</td><td ID="MedicationDuration_1">30</td><td ID="MedicationFormulaStrength_1">6 mg</td><td ID="MedicationDosageForm_1">capsule</td><td ID="MedicationDosageFormCode_1"></td><td ID="MedicationDosageDescription_1"></td><td ID="MedicationMedicationId_1">99767</td><td ID="MedicationAccount_1">[id number]</td><td ID="MedicationNpid_1">[id number]</td><td ID="MedicationAuthorFirstName_1">Eleuterio</td><td ID="MedicationAuthorLastName_1">Acharya</td><td ID="MedicationTaxonomyCode_1">[id number]</td><td ID="MedicationTaxonomyDesc_1">Nurse Practitioner</td><td ID="MedicationPhoneNumber_1">[phone]</td> [facility] ([facility]) Trazodone Hydrochloride 50 MG Oral Tablet trazodone 2020 12:00:00 AM EDT 50 mg by mouth completed <td ID="Medic ationRxNorm_2">524103</td><td ID="MedicationMedication_2">trazodone</td><td ID="MedicationRoute_2">by mouth</td><td ID="MedicationRouteConcept_2">G45203</td><td ID="MedicationStartDate_2">01/16/2021</td><td ID="MedicationStopDate_2">03/21/2021</td><td ID="MedicationDosageFrequency_2">at bedtime</td><td ID="MedicationDuration_2">30</td><td ID="MedicationFormulaStrength_2">50 mg</td><td ID="MedicationDosageForm_2">tablet</td><td ID="MedicationDosageFormCode_2"></td><td ID="MedicationDosageDescription_2">as needed</td><td ID="MedicationMedicationId_2">82936</td><td ID="MedicationAccount_2">[id number]</td><td ID="MedicationNpid_2">[id number]</td><td ID="MedicationAuthorFirstName_2">Eleuterio</td><td ID="MedicationAuthorLastName_2">Acharya</td><td ID="MedicationTaxonomyCode_2">[id number]</td><td ID="MedicationTaxonomyDesc_2">Nurse Practitioner</td><td ID="MedicationPhoneNumber_2">[phone]</td> [facility] ([facility]) 1.5 mg 11/18/2020 12:00:00 AM [...] 50 mg by mouth completed <td ID="Medic ationRxNorm_2">929725</td><td ID="MedicationMedication_2">trazodone</td><td ID="MedicationRoute_2">by mouth</td><td ID="MedicationRouteConcept_2">S24300</td><td ID="MedicationStartDate_2">11/13/2020</td><td ID="MedicationStopDate_2">01/12/2021</td><td ID="MedicationDosageFrequency_2">at bedtime</td><td ID="MedicationDuration_2">30</td><td ID="MedicationFormulaStrength_2">50 mg</td><td ID="MedicationDosageForm_2">tablet</td><td ID="MedicationDosageFormCode_2"></td><td ID="MedicationDosageDescription_2"></td><td ID="MedicationMedicationId_2">35748</td><td ID="MedicationAccount_2">[id number]</td><td ID="MedicationNpid_2">[id number]</td><td ID="MedicationAuthorFirstName_2">Eleuterio</td><td ID="MedicationAuthorLastName_2">Acharya</td><td ID="MedicationTaxonomyCode_2">[id number]</td><td ID="MedicationTaxonomyDesc_2">Nurse Practitioner</td><td ID="MedicationPhoneNumber_2">[phone]</td> [facility] ([facility]) Vraylar Vraylar 11/13/2020 12:00:00 AM EDT 6 mg by mouth completed <td ID="MedicationRxNorm_3">6303009</td><td ID="MedicationMedication_3">Vraylar</td><td ID="MedicationRoute_3">by mouth</td><td ID="MedicationRouteConcept_3">T83160</td><td ID="MedicationStartDate_3">11/13/2020</td><td ID="MedicationStopDate_3">01/12/2021</td><td ID="MedicationDosageFrequency_3">at bedtime</td><td ID="MedicationDuration_3">30</td><td ID="MedicationFormulaStrength_3">6 mg</td><td ID="MedicationDosageForm_3">capsule</td><td ID="MedicationDosageFormCode_3"></td><td ID="MedicationDosageDescription_3"></td><td ID="MedicationMedicationId_3">02572</td><td ID="MedicationAccount_3">[id number]</td><td ID="MedicationNpid_3">[id number]</td><td ID="MedicationAuthorFirstName_3">Eleuterio</td><td ID="MedicationAuthorLastName_3">Acharya</td><td ID="MedicationTaxonomyCode_3">[id number]</td><td ID="MedicationTaxonomyDesc_3">Nurse Practitioner</td><td ID="MedicationPhoneNumber_3">[phone]</td> [facility] ([facility]) Divalproex Sodium 250 MG Delayed Release Oral Tablet divalpr oex 07/16/2020 12:00:00 AM EST 250 mg by mouth completed <td ID="MedicationRxNorm_6">9596914</td><td ID="MedicationMedication_6">divalproex</td><td ID="MedicationRoute_6">by mouth</td><td ID="MedicationRouteConcept_6">S25559</td><td ID="MedicationStartDate_6">07/16/2020</td><td ID="MedicationStopDate_6">09/14/2020</td><td ID="MedicationDosageFrequency_6">three times a day</td><td ID="MedicationDuration_6">30</td><td ID="MedicationFormulaStrength_6">250 mg</td><td ID="MedicationDosageForm_6">tablet,delayed release (DR/EC)</td><td ID="MedicationDosageFormCode_6"></td><td ID="MedicationDosageDescription_6"></td><td ID="MedicationMedicationId_6">15182</td><td ID="MedicationAccount_6">[id number]</td><td ID="MedicationNpid_6">[id number]</td><td ID="MedicationAuthorFirstName_6">Eleuterio</td><td ID="MedicationAuthorLastName_6">Acharya</td><td ID="MedicationTaxonomyCode_6">[id number]</td><td ID="MedicationTaxonomyDesc_6"> Nurse Practitioner</td><td ID="MedicationPhoneNumber_6">[phone]</td> [facility] ([facility]) buspirone hydrochloride 15 MG Oral Tablet buspirone 2020 12:00:00 AM EST 15 mg by mouth completed <td ID="Medic ationRxNorm_4">920770</td><td ID="MedicationMedication_4">buspirone</td><td ID="MedicationRoute_4">by mouth</td><td ID="MedicationRouteConcept_4">W29494</td><td ID="MedicationStartDate_4">07/16/2020</td><td ID="MedicationStopDate_4">09/14/2020</td><td ID="MedicationDosageFrequency_4">three times a day</td><td ID="MedicationDuration_4">30</td><td ID="MedicationFormulaStrength_4">15 mg</td><td ID="MedicationDosageForm_4">tablet</td><td ID="MedicationDosageFormCode_4"></td><td ID="MedicationDosageDescription_4"> </td><td ID="MedicationMedicationId_4">19251</td><td ID="MedicationAccount_4">[id number]</td><td ID="MedicationNpid_4">[id number]</td><td ID="MedicationAuthorFirstName_4">Eleuterio</td><td ID="MedicationAuthorLastName_4">Acharya</td><td ID="MedicationTaxonomyCode_4">[id number]</td><td ID="MedicationTaxonomyDesc_4">Nurse Practitioner</td><td ID="MedicationPhoneNumber_4">[phone]</td> [facility] ([facility]) Vraylar Vraylar 07/16/2020 12:00:00 AM EST 3 mg by mouth completed <td ID="MedicationRxNorm_5">1073281</td><td ID="MedicationMedication_5">Vraylar</td><td ID="MedicationRoute_5">by mouth</td><td ID="MedicationRouteConcept_5">Z16202</td><td ID="MedicationStartDate_5">07/16/2020</td><td ID="MedicationStopDate_5">09/14/2020</td><td ID="MedicationDosageFrequency_5">at bedtime</td><td ID="MedicationDuration_5">30</td><td ID="MedicationFormulaStrength_5">3 mg</td><td ID="MedicationDosageForm_5">capsule</td><td ID="MedicationDosageFormCode_5"></td><td ID="MedicationDosageDescription_5"></td><td ID="MedicationMedicationId_5">68897</td><td ID="MedicationAccount_5">[id number]</td><td ID="MedicationNpid_5">[id number]</td><td ID="MedicationAuthorFirstName_5">Eleuterio</td><td ID="MedicationAuthorLastName_5">Acharya</td><td ID="MedicationTaxonomyCode_5">[id number]</td><td ID="MedicationTaxonomyDesc_5">Nurse Practitioner</td><td ID="MedicationPhoneNumber_5">[phone]</td> [facility] ([facility]) Trazodone Hydrochloride 50 MG Oral Tablet trazodone 2020 12:00:00 AM EST 50 mg by mouth completed <td ID="Medic ationRxNorm_7">509218</td><td ID="MedicationMedication_7">trazodone</td><td ID="MedicationRoute_7">by mouth</td><td ID="MedicationRouteConcept_7">T12856</td><td ID="MedicationStartDate_7">07/16/2020</td><td ID="MedicationStopDate_7">09/14/2020</td><td ID="MedicationDosageFrequency_7">at bedtime</td><td ID="MedicationDuration_7">30</td><td ID="MedicationFormulaStrength_7">50 mg</td><td ID="MedicationDosageForm_7">tablet</td><td ID="MedicationDosageFormCode_7"></td><td ID="MedicationDosageDescription_7">as needed</td><td ID="MedicationMedicationId_7">98817</td><td ID="MedicationAccount_7">[id number]</td><td ID="MedicationNpid_7">[id number]</td><td ID="MedicationAuthorFirstName_7">Eleuterio</td><td ID="MedicationAuthorLastName_7">Acharya</td><td ID="MedicationTaxonomyCode_7">[id number]</td><td ID="MedicationTaxonomyDesc_7">Nurse Practitioner</td><td ID="MedicationPhoneNtracey_7">[phone]</td> [facility] ([facility]) 24 HR Methylphenidate Hydrochloride 54 MG Extended Rel ease Oral Tablet methylphenidate HCl 07/14/2020 12:00:00 AM EST 54 mg by mouth completed <td ID="MedicationRxNorm_3">1630969</td> <td ID="MedicationMedication_3">methylphenidate HCl</td><td ID="MedicationRoute_3">by mouth</td><td ID="MedicationRouteConcept_3">X74817</td><td ID="MedicationStartDate_3">07/14/2020</td><td ID="MedicationStopDate_3">08/13/2020</td><td ID="MedicationDosageFrequency_3">once a day</td><td ID="MedicationDuration_3">30</td><td ID="MedicationFormulaStrength_3">54 mg</td><td ID="MedicationDosageForm_3">tablet extended release 24hr</td><td ID="MedicationDosageFormCode_3"></td><td ID="MedicationDosageDescription_3"></td><td ID="MedicationMedicationId_3">24768</td><td ID="MedicationAccount_3">[id number]</td><td ID="MedicationNpid_3">[id number]</td><td ID="MedicationAuthorFirstName_3">Eleuterio</td><td ID="MedicationAuthorLastName_3">Acharya</td><td ID="MedicationTaxonomyCode_3">[id number]</td><td ID="MedicationTaxonomyDesc_3"> Nurse Practitioner</td><td ID="MedicationPhoneNumber_3">[phone]</td> [facility] ([facility]) Diphenhydramine Hydrochloride 25 MG Oral Capsule diphenhydra mine HCl 07/11/2020 12:00:00 AM EST 25 mg by mouth completed <td ID="MedicationRxNorm_1">3841589</td><td ID="MedicationMedication_1">diphenhydramine HCl</td><td ID="MedicationRoute_1">by mouth</td><td ID="MedicationRouteConcept_1">X14517</td><td ID="MedicationStartDate_1">07/11/2020</td><td ID="MedicationStopDate_1">08/10/2020</td><td ID="MedicationDosageFrequency_1">once a day</td><td ID="MedicationDuration_1">30</td><td ID="MedicationFormulaStrength_1">25 mg</td><td ID="MedicationDosageForm_1">capsule</td><td ID="MedicationDosageFormCode_1"></td><td ID="MedicationDosageDescription_1">as needed</td><td ID="MedicationMedicationId_1">52794</td><td ID="MedicationAccount_1">[id number]</td><td ID="MedicationNpid_1">[id number]</td><td ID="MedicationAuthorFirstName_1">Eleuterio</td><td ID="MedicationAuthorLastName_1">Acharya</td><td ID="MedicationTaxonomyCode_1">[id number]</td><td ID="MedicationTaxonomyDesc_1">Nurse Practitioner</td><td ID="MedicationPhoneNumber_1">[phone]</td> [facility] ([facility]) buspirone hydrochloride 5 MG Oral [...] EDT 54 mg by mouth completed <td ID="MedicationRxNorm_1">4490996</td> <td ID="MedicationMedication_1">methylphenidate HCl</td><td ID="MedicationRoute_1">by mouth</td><td ID="MedicationRouteConcept_1">R34023</td><td ID="MedicationStartDate_1">03/17/2020</td><td ID="MedicationStopDate_1"></td><td ID="MedicationDosageFrequency_1">every morning</td><td ID="MedicationDuration_1">30</td><td ID="MedicationFormulaStrength_1">54 mg</td><td ID="MedicationDosageForm_1">tablet extended release 24hr</td><td ID="MedicationDosageFormCode_1"></td><td ID="MedicationDosageDescription_1"></td><td ID="MedicationMedicationId_1">93334</td><td ID="MedicationAccount_1">[id number]</td><td ID="MedicationNpid_1">[id number]</td><td ID="MedicationAuthorFirstName_1">Eleuterio</td><td ID="MedicationAuthorLastName_1">Acharya</td><td ID="MedicationTaxonomyCode_1">[id number]</td><td ID="MedicationTaxonomyDesc_1"> Nurse Practitioner</td><td ID="MedicationPhoneNumber_1">[phone]</td> [facility] ([facility]) Clonidine Hydrochloride 0.2 MG Oral Tablet clonidine HCl 03/05/2020 12:00:00 AM EDT 0.2 mg by mouth completed <td ID="MedicationRxNorm_5">636616</td><td ID="MedicationMedication_5">clonidine HCl</td><td ID="MedicationRoute_5">by mouth</td><td ID="MedicationRouteConcept_5">Z02884</td><td ID="MedicationStartDate_5">03/05/2020</td><td ID="MedicationStopDate_5">08/12/2020</td><td ID="MedicationDosageFrequency_5">at bedtime</td><td ID="MedicationDuration_5">30</td><td ID="MedicationFormulaStrength_5">0.2 mg</td><td ID="MedicationDosageForm_5">tablet</td><td ID="MedicationDosageFormCode_5"></td><td ID="MedicationDosageDescription_5"></td><td ID="MedicationMedicationId_5">35533</td><td ID="MedicationAccount_5">[id number]</td><td ID="MedicationNpid_5">[id number]</td><td ID="MedicationAuthorFirstName_5">Kaitlin</td><td ID="MedicationAuthorLastName_5">Egorho</td><td ID="MedicationTaxonomyCode_5">[id number]</td><td ID="MedicationTaxonomyDesc_5">Nurse Practitioner</td><td ID="MedicationPhoneNumber_5">[phone]</td> [facility] ([facility]) aripiprazole 30 MG Oral Tablet aripiprazole 03/05/2020 12:00:00 AM ED T 30 mg by mouth completed <td ID="Medica tionRxNorm_5">299099</td><td ID="MedicationMedication_5">aripiprazole</td><td ID="MedicationRoute_5">by mouth</td><td ID="MedicationRouteConcept_5">Q19926</td><td ID="MedicationStartDate_5">03/05/2020</td><td ID="MedicationStopDate_5"></td><td ID="MedicationDosageFrequency_5">once a day</td><td ID="MedicationDuration_5">30</td><td ID="MedicationFormulaStrength_5">30 mg</td><td ID="MedicationDosageForm_5">tablet</td><td ID="MedicationDosageFormCode_5"></td><td ID="MedicationDosageDescription_5"></td><td ID="MedicationMedicationId_5">22336</td><td ID="MedicationAccount_5">[id number]</td><td ID="MedicationNpid_5">[id number]</td><td ID="MedicationAuthorFirstName_5">Eleuterio</td><td ID="MedicationAuthorLastName_5">Acharya</td><td ID="MedicationTaxonomyCode_5">[id number]</td><td ID="MedicationTaxonomyDesc_5">Nurse Practitioner</td><td ID="MedicationPhoneNumber_5">[phone]</td> [facility] ([facility]) Guanfacine 1 MG Oral Tablet guanfacine 03/05/2020 12:00:00 AM EDT 1 mg by mouth completed <td ID="Medica tionRxNorm_2">291488</td><td ID="MedicationMedication_2">guanfacine</td><td ID="MedicationRoute_2">by mouth</td><td ID="MedicationRouteConcept_2">X02663</td><td ID="MedicationStartDate_2">03/05/2020</td><td ID="MedicationStopDate_2"></td><td ID="MedicationDosageFrequency_2">every morning</td><td ID="MedicationDuration_2">30</td><td ID="MedicationFormulaStrength_2">1 mg</td><td ID="MedicationDosageForm_2">tablet</td><td ID="MedicationDosageFormCode_2"></td><td ID="MedicationDosageDescription_2"></td><td ID="MedicationMedicationId_2">09476</td><td ID="MedicationAccount_2">[id number]</td><td ID="MedicationNpid_2">[id number]</td><td ID="MedicationAuthorFirstName_2">Eleuterio</td><td ID="MedicationAuthorLastName_2">Acharya</td><td ID="MedicationTaxonomyCode_2">[id number]</td><td ID="MedicationTaxonomyDesc_2">Nurse Practitioner</td><td ID="MedicationPhoneNumber_2">[phone]</td> [facility] ([facility]) Guanfacine 1 MG Oral Tablet guanfacine 03/05/2020 12:00:00 AM EDT 1 mg by mouth completed <td ID="Medica tionRxNorm_3">557530</td><td ID="MedicationMedication_3">guanfacine</td><td ID="MedicationRoute_3">by mouth</td><td ID="MedicationRouteConcept_3">A36969</td><td ID="MedicationStartDate_3">03/05/2020</td><td ID="MedicationStopDate_3"></td><td ID="MedicationDosageFrequency_3">every morning</td><td ID="MedicationDuration_3">30</td><td ID="MedicationFormulaStrength_3">1 mg</td><td ID="MedicationDosageForm_3">tablet</td><td ID="MedicationDosageFormCode_3"></td><td ID="MedicationDosageDescription_3"></td><td ID="MedicationMedicationId_3">73006</td><td ID="MedicationAccount_3">[id number]</td><td ID="MedicationNpid_3">[id number]</td><td ID="MedicationAuthorFirstName_3">Eleuterio</td><td ID="MedicationAuthorLastName_3">Acharya</td><td ID="MedicationTaxonomyCode_3">[id number]</td><td ID="MedicationTaxonomyDesc_3">Nurse Practitioner</td><td ID="MedicationPhoneNumber_3">[phone]</td> [facility] ([facility]) Clonidine Hydrochloride 0.2 MG Oral Tablet clonidine HCl 03/05/2020 12:00:00 AM EDT 0.2 mg by mouth completed <td ID="MedicationRxNorm_4">499209</td><td ID="MedicationMedication_4">clonidine HCl</td><td ID="MedicationRoute_4">by mouth</td><td ID="MedicationRouteConcept_4">G87011</td><td ID="MedicationStartDate_4">03/05/2020</td><td ID="MedicationStopDate_4"></td><td ID="MedicationDosageFrequency_4">at bedtime</td><td ID="MedicationDuration_4">30</td><td ID="MedicationFormulaStrength_4">0.2 mg</td><td ID="MedicationDosageForm_4">tablet</td><td ID="MedicationDosageFormCode_4"></td><td ID="MedicationDosageDescription_4"></td><td ID="MedicationMedicationId_4">09611</td><td ID="MedicationAccount_4">[id number]</td><td ID="MedicationNpid_4">[id number]</td><td ID="MedicationAuthorFirstName_4">Eleuterio</td><td ID="MedicationAuthorLastName_4">Acharya</td><td ID="MedicationTaxonomyCode_4">[id number]</td><td ID="MedicationTaxonomyDesc_4">Nurse Practitioner</td><td ID="MedicationPhoneNumber_4">[phone]</td> [facility] ([facility]) aripiprazole 30 MG Oral Tablet aripiprazole 03/05/2020 12:00:00 AM ED T 30 mg by mouth completed <td ID="Medica tionRxNorm_3">397022</td><td ID="MedicationMedication_3">aripiprazole</td><td ID="MedicationRoute_3">by mouth</td><td ID="MedicationRouteConcept_3">F18638</td><td ID="MedicationStartDate_3">03/05/2020</td><td ID="MedicationStopDate_3"></td><td ID="MedicationDosageFrequency_3">once a day</td><td ID="MedicationDuration_3">30</td><td ID="MedicationFormulaStrength_3">30 mg</td><td ID="MedicationDosageForm_3">tablet</td><td ID="MedicationDosageFormCode_3"></td><td ID="MedicationDosageDescription_3"></td><td ID="MedicationMedicationId_3">62123</td><td ID="MedicationAccount_3">[id number]</td><td ID="MedicationNpid_3">[id number]</td><td ID="MedicationAuthorFirstName_3">Eleuterio</td><td ID="MedicationAuthorLastName_3">Acharya</td><td ID="MedicationTaxonomyCode_3">[id number]</td><td ID="MedicationTaxonomyDesc_3">Nurse Practitioner</td><td ID="MedicationPhoneNumber_3">[phone]</td> [facility] ([facility]) Clonidine Hydrochloride 0.2 MG Oral Tablet CLONIDINE HCL 01/17/2020 12:00:00 AM EDT tablet 30 TAKE ONE TABLET BY MOUTH AT BEDTIME TAKE ONE TABLET BY MOUTH AT BEDTIME SOLD: 03/12/2020 [facility] Amoxicillin 500 MG Oral Capsule amoxicillin 500 mg cap karen amoxicillin 500 mg capsule completed amoxicillin 50 0 MG Oral Capsule ANGELICA ([facility]) Vraylar 3 mg capsule [id number] completed cariprazine 3 MG Oral Capsule [Vraylar] ANGELICA ([facility]) Clonidine Hydrochloride 0.2 MG Oral Tabl et clonidine HCl 0.2 mg tablet TAKE ONE TABLET BY MOUTH DAILY AT BEDTIME clonidine HCl 0.2 mg tablet TAKE ONE TAB LET BY MOUTH DAILY AT BEDTIME completed clonidine hydrochloride 0.2 MG Oral Tablet ANGELICA ([facility]) Vraylar 1.5 mg capsule TAKE 3 CAPSULES 4.5MG BY MOUTH DAILY FO R MOOD [id number] completed cariprazine 1. 5 MG Oral Capsule [Vraylar] ANGELICA ([facility]) Clonidine Hydrochloride 0.2 MG Oral Tabl et clonidine HCl 0.2 mg tablet TAKE ONE TABLET BY MOUTH DAILY AT BEDTIME clonidine HCl 0.2 mg tablet TAKE ONE TAB LET BY MOUTH DAILY AT BEDTIME completed clonidine hydrochloride 0.2 MG Oral Tablet ANGELICA ([facility]) Prazosin 1 MG Oral Capsule prazosin 1 mg capsule prazosin 1 mg capsule completed prazosin 1 MG Oral Capsul e ANGELICA ([facility]) Guanfacine 1 MG Oral Tablet guanfacine 1 mg tablet TAKE 1/2 TABLET BY MOUTH EVERY MORNING guanfacine 1 mg tablet TAKE 1/2 TABLET BY MOUTH EVERY MORNING completed guanfacine 1 MG Oral T ablet ANGELICA ([facility]) Prazosin 1 MG Oral Capsule prazosin 1 mg capsule prazosin 1 mg capsule completed prazosin 1 MG Oral Capsul e ANGELICA ([facility]) buspirone hydrochloride 15 MG Oral Tablet buspirone 15 mg tablet buspirone 15 mg tablet completed buspirone hydr ochloride 15 MG Oral Tablet [place] ([facility]) Vraylar 3 mg capsule [id number] completed cariprazine 3 MG Oral Capsule [Vraylar] ANGELICA ([facility]) methylphenidate ER 54 mg tablet,extended release 24 hr [id number] completed BX Rating 24 HR meth ylphenidate hydrochloride 54 MG Extended Release Oral Tablet ANGELICA ([facility]) buspirone hydrochloride 5 MG Oral Tablet buspirone 5 mg tablet TAKE 1 TABLET BY MOUTH 3 TIMES A DAY NEEDED FOR ANXIETY/AGITATION buspirone 5 mg tablet TAKE 1 TABLET BY MOUTH 3 TIMES A DAY NEEDED FOR ANXIETY/AGITATION completed buspirone hydrochloride 5 MG Ora l Tablet ANGELICA ([facility]) Guanfacine 1 MG Oral Tablet guanfacine 1 mg tablet TAKE 1/2 TABLET BY MOUTH EVERY MORNING guanfacine 1 mg tablet TAKE 1/2 TABLET BY MOUTH EVERY MORNING completed guanfacine 1 MG Oral T ablet ANGELICA ([facility]) Divalproex Sodium 250 MG Delayed Release Oral Tablet divalproex 250 mg tablet,delayed release divalproex 250 mg tablet,delayed release completed divalproex sodium 250 MG Delayed Release Oral Tablet [place] ([facility]) Ondansetron 4 MG Disintegrating Oral Tab let ondansetron 4 mg disintegrating tablet DISSOLVE 1 TABLET IN MOUTH EVERY 6 TO 8 HOURS NEEDED FOR NAUSEA AND VOMITING ondansetron 4 mg disintegrating tablet D ISSOLVE 1 TABLET IN MOUTH EVERY 6 TO 8 HOURS NEEDED FOR NAUSEA AND VOMITING completed ondansetron 4 MG Disintegrating Oral Tablet [place] ([facility]) buspirone hydrochloride 15 MG Oral Tablet buspirone 15 mg tablet buspirone 15 mg tablet completed buspirone hydr ochloride 15 MG Oral Tablet [place] ([facility]) Ondansetron 4 MG Disintegrating Oral Tab let ondansetron 4 mg disintegrating tablet DISSOLVE 1 TABLET IN MOUTH EVERY 6 TO 8 HOURS NEEDED FOR NAUSEA AND VOMITING ondansetron 4 mg disintegrating tablet D ISSOLVE 1 TABLET IN MOUTH EVERY 6 TO 8 HOURS NEEDED FOR NAUSEA AND VOMITING completed ondansetron 4 MG Disintegrating Oral Tablet ANGELICA ([facility]) Amoxicillin 500 MG Oral Capsule amoxicillin 500 mg cap karen amoxicillin 500 mg capsule completed amoxicillin 50 0 MG Oral Capsule [place] ([facility]) aripiprazole 30 MG Oral Tablet aripipraz ole 30 mg tablet TAKE ONE TABLET BY MOUTH EVERY DAY aripiprazole 30 mg tablet TAKE ONE TABLET BY MOUTH EVERY DAY completed aripiprazole 3 0 MG Oral Tablet [place] ([facility]) Clonidine Hydrochloride 0.2 MG Oral Tabl et clonidine HCl 0.2 mg tablet TAKE ONE TABLET BY MOUTH DAILY AT BEDTIME clonidine HCl 0.2 mg tablet TAKE ONE TAB LET BY MOUTH DAILY AT BEDTIME completed clonidine hydrochloride 0.2 MG Oral Tablet ANGELICA ([facility]) Amoxicillin 500 MG Oral Capsule amoxicillin 500 mg cap karen amoxicillin 500 mg capsule completed amoxicillin 50 0 MG Oral Capsule [place] ([facility]) Guanfacine 1 MG Oral Tablet guanfacine 1 mg tablet TAKE 1/2 TABLET BY MOUTH EVERY MORNING guanfacine 1 mg tablet TAKE 1/2 TABLET BY MOUTH EVERY MORNING completed guanfacine 1 MG Oral T ablet ANGELICA ([facility]) Ondansetron 4 MG Disintegrating Oral Tab let ondansetron 4 mg disintegrating tablet DISSOLVE 1 TABLET IN MOUTH EVERY 6 TO 8 HOURS NEEDED FOR NAUSEA AND VOMITING ondansetron 4 mg disintegrating tablet D ISSOLVE 1 TABLET IN MOUTH EVERY 6 TO 8 HOURS NEEDED FOR NAUSEA AND VOMITING completed ondansetron 4 MG Disintegrating Oral Tablet [place] ([facility]) Clonidine Hydrochloride 0.2 MG Oral Tabl et clonidine HCl 0.2 mg tablet TAKE ONE TABLET BY MOUTH DAILY AT BEDTIME clonidine HCl 0.2 mg tablet TAKE ONE TAB LET BY MOUTH DAILY AT BEDTIME completed clonidine hydrochloride 0.2 MG Oral Tablet ANGELICA ([facility]) buspirone hydrochloride 5 MG Oral Tablet buspirone 5 mg tablet TAKE 1 TABLET BY MOUTH 3 TIMES A DAY NEEDED FOR ANXIETY/AGITATION buspirone 5 mg tablet TAKE 1 TABLET BY MOUTH 3 TIMES A DAY NEEDED FOR ANXIETY/AGITATION completed buspirone hydrochloride 5 MG Ora l Tablet [place] ([facility]) Vraylar 1.5 mg capsule TAKE 3 CAPSULES 4.5MG BY MOUTH DAILY FO R MOOD [id number] completed cariprazine 1. 5 MG Oral Capsule [Vraylar] ANGELICA ([facility]) buspirone hydrochloride 15 MG Oral Tablet buspirone 15 mg tablet buspirone 15 mg tablet completed buspirone hydr ochloride 15 MG Oral Tablet [place] ([facility]) buspirone hydrochloride 5 MG Oral Tablet buspirone 5 mg tablet TAKE 1 TABLET BY MOUTH 3 TIMES A DAY NEEDED FOR ANXIETY/AGITATION buspirone 5 mg tablet TAKE 1 TABLET BY MOUTH 3 TIMES A DAY NEEDED FOR ANXIETY/AGITATION completed buspirone hydrochloride 5 MG Ora l Tablet ANGELICA ([facility]) Amoxicillin 500 MG Oral Capsule amoxicillin 500 mg cap karen amoxicillin 500 mg capsule completed amoxicillin 50 0 MG Oral Capsule [place] ([facility]) Ondansetron 4 MG Disintegrating Oral Tab let ondansetron 4 mg disintegrating tablet DISSOLVE 1 TABLET IN MOUTH EVERY 6 TO 8 HOURS NEEDED FOR NAUSEA AND VOMITING ondansetron 4 mg disintegrating tablet D ISSOLVE 1 TABLET IN MOUTH EVERY 6 TO 8 HOURS NEEDED FOR NAUSEA AND VOMITING completed ondansetron 4 MG Disintegrating Oral Tablet [place] ([facility]) methylphenidate ER 54 mg tablet,extended release 24 hr [id number] completed BX Rating 24 HR meth ylphenidate hydrochloride 54 MG Extended Release Oral Tablet [place] ([facility]) Amoxicillin 500 MG Oral Capsule amoxicillin 500 mg cap karen amoxicillin 500 mg capsule completed amoxicillin 50 0 MG Oral Capsule [place] ([facility]) Divalproex Sodium 250 MG Delayed Release Oral Tablet divalproex 250 mg tablet,delayed release divalproex 250 mg tablet,delayed release completed divalproex sodium 250 MG Delayed Release Oral Tablet [place] ([facility]) Guanfacine 1 MG Oral Tablet guanfacine 1 mg tablet TAKE 1/2 TABLET BY MOUTH EVERY MORNING guanfacine 1 mg tablet TAKE 1/2 TABLET BY MOUTH EVERY MORNING completed guanfacine 1 MG Oral T ablet [place] ([facility]) aripiprazole 30 MG Oral Tablet aripipraz ole 30 mg tablet TAKE ONE TABLET BY MOUTH EVERY DAY aripiprazole 30 mg tablet TAKE ONE TABLET BY MOUTH EVERY DAY completed aripiprazole 3 0 MG Oral Tablet [place] ([facility]) Amoxicillin 500 MG Oral Capsule amoxicillin 500 mg cap karen amoxicillin 500 mg capsule completed amoxicillin 50 0 MG Oral Capsule [place] ([facility]) buspirone hydrochloride 5 MG Oral Tablet buspirone 5 mg tablet TAKE 1 TABLET BY MOUTH 3 TIMES A DAY NEEDED FOR ANXIETY/AGITATION buspirone 5 mg tablet TAKE 1 TABLET BY MOUTH 3 TIMES A DAY NEEDED FOR ANXIETY/AGITATION completed buspirone hydrochloride 5 MG Ora l Tablet [place] ([facility]) Vraylar 1.5 mg capsule TAKE 3 CAPSULES 4.5MG BY MOUTH DAILY FO R MOOD [id number] completed cariprazine 1. 5 MG Oral Capsule [Vraylar] [place] ([facility]) Prazosin 1 MG Oral Capsule prazosin 1 mg capsule prazosin 1 mg capsule completed prazosin 1 MG Oral Capsul e [facility]) methylphenidate ER 54 mg tablet,extended release 24 hr [id number] completed BX Rating 24 HR meth ylphenidate hydrochloride 54 MG Extended Release Oral Tablet [place] ([facility]) Ondansetron 4 MG Disintegrating Oral Tab let ondansetron 4 mg disintegrating tablet DISSOLVE 1 TABLET IN MOUTH EVERY 6 TO 8 HOURS NEEDED FOR NAUSEA AND VOMITING ondansetron 4 mg disintegrating tablet D ISSOLVE 1 TABLET IN MOUTH EVERY 6 TO 8 HOURS NEEDED FOR NAUSEA AND VOMITING completed ondansetron 4 MG Disintegrating Oral Tablet ANGELICA ([facility]) Guanfacine 1 MG Oral Tablet guanfacine 1 mg tablet TAKE 1/2 TABLET BY MOUTH EVERY MORNING guanfacine 1 mg tablet TAKE 1/2 TABLET BY MOUTH EVERY MORNING completed guanfacine 1 MG Oral T ablet ANGELICA ([facility]) Amoxicillin 500 MG Oral Capsule amoxicillin 500 mg cap karen amoxicillin 500 mg capsule completed amoxicillin 50 0 MG Oral Capsule [place] ([facility]) Clonidine Hydrochloride 0.2 MG Oral Tabl et clonidine HCl 0.2 mg tablet TAKE ONE TABLET BY MOUTH DAILY AT BEDTIME clonidine HCl 0.2 mg tablet TAKE ONE TAB LET BY MOUTH DAILY AT BEDTIME completed clonidine hydrochloride 0.2 MG Oral Tablet [place] ([facility]) aripiprazole 30 MG Oral Tablet aripipraz ole 30 mg tablet TAKE ONE TABLET BY MOUTH EVERY DAY aripiprazole 30 mg tablet TAKE ONE TABLET BY MOUTH EVERY DAY completed aripiprazole 3 0 MG Oral Tablet [place] ([facility]) methylphenidate ER 54 mg tablet,extended release 24 hr [id number] completed BX Rating 24 HR meth ylphenidate hydrochloride 54 MG Extended Release Oral Tablet [place] ([facility]) Prazosin 1 MG Oral Capsule prazosin 1 mg capsule prazosin 1 mg capsule completed prazosin 1 MG Oral Capsul e [place] ([facility]) Ondansetron 4 MG Disintegrating Oral Tab let ondansetron 4 mg disintegrating tablet DISSOLVE 1 TABLET IN MOUTH EVERY 6 TO 8 HOURS NEEDED FOR NAUSEA AND VOMITING ondansetron 4 mg disintegrating tablet D ISSOLVE 1 TABLET IN MOUTH EVERY 6 TO 8 HOURS NEEDED FOR NAUSEA AND VOMITING completed ondansetron 4 MG Disintegrating Oral Tablet [place] ([facility]) Vraylar 3 mg capsule [id number] completed cariprazine 3 MG Oral Capsule [Vraylar] [place] ([facility]) Amoxicillin 500 MG Oral Capsule amoxicillin 500 mg cap karen amoxicillin 500 mg capsule completed amoxicillin 50 0 MG Oral Capsule [place] ([facility]) methylphenidate ER 36 mg tablet,extended release 24 hr [id number] completed BX Rating 24 HR meth ylphenidate hydrochloride 36 MG Extended Release Oral Tablet ANGELICA ([facility]) Vraylar 1.5 mg capsule TAKE 3 CAPSULES 4.5MG BY MOUTH DAILY FO R MOOD [id number] completed cariprazine 1. 5 MG Oral Capsule [Vraylar] ANGELICA ([facility]) Divalproex Sodium 250 MG Delayed Release Oral Tablet divalproex 250 mg tablet,delayed release divalproex 250 mg tablet,delayed release completed divalproex sodium 250 MG Delayed Release Oral Tablet ANGELICA ([facility]) Guanfacine 1 MG Oral Tablet guanfacine 1 mg tablet TAKE 1/2 TABLET BY MOUTH EVERY MORNING guanfacine 1 mg tablet TAKE 1/2 TABLET BY MOUTH EVERY MORNING completed guanfacine 1 MG Oral T ablet ANGELICA ([facility]) buspirone hydrochloride 15 MG Oral Tablet buspirone 15 mg tablet buspirone 15 mg tablet completed buspirone hydr ochloride 15 MG Oral Tablet [place] ([facility]) buspirone hydrochloride 5 MG Oral Tablet buspirone 5 mg tablet TAKE 1 TABLET BY MOUTH 3 TIMES A DAY NEEDED FOR ANXIETY/AGITATION buspirone 5 mg tablet TAKE 1 TABLET BY MOUTH 3 TIMES A DAY NEEDED FOR ANXIETY/AGITATION completed buspirone hydrochloride 5 MG Ora l Tablet ANGELICA ([facility]) Ondansetron 4 MG Disintegrating Oral Tab let ondansetron 4 mg disintegrating tablet DISSOLVE 1 TABLET IN MOUTH EVERY 6 TO 8 HOURS NEEDED FOR NAUSEA AND VOMITING ondansetron 4 mg disintegrating tablet D ISSOLVE 1 TABLET IN MOUTH EVERY 6 TO 8 HOURS NEEDED FOR NAUSEA AND VOMITING completed ondansetron 4 MG Disintegrating Oral Tablet ANGELICA ([facility]) buspirone hydrochloride 5 MG Oral Tablet buspirone 5 mg tablet TAKE 1 TABLET BY MOUTH 3 TIMES A DAY NEEDED FOR ANXIETY/AGITATION buspirone 5 mg tablet TAKE 1 TABLET BY MOUTH 3 TIMES A DAY NEEDED FOR ANXIETY/AGITATION completed buspirone hydrochloride 5 MG Ora l Tablet [place] ([facility]) Prazosin 1 MG Oral Capsule prazosin 1 mg capsule prazosin 1 mg capsule completed prazosin 1 MG Oral Capsul e [place] ([facility]) methylphenidate ER 36 mg tablet,extended release 24 hr [id number] completed BX Rating 24 HR meth ylphenidate hydrochloride 36 MG Extended Release Oral Tablet ANGELICA ([facility]) Clonidine Hydrochloride 0.2 MG Oral Tabl et clonidine HCl 0.2 mg tablet TAKE ONE TABLET BY MOUTH DAILY AT BEDTIME clonidine HCl 0.2 mg tablet TAKE ONE TAB LET BY MOUTH DAILY AT BEDTIME completed clonidine hydrochloride 0.2 MG Oral Tablet [place] ([facility]) methylphenidate ER 36 mg tablet,extended release 24 hr [id number] completed BX Rating 24 HR meth ylphenidate hydrochloride 36 MG Extended Release Oral Tablet ANGELICA ([facility]) Ondansetron 4 MG Disintegrating Oral Tab let ondansetron 4 mg disintegrating tablet DISSOLVE 1 TABLET IN MOUTH EVERY 6 TO 8 HOURS NEEDED FOR NAUSEA AND VOMITING ondansetron 4 mg disintegrating tablet D ISSOLVE 1 TABLET IN MOUTH EVERY 6 TO 8 HOURS NEEDED FOR NAUSEA AND VOMITING completed ondansetron 4 MG Disintegrating Oral Tablet [place] ([facility]) Amoxicillin 500 MG Oral Capsule amoxicillin 500 mg cap karen amoxicillin 500 mg capsule completed amoxicillin 50 0 MG Oral Capsule [place] ([facility]) aripiprazole 30 MG Oral Tablet aripipraz ole 30 mg tablet TAKE ONE TABLET BY MOUTH EVERY DAY aripiprazole 30 mg tablet TAKE ONE TABLET BY MOUTH EVERY DAY completed aripiprazole 3 0 MG Oral Tablet [place] ([facility]) Amoxicillin 500 MG Oral Capsule amoxicillin 500 mg cap karen amoxicillin 500 mg capsule completed amoxicillin 50 0 MG Oral Capsule [place] ([facility]) aripiprazole 30 MG Oral Tablet aripipraz ole 30 mg tablet TAKE ONE TABLET BY MOUTH EVERY DAY aripiprazole 30 mg tablet TAKE ONE TABLET BY MOUTH EVERY DAY completed aripiprazole 3 0 MG Oral Tablet [place] ([facility]) methylphenidate ER 36 mg tablet,extended release 24 hr [id number] completed BX Rating 24 HR meth ylphenidate hydrochloride 36 MG Extended Release Oral Tablet ANGELICA ([facility]) Divalproex Sodium 250 MG Delayed Release Oral Tablet divalproex 250 mg tablet,delayed release divalproex 250 mg tablet,delayed release completed divalproex sodium 250 MG Delayed Release Oral Tablet [place] ([facility]) methylphenidate ER 36 mg tablet,extended release 24 hr [id number] completed BX Rating 24 HR meth ylphenidate hydrochloride 36 MG Extended Release Oral Tablet ANGELICA ([facility]) methylphenidate ER 54 mg tablet,extended release 24 hr [id number] completed BX Rating 24 HR meth ylphenidate hydrochloride 54 MG Extended Release Oral Tablet ANGELICA ([facility]) methylphenidate ER 36 mg tablet,extended release 24 hr [id number] completed BX Rating 24 HR meth ylphenidate hydrochloride 36 MG Extended Release Oral Tablet ANGELICA ([facility]) Divalproex Sodium 250 MG Delayed Release Oral Tablet divalproex 250 mg tablet,delayed release divalproex 250 mg tablet,delayed release completed divalproex sodium 250 MG Delayed Release Oral Tablet [place] ([facility]) Divalproex Sodium 250 MG Delayed Release Oral Tablet divalproex 250 mg tablet,delayed release divalproex 250 mg tablet,delayed release completed divalproex sodium 250 MG Delayed Release Oral Tablet [place] ([facility]) buspirone hydrochloride 15 MG Oral Tablet buspirone 15 mg tablet buspirone 15 mg tablet completed buspirone hydr ochloride 15 MG Oral Tablet [place] ([facility]) methylphenidate ER 36 mg tablet,extended release 24 hr [id number] completed BX Rating 24 HR meth ylphenidate hydrochloride 36 MG Extended Release Oral Tablet [place] ([facility]) aripiprazole 30 MG Oral Tablet aripipraz ole 30 mg tablet TAKE ONE TABLET BY MOUTH EVERY DAY aripiprazole 30 mg tablet TAKE ONE TABLET BY MOUTH EVERY DAY completed aripiprazole 3 0 MG Oral Tablet [place] ([facility]) buspirone hydrochloride 15 MG Oral Tablet buspirone 15 mg tablet buspirone 15 mg tablet completed buspirone hydr ochloride 15 MG Oral Tablet [place] ([facility]) methylphenidate ER 36 mg tablet,extended release 24 hr [id number] completed BX Rating 24 HR meth ylphenidate hydrochloride 36 MG Extended Release Oral Tablet ANGELICA ([facility]) methylphenidate ER 54 mg tablet,extended release 24 hr [id number] completed BX Rating 24 HR meth ylphenidate hydrochloride 54 MG Extended Release Oral Tablet ANGELICA ([facility]) Ondansetron 4 MG Disintegrating Oral Tab let ondansetron 4 mg disintegrating tablet DISSOLVE 1 TABLET IN MOUTH EVERY 6 TO 8 HOURS NEEDED FOR NAUSEA AND VOMITING ondansetron 4 mg disintegrating tablet D ISSOLVE 1 TABLET IN MOUTH EVERY 6 TO 8 HOURS NEEDED FOR NAUSEA AND VOMITING completed ondansetron 4 MG Disintegrating Oral Tablet ANGELICA ([facility]) methylphenidate ER 36 mg tablet,extended release 24 hr [id number] completed BX Rating 24 HR meth ylphenidate hydrochloride 36 MG Extended Release Oral Tablet ANGELICA ([facility]) Vraylar 3 mg capsule [id number] completed cariprazine 3 MG Oral Capsule [Vraylar] ANGELICA ([facility]) methylphenidate ER 36 mg tablet,extended release 24 hr [id number] completed BX Rating 24 HR meth ylphenidate hydrochloride 36 MG Extended Release Oral Tablet ANGELICA ([facility]) Insurance Providers Payer name Policy type / Coverage type Policy ID Covered democrat ID Covered democrat's relationship to martin Policy Martin Plan Information [facility] P [id number] O [id number] U [id number] Child [id number] EXCELLUS I [id number] Self [id number] Managed Care [id number] S [id number] Medicaid S [id number] S [id number] MEDICAID [id number] Self [id number] [place] 12 [id number] O [id number] PGBA [facility] [id number] [facility] P [id number] O [id number] Medicaid S [id number] S [id number] Medicaid S [id number] S [id number] Medicaid S [id number] S [id number] Medicaid P [id number] S [id number] [facility]LY [facility] PLAN U [id number] Se lf [id number] [facility] [id number] SP [id number] Medicaid S [id number] S [id number] Medicaid S [id number] S [id number] MEDICAID [id number] S [id number] Medicaid Dental 10 [id number] S [id number] D [id number] O [id number] D [facility] [facility] O [id number] S [id number] [facility] UNAVAILABLE S UNAVAILA BLE [id number] FFS O [id number] S [id number] D Managed [facility] O [id number] S [id number] [facility] MEDICAID [id number] SP [id number] C [id number] [facility] [id number] SP [id number] FAMILY HEALTH PLAN [id number] S [id number] MEDICAID [id number] S [id number] SELF PAY UNAVAILABLE S UNAVAILA BLE [facility]NY [id number] SP [id number] [facility] O [id number] S [id number] MEDICAID M [id number] S [id number] [facility] P [id number] O 0 [id number] MEDICAID [id number] SP [id number] [facility] [id number] SP [id number] [facility] O [id number] S [id number] [facility] O [id number] S [id number] [employer] [id number] SP [id number] [facility] O [id number] S [id number] [employer] [place] PLAN [id number] SP [id number] [facility] [place] O [id number] C [id number] [facility] O UNAVAILABLE [id number] S UNAV AILABLE Problems, Conditions, and Diagnoses Code Display Name Description Problem Type Effective Dates Data Source(s) 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 Diagnosis 10/20/2020 09:53:00 PM [facility] 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 Diagnosis 10/20/2020 09:53:00 PM [facility] Z20.822 CONTACT WITH AND (SUSPECTED) EXPOSURE TO COVID-19 CONTACT WITH AND (SUSPECTED) EXPOSURE TO COVID-19 Diagnosis 10/20/2020 09:53:00 PM [facility] F90.9 Attention-deficit hyperactivity disorder , unspecified type ATTENTION- DEFICIT HYPERACTIVITY DISORDER, UNSPECIF Diagnosis 10/20/2020 09:53:00 PM [facility] Z00.00 Encounter for general adult medical examination without abnormal findings ENCNTR FOR GENERAL ADULT MEDICAL EXAM W/O ABNORMAL Diagnosis 10/20/2020 09:53:00 PM [facility] M79.10 MYALGIA, UNSPECIFIED SITE MYALGIA, UNSPECIFIED SITE Di agnosis 10/20/2020 09:53:00 PM EDT [facility] [id number] Nicotine dependence with current use Ihsan otine Dependence with Current Use Problem 04/24/2021 12:00:00 AM EDT ANGELICA ([facility]) [id number] Vitamin D deficiency Vitamin D Deficiency Problem 04/24/2021 12:00:00 AM EDT ANGELICA ([facility]) F90.2 Attention-deficit hyperactivity disorder , combined type Attention- Deficit/Hyperactivity Disorder, Combined presentation Condition 04/01/2021 12:00:00 AM EDT [facility] F31.81 Bipolar II disorder Bipolar II Disorder Condition 1 12:00:00 AM [facility] [id number] Gastroesophageal reflux disease Gastroesophageal Reflux Disease Problem 03/13/2021 12:00:00 AM EDT ANGELICA ([facility]) [id number] Gastroesophageal reflux disease Gastroesophageal Reflux Disease Problem 03/13/2021 12:00:00 AM EDT ANGELICA ([facility]) [id number] Gastroesophageal reflux disease Gastroesophageal Reflux Disease Problem 03/13/2021 12:00:00 AM EDT ANGELICA ([facility]) [id number] Gastroesophageal reflux disease Gastroesophageal Reflux Disease Problem 03/13/2021 12:00:00 AM EDT ANGELICA ([facility]) F33.0 Major depressive disorder, recurrent, mi ld Major Depressive Disorder, Recurrent episode, Mild Condition 01/01/2021 12:00:00 AM EDT [facility] ([facility]) [id number] Recurrent depressive disorder, current e pisode mild Recurrent depressive disorder, current episode mild Condition 09/09/2020 12:00:0 0 AM EDT [facility] ([facility]) [id number] Recurrent depressive disorder, current e pisode mild Recurrent depressive disorder, current episode mild Condition 09/09/2020 12:00:0 0 AM EDT [employer] ([facility]) [id number] Recurrent depressive disorder, current e pisode mild Recurrent depressive disorder, current episode mild Condition 09/09/2020 12:00:0 0 AM EDT [employer] ([facility]) [id number] Recurrent depressive disorder, current e pisode mild Recurrent depressive disorder, current episode mild Condition 09/09/2020 12:00:0 0 AM EDT [facility] ([facility]) [id number] Recurrent depressive disorder, current e pisode mild Recurrent depressive disorder, current episode mild Condition 09/09/2020 12:00:0 0 AM EDT [facility] ([facility]) [id number] Overweight Overweight Problem 11/22/2019 12:0 0:00 AM EDT - 09/02/2020 12:00:00 AM EDT ANGELICA ([facility]) [id number] Overweight Overweight Problem 11/22/2019 12:0 0:00 AM EDT - 09/02/2020 12:00:00 AM EDT ANGELICA ([facility]) [id number] Overweight Overweight Problem 11/22/2019 12:0 0:00 AM EDT - 09/02/2020 12:00:00 AM EDT ANGELICA ([facility]) [id number] Overweight Overweight Problem 11/22/2019 12:0 0:00 AM EDT - 09/02/2020 12:00:00 AM EDT ANGELICA ([facility]) [id number] Overweight Overweight Problem 11/22/2019 12:0 0:00 AM EDT - 09/02/2020 12:00:00 AM EDT ANGELICA ([facility]) [id number] Overweight Overweight Problem 11/22/2019 12:0 0:00 AM EDT - 09/02/2020 12:00:00 AM EDT [facility] [facility] [id number] Overweight in childhood Overweight in Childhood Proble 03/03/2016 12:00:00 AM EDT - 09/02/2020 12:00:00 AM EDT ANGELICA ([facility]) [id number] Overweight in childhood Overweight in Childhood Proble 03/03/2016 12:00:00 AM EDT - 09/02/2020 12:00:00 AM EDT ANGELICA ([facility]) [id number] Overweight in childhood Overweight in Childhood Proble 03/03/2016 12:00:00 AM EDT - 09/02/2020 12:00:00 AM EDT ANGELICA ([facility]) [id number] Overweight in childhood Overweight in Childhood Proble 03/03/2016 12:00:00 AM EDT - 09/02/2020 12:00:00 AM EDT ANGELICA ([facility]) [id number] Overweight in childhood Overweight in Childhood Proble 03/03/2016 12:00:00 AM EDT - 09/02/2020 12:00:00 AM EDT ANGELICA ([facility]) [id number] Overweight in childhood Overweight in Childhood Proble 03/03/2016 12:00:00 AM EDT - 09/02/2020 12:00:00 AM EDT ANGELICA ([facility]) [id number] Influenza vaccine needed Influenza Vaccine Needed Pro blem 04/24/2013 12:00:00 AM EST - 06/06/2020 12:00:00 AM EST ANGELICA ([facility]) [id number] Influenza vaccine needed Influenza Vaccine Needed Pro blem 04/24/2013 12:00:00 AM EST - 06/06/2020 12:00:00 AM EST ANGELICA ([facility]) [id number] Influenza vaccine needed Influenza Vaccine Needed Pro blem 04/24/2013 12:00:00 AM EST - 06/06/2020 12:00:00 AM EST ANGELICA ([facility]) [id number] Influenza vaccine needed Influenza Vaccine Needed Pro blem 04/24/2013 12:00:00 AM EST - 06/06/2020 12:00:00 AM EST ANGELICA ([facility]) [id number] Influenza vaccine needed Influenza Vaccine Needed Pro blem 04/24/2013 12:00:00 AM EST - 06/06/2020 12:00:00 AM EST ANGELICA ([facility]) [id number] Influenza vaccine needed Influenza Vaccine Needed Pro blem 04/24/2013 12:00:00 AM EST - 06/06/2020 12:00:00 AM EST ANGELICA ([facility]) [id number] Influenza vaccine needed Influenza Vaccine Needed Pro blem 04/24/2013 12:00:00 AM EST - 06/06/2020 12:00:00 AM EST ANGELICA ([facility]) [id number] Influenza vaccine needed Influenza Vaccine Needed Pro blem 04/24/2013 12:00:00 AM EST - 06/06/2020 12:00:00 AM EST ANGELICA ([facility]) [id number] Influenza vaccine needed Influenza Vaccine Needed Pro blem 04/24/2013 12:00:00 AM EST - 06/06/2020 12:00:00 AM EST ANGELICA ([facility]) [id number] Procedure Procedure Problem 06/29/2012 12:0 0:00 AM EST - 09/02/2020 12:00:00 AM EDT ANGELICA ([facility] er) [id number] Procedure Procedure Problem 06/29/2012 12:0 0:00 AM EST - 09/02/2020 12:00:00 AM EDT ANGELICA ([facility] er) [id number] Procedure Procedure Problem 06/29/2012 12:0 0:00 AM EST - 09/02/2020 12:00:00 AM EDT ANGELICA ([facility] er) [id number] Procedure Procedure Problem 06/29/2012 12:0 0:00 AM EST - 09/02/2020 12:00:00 AM EDT ANGELICA ([facility] er) [id number] Procedure Procedure Problem 06/29/2012 12:0 0:00 AM EST - 09/02/2020 12:00:00 AM EDT ANGELICA ([facility] er) [id number] Procedure Procedure Problem 06/29/2012 12:0 0:00 AM EST - 09/02/2020 12:00:00 AM EDT ANGELICA ([facility]) Surgeries/Procedures Procedure Description Date Indications Data Source(s) Extended Individual Psychotherapy - 45 min 04/01/2021 12:00:00 AM EDT - 04/01/2021 12:00:00 AM EDT [facility] ([facility]) Extended Individual Psychotherapy - 45 min 12:00:00 AM EDT [facility] ([facility]) [facility] Telemed E/M Lvl 3--Est pt 03/12/2021 12:00:00 AM EDT - 03/12/2021 12:00:00 AM EDT [facility] ([facility]) MHC Telemed E/M Lvl 3--Est pt 03/12/2021 12:00:00 AM E DT [facility] ([facility]) Brief Individual Psychotherapy - 30 min 01/01/2021 12:00:00 AM EDT - 01/01/2021 12:00:00 AM EDT [facility] ([facility]) Brief Individual Psychotherapy - 30 min 01/01/2021 12: 00:00 AM EDT [facility] ([facility]) MHCTelemed E/M Lvl 4--Est pt 12/19/2020 12:00:00 AM EDT - 12/19/2020 12:00:00 AM EDT [facility] ([facility]) MHCTelemed E/M Lvl 4--Est pt 12/19/2020 12:00:00 AM ED T [facility] ([facility]) Extended Individual Psychotherapy - 45 min 12/19/2020 12:00:00 AM EDT - 12/19/2020 12:00:00 AM EDT [facility] ([facility]) Extended Individual Psychotherapy - 45 min 12:00:00 AM EDT [facility] ([facility]) Brief Individual Psychotherapy - 30 min 12/03/2020 12:00:00 AM EDT - 12/03/2020 12:00:00 AM EDT [facility] ([facility]) Brief Individual Psychotherapy - 30 min 12/02/2020 12: 00:00 AM EDT [facility] ([facility]) MHC Telemed E/M Lvl 3--Est pt 11/28/2020 12:00:00 AM EDT - 11/28/2020 12:00:00 AM EDT [facility] ([facility]) MHC Telemed E/M Lvl 3--Est pt 11/28/2020 12:00:00 AM E DT [facility] ([facility]) Extended Individual Psychotherapy - 45 min 10/24/2020 12:00:00 AM EDT - 10/24/2020 12:00:00 AM EDT [facility] ([facility]) Extended Individual Psychotherapy - 45 min 12:00:00 AM EDT [facility] ([facility]) MHC Telemed E/M Lvl 3--Est pt 10/09/2020 12:00:00 AM EDT - 10/09/2020 12:00:00 AM EDT [facility] ([facility]) MHC Telemed E/M Lvl 3--Est pt 10/09/2020 12:00:00 AM E DT [facility] ([facility]) Brief Individual Psychotherapy - 30 min 10/08/2020 12:00:00 AM EDT - 10/08/2020 12:00:00 AM EDT [facility] ([facility]) Brief Individual Psychotherapy - 30 min 10/08/2020 12: 00:00 AM EDT [facility] ([facility]) Extended Individual Psychotherapy - 45 min 09/17/2020 12:00:00 AM EDT - 09/17/2020 12:00:00 AM EDT [facility] ([facility]) Extended Individual Psychotherapy - 45 min 12:00:00 AM EDT [facility] ([facility]) MHC Telemed E/M Lvl 3--Est pt 09/12/2020 12:00:00 AM EDT - 09/12/2020 12:00:00 AM EDT [facility] ([facility]) MHC Telemed E/M Lvl 3--Est pt 09/12/2020 12:00:00 AM E DT [facility] ([facility]) Brief Individual Psychotherapy - 30 min 09/01/2020 12:00:00 AM EDT - 09/01/2020 12:00:00 AM EDT [facility] ([facility]) Brief Individual Psychotherapy - 30 min 09/01/2020 12: 00:00 AM EDT [facility] ([facility]) MHC Telemed E/M Lvl 3--Est pt 08/29/2020 12:00:00 AM EST - 08/29/2020 12:00:00 AM EST [facility] ([facility]) MHC Telemed E/M Lvl 3--Est pt 08/29/2020 12:00:[address] [facility] ([facility]) MHC Telemed E/M Lvl 3--Est pt 08/08/2020 12:00:00 AM EST - 08/08/2020 12:00:00 AM EST [facility] ([facility]) MHC Telemed E/M Lvl 3--Est pt 08/08/2020 12:00:[address] [facility] ([facility]) [id number]"Psychotherapy 12:00:00 AM EST - 07/25/2020 12:00:00 AM EST [facility] ([facility]) [id number]"Psychotherapy 07/25/2020 12:00:00 AM EST [facility] ([facility]) MHC Telemed E/M Lvl 3--Est pt 07/18/2020 12:00:00 AM EST - 07/18/2020 12:00:00 AM EST [facility] ([facility]) MHC Telemed E/M Lvl 3--Est pt 07/18/2020 12:00:[address] [facility] ([facility]) Extended Individual Psychotherapy - 45 min 07/02/2020 12:00:00 AM EST - 07/02/2020 12:00:00 AM EST [facility] ([facility]) Extended Individual Psychotherapy - 45 min 12:00:00 AM EST [facility] ([facility]) Extended Individual Psychotherapy - 45 min 06/04/2020 12:00:00 AM EST - 06/04/2020 12:00:00 AM EST [facility] ([facility]) Extended Individual Psychotherapy - 45 min 12:00:00 AM EST [facility] ([facility]) MHC Telemed E/M Lvl 3--Est pt 06/04/2020 12:00:00 AM EST - 06/04/2020 12:00:00 AM EST [facility] ([facility]) MHC Telemed E/M Lvl 3--Est pt 06/04/2020 12:00:[address] [facility] ([facility]) Extended Individual Psychotherapy - 45 min 04/25/2020 12:00:00 AM EST - 04/25/2020 12:00:00 AM EST [facility] ([facility]) Extended Individual Psychotherapy - 45 min 0 12:00:00 AM EST [facility] ([facility]) MHC Telemed E/M Lvl 3--Est pt 04/17/2020 12:00:00 AM EDT - 04/17/2020 12:00:00 AM EDT [facility] ([facility]) Telemed A/O 30" 04/17/2020 12:00:00 AM EDT [facility] ([facility]) MHC Telemed E/M Lvl 3--Est pt 04/17/2020 12:00:00 AM E DT [facility] ([facility]) Extended Individual Psychotherapy - 45 min 03/19/2020 12:00:00 AM EDT - 03/19/2020 12:00:00 AM EDT [facility] ([facility]) Extended Individual Psychotherapy - 45 min 0 12:00:00 AM EDT [facility] ([facility]) Results ID Date Data Source [id number] 04/16/2021 08:21:00 AM EDT [facility]) Name Value Range Interpretation Code Description Data Roz rce(s) Supporting Document(s) sars-cov-2 negative negative Sars-cov-2 [facility]) ID Date Data Source [id number] 04/16/2021 08:21:00 AM EDT [facility]) Name Value Range Interpretation Code Description Data Roz rce(s) Supporting Document(s) sars-cov-2 negative negative Sars-cov-2 [place] ([facility]) ID Date Data Source [id number] 04/16/2021 08:20:00 AM EDT [facility] Name Value Range Interpretation Code Description Data Roz rce(s) Supporting Document(s) SARS coronavirus 2 RdRp gene [Presence] in Respiratory specimen by JEN with probe detection Not detected [facility] This lab was ordered by [facility] and reported by [facility]. ID Date Data Source [id number] 04/01/2021 08:50:00 AM EDT [place] ([facility]) Name Value Range Interpretation Code Description Data Roz rce(s) Supporting Document(s) Hemoglobin A1c/Hemoglobin.total in Blood 5.0 %_of_total_HGB <5.7 Hemoglobin a1C [place] ([facility]) ID Date Data Source [id number] 04/01/2021 08:50:00 AM EDT [facility]) Name Value Range Interpretation Code Description Data Roz rce(s) Supporting Document(s) Calcidiol [Mass/volume] in Serum or Plasma 19 NG/mL 30-100 Below low normal Vitamin D,25-Oh,total,ia [facility]) ID Date Data Source [id number] 04/01/2021 08:50:00 AM EDT [facility]) Name Value Range Interpretation Code Description Data Roz rce(s) Supporting Document(s) Thyrotropin [Units/volume] in Serum or Plasma 3.05 mIU/L 0.50-4.30 Tsh [facility]) ID Date Data Source [id number] 04/01/2021 08:50:00 AM EDT [facility]) Name Value Range Interpretation Code Description Data Roz rce(s) Supporting Document(s) Urea nitrogen [Mass/volume] in Serum or Plasma 19 mg/dL 7-20 Urea Nitrogen (BUN) ANGELICA ([facility]) Glucose [Mass/volume] in Serum or Plasma 98 mg/dL 65-99 Glucose ANGELICA ([facility]) Glomerular filtration rate/1.73 sq M.pre dicted among blacks [Volume Rate/Area] in Serum, Plasma or Blood by Creatinine-based formula (CKD-EPI) 143 mL/min/1.73m2 > or = 60 eGFR ANGELICA ([facility]) Creatinine [Mass/volume] in Serum or Plasma 0.90 mg/dL 0.60-1.26 Creatinine ANGELICA ([facility]) Glomerular filtration rate/1.73 sq M.pre dicted among non-blacks [Volume Rate/Area] in Serum, Plasma or Blood by Creatinine-based formula (CKD-EPI) 123 mL/min/1.73m2 > or = 60 eGFR Non-afr. Dutch ANGELICA ([facility]) Sodium [Moles/volume] in Serum or Plasma 142 mmol/L 135-146 Sodium ANGELICA ([facility]) Urea nitrogen/Creatinine [Mass Ratio] in Serum or Plasma not applic able 6-22 BUN/creatinine Ratio ANGELICA ([facility]) Potassium [Moles/volume] in Serum or Plasma 4.6 mmol/L 3.8-5.1 Potassium ANGELICA ([facility]) Carbon dioxide, total [Moles/volume] in Serum or Plasma 28 mmol/L 20-32 Carbon Dioxide ANGELICA ([facility]) Chloride [Moles/volume] in Serum or Plasma 107 mmol/L 98-110 Chloride ANGELICA ([facility]) Protein [Mass/volume] in Serum or Plasma 7.1 g/dL 6.3-8.2 Protein, Total ANGELICA ([facility]) Albumin [Mass/volume] in Serum or Plasma 4.7 g/dL 3.6-5.1 Albumin ANGELICA ([facility]) Calcium [Mass/volume] in Serum or Plasma 9.9 mg/dL 8.9-10.4 [facility] Globulin [Mass/volume] in Serum by calculation 2.4 g/dL_(calc) 2.1- 3.5 Globulin ANGELICA ([facility]) Albumin/Globulin [Mass Ratio] in Serum or Plasma 2.0 (calc) 1.0-2 .5 Albumin/globulin Ratio ANGELICA ([facility]) Alkaline phosphatase [Enzymatic activity/volume] in Serum or Plasma 86 U/L 46-169 Alkaline Phosphatase ANGELICA ([facility]) Bilirubin.total [Mass/volume] in Serum or Plasma 0.4 mg/dL 0.2-1 .1 Bilirubin, Total ANGELICA ([facility]) Aspartate aminotransferase [Enzymatic activity/volume] in Serum or Plasma 17 U/L 12-32 Ast ANGELICA ([facility]) Alanine aminotransferase [Enzymatic activity/volume] in Seru m or Plasma 35 U/L 8-46 Alt ANGELICA ([facility]) ID Date Data Source [id number] 04/01/2021 08:50:00 AM EDT ANGELICA ([facility]) Name Value Range Interpretation Code Description Data Roz rce(s) Supporting Document(s) Cholesterol [Mass/volume] in Serum or Plasma 153 mg/dL <170 Cholesterol, Total ANGELICA ([facility]) Triglyceride [Mass/volume] in Serum or Plasma 74 mg/dL <90 Triglycerides ANGELICA ([facility]) Cholesterol in HDL [Mass/volume] in Serum or Plasma 38 mg/dL >45 Below low normal HDL Cholesterol ANGELICA ([facility]) Cholesterol in LDL [Mass/volume] in Serum or Plasma by calculation 99 mg/dL_(calc) <110 LDL-cholesterol ANGELICA ([facility]) Cholesterol.total/Cholesterol in HDL [Mass Ratio] in Serum o r Plasma 4.0 (calc) <5.0 Chol/hdlc Ratio ANGELICA ([facility]) Cholesterol non HDL [Mass/volume] in Serum or Plasma 115 mg/dL_(stephenie c) <120 Non HDL Cholesterol ANGELICA ([facility]) ID Date Data Source [id number] 04/01/2021 08:50:00 AM EDT [place] ([facility]) Name Value Range Interpretation Code Description Data Roz rce(s) Supporting Document(s) Hemoglobin A1c/Hemoglobin.total in Blood 5.0 %_of_total_HGB <5.7 Hemoglobin a1C [place] ([facility]) ID Date Data Source [id number] 04/01/2021 08:50:00 AM EDT [facility]) Name Value Range Interpretation Code Description Data Roz rce(s) Supporting Document(s) Calcidiol [Mass/volume] in Serum or Plasma 19 NG/mL 30-100 Below low normal Vitamin D,25-Oh,total,ia [facility]) ID Date Data Source [id number] 04/01/2021 08:50:00 AM EDT [facility]) Name Value Range Interpretation Code Description Data Roz rce(s) Supporting Document(s) Thyrotropin [Units/volume] in Serum or Plasma 3.05 mIU/L 0.50-4.30 Tsh [facility]) ID Date Data Source [id number] 04/01/2021 08:50:00 AM EDT [facility]) Name Value Range Interpretation Code Description Data Roz rce(s) Supporting Document(s) Glucose [Mass/volume] in Serum or Plasma 98 mg/dL 65-99 Glucose ANGELICA ([facility]) Creatinine [Mass/volume] in Serum or Plasma 0.90 mg/dL 0.60-1.26 Creatinine [place] ([facility]) Urea nitrogen [Mass/volume] in Serum or Plasma 19 mg/dL 7-20 [facility]UN) [facility] Glomerular filtration rate/1.73 sq M.pre dicted among non-blacks [Volume Rate/Area] in Serum, Plasma or Blood by Creatinine-based formula (CKD-EPI) 123 mL/min/1.73m2 > or = 60 eGFR Non-afr. Dutch ANGELICA ([facility]) Urea nitrogen/Creatinine [Mass Ratio] in Serum or Plasma not applic able 6-22 BUN/creatinine Ratio [facility]) Glomerular filtration rate/1.73 sq M.pre dicted among blacks [Volume Rate/Area] in Serum, Plasma or Blood by Creatinine-based formula (CKD-EPI) 143 mL/min/1.73m2 > or = 60 eGFR ANGELICA ([facility]) Sodium [Moles/volume] in Serum or Plasma 142 mmol/L 135-146 Sodium ANGELICA ([facility]) Potassium [Moles/volume] in Serum or Plasma 4.6 mmol/L 3.8-5.1 Potassium ANGELICA ([facility]) Carbon dioxide, total [Moles/volume] in Serum or Plasma 28 mmol/L 20-32 Carbon Dioxide ANGELICA ([facility]) Chloride [Moles/volume] in Serum or Plasma 107 mmol/L 98-110 Chloride ANGELICA ([facility]) Protein [Mass/volume] in Serum or Plasma 7.1 g/dL 6.3-8.2 Protein, Total [place] ([facility]) Albumin [Mass/volume] in Serum or Plasma 4.7 g/dL 3.6-5.1 Albumin ANGELICA ([facility]) Calcium [Mass/volume] in Serum or Plasma 9.9 mg/dL 8.9-10.4 Calcium [place] ([facility]) Globulin [Mass/volume] in Serum by calculation 2.4 g/dL_(calc) 2.1- 3.5 Globulin [place] ([facility]) Albumin/Globulin [Mass Ratio] in Serum or Plasma 2.0 (calc) 1.0-2 .5 Albumin/globulin Ratio [place] ([facility]) Bilirubin.total [Mass/volume] in Serum or Plasma 0.4 mg/dL 0.2-1 .1 Bilirubin, Total ANGELICA ([facility]) Aspartate aminotransferase [Enzymatic activity/volume] in Serum or Plasma 17 U/L 12-32 Ast ANGELICA ([facility]) Alkaline phosphatase [Enzymatic activity/volume] in Serum or Plasma 86 U/L 46-169 Alkaline Phosphatase ANGELICA ([facility]) Alanine aminotransferase [Enzymatic activity/volume] in Seru m or Plasma 35 U/L 8-46 Alt ANGELICA ([facility]) ID Date Data Source [id number] 04/01/2021 08:50:00 AM EDT [place] ([facility]) Name Value Range Interpretation Code Description Data Roz rce(s) Supporting Document(s) Cholesterol [Mass/volume] in Serum or Plasma 153 mg/dL <170 Cholesterol, Total ANGELICA ([facility]) Cholesterol in HDL [Mass/volume] in Serum or Plasma 38 mg/dL >45 Below low normal HDL Cholesterol ANGELICA ([facility]) Cholesterol in LDL [Mass/volume] in Serum or Plasma by calculation 99 mg/dL_(calc) <110 LDL-cholesterol ANGELICA ([facility]) Triglyceride [Mass/volume] in Serum or Plasma 74 mg/dL <90 Triglycerides ANGELICA ([facility]) Cholesterol.total/Cholesterol in HDL [Mass Ratio] in Serum o r Plasma 4.0 (calc) <5.0 Chol/hdlc Ratio ANGELICA ([facility]) Cholesterol non HDL [Mass/volume] in Serum or Plasma 115 mg/dL_(stephenie c) <120 Non HDL Cholesterol ANGELICA ([facility]) ID Date Data Source [id number] 04/01/2021 08:50:00 AM EDT [place] ([facility]) Name Value Range Interpretation Code Description Data Roz rce(s) Supporting Document(s) Hemoglobin A1c/Hemoglobin.total in Blood 5.0 %_of_total_HGB <5.7 Hemoglobin a1C ANGELICA ([facility]) ID Date Data Source [id number] 04/01/2021 08:50:00 AM EDT [place] ([facility]) Name Value Range Interpretation Code Description Data Roz rce(s) Supporting Document(s) Calcidiol [Mass/volume] in Serum or Plasma 19 NG/mL 30-100 Below low normal Vitamin D,25-Oh,total,ia ANGELICA ([facility]) ID Date Data Source [id number] 04/01/2021 08:50:00 AM EDT [facility]) Name Value Range Interpretation Code Description Data Roz rce(s) Supporting Document(s) Thyrotropin [Units/volume] in Serum or Plasma 3.05 mIU/L 0.50-4.30 Tsh [facility]) ID Date Data Source [id number] 04/01/2021 08:50:00 AM EDT ANGELICA ([facility]) Name Value Range Interpretation Code Description Data Roz rce(s) Supporting Document(s) Glucose [Mass/volume] in Serum or Plasma 98 mg/dL 65-99 Glucose [place] ([facility]) Urea nitrogen [Mass/volume] in Serum or Plasma 19 mg/dL 7-20 Urea Nitrogen (BUN) [facility]) Glomerular filtration rate/1.73 sq M.pre dicted among blacks [Volume Rate/Area] in Serum, Plasma or Blood by Creatinine-based formula (CKD-EPI) 143 mL/min/1.73m2 > or = 60 eGFR ANGELICA ([facility]) Creatinine [Mass/volume] in Serum or Plasma 0.90 mg/dL 0.60-1.26 Creatinine [place] ([facility]) Glomerular filtration rate/1.73 sq M.pre dicted among non-blacks [Volume Rate/Area] in Serum, Plasma or Blood by Creatinine-based formula (CKD-EPI) 123 mL/min/1.73m2 > or = 60 eGFR Non-afr. Dutch ANGELICA ([facility]) Urea nitrogen/Creatinine [Mass Ratio] in Serum or Plasma not applic able 6-22 BUN/creatinine Ratio AN[place]ICA ([facility]) Sodium [Moles/volume] in Serum or Plasma 142 mmol/L 135-146 Sodium AN[place]ICA ([facility]) Carbon dioxide, total [Moles/volume] in Serum or Plasma 28 mmol/L 20-32 Carbon Dioxide AN[facility]ICA ([facility]) Chloride [Moles/volume] in Serum or Plasma 107 mmol/L 98-110 Chloride AN[facility] ([facility]) Potassium [Moles/volume] in Serum or Plasma 4.6 mmol/L 3.8-5.1 Potassium [place] ([facility]) Albumin [Mass/volume] in Serum or Plasma 4.7 g/dL 3.6-5.1 Albumin [place] ([facility]) Protein [Mass/volume] in Serum or Plasma 7.1 g/dL 6.3-8.2 Protein, Total [place] ([facility]) Calcium [Mass/volume] in Serum or Plasma 9.9 mg/dL 8.9-10.4 Calcium [place] ([facility]) Globulin [Mass/volume] in Serum by calculation 2.4 g/dL_(calc) 2.1- 3.5 Globulin [facility] ([facility]) Bilirubin.total [Mass/volume] in Serum or Plasma 0.4 mg/dL 0.2-1 .1 Bilirubin, Total [place] ([facility]) Albumin/Globulin [Mass Ratio] in Serum or Plasma 2.0 (calc) 1.0-2 .5 Albumin/globulin Ratio [facility] ([facility]) Alkaline phosphatase [Enzymatic activity/volume] in Serum or Plasma 86 U/L 46-169 Alkaline Phosphatase [facility]ICA ([facility]) Alanine aminotransferase [Enzymatic activity/volume] in Seru m or Plasma 35 U/L 8-46 Alt [place] ([facility]) Aspartate aminotransferase [Enzymatic activity/volume] in Serum or Plasma 17 U/L 12-32 Ast [place] ([facility]) ID Date Data Source [id number] 04/01/2021 08:50:00 AM EDT [place] ([facility]) Name Value Range Interpretation Code Description Data Roz rce(s) Supporting Document(s) Cholesterol [Mass/volume] in Serum or Plasma 153 mg/dL <170 Cholesterol, Total [place] ([facility]) Cholesterol in HDL [Mass/volume] in Serum or Plasma 38 mg/dL >45 Below low normal HDL Cholesterol AN[facility]ICA ([facility]) Cholesterol in LDL [Mass/volume] in Serum or Plasma by calculation 99 mg/dL_(calc) <110 LDL-cholesterol [facility] ([facility]) Triglyceride [Mass/volume] in Serum or Plasma 74 mg/dL <90 Triglycerides ANGELICA ([facility]) Cholesterol.total/Cholesterol in HDL [Mass Ratio] in Serum o r Plasma 4.0 (calc) <5.0 Chol/hdlc Ratio [facility] ([facility]) Cholesterol non HDL [Mass/volume] in Serum or Plasma 115 mg/dL_(stephenie c) <120 Non HDL Cholesterol ANGELICA ([facility]) ID Date Data Source [id number] 02/12/2021 08:47:00 PM EDT [facility] Name Value Range Interpretation Code Description Data Roz rce(s) Supporting Document(s) SARS coronavirus 2 RNA [Presence] in Res piratory specimen by JEN with probe detection NEGATIVE [facility] This lab was ordered by [facility] a nd reported by [facility]. ID Date Data Source [id number] 11/13/2020 03:35:00 PM EDT [facility] Name Value Range Interpretation Code Description Data Roz rce(s) Supporting Document(s) SARS coronavirus 2 RNA [Presence] in Res piratory specimen by JEN with probe detection POSITIVE [facility] This lab was ordered by [facility] a nd reported by [facility]. ID Date Data Source [id number] 10/20/2020 10:15:00 PM EDT [facility] Patient: FLOR CARTAGENA Observation Rep ort [facility]VisitID: [id number] [place] [address] [phone], MRegistration Date/Time: 10/20/2020 21:15 Weight:81.1 kg (S). [...] rce(s) Supporting Document(s) ID Date Data Source [id number] 10/20/2020 09:41:00 PM EDT [facility] TSYSORDER [id number] Name Value Range Interpretation Code Description Data Roz rce(s) Supporting Document(s) COVID-19 NEGATIVE NEGATIVE [facility] Negative results should be treated as [...] are for the indentification of SARS-CoV-2 RNA. PlfBJAO-AtT-2 RNA is generally detectable in respiratorysamples during the actue phase of infection. ID Date Data Source [id number] 09/16/2020 02:28:00 PM EDT [facility]) Name Value Range Interpretation Code Description Data Roz rce(s) Supporting Document(s) chlamydia DNA amplification negative negative Chlamydi a DNA Amplification [facility]) GC DNA amplification negative negative GC DNA Amplific ation [facility]) ID Date Data Source [id number] 09/16/2020 02:28:00 PM EDT [facility]) Name Value Range Interpretation Code Description Data Roz rce(s) Supporting Document(s) chlamydia DNA amplification negative negative Chlamydi a DNA Amplification [facility]) GC DNA amplification negative negative GC DNA Amplific ation ANGELICA ([facility]) ID Date Data Source [id number] 09/16/2020 02:28:00 PM EDT [facility]) Name Value Range Interpretation Code Description Data Roz rce(s) Supporting Document(s) chlamydia DNA amplification negative negative Chlamydi a DNA Amplification [place] ([facility]) GC DNA amplification negative negative GC DNA Amplific ation [facility]) ID Date Data Source [id number] 09/16/2020 02:28:00 PM EDT [facility]) Name Value Range Interpretation Code Description Data Roz rce(s) Supporting Document(s) chlamydia DNA amplification negative negative Chlamydi a DNA Amplification [place] ([facility]) GC DNA amplification negative negative GC DNA Amplific ation [facility]) ID Date Data Source [id number] 09/16/2020 02:26:00 PM EDT [facility]) Name Value Range Interpretation Code Description Data Roz rce(s) Supporting Document(s) HIV 1&2 screen centaur negative negative HIV 1&2 Scree n Centaur [place] ([facility]) ID Date Data Source [id number] 09/16/2020 02:26:00 PM EDT [place] ([facility]) Name Value Range Interpretation Code Description Data Roz rce(s) Supporting Document(s) syphilis nonreactive nonreactive Syphilis ANGELICA ([facility]) ID Date Data Source [id number] 09/16/2020 02:26:00 PM EDT [facility]) Name Value Range Interpretation Code Description Data Roz rce(s) Supporting Document(s) hepatitis C virus quintin index < 0.0 <0.8 Hepatiti s C Virus Quintin Index [place] ([facility]) ID Date Data Source [id number] 09/16/2020 02:26:00 PM EDT [facility]) Name Value Range Interpretation Code Description Data Roz rce(s) Supporting Document(s) HIV 1&2 screen centaur negative negative HIV 1&2 Scree n Centaur ANGELICA ([facility]) ID Date Data Source [id number] 09/16/2020 02:26:00 PM EDT [facility]) Name Value Range Interpretation Code Description Data Roz rce(s) Supporting Document(s) syphilis nonreactive nonreactive Syphilis [place] ([facility]) ID Date Data Source [id number] 09/16/2020 02:26:00 PM EDT [facility]) Name Value Range Interpretation Code Description Data Roz rce(s) Supporting Document(s) hepatitis C virus quintin index < 0.0 <0.8 Hepatiti s C Virus Quintin Index [place] ([facility]) ID Date Data Source [id number] 09/16/2020 02:26:00 PM EDT [facility]) Name Value Range Interpretation Code Description Data Roz rce(s) Supporting Document(s) HIV 1&2 screen centaur negative negative HIV 1&2 Scree n Centaur ANGELICA ([facility]) ID Date Data Source [id number] 09/16/2020 02:26:00 PM EDT [facility]) Name Value Range Interpretation Code Description Data Roz rce(s) Supporting Document(s) syphilis nonreactive nonreactive Syphilis ANGELICA ([facility]) ID Date Data Source [id number] 09/16/2020 02:26:00 PM EDT [place] ([facility]) Name Value Range Interpretation Code Description Data Roz rce(s) Supporting Document(s) hepatitis C virus quintin index < 0.0 <0.8 Hepatiti s C Virus Quintin Index [place] ([facility]) ID Date Data Source [id number] 09/16/2020 02:26:00 PM EDT [place] ([facility]) Name Value Range Interpretation Code Description Data Roz rce(s) Supporting Document(s) HIV 1&2 screen centaur negative negative HIV 1&2 Scree n Centaur [place] ([facility]) ID Date Data Source [id number] 09/16/2020 02:26:00 PM EDT [facility]) Name Value Range Interpretation Code Description Data Roz rce(s) Supporting Document(s) syphilis nonreactive nonreactive Syphilis ANGELICA ([facility]) ID Date Data Source [id number] 09/16/2020 02:26:00 PM EDT [facility]) Name Value Range Interpretation Code Description Data Roz rce(s) Supporting Document(s) hepatitis C virus quintin index < 0.0 <0.8 Hepatiti s C Virus Quintin Index [place] ([facility]) ID Date Data Source [id number] 08/25/2020 12:50:00 PM EST [facility] Name Value Range Interpretation Code Description Data Roz rce(s) Supporting Document(s) SARS coronavirus 2 RNA [Presence] in Res piratory specimen by JEN with probe detection NEGATIVE [facility] This lab was ordered by [facility] a nd reported by [facility]. ID Date Data Source [id number] 07/02/2020 05:30:00 AM EST [place] ([facility]) Name Value Range Interpretation Code Description Data Roz rce(s) Supporting Document(s) troponin I < 0.02 < 0.10 Troponin I ANGELICA ([facility]) ID Date Data Source [id number] 07/02/2020 05:30:00 AM EST ANGELICA ([facility]) Name Value Range Interpretation Code Description Data Roz rce(s) Supporting Document(s) troponin I < 0.02 < 0.10 Troponin I ANGELICA ([facility]) ID Date Data Source [id number] 07/02/2020 05:30:00 AM EST ANGELICA ([facility]) Name Value Range Interpretation Code Description Data Roz rce(s) Supporting Document(s) troponin I < 0.02 < 0.10 Troponin I ANGELICA ([facility]) ID Date Data Source [id number] 07/02/2020 05:30:00 AM EST ANGELICA ([facility]) Name Value Range Interpretation Code Description Data Roz rce(s) Supporting Document(s) troponin I < 0.02 < 0.10 Troponin I ANGELICA ([facility]) ID Date Data Source [id number] 07/02/2020 05:30:00 AM EST ANGELICA [facility]) Name Value Range Interpretation Code Description Data Roz rce(s) Supporting Document(s) troponin I < 0.02 < 0.10 Troponin I ANGELICA ([facility]) ID Date Data Source [id number] 07/02/2020 05:30:00 AM EST ANGELICA ([facility]) Name Value Range Interpretation Code Description Data Roz rce(s) Supporting Document(s) troponin I < 0.02 < 0.10 Troponin I ANGELICA ([facility]) ID Date Data Source [id number] 07/02/2020 05:30:00 AM EST ANGELICA [facility]) Name Value Range Interpretation Code Description Data Roz rce(s) Supporting Document(s) troponin I < 0.02 < 0.10 Troponin I ANGELICA ([facility]) ID Date Data Source [id number] 07/02/2020 05:30:00 AM EST ANGELICA ([facility]) Name Value Range Interpretation Code Description Data Roz rce(s) Supporting Document(s) troponin I < 0.02 < 0.10 Troponin I ANGELICA ([facility]) ID Date Data Source [id number] 07/01/2020 11:51:00 PM EST ANGELICA ([facility]) Name Value Range Interpretation Code Description Data Roz rce(s) Supporting Document(s) troponin I < 0.02 < 0.10 Troponin I ANGELICA ([facility]) ID Date Data Source [id number] 07/01/2020 11:51:00 PM EST ANGELICA ([facility]) Name Value Range Interpretation Code Description Data Roz rce(s) Supporting Document(s) troponin I < 0.02 < 0.10 Troponin I ANGELICA ([facility]) ID Date Data Source [id number] 07/01/2020 11:51:00 PM EST ANGELICA ([facility]) Name Value Range Interpretation Code Description Data Roz rce(s) Supporting Document(s) troponin I < 0.02 < 0.10 Troponin I ANGELICA ([facility]) ID Date Data Source [id number] 07/01/2020 11:51:00 PM EST ANGELICA ([facility]) Name Value Range Interpretation Code Description Data Roz rce(s) Supporting Document(s) troponin I < 0.02 < 0.10 Troponin I ANGELICA ([facility]) ID Date Data Source [id number] 07/01/2020 11:51:00 PM EST ANGELICA ([facility]) Name Value Range Interpretation Code Description Data Roz rce(s) Supporting Document(s) troponin I < 0.02 < 0.10 Troponin I ANGELICA ([facility]) ID Date Data Source [id number] 07/01/2020 11:51:00 PM EST ANGELICA ([facility]) Name Value Range Interpretation Code Description Data Roz rce(s) Supporting Document(s) troponin I < 0.02 < 0.10 Troponin I ANGELICA ([facility]) ID Date Data Source [id number] 07/01/2020 11:51:00 PM EST ANGELICA ([facility]) Name Value Range Interpretation Code Description Data Roz rce(s) Supporting Document(s) troponin I < 0.02 < 0.10 Troponin I ANGELICA ([facility]) ID Date Data Source [id number] 07/01/2020 11:51:00 PM EST ANGELICA ([facility]) Name Value Range Interpretation Code Description Data Roz rce(s) Supporting Document(s) troponin I < 0.02 < 0.10 Troponin I ANGELICA ([facility]) ID Date Data Source [id number] 07/01/2020 05:57:00 PM EST ANGELICA ([facility]) Name Value Range Interpretation Code Description Data Roz rce(s) Supporting Document(s) troponin I < 0.02 < 0.10 Troponin I ANGELICA ([facility]) ID Date Data Source [id number] 07/01/2020 05:57:00 PM EST ANGELICA ([facility]) Name Value Range Interpretation Code Description Data Roz rce(s) Supporting Document(s) troponin I < 0.02 < 0.10 Troponin I ANGELICA ([facility]) ID Date Data Source [id number] 07/01/2020 05:57:00 PM EST ANGELICA ([facility]) Name Value Range Interpretation Code Description Data Roz rce(s) Supporting Document(s) troponin I < 0.02 < 0.10 Troponin I ANGELICA ([facility]) ID Date Data Source [id number] 07/01/2020 05:57:00 PM EST ANGELICA ([facility]) Name Value Range Interpretation Code Description Data Roz rce(s) Supporting Document(s) troponin I < 0.02 < 0.10 Troponin I ANGELICA ([facility]) ID Date Data Source [id number] 07/01/2020 05:57:00 PM EST ANGELICA ([facility]) Name Value Range Interpretation Code Description Data Roz rce(s) Supporting Document(s) troponin I < 0.02 < 0.10 Troponin I ANGELICA ([facility]) ID Date Data Source [id number] 07/01/2020 05:57:00 PM EST ANGELICA ([facility]) Name Value Range Interpretation Code Description Data Roz rce(s) Supporting Document(s) troponin I < 0.02 < 0.10 Troponin I ANGELICA ([facility]) ID Date Data Source [id number] 07/01/2020 05:57:00 PM EST ANGELICA ([facility]) Name Value Range Interpretation Code Description Data Roz rce(s) Supporting Document(s) troponin I < 0.02 < 0.10 Troponin I ANGELICA ([facility]) ID Date Data Source [id number] 07/01/2020 05:57:00 PM EST ANGELICA ([facility]) Name Value Range Interpretation Code Description Data Roz rce(s) Supporting Document(s) troponin I < 0.02 < 0.10 Troponin I ANGELICA ([facility]) ID Date Data Source [id number] 07/01/2020 02:15:00 PM EST ANGELICA ([facility]) Name Value Range Interpretation Code Description Data Roz rce(s) Supporting Document(s) glucose, fasting 88 mg/dL 70-100 Glucose, Fasting AT [facility] ([facility]) blood urea nitrogen 19 mg/dL 7-18 Above high normal Blood Ure a Nitrogen ANGELICA ([facility]) creatinine for GFR 1.03 mg/dL 0.70-1.30 Creatinine for GF R ANGELICA ([facility]) sodium level 141 mEq/L 136-145 Sodium Level ANGELICA ([facility]) chloride level 106 mEq/L 98-107 Chloride Level ANGELICA ([facility]) potassium serum 3.7 mEq/L 3.5-5.1 Potassium Serum ATHE NA ([facility]) anion gap 2 mEq/L 8-16 Below low normal Anion Gap ANGELICA ( [facility]) carbon dioxide level 33 mEq/L 21-32 Above high normal Carbon D ioxide Level ANGELICA ([facility]) calcium level 9.5 mg/dL 8.5-10.1 Calcium Level ANGELICA ( [facility]) AST/SGOT 8 U/L 7-37 AST/SGOT ANGELICA ([facility]) ALT/SGPT 23 U/L 12-78 ALT/SGPT ANGELICA ([facility]) alkaline phosphatase 103 U/L 45-117 Alkaline Phosph atase ANGELICA ([facility]) total protein 7.3 gm/dL 6.4-8.2 Total Protein ANGELICA ( [facility]) albumin/globulin ratio Albumin/globu dana Ratio ANGELICA ([facility]) bilirubin,total 0.6 mg/dL 0.2-1.0 Bilirubin,total ATHE NA ([facility]) albumin 4.5 gm/dL 3.2-5.2 Albumin ANGELICA ([facility]) ID Date Data Source [id number] 07/01/2020 02:15:00 PM EST ANGELICA ([facility]) Name Value Range Interpretation Code Description Data Roz rce(s) Supporting Document(s) white blood count 6.9 10 4.0-10.0 White Blood Count ANGELICA ([facility]) hemoglobin 16.0 g/dL 13.5-17.5 Hemoglobin ANGELICA ([facility]) hematocrit 48.0 % 42.0-52.0 Hematocrit ANGELICA ([facility]) red blood count 5.34 10 4.30-6.10 Red Blood Count ATHE ([facility]) mean corpuscular hemoglobin 30.0 pg 27.0-33.0 Mean Cor puscular Hemoglobin [place] ([facility]) mean corpuscular volume 89.9 fL 80.0-96.0 Mean Corpusc ular Volume [place] ([facility]) mean corpuscular HGB conc 33.3 g/dL 32.0-36.5 Mean Corpu scular HGB Conc [place] ([facility]) platelet count, automated 207 10 150-450 Platelet C ount, Automated [place] ([facility]) nucleated red blood cell % 0.0 % 0-0 Nucleated Red Blood Cell % [place] ([facility]) red cell distribution width 12.3 % 11.5-14.5 Red Cell Distribution Width [place] ([facility]) ID Date Data Source [id number] 07/01/2020 02:15:00 PM EST ANGELICA ([facility]) Name Value Range Interpretation Code Description Data Roz rce(s) Supporting Document(s) blood urea nitrogen 19 mg/dL 7-18 Above high normal Blood Ure a Nitrogen ANGELICA ([facility]) glucose, fasting 88 mg/dL 70-100 Glucose, Fasting AT [facility] ([facility]) potassium serum 3.7 mEq/L 3.5-5.1 Potassium Serum ATHE NA ([facility]) creatinine for GFR 1.03 mg/dL 0.70-1.30 Creatinine for GF R [place] ([facility]) sodium level 141 mEq/L 136-145 Sodium Level ANGELICA ([facility]) carbon dioxide level 33 mEq/L 21-32 Above high normal Carbon D ioxide Level ANGELICA ([facility]) anion gap 2 mEq/L 8-16 Below low normal Anion Gap ANGELICA ( [facility]) chloride level 106 mEq/L 98-107 Chloride Level ANGELICA ([facility]) calcium level 9.5 mg/dL 8.5-10.1 Calcium Level ANGELICA ( [facility]) AST/SGOT 8 U/L 7-37 AST/SGOT ANGELICA ([facility]) ALT/SGPT 23 U/L 12-78 ALT/SGPT ANGELICA ([facility]) alkaline phosphatase 103 U/L 45-117 Alkaline Phosph atase ANGELICA ([facility]) albumin 4.5 gm/dL 3.2-5.2 Albumin ANGELICA ([facility]) total protein 7.3 gm/dL 6.4-8.2 Total Protein ANGELICA ( [facility]) bilirubin,total 0.6 mg/dL 0.2-1.0 Bilirubin,total AT[facility] ([facility]) albumin/globulin ratio Albumin/globu dana Ratio ANGELICA ([facility]) ID Date Data Source [id number] 07/01/2020 02:15:00 PM EST ANGELICA ([facility]) Name Value Range Interpretation Code Description Data Roz rce(s) Supporting Document(s) red blood count 5.34 10 4.30-6.10 Red Blood Count ATHE ([facility]) white blood count 6.9 10 4.0-10.0 White Blood Count ANGELICA ([facility]) hemoglobin 16.0 g/dL 13.5-17.5 Hemoglobin ANGELICA ([facility]) hematocrit 48.0 % 42.0-52.0 Hematocrit ANGELICA ([facility]) mean corpuscular volume 89.9 fL 80.0-96.0 Mean Corpusc ular Volume ANGELICA ([facility]) mean corpuscular hemoglobin 30.0 pg 27.0-33.0 Mean Cor puscular Hemoglobin ANGELICA ([facility]) mean corpuscular HGB conc 33.3 g/dL 32.0-36.5 Mean Corpu scular HGB Conc ANGELICA ([facility]) nucleated red blood cell % 0.0 % 0-0 Nucleated Red Blood Cell % ANGELICA ([facility]) platelet count, automated 207 10 150-450 Platelet C ount, Automated ANGELICA ([facility]) red cell distribution width 12.3 % 11.5-14.5 Red Cell Distribution Width [place] ([facility]) ID Date Data Source [id number] 07/01/2020 02:15:00 PM EST [place] ([facility]) Name Value Range Interpretation Code Description Data Roz rce(s) Supporting Document(s) glucose, fasting 88 mg/dL 70-100 Glucose, Fasting AT [facility]) blood urea nitrogen 19 mg/dL 7-18 Above high normal Blood Ure a Nitrogen ANGELICA ([facility]) chloride level 106 mEq/L 98-107 Chloride Level [place] ([facility]) sodium level 141 mEq/L 136-145 Sodium Level [place] ([facility]) creatinine for GFR 1.03 mg/dL 0.70-1.30 Creatinine for GF R ANGELICA ([facility]) potassium serum 3.7 mEq/L 3.5-5.1 Potassium Serum ATH NA ([facility]) anion gap 2 mEq/L 8-16 Below low normal Anion Gap [place] ( [facility]) carbon dioxide level 33 mEq/L 21-32 Above high normal Carbon D ioxide Level [place] ([facility]) calcium level 9.5 mg/dL 8.5-10.1 Calcium Level ANGELICA ( [facility]) AST/SGOT 8 U/L 7-37 AST/SGOT [place] ([facility]) ALT/SGPT 23 U/L 12-78 ALT/SGPT [place] ([facility]) alkaline phosphatase 103 U/L 45-117 Alkaline Phosph atase [place] ([facility]) bilirubin,total 0.6 mg/dL 0.2-1.0 Bilirubin,total ATHE NA ([facility]) total protein 7.3 gm/dL 6.4-8.2 Total Protein ANGELICA ( [facility]) albumin 4.5 gm/dL 3.2-5.2 Albumin ANGELICA ([facility]) albumin/globulin ratio Albumin/globu dana Ratio ANGELICA ([facility]) ID Date Data Source [id number] 07/01/2020 02:15:00 PM EST ANGELICA ([facility]) Name Value Range Interpretation Code Description Data Roz rce(s) Supporting Document(s) white blood count 6.9 10 4.0-10.0 White Blood Count ANGELICA ([facility]) hematocrit 48.0 % 42.0-52.0 Hematocrit ANGELICA ([facility]) red blood count 5.34 10 4.30-6.10 Red Blood Count ATHE NA ([facility]) hemoglobin 16.0 g/dL 13.5-17.5 Hemoglobin ANGELICA ([facility]) mean corpuscular hemoglobin 30.0 pg 27.0-33.0 Mean Cor puscular Hemoglobin ANGELICA ([facility]) mean corpuscular volume 89.9 fL 80.0-96.0 Mean Corpusc ular Volume ANGEILCA ([facility]) platelet count, automated 207 10 150-450 Platelet C ount, Automated ANGELICA ([facility]) mean corpuscular HGB conc 33.3 g/dL 32.0-36.5 Mean Corpu scular HGB Conc ANGELICA ([facility]) red cell distribution width 12.3 % 11.5-14.5 Red Cell Distribution Width ANGELICA ([facility]) nucleated red blood cell % 0.0 % 0-0 Nucleated Red Blood Cell % ANGELICA ([facility]) ID Date Data Source [id number] 07/01/2020 02:15:00 PM EST ANGELICA ([facility]) Name Value Range Interpretation Code Description Data Roz rce(s) Supporting Document(s) glucose, fasting 88 mg/dL 70-100 Glucose, Fasting AT [facility] ([facility]) creatinine for GFR 1.03 mg/dL 0.70-1.30 Creatinine for GF R ANGELICA ([facility]) potassium serum 3.7 mEq/L 3.5-5.1 Potassium Serum ATHE ([facility]) blood urea nitrogen 19 mg/dL 7-18 Above high normal Blood Ure a Nitrogen ANGELICA ([facility]) sodium level 141 mEq/L 136-145 Sodium Level ANGELICA (No [facility]) chloride level 106 mEq/L 98-107 Chloride Level ANGELICA ([facility]) carbon dioxide level 33 mEq/L 21-32 Above high normal Carbon D ioxide Level [place] ([facility]) anion gap 2 mEq/L 8-16 Below low normal Anion Gap ANGELICA ( [facility]) AST/SGOT 8 U/L 7-37 AST/SGOT ANGELICA ([facility]) calcium level 9.5 mg/dL 8.5-10.1 Calcium Level ANGELICA ( [facility]) ALT/SGPT 23 U/L 12-78 ALT/SGPT ANGELICA ([facility]) total protein 7.3 gm/dL 6.4-8.2 Total Protein ANGELICA ( [facility]) alkaline phosphatase 103 U/L 45-117 Alkaline Phosph atase ANGELICA ([facility]) bilirubin,total 0.6 mg/dL 0.2-1.0 Bilirubin,total ATHE ([facility]) albumin 4.5 gm/dL 3.2-5.2 Albumin ANGELICA ([facility]) albumin/globulin ratio Albumin/globu dana Ratio ANGELICA ([facility]) ID Date Data Source [id number] 07/01/2020 02:15:00 PM EST ANGELICA ([facility]) Name Value Range Interpretation Code Description Data Roz rce(s) Supporting Document(s) white blood count 6.9 10 4.0-10.0 White Blood Count [place] ([facility]) red blood count 5.34 10 4.30-6.10 Red Blood Count ATHE ([facility]) hemoglobin 16.0 g/dL 13.5-17.5 Hemoglobin ANGELICA ([facility]) mean corpuscular volume 89.9 fL 80.0-96.0 Mean Corpusc ular Volume ANGELICA ([facility]) hematocrit 48.0 % 42.0-52.0 Hematocrit ANGELICA ([facility]) mean corpuscular hemoglobin 30.0 pg 27.0-33.0 Mean Cor puscular Hemoglobin ANGELICA ([facility]) red cell distribution width 12.3 % 11.5-14.5 Red Cell Distribution Width ANGELICA ([facility]) mean corpuscular HGB conc 33.3 g/dL 32.0-36.5 Mean Corpu scular HGB Conc ANGELICA ([facility]) nucleated red blood cell % 0.0 % 0-0 Nucleated Red Blood Cell % [place] ([facility]) platelet count, automated 207 10 150-450 Platelet C ount, Automated ANGELICA ([facility]) ID Date Data Source [id number] 07/01/2020 02:15:00 PM EST [place] ([facility]) Name Value Range Interpretation Code Description Data Roz rce(s) Supporting Document(s) blood urea nitrogen 19 mg/dL 7-18 Above high normal Blood Ure a Nitrogen [place] ([facility]) glucose, fasting 88 mg/dL 70-100 Glucose, Fasting AT [facility] ([facility]) creatinine for GFR 1.03 mg/dL 0.70-1.30 Creatinine for GF R ANGELICA ([facility]) sodium level 141 mEq/L 136-145 Sodium Level ANGELICA (No [facility]) carbon dioxide level 33 mEq/L 21-32 Above high normal Carbon D ioxide Level [place] ([facility]) potassium serum 3.7 mEq/L 3.5-5.1 Potassium Serum ATHE NA ([facility]) chloride level 106 mEq/L 98-107 Chloride Level [place] ([facility]) anion gap 2 mEq/L 8-16 Below low normal Anion Gap ANGELICA ( [facility]) AST/SGOT 8 U/L 7-37 AST/SGOT ANGELICA ([facility]) calcium level 9.5 mg/dL 8.5-10.1 Calcium Level ANGELICA ( [facility]) ALT/SGPT 23 U/L 12-78 ALT/SGPT ANGELICA ([facility]) bilirubin,total 0.6 mg/dL 0.2-1.0 Bilirubin,total ATHE NA ([facility]) alkaline phosphatase 103 U/L 45-117 Alkaline Phosph atase ANGELICA ([facility]) albumin 4.5 gm/dL 3.2-5.2 Albumin ANGELICA ([facility]) total protein 7.3 gm/dL 6.4-8.2 Total Protein ANGELICA ( [facility]) albumin/globulin ratio Albumin/globu dana Ratio ANGELICA ([facility]) ID Date Data Source [id number] 07/01/2020 02:15:00 PM EST ANGELICA ([facility]) Name Value Range Interpretation Code Description Data Roz rce(s) Supporting Document(s) red blood count 5.34 10 4.30-6.10 Red Blood Count ATHE ([facility]) white blood count 6.9 10 4.0-10.0 White Blood Count ANGELICA ([facility]) mean corpuscular volume 89.9 fL 80.0-96.0 Mean Corpusc ular Volume ANGELICA ([facility]) hematocrit 48.0 % 42.0-52.0 Hematocrit ANGELICA ([facility]) hemoglobin 16.0 g/dL 13.5-17.5 Hemoglobin ANGELICA ([facility]) mean corpuscular HGB conc 33.3 g/dL 32.0-36.5 Mean Corpu scular HGB Conc ANGELICA ([facility]) red cell distribution width 12.3 % 11.5-14.5 Red Cell Distribution Width ANGELICA ([facility]) mean corpuscular hemoglobin 30.0 pg 27.0-33.0 Mean Cor puscular Hemoglobin ANGELICA ([facility]) nucleated red blood cell % 0.0 % 0-0 Nucleated Red Blood Cell % ANGELICA ([facility]) platelet count, automated 207 10 150-450 Platelet C ount, Automated ANGELICA ([facility]) ID Date Data Source [id number] 07/01/2020 02:15:00 PM EST ANGELICA ([facility]) Name Value Range Interpretation Code Description Data Roz rce(s) Supporting Document(s) glucose, fasting 88 mg/dL 70-100 Glucose, Fasting AT CRISTINA ([facility]) blood urea nitrogen 19 mg/dL 7-18 Above high normal Blood Ure a Nitrogen ANGELICA ([facility]) sodium level 141 mEq/L 136-145 Sodium Level ANGELICA (No [facility]) creatinine for GFR 1.03 mg/dL 0.70-1.30 Creatinine for GF R ANGELICA ([facility]) potassium serum 3.7 mEq/L 3.5-5.1 Potassium Serum ATHE NA ([facility]) carbon dioxide level 33 mEq/L 21-32 Above high normal Carbon D ioxide Level ANGELICA ([facility]) chloride level 106 mEq/L 98-107 Chloride Level [place] ([facility]) calcium level 9.5 mg/dL 8.5-10.1 Calcium Level ANGELICA ( [facility]) anion gap 2 mEq/L 8-16 Below low normal Anion Gap ANGELICA ( [facility]) AST/SGOT 8 U/L 7-37 AST/SGOT ANGELICA ([facility]) alkaline phosphatase 103 U/L 45-117 Alkaline Phosph atase ANGELICA ([facility]) ALT/SGPT 23 U/L 12-78 ALT/SGPT ANGELICA ([facility]) albumin 4.5 gm/dL 3.2-5.2 Albumin ANGELICA ([facility]) bilirubin,total 0.6 mg/dL 0.2-1.0 Bilirubin,total ATHE NA ([facility]) total protein 7.3 gm/dL 6.4-8.2 Total Protein ANGELICA ( [facility]) albumin/globulin ratio Albumin/globu dana Ratio ANGELICA ([facility]) ID Date Data Source [id number] 07/01/2020 02:15:00 PM EST ANGELICA ([facility]) Name Value Range Interpretation Code Description Data Roz rce(s) Supporting Document(s) white blood count 6.9 10 4.0-10.0 White Blood Count ANGELICA ([facility]) hemoglobin 16.0 g/dL 13.5-17.5 Hemoglobin ANGELICA ([facility]) hematocrit 48.0 % 42.0-52.0 Hematocrit ANGELICA ([facility]) red blood count 5.34 10 4.30-6.10 Red Blood Count ATHE ([facility]) mean corpuscular hemoglobin 30.0 pg 27.0-33.0 Mean Cor puscular Hemoglobin ANGELICA ([facility]) mean corpuscular volume 89.9 fL 80.0-96.0 Mean Corpusc ular Volume ANGELICA ([facility]) platelet count, automated 207 10 150-450 Platelet C ount, Automated ANGELICA ([facility]) red cell distribution width 12.3 % 11.5-14.5 Red Cell Distribution Width ANGELICA ([facility]) mean corpuscular HGB conc 33.3 g/dL 32.0-36.5 Mean Corpu scular HGB Conc ANGELICA ([facility]) nucleated red blood cell % 0.0 % 0-0 Nucleated Red Blood Cell % ANGELICA ([facility]) ID Date Data Source [id number] 07/01/2020 02:15:00 PM EST ANGELICA ([facility]) Name Value Range Interpretation Code Description Data Roz rce(s) Supporting Document(s) glucose, fasting 88 mg/dL 70-100 Glucose, Fasting AT [facility] ([facility]) blood urea nitrogen 19 mg/dL 7-18 Above high normal Blood Ure a Nitrogen ANGEILCA ([facility]) creatinine for GFR 1.03 mg/dL 0.70-1.30 Creatinine for GF R ANGELICA ([facility]) potassium serum 3.7 mEq/L 3.5-5.1 Potassium Serum ATHE NA ([facility]) sodium level 141 mEq/L 136-145 Sodium Level ANGELICA ([facility]) anion gap 2 mEq/L 8-16 Below low normal Anion Gap ANGELICA ( [facility]) chloride level 106 mEq/L 98-107 Chloride Level ANGELICA ([facility]) carbon dioxide level 33 mEq/L 21-32 Above high normal Carbon D ioxide Level ANGELICA ([facility]) AST/SGOT 8 U/L 7-37 AST/SGOT ANGELICA ([facility]) calcium level 9.5 mg/dL 8.5-10.1 Calcium Level ANGELICA ( [facility]) bilirubin,total 0.6 mg/dL 0.2-1.0 Bilirubin,total ATHE ([facility]) ALT/SGPT 23 U/L 12-78 ALT/SGPT ANGELICA ([facility]) alkaline phosphatase 103 U/L 45-117 Alkaline Phosph atase ANGELICA ([facility]) albumin/globulin ratio Albumin/globu dana Ratio ANGELICA ([facility]) albumin 4.5 gm/dL 3.2-5.2 Albumin ANGELICA ([facility]) total protein 7.3 gm/dL 6.4-8.2 Total Protein ANGELICA ( [facility]) ID Date Data Source [id number] 07/01/2020 02:15:00 PM EST ANGELICA ([facility]) Name Value Range Interpretation Code Description Data Roz rce(s) Supporting Document(s) white blood count 6.9 10 4.0-10.0 White Blood Count ANGELICA ([facility]) red blood count 5.34 10 4.30-6.10 Red Blood Count ATHE ([facility]) mean corpuscular volume 89.9 fL 80.0-96.0 Mean Corpusc ular Volume ANGELICA ([facility]) hematocrit 48.0 % 42.0-52.0 Hematocrit ANGELICA ([facility]) hemoglobin 16.0 g/dL 13.5-17.5 Hemoglobin ANGELICA ([facility]) mean corpuscular hemoglobin 30.0 pg 27.0-33.0 Mean Cor puscular Hemoglobin ANGELICA ([facility]) red cell distribution width 12.3 % 11.5-14.5 Red Cell Distribution Width ANGELICA ([facility]) mean corpuscular HGB conc 33.3 g/dL 32.0-36.5 Mean Corpu scular HGB Conc ANGELICA ([facility]) nucleated red blood cell % 0.0 % 0-0 Nucleated Red Blood Cell % [place] ([facility]) platelet count, automated 207 10 150-450 Platelet C ount, Automated [place] ([facility]) ID Date Data Source [id number] 07/01/2020 02:15:00 PM EST [place] ([facility]) Name Value Range Interpretation Code Description Data Roz rce(s) Supporting Document(s) glucose, fasting 88 mg/dL 70-100 Glucose, Fasting AT [facility]) blood urea nitrogen 19 mg/dL 7-18 Above high normal Blood Ure a Nitrogen [place] ([facility]) potassium serum 3.7 mEq/L 3.5-5.1 Potassium Serum ATH NA ([facility]) sodium level 141 mEq/L 136-145 Sodium Level [place] (No [facility]) creatinine for GFR 1.03 mg/dL 0.70-1.30 Creatinine for GF R ANGELICA ([facility]) calcium level 9.5 mg/dL 8.5-10.1 Calcium Level ANGELICA ( [facility]) chloride level 106 mEq/L 98-107 Chloride Level ANGELICA ([facility]) anion gap 2 mEq/L 8-16 Below low normal Anion Gap [place] ( [facility]) carbon dioxide level 33 mEq/L 21-32 Above high normal Carbon D ioxide Level [place] ([facility]) alkaline phosphatase 103 U/L 45-117 Alkaline Phosph atase ANGELICA ([facility]) ALT/SGPT 23 U/L 12-78 ALT/SGPT [place] ([facility]) AST/SGOT 8 U/L 7-37 AST/SGOT ANGELICA ([facility]) albumin 4.5 gm/dL 3.2-5.2 Albumin ANGELICA ([facility]) total protein 7.3 gm/dL 6.4-8.2 Total Protein ANGELICA ( [facility]) bilirubin,total 0.6 mg/dL 0.2-1.0 Bilirubin,total ATHE NA ([facility]) albumin/globulin ratio Albumin/globu dana Ratio ANGELICA ([facility]) ID Date Data Source [id number] 07/01/2020 02:15:00 PM EST ANGELICA ([facility]) Name Value Range Interpretation Code Description Data Roz rce(s) Supporting Document(s) red blood count 5.34 10 4.30-6.10 Red Blood Count ATHE NA ([facility]) white blood count 6.9 10 4.0-10.0 White Blood Count ANGELICA ([facility]) hemoglobin 16.0 g/dL 13.5-17.5 Hemoglobin ANGELICA ([facility]) hematocrit 48.0 % 42.0-52.0 Hematocrit ANGELICA ([facility]) mean corpuscular volume 89.9 fL 80.0-96.0 Mean Corpusc ular Volume ANGELICA ([facility]) mean corpuscular hemoglobin 30.0 pg 27.0-33.0 Mean Cor puscular Hemoglobin ANGELICA ([facility]) mean corpuscular HGB conc 33.3 g/dL 32.0-36.5 Mean Corpu scular HGB Conc ANGELICA ([facility]) red cell distribution width 12.3 % 11.5-14.5 Red Cell Distribution Width ANGELICA ([facility]) nucleated red blood cell % 0.0 % 0-0 Nucleated Red Blood Cell % ANGELICA ([facility]) platelet count, automated 207 10 150-450 Platelet C ount, Automated ANGELICA ([facility]) ID Date Data Source [id number] 07/01/2020 12:57:00 PM EST ANGELICA ([facility]) Name Value Range Interpretation Code Description Data Roz rce(s) Supporting Document(s) bedside glucose 93 mg/dL 70-105 Bedside Glucose ATHE JERRICA ([facility]) ID Date Data Source [id number] 07/01/2020 12:57:00 PM EST ANGELICA ([facility]) Name Value Range Interpretation Code Description Data Roz rce(s) Supporting Document(s) bedside glucose 93 mg/dL 70-105 Bedside Glucose ATHE NA ([facility]) ID Date Data Source [id number] 07/01/2020 12:57:00 PM EST ANGELICA ([facility]) Name Value Range Interpretation Code Description Data Roz rce(s) Supporting Document(s) bedside glucose 93 mg/dL 70-105 Bedside Glucose ATHE NA ([facility]) ID Date Data Source [id number] 07/01/2020 12:57[facility]00 [facility] Name Value Range Interpretation Code Description Data Roz rce(s) Supporting Document(s) bedside glucose 93 mg/dL 70-105 Bedside Glucose ATHE NA ([facility]) ID Date Data Source [id number] 07/01/2020 12:57:00 PM EST ANGELICA ([facility]) Name Value Range Interpretation Code Description Data Roz rce(s) Supporting Document(s) bedside glucose 93 mg/dL 70-105 Bedside Glucose ATHE NA ([facility]) ID Date Data Source [id number] 07/01/2020 12:57:00 PM [facility] Name Value Range Interpretation Code Description Data Roz rce(s) Supporting Document(s) bedside glucose 93 mg/dL 70-105 Bedside Glucose ATHE NA ([facility]) ID Date Data Source [id number] 07/01/2020 12:57:00 PM EST ANGELICA ([facility]) Name Value Range Interpretation Code Description Data Roz rce(s) Supporting Document(s) bedside glucose 93 mg/dL 70-105 Bedside Glucose ATHE NA ([facility]) ID Date Data Source [id number] 07/01/2020 12:57:00 PM EST ANGELICA ([facility]) Name Value Range Interpretation Code Description Data Roz rce(s) Supporting Document(s) bedside glucose 93 mg/dL 70-105 Bedside Glucose ATHE JERRICA ([facility]) ID Date Data Source [id number] 06/18/2020 09:40:00 PM EST ANGELICA ([facility]) Name Value Range Interpretation Code Description Data Roz rce(s) Supporting Document(s) influenza A amplification negative negative Influenza a Amplification ANGELICA ([facility]) influenza B amplification negative negative Influenza B Amplification [place] ([facility]) sars covid-19 amplification negative negative [facility]ars Cov id-[facility] RSV amplification negative negative RSV Amplification [facility]) ID Date Data Source [id number] 06/18/2020 09:40:00 PM EST ANGELICA ([facility]) Name Value Range Interpretation Code Description Data Roz rce(s) Supporting Document(s) influenza A amplification negative negative Influenza a Amplification ANGELICA ([facility]) influenza B amplification negative negative Influenza B Amplification ANGELICA ([facility]) RSV amplification negative negative RSV Amplification ANGELICA ([facility]) sars covid-19 amplification negative negative Sars Cov id-19 Amplification [facility]) ID Date Data Source [id number] 06/18/2020 09:40:00 PM [facility] Name Value Range Interpretation Code Description Data Roz rce(s) Supporting Document(s) influenza B amplification negative negative Influenza B Amplification ANGELICA ([facility]) RSV amplification negative negative RSV Amplification ANGELICA ([facility]) influenza A amplification negative negative Influenza a Amplification ANGELICA ([facility]) sars covid-19 amplification negative negative Sars Cov id-19 [facility] ID Date Data Source [id number] 06/18/2020 09:40:00 PM [facility] Name Value Range Interpretation Code Description Data Roz rce(s) Supporting Document(s) influenza A amplification negative negative Influenza [facility] influenza B amplification negative negative Influenza B [facility] sars covid-19 amplification negative negative Sars Cov id-19 [facility] RSV amplification negative negative [facility] ID Date Data Source [id number] 06/18/2020 09:40:00 PM [facility] Name Value Range Interpretation Code Description Data Roz rce(s) Supporting Document(s) influenza A amplification negative negative Influenza [facility] influenza B amplification negative negative Influenza B Amplification ANGELICA ([facility]) sars covid-19 amplification negative negative Sars Cov id-19 [facility] RSV amplification negative negative [facility] ID Date Data Source [id number] 06/18/2020 09:40:00 PM [facility] Name Value Range Interpretation Code Description Data Roz rce(s) Supporting Document(s) influenza A amplification negative negative Influenza [facility] RSV amplification negative negative RSV Amplification ANGELICA ([facility]) sars covid-19 amplification negative negative Sars Cov id-[facility] influenza B amplification negative negative Influenza B Amplification ANGELICA ([facility]) ID Date Data Source [id number] 06/18/2020 09:40:00 PM EST [facility]) Name Value Range Interpretation Code Description Data Roz rce(s) Supporting Document(s) RSV amplification negative negative RSV Amplification ANGELICA ([facility]) influenza B amplification negative negative Influenza B Amplification [place] ([facility]) influenza A amplification negative negative Influenza a Amplification [facility]) sars covid-19 amplification negative negative Sars Cov id-19 Amplification [facility]) ID Date Data Source [id number] 06/18/2020 09:40:00 PM EST [facility]) Name Value Range Interpretation Code Description Data Roz rce(s) Supporting Document(s) influenza A amplification negative negative Influenza a Amplification [facility]) RSV amplification negative negative RSV Amplification [facility]) influenza B amplification negative negative Influenza B Amplification [place] ([facility]) sars covid-19 amplification negative negative Sars Cov id-19 Amplification [facility]) ID Date Data Source [id number] 06/18/2020 09:40:00 PM EST [facility] Name Value Range Interpretation Code Description Data Roz rce(s) Supporting Document(s) SARS coronavirus 2 RNA [Presence] in Res piratory specimen by JEN with probe detection [facility] This lab was ordered by [facility] a nd reported by [facility]. ID Date Data Source [id number] 05/20/2020 11:26:00 AM EST [facility]) Name Value Range Interpretation Code Description Data Roz rce(s) Supporting Document(s) ID Date Data Source [id number] 05/20/2020 11:26:00 AM EST [facility]) Name Value Range Interpretation Code Description Data Roz rce(s) Supporting Document(s) glucose, fasting 90 mg/dL 70-100 Glucose, Fasting AT [facility] ([facility]) blood urea nitrogen 15 mg/dL 7-18 Blood Urea Nitro gen ANGELICA ([facility]) sodium level 139 mEq/L 136-145 Sodium Level ANGELICA (No [facility]) creatinine for GFR 0.84 mg/dL 0.70-1.30 Creatinine for GF R ANGELICA ([facility]) anion gap 6 mEq/L 8-16 Below low normal Anion Gap ANGELICA ( [facility]) carbon dioxide level 28 mEq/L 21-32 Carbon Dioxide Level ANGELICA ([facility]) chloride level 105 mEq/L 98-107 Chloride Level ANGELICA ([facility]) potassium serum 4.3 mEq/L 3.5-5.1 Potassium Serum ATHE ([facility]) calcium level 9.8 mg/dL 8.5-10.1 Calcium Level [place] ( [facility]) ID Date Data Source [id number] 05/20/2020 11:26:00 AM EST ANGELICA ([facility]) Name Value Range Interpretation Code Description Data Roz rce(s) Supporting Document(s) AST/SGOT 19 U/L 7-37 AST/SGOT ANGELICA ([facility]) alkaline phosphatase 109 U/L 45-117 Alkaline Phosph atase ANGELICA ([facility]) ALT/SGPT 40 U/L 12-78 ALT/SGPT ANGELICA ([facility]) bilirubin,total 0.6 mg/dL 0.2-1.0 Bilirubin,total ATHE NA ([facility]) total protein 7.5 gm/dL 6.4-8.2 Total Protein ANGLEICA ( [facility]) bilirubin,direct 0.2 mg/dL 0.0-0.2 Bilirubin,direct AT [facility] ([facility]) albumin 4.5 gm/dL 3.2-5.2 Albumin ANGELICA ([facility]) albumin/globulin ratio Albumin/globu dana Ratio ANGELICA ([facility]) ID Date Data Source [id number] 05/20/2020 11:26:00 AM EST ANGELICA ([facility]) Name Value Range Interpretation Code Description Data Roz rce(s) Supporting Document(s) white blood count 5.3 10 4.0-10.0 White Blood Count ANGELICA ([facility]) hemoglobin 17.3 g/dL 13.5-17.5 Hemoglobin ANGELICA ([facility]) red blood count 5.84 10 4.30-6.10 Red Blood Count ATHE NA ([facility]) mean corpuscular HGB conc 33.7 g/dL 32.0-36.5 Mean Corpu scular HGB Conc ANGELICA ([facility]) mean corpuscular volume 88.0 fL 80.0-96.0 Mean Corpusc ular Volume ANGELICA ([facility]) mean corpuscular hemoglobin 29.6 pg 27.0-33.0 Mean Cor puscular Hemoglobin ANGELICA ([facility]) hematocrit 51.4 % 42.0-52.0 Hematocrit ANGELICA ([facility]) neutrophils % 52.9 % 36.0-66.0 Neutrophils % ANGELICA ( [facility]) lymph % 35.5 % 24.0-44.0 Lymph % ANGELICA ([facility]) platelet count, automated 227 10 150-450 Platelet C ount, Automated ANGELICA ([facility]) red cell distribution width 12.7 % 11.5-14.5 Red Cell Distribution Width ANGELICA ([facility]) immature granulocyte % 0.2 % 0-3.0 Immature Gran ulocyte % ANGELICA ([facility]) mono % 5.9 % 0.0-5.0 Above high normal [place] % ANGELICA ([facility]) baso % 0.6 % 0.0-1.0 Baso % ANGELICA ([facility]) eos % 4.9 % 0.0-3.0 Above high normal Eos % ANGELICA ([facility]) mono # 0.3 10 0.0-0.8 [place] # ANGELICA ([facility]) lymph # 1.9 10 1.5-5.0 Lymph # ANGELICA ([facility]) neutrophils # 2.8 10 1.5-8.5 Neutrophils # ANGELICA ( [facility]) nucleated red blood cell % 0.0 % 0-0 Nucleated Red Blood Cell % ANGELICA ([facility]) eos # 0.3 10 0.0-0.5 Eos # ANGELICA ([facility]) baso # 0.0 10 0.0-0.2 Baso # ANGELICA ([facility]) ID Date Data Source [id number] 05/20/2020 11:26:00 AM EST ANGELICA ([facility]) Name Value Range Interpretation Code Description Data Roz rce(s) Supporting Document(s) ID Date Data Source [id number] 05/20/2020 11:26:00 AM EST ANGELICA ([facility]) Name Value Range Interpretation Code Description Data Roz rce(s) Supporting Document(s) glucose, fasting 90 mg/dL 70-100 Glucose, Fasting AT [facility]) blood urea nitrogen 15 mg/dL 7-18 Blood Urea Nitro gen [place] ([facility]) potassium serum 4.3 mEq/L 3.5-5.1 Potassium Serum ATHE NA ([facility]) creatinine for GFR 0.84 mg/dL 0.70-1.30 Creatinine for GF R [place] ([facility]) chloride level 105 mEq/L 98-107 Chloride Level [place] ([facility]) sodium level 139 mEq/L 136-145 Sodium Level ANGELICA (No [facility]) calcium level 9.8 mg/dL 8.5-10.1 Calcium Level [place] ( [facility]) anion gap 6 mEq/L 8-16 Below low normal Anion Gap [place] ( [facility]) carbon dioxide level 28 mEq/L 21-32 Carbon Dioxide Level [place] ([facility]) ID Date Data Source [id number] 05/20/2020 11:26:00 AM EST ANGELICA ([facility]) Name Value Range Interpretation Code Description Data Roz rce(s) Supporting Document(s) AST/SGOT 19 U/L 7-37 AST/SGOT ANGELICA ([facility]) ALT/SGPT 40 U/L 12-78 ALT/SGPT ANGELICA ([facility]) alkaline phosphatase 109 U/L 45-117 Alkaline Phosph atase ANGELICA ([facility]) bilirubin,direct 0.2 mg/dL 0.0-0.2 Bilirubin,direct AT [place] ([facility]) total protein 7.5 gm/dL 6.4-8.2 Total Protein ANGELICA ( [facility]) bilirubin,total 0.6 mg/dL 0.2-1.0 Bilirubin,total ATHE NA ([facility]) albumin 4.5 gm/dL 3.2-5.2 Albumin ANGELICA ([facility]) albumin/globulin ratio Albumin/globu dana Ratio ANGELICA ([facility]) ID Date Data Source [id number] 05/20/2020 11:26:00 AM EST ANGELICA ([facility]) Name Value Range Interpretation Code Description Data Roz rce(s) Supporting Document(s) white blood count 5.3 10 4.0-10.0 White Blood Count ANGELICA ([facility]) hematocrit 51.4 % 42.0-52.0 Hematocrit ANGELICA ([facility]) red blood count 5.84 10 4.30-6.10 Red Blood Count ATHE NA ([facility]) hemoglobin 17.3 g/dL 13.5-17.5 Hemoglobin ANGELICA ([facility]) mean corpuscular hemoglobin 29.6 pg 27.0-33.0 Mean Cor puscular Hemoglobin ANGELICA ([facility]) mean corpuscular volume 88.0 fL 80.0-96.0 Mean Corpusc ular Volume ANGELICA ([facility]) mean corpuscular HGB conc 33.7 g/dL 32.0-36.5 Mean Corpu scular HGB Conc ANGELICA ([facility]) red cell distribution width 12.7 % 11.5-14.5 Red Cell Distribution Width ANGELICA ([facility]) neutrophils % 52.9 % 36.0-66.0 Neutrophils % ANGELICA ( [facility]) platelet count, automated 227 10 150-450 Platelet C ount, Automated ANGELICA ([facility]) lymph % 35.5 % 24.0-44.0 Lymph % ANGELICA ([facility]) eos % 4.9 % 0.0-3.0 Above high normal Eos % ANGELICA ([facility]) baso % 0.6 % 0.0-1.0 Baso % ANGELICA ([facility]) mono % 5.9 % 0.0-5.0 Above high normal [place] % ANGELICA ([facility]) immature granulocyte % 0.2 % 0-3.0 Immature Gran ulocyte % ANGELICA ([facility]) neutrophils # 2.8 10 1.5-8.5 Neutrophils # ANGELICA ( [facility]) lymph # 1.9 10 1.5-5.0 Lymph # ANGELICA ([facility]) nucleated red blood cell % 0.0 % 0-0 Nucleated Red Blood Cell % ANGELICA ([facility]) mono # 0.3 10 0.0-0.8 [place] # ANGELICA ([facility]) baso # 0.0 10 0.0-0.2 Baso # ANGELICA ([facility]) eos # 0.3 10 0.0-0.5 Eos # ANGELICA ([facility]) ID Date Data Source [id number] 05/20/2020 11:26:00 AM EST ANGELICA ([facility]) Name Value Range Interpretation Code Description Data Roz rce(s) Supporting Document(s) ID Date Data Source [id number] 05/20/2020 11:26:00 AM EST ANGELICA ([facility]) Name Value Range Interpretation Code Description Data Roz rce(s) Supporting Document(s) glucose, fasting 90 mg/dL 70-100 Glucose, Fasting AT [facility]) chloride level 105 mEq/L 98-107 Chloride Level ANGELICA ([facility]) blood urea nitrogen 15 mg/dL 7-18 Blood Urea Nitro gen ANGELICA ([facility]) sodium level 139 mEq/L 136-145 Sodium Level ANGELICA (No [facility]) potassium serum 4.3 mEq/L 3.5-5.1 Potassium Serum ATHE NA ([facility]) creatinine for GFR 0.84 mg/dL 0.70-1.30 Creatinine for GF R ANGELICA ([facility]) carbon dioxide level 28 mEq/L 21-32 Carbon Dioxide Level ANGELICA ([facility]) anion gap 6 mEq/L 8-16 Below low normal Anion Gap ANGELICA ( [facility]) calcium level 9.8 mg/dL 8.5-10.1 Calcium Level ANGELICA ( [facility]) ID Date Data Source [id number] 05/20/2020 11:26:00 AM EST ANGELICA ([facility]) Name Value Range Interpretation Code Description Data Roz rce(s) Supporting Document(s) ALT/SGPT 40 U/L 12-78 ALT/SGPT ANGELICA ([facility]) AST/SGOT 19 U/L 7-37 AST/SGOT ANGELICA ([facility]) bilirubin,direct 0.2 mg/dL 0.0-0.2 Bilirubin,direct AT [place] ([facility]) alkaline phosphatase 109 U/L 45-117 Alkaline Phosph atase ANGELICA ([facility]) bilirubin,total 0.6 mg/dL 0.2-1.0 Bilirubin,total ATHE NA ([facility]) albumin 4.5 gm/dL 3.2-5.2 Albumin ANGELICA ([facility]) albumin/globulin ratio Albumin/globu dana Ratio ANGELICA ([facility]) total protein 7.5 gm/dL 6.4-8.2 Total Protein ANGELICA ( [facility]) ID Date Data Source [id number] 05/20/2020 11:26:00 AM EST ANGELICA ([facility]) Name Value Range Interpretation Code Description Data Roz rce(s) Supporting Document(s) white blood count 5.3 10 4.0-10.0 White Blood Count ANGELICA ([facility]) hemoglobin 17.3 g/dL 13.5-17.5 Hemoglobin ANGELICA ([facility]) mean corpuscular volume 88.0 fL 80.0-96.0 Mean Corpusc ular Volume ANGELICA ([facility]) red blood count 5.84 10 4.30-6.10 Red Blood Count ATHE NA ([facility]) hematocrit 51.4 % 42.0-52.0 Hematocrit ANGELICA ([facility]) platelet count, automated 227 10 150-450 Platelet C ount, Automated ANGELICA ([facility]) red cell distribution width 12.7 % 11.5-14.5 Red Cell Distribution Width ANGELICA ([facility]) mean corpuscular hemoglobin 29.6 pg 27.0-33.0 Mean Cor puscular Hemoglobin ANGELICA ([facility]) mean corpuscular HGB conc 33.7 g/dL 32.0-36.5 Mean Corpu scular HGB Conc ANGELICA ([facility]) neutrophils % 52.9 % 36.0-66.0 Neutrophils % [place] ( [facility]) eos % 4.9 % 0.0-3.0 Above high normal Eos % ANGELICA ([facility]) mono % 5.9 % 0.0-5.0 Above high normal [place] % ANGELICA ([facility]) lymph % 35.5 % 24.0-44.0 Lymph % ANGELICA ([facility]) neutrophils # 2.8 10 1.5-8.5 Neutrophils # [place] ( [facility]) immature granulocyte % 0.2 % 0-3.0 Immature Gran ulocyte % ANGELICA ([facility]) baso % 0.6 % 0.0-1.0 Baso % [place] ([facility]) nucleated red blood cell % 0.0 % 0-0 Nucleated Red Blood Cell % ANGELICA ([facility]) lymph # 1.9 10 1.5-5.0 Lymph # ANGELICA ([facility]) eos # 0.3 10 0.0-0.5 Eos # ANGELICA ([facility]) baso # 0.0 10 0.0-0.2 Baso # ANGELICA ([facility]) mono # 0.3 10 0.0-0.8 [place] # ANGELICA ([facility]) ID Date Data Source [id number] 05/20/2020 11:26:00 AM EST ANGELICA ([facility]) Name Value Range Interpretation Code Description Data Roz rce(s) Supporting Document(s) ID Date Data Source [id number] 05/20/2020 11:26:00 AM EST ANGELICA ([facility]) Name Value Range Interpretation Code Description Data Roz rce(s) Supporting Document(s) blood urea nitrogen 15 mg/dL 7-18 Blood Urea Nitro gen [place] ([facility]) glucose, fasting 90 mg/dL 70-100 Glucose, Fasting AT [facility]) creatinine for GFR 0.84 mg/dL 0.70-1.30 Creatinine for GF R [place] ([facility]) sodium level 139 mEq/L 136-145 Sodium Level ANGELICA ([facility]) potassium serum 4.3 mEq/L 3.5-5.1 Potassium Serum ATHE NA ([facility]) carbon dioxide level 28 mEq/L 21-32 Carbon Dioxide Level [place] ([facility]) chloride level 105 mEq/L 98-107 Chloride Level ANGELICA ([facility]) calcium level 9.8 mg/dL 8.5-10.1 Calcium Level ANGELICA ( [facility]) anion gap 6 mEq/L 8-16 Below low normal Anion Gap [place] ( [facility]) ID Date Data Source [id number] 05/20/2020 11:26[facility] Value Range Interpretation Code Description Data Roz rce(s) Supporting Document(s) alkaline phosphatase 109 U/L 45-117 Alkaline Phosph atase [place] ([facility]) bilirubin,total 0.6 mg/dL 0.2-1.0 Bilirubin,total ATHE NA ([facility]) AST/SGOT 19 U/L 7-37 AST/SGOT ANGELICA ([facility]) ALT/SGPT 40 U/L 12-78 ALT/SGPT ANGELICA ([facility]) albumin 4.5 gm/dL 3.2-5.2 Albumin ANGELICA ([facility]) total protein 7.5 gm/dL 6.4-8.2 Total Protein ANGELICA ( [facility]) albumin/globulin ratio Albumin/globu dana Ratio ANGELICA ([facility]) bilirubin,direct 0.2 mg/dL 0.0-0.2 Bilirubin,direct AT [facility] ([facility]) ID Date Data Source [id number] 05/20/2020 11:26:00 AM EST [place] ([facility]) Name Value Range Interpretation Code Description Data Roz rce(s) Supporting Document(s) white blood count 5.3 10 4.0-10.0 White Blood Count ANGELICA ([facility]) hematocrit 51.4 % 42.0-52.0 Hematocrit ANGELICA ([facility]) hemoglobin 17.3 g/dL 13.5-17.5 Hemoglobin ANGELICA ([facility]) red blood count 5.84 10 4.30-6.10 Red Blood Count ATHE ([facility]) mean corpuscular volume 88.0 fL 80.0-96.0 Mean Corpusc ular Volume ANGELICA ([facility]) red cell distribution width 12.7 % 11.5-14.5 Red Cell Distribution Width ANGELICA ([facility]) platelet count, automated 227 10 150-450 Platelet C ount, Automated ANGELICA ([facility]) mean corpuscular HGB conc 33.7 g/dL 32.0-36.5 Mean Corpu scular HGB Conc ANGELICA ([facility]) mean corpuscular hemoglobin 29.6 pg 27.0-33.0 Mean Cor puscular Hemoglobin ANGELICA ([facility]) neutrophils % 52.9 % 36.0-66.0 Neutrophils % ANGELICA ( [facility]) lymph % 35.5 % 24.0-44.0 Lymph % ANGELICA ([facility]) mono % 5.9 % 0.0-5.0 Above high normal [place] % ANGELICA ([facility]) eos % 4.9 % 0.0-3.0 Above high normal Eos % ANGELICA ([facility]) nucleated red blood cell % 0.0 % 0-0 Nucleated Red Blood Cell % ANGELICA ([facility]) neutrophils # 2.8 10 1.5-8.5 Neutrophils # [place] ( [facility]) immature granulocyte % 0.2 % 0-3.0 Immature Gran ulocyte % [place] ([facility]) baso % 0.6 % 0.0-1.0 Baso % [place] ([facility]) eos # 0.3 10 0.0-0.5 Eos # ANGELICA ([facility]) lymph # 1.9 10 1.5-5.0 Lymph # ANGELICA ([facility]) mono # 0.3 10 0.0-0.8 [place] # ANGELICA ([facility]) baso # 0.0 10 0.0-0.2 Baso # ANGELICA ([facility]) ID Date Data Source [id number] 05/20/2020 11:26:00 AM EST ANGELICA ([facility]) Name Value Range Interpretation Code Description Data Roz rce(s) Supporting Document(s) ID Date Data Source [id number] 05/20/2020 11:26:00 AM EST ANGELICA ([facility]) Name Value Range Interpretation Code Description Data Roz rce(s) Supporting Document(s) creatinine for GFR 0.84 mg/dL 0.70-1.30 Creatinine for GF R [place] ([facility]) glucose, fasting 90 mg/dL 70-100 Glucose, Fasting AT [facility] ([facility]) blood urea nitrogen 15 mg/dL 7-18 Blood Urea Nitro gen ANGELICA ([facility]) sodium level 139 mEq/L 136-145 Sodium Level ANGELICA (No [facility]) potassium serum 4.3 mEq/L 3.5-5.1 Potassium Serum ATHE NA ([facility]) carbon dioxide level 28 mEq/L 21-32 Carbon Dioxide Level ANGELICA ([facility]) chloride level 105 mEq/L 98-107 Chloride Level ANGELICA ([facility]) anion gap 6 mEq/L 8-16 Below low normal Anion Gap ANGELICA ( [facility]) calcium level 9.8 mg/dL 8.5-10.1 Calcium Level ANGELICA ( [facility]) ID Date Data Source [id number] 05/20/2020 11:26:00 AM EST ANGELICA ([facility]) Name Value Range Interpretation Code Description Data Roz rce(s) Supporting Document(s) ALT/SGPT 40 U/L 12-78 ALT/SGPT ANGELICA ([facility]) AST/SGOT 19 U/L 7-37 AST/SGOT ANGELICA ([facility]) total protein 7.5 gm/dL 6.4-8.2 Total Protein ANGELICA ( [facility]) bilirubin,total 0.6 mg/dL 0.2-1.0 Bilirubin,total ATHE ([facility]) bilirubin,direct 0.2 mg/dL 0.0-0.2 Bilirubin,direct AT [place] [facility]) alkaline phosphatase 109 U/L 45-117 Alkaline Phosph atase ANGELICA ([facility]) albumin 4.5 gm/dL 3.2-5.2 Albumin ANGELICA ([facility]) albumin/globulin ratio Albumin/globu dana Ratio ANGELICA ([facility]) ID Date Data Source [id number] 05/20/2020 11:26:00 AM EST ANGELICA ([facility]) Name Value Range Interpretation Code Description Data Roz rce(s) Supporting Document(s) white blood count 5.3 10 4.0-10.0 White Blood Count ANGELICA ([facility]) red blood count 5.84 10 4.30-6.10 Red Blood Count ATHE NA ([facility]) hemoglobin 17.3 g/dL 13.5-17.5 Hemoglobin ANGELICA ([facility]) hematocrit 51.4 % 42.0-52.0 Hematocrit ANGELICA ([facility]) mean corpuscular hemoglobin 29.6 pg 27.0-33.0 Mean Cor puscular Hemoglobin ANGELICA ([facility]) mean corpuscular volume 88.0 fL 80.0-96.0 Mean Corpusc ular Volume ANGELICA ([facility]) mean corpuscular HGB conc 33.7 g/dL 32.0-36.5 Mean Corpu scular HGB Conc ANGELICA ([facility]) neutrophils % 52.9 % 36.0-66.0 Neutrophils % ANGELICA ( [facility]) platelet count, automated 227 10 150-450 Platelet C ount, Automated ANGELICA ([facility]) red cell distribution width 12.7 % 11.5-14.5 Red Cell Distribution Width ANGELICA ([facility]) lymph % 35.5 % 24.0-44.0 Lymph % ANGELICA ([facility]) baso % 0.6 % 0.0-1.0 Baso % ANGELICA ([facility]) eos % 4.9 % 0.0-3.0 Above high normal Eos % ANGELICA ([facility]) mono % 5.9 % 0.0-5.0 Above high normal [place] % ANGELICA ([facility]) neutrophils # 2.8 10 1.5-8.5 Neutrophils # ANGELICA ( [facility]) nucleated red blood cell % 0.0 % 0-0 Nucleated Red Blood Cell % ANGELICA ([facility]) lymph # 1.9 10 1.5-5.0 Lymph # [place] ([facility]) immature granulocyte % 0.2 % 0-3.0 Immature Gran ulocyte % ANGELICA ([facility]) mono # 0.3 10 0.0-0.8 [place] # ANGELICA ([facility]) baso # 0.0 10 0.0-0.2 Baso # ANGELICA ([facility]) eos # 0.3 10 0.0-0.5 Eos # ANGELICA ([facility]) ID Date Data Source [id number] 05/20/2020 11:26:00 AM EST ANGELICA ([facility]) Name Value Range Interpretation Code Description Data Roz rce(s) Supporting Document(s) ID Date Data Source [id number] 05/20/2020 11:26:00 AM EST ANGELICA ([facility]) Name Value Range Interpretation Code Description Data Roz rce(s) Supporting Document(s) glucose, fasting 90 mg/dL 70-100 Glucose, Fasting AT [facility]) blood urea nitrogen 15 mg/dL 7-18 Blood Urea Nitro gen [place] ([facility]) chloride level 105 mEq/L 98-107 Chloride Level [place] ([facility]) potassium serum 4.3 mEq/L 3.5-5.1 Potassium Serum ATH NA ([facility]) sodium level 139 mEq/L 136-145 Sodium Level ANGELICA ([facility]) creatinine for GFR 0.84 mg/dL 0.70-1.30 Creatinine for GF R ANGELICA ([facility]) carbon dioxide level 28 mEq/L 21-32 Carbon Dioxide Level ANGELICA ([facility]) calcium level 9.8 mg/dL 8.5-10.1 Calcium Level [place] ( [facility]) anion gap 6 mEq/L 8-16 Below low normal Anion Gap [place] ( [facility]) ID Date Data Source [id number] 05/20/2020 11:26:00 AM EST ANGELICA ([facility]) Name Value Range Interpretation Code Description Data Roz rce(s) Supporting Document(s) AST/SGOT 19 U/L 7-37 AST/SGOT ANGELICA ([facility]) ALT/SGPT 40 U/L 12-78 ALT/SGPT ANGELICA ([facility]) total protein 7.5 gm/dL 6.4-8.2 Total Protein ANGELICA ( [facility]) alkaline phosphatase 109 U/L 45-117 Alkaline Phosph atase ANGELICA ([facility]) bilirubin,direct 0.2 mg/dL 0.0-0.2 Bilirubin,direct AT [place] ([facility]) bilirubin,total 0.6 mg/dL 0.2-1.0 Bilirubin,total ATHE NA ([facility]) albumin/globulin ratio Albumin/globu dana Ratio ANGELICA ([facility]) albumin 4.5 gm/dL 3.2-5.2 Albumin ANGELICA ([facility]) ID Date Data Source [id number] 05/20/2020 11:26:00 AM EST ANGELICA ([facility]) Name Value Range Interpretation Code Description Data Roz rce(s) Supporting Document(s) white blood count 5.3 10 4.0-10.0 White Blood Count ANGELICA ([facility]) hematocrit 51.4 % 42.0-52.0 Hematocrit ANGELICA ([facility]) red blood count 5.84 10 4.30-6.10 Red Blood Count ATHE NA ([facility]) hemoglobin 17.3 g/dL 13.5-17.5 Hemoglobin ANGELICA ([facility]) mean corpuscular HGB conc 33.7 g/dL 32.0-36.5 Mean Corpu scular HGB Conc ANGELICA ([facility]) mean corpuscular volume 88.0 fL 80.0-96.0 Mean Corpusc ular Volume ANGELICA ([facility]) mean corpuscular hemoglobin 29.6 pg 27.0-33.0 Mean Cor puscular Hemoglobin ANGELICA ([facility]) neutrophils % 52.9 % 36.0-66.0 Neutrophils % ANGELICA ( [facility]) platelet count, automated 227 10 150-450 Platelet C ount, Automated ANGELICA ([facility]) red cell distribution width 12.7 % 11.5-14.5 Red Cell Distribution Width ANGELICA ([facility]) lymph % 35.5 % 24.0-44.0 Lymph % ANGELICA ([facility]) mono % 5.9 % 0.0-5.0 Above high normal [place] % ANGELICA ([facility]) eos % 4.9 % 0.0-3.0 Above high normal Eos % ANEGLICA ([facility]) neutrophils # 2.8 10 1.5-8.5 Neutrophils # ANGELICA ( [facility]) baso % 0.6 % 0.0-1.0 Baso % ANGELICA ([facility]) immature granulocyte % 0.2 % 0-3.0 Immature Gran ulocyte % ANGELICA ([facility]) nucleated red blood cell % 0.0 % 0-0 Nucleated Red Blood Cell % ANGELICA ([facility]) lymph # 1.9 10 1.5-5.0 Lymph # ANGELICA ([facility]) eos # 0.3 10 0.0-0.5 Eos # ANGELICA ([facility]) mono # 0.3 10 0.0-0.8 [place] # ANGELICA ([facility]) baso # 0.0 10 0.0-0.2 Baso # ANGELICA ([facility]) ID Date Data Source [id number] 05/20/2020 11:26:00 AM EST ANGELICA ([facility]) Name Value Range Interpretation Code Description Data Roz rce(s) Supporting Document(s) ID Date Data Source [id number] 05/20/2020 11:26:00 AM EST ANGELICA ([facility]) Name Value Range Interpretation Code Description Data Roz rce(s) Supporting Document(s) blood urea nitrogen 15 mg/dL 7-18 Blood Urea Nitro gen ANGELICA ([facility]) glucose, fasting 90 mg/dL 70-100 Glucose, Fasting AT [place] ([facility]) creatinine for GFR 0.84 mg/dL 0.70-1.30 Creatinine for GF R ANGELICA ([facility]) potassium serum 4.3 mEq/L 3.5-5.1 Potassium Serum ATHE NA ([facility]) sodium level 139 mEq/L 136-145 Sodium Level ANGELICA ([facility]) anion gap 6 mEq/L 8-16 Below low normal Anion Gap ANGELICA ( [facility]) carbon dioxide level 28 mEq/L 21-32 Carbon Dioxide Level ANGELICA ([facility]) chloride level 105 mEq/L 98-107 Chloride Level ANGELICA ([facility]) calcium level 9.8 mg/dL 8.5-10.1 Calcium Level ANGELICA ( [facility]) ID Date Data Source [id number] 05/20/2020 11:26:00 AM EST ANGELICA ([facility]) Name Value Range Interpretation Code Description Data Roz rce(s) Supporting Document(s) ALT/SGPT 40 U/L 12-78 ALT/SGPT ANGELICA ([facility]) AST/SGOT 19 U/L 7-37 AST/SGOT ANGELICA ([facility]) alkaline phosphatase 109 U/L 45-117 Alkaline Phosph atase ANGELICA ([facility]) bilirubin,total 0.6 mg/dL 0.2-1.0 Bilirubin,total ATHE NA ([facility]) total protein 7.5 gm/dL 6.4-8.2 Total Protein ANGELICA ( [facility]) albumin 4.5 gm/dL 3.2-5.2 Albumin ANGLEICA ([facility]) bilirubin,direct 0.2 mg/dL 0.0-0.2 Bilirubin,direct AT [place] ([facility]) albumin/globulin ratio Albumin/globu dana Ratio ANGELICA ([facility]) ID Date Data Source [id number] 05/20/2020 11:26:00 AM EST ANGELICA ([facility]) Name Value Range Interpretation Code Description Data Roz rce(s) Supporting Document(s) white blood count 5.3 10 4.0-10.0 White Blood Count ANGELICA ([facility]) red blood count 5.84 10 4.30-6.10 Red Blood Count ATHE NA ([facility]) hemoglobin 17.3 g/dL 13.5-17.5 Hemoglobin ANGELICA ([facility]) mean corpuscular volume 88.0 fL 80.0-96.0 Mean Corpusc ular Volume ANGELICA ([facility]) hematocrit 51.4 % 42.0-52.0 Hematocrit ANGELICA ([facility]) mean corpuscular HGB conc 33.7 g/dL 32.0-36.5 Mean Corpu scular HGB Conc ANGELICA ([facility]) red cell distribution width 12.7 % 11.5-14.5 Red Cell Distribution Width ANGELICA ([facility]) platelet count, automated 227 10 150-450 Platelet C ount, Automated ANGELICA ([facility]) mean corpuscular hemoglobin 29.6 pg 27.0-33.0 Mean Cor puscular Hemoglobin ANGELICA ([facility]) lymph % 35.5 % 24.0-44.0 Lymph % ANGELICA ([facility]) mono % 5.9 % 0.0-5.0 Above high normal [place] % ANGELICA ([facility]) neutrophils % 52.9 % 36.0-66.0 Neutrophils % ANGELICA ( [facility]) eos % 4.9 % 0.0-3.0 Above high normal Eos % ANGELICA ([facility]) nucleated red blood cell % 0.0 % 0-0 Nucleated Red Blood Cell % ANGELICA ([facility]) baso % 0.6 % 0.0-1.0 Baso % ANGELICA ([facility]) immature granulocyte % 0.2 % 0-3.0 Immature Gran ulocyte % ANGELICA ([facility]) mono # 0.3 10 0.0-0.8 [place] # ANGELICA ([facility]) eos # 0.3 10 0.0-0.5 Eos # ANGELICA ([facility]) neutrophils # 2.8 10 1.5-8.5 Neutrophils # ANGELICA ( [facility]) lymph # 1.9 10 1.5-5.0 Lymph # ANGELICA ([facility]) baso # 0.0 10 0.0-0.2 Baso # ANGELICA ([facility]) ID Date Data Source [id number] 05/20/2020 11:26:00 AM EST ANGELICA ([facility]) Name Value Range Interpretation Code Description Data Roz rce(s) Supporting Document(s) ID Date Data Source [id number] 05/20/2020 11:26:00 AM EST ANGELICA ([facility]) Name Value Range Interpretation Code Description Data Roz rce(s) Supporting Document(s) creatinine for GFR 0.84 mg/dL 0.70-1.30 Creatinine for GF R [place] ([facility]) blood urea nitrogen 15 mg/dL 7-18 Blood Urea Nitro gen ANGELICA ([facility]) glucose, fasting 90 mg/dL 70-100 Glucose, Fasting AT CRISTINA ([facility]) sodium level 139 mEq/L 136-145 Sodium Level ANGELICA ([facility]) chloride level 105 mEq/L 98-107 Chloride Level ANGELICA ([facility]) carbon dioxide level 28 mEq/L 21-32 Carbon Dioxide Level [place] ([facility]) potassium serum 4.3 mEq/L 3.5-5.1 Potassium Serum ATHE NA ([facility]) anion gap 6 mEq/L 8-16 Below low normal Anion Gap ANGELICA ( [facility]) calcium level 9.8 mg/dL 8.5-10.1 Calcium Level [place] ( [facility]) ID Date Data Source [id number] 05/20/2020 11:26:00 AM EST ANGELICA ([facility]) Name Value Range Interpretation Code Description Data Roz rce(s) Supporting Document(s) alkaline phosphatase 109 U/L 45-117 Alkaline Phosph atase ANGELICA ([facility]) AST/SGOT 19 U/L 7-37 AST/SGOT ANGELICA ([facility]) ALT/SGPT 40 U/L 12-78 ALT/SGPT ANGELICA ([facility]) albumin 4.5 gm/dL 3.2-5.2 Albumin ANGELICA ([facility]) bilirubin,direct 0.2 mg/dL 0.0-0.2 Bilirubin,direct AT CRISTINA ([facility]) bilirubin,total 0.6 mg/dL 0.2-1.0 Bilirubin,total ATHE NA ([facility]) total protein 7.5 gm/dL 6.4-8.2 Total Protein ANGELICA ( [facility]) albumin/globulin ratio Albumin/globu dana Ratio ANGELICA ([facility]) ID Date Data Source [id number] 05/20/2020 11:26:00 AM EST ANGELICA ([facility]) Name Value Range Interpretation Code Description Data Roz rce(s) Supporting Document(s) white blood count 5.3 10 4.0-10.0 White Blood Count ANGELICA ([facility]) hemoglobin 17.3 g/dL 13.5-17.5 Hemoglobin ANGELICA ([facility]) red blood count 5.84 10 4.30-6.10 Red Blood Count ATHE ([facility]) hematocrit 51.4 % 42.0-52.0 Hematocrit ANGELICA ([facility]) mean corpuscular hemoglobin 29.6 pg 27.0-33.0 Mean Cor puscular Hemoglobin ANGELICA ([facility]) mean corpuscular HGB conc 33.7 g/dL 32.0-36.5 Mean Corpu scular HGB Conc ANGELICA ([facility]) mean corpuscular volume 88.0 fL 80.0-96.0 Mean Corpusc ular Volume ANGELICA ([facility]) red cell distribution width 12.7 % 11.5-14.5 Red Cell Distribution Width ANGELICA ([facility]) platelet count, automated 227 10 150-450 Platelet C ount, Automated ANGELICA ([facility]) lymph % 35.5 % 24.0-44.0 Lymph % ANGELICA ([facility]) neutrophils % 52.9 % 36.0-66.0 Neutrophils % ANGELICA ( [facility]) baso % 0.6 % 0.0-1.0 Baso % ANGELICA ([facility]) eos % 4.9 % 0.0-3.0 Above high normal [place] % ANGELICA ([facility]) immature granulocyte % 0.2 % 0-3.0 Immature Gran ulocyte % ANGELICA ([facility]) mono % 5.9 % 0.0-5.0 Above high normal [place] % ANGELICA ([facility]) mono # 0.3 10 0.0-0.8 [place] # ANGELICA ([facility]) lymph # 1.9 10 1.5-5.0 Lymph # ANGELICA ([facility]) nucleated red blood cell % 0.0 % 0-0 Nucleated Red Blood Cell % ANGELICA ([facility]) neutrophils # 2.8 10 1.5-8.5 Neutrophils # ANGELICA ( [facility]) eos # 0.3 10 0.0-0.5 Eos # ANGELICA ([facility]) baso # 0.0 10 0.0-0.2 Baso # ANGELICA ([facility]) ID Date Data Source [id number] 05/20/2020 11:26:00 AM EST ANGELICA ([facility]) Name Value Range Interpretation Code Description Data Roz rce(s) Supporting Document(s) ID Date Data Source [id number] 05/20/2020 11:26:00 AM EST ANGELICA ([facility]) Name Value Range Interpretation Code Description Data Roz rce(s) Supporting Document(s) glucose, fasting 90 mg/dL 70-100 Glucose, Fasting AT CRISTINA ([facility]) potassium serum 4.3 mEq/L 3.5-5.1 Potassium Serum ATHE NA ([facility]) creatinine for GFR 0.84 mg/dL 0.70-1.30 Creatinine for GF R ANGELICA ([facility]) blood urea nitrogen 15 mg/dL 7-18 Blood Urea Nitro gen ANGELICA ([facility]) sodium level 139 mEq/L 136-145 Sodium Level ANGELICA ([facility]) anion gap 6 mEq/L 8-16 Below low normal Anion Gap ANGELCIA ( [facility]) carbon dioxide level 28 mEq/L 21-32 Carbon Dioxide Level ANGELICA ([facility]) calcium level 9.8 mg/dL 8.5-10.1 Calcium Level ANGELICA ( [facility]) chloride level 105 mEq/L 98-107 Chloride Level ANGELICA ([facility]) ID Date Data Source [id number] 05/20/2020 11:26:00 AM EST ANGELICA ([facility]) Name Value Range Interpretation Code Description Data Roz rce(s) Supporting Document(s) ALT/SGPT 40 U/L 12-78 ALT/SGPT ANGELICA ([facility]) alkaline phosphatase 109 U/L 45-117 Alkaline Phosph atase ANGELICA ([facility]) AST/SGOT 19 U/L 7-37 AST/SGOT ANGELICA ([facility]) albumin/globulin ratio Albumin/globu dana Ratio ANGELICA ([facility]) bilirubin,total 0.6 mg/dL 0.2-1.0 Bilirubin,total ATHE NA ([facility]) bilirubin,direct 0.2 mg/dL 0.0-0.2 Bilirubin,direct AT CRISTINA [facility]) total protein 7.5 gm/dL 6.4-8.2 Total Protein ANGELICA ( [facility]) albumin 4.5 gm/dL 3.2-5.2 Albumin ANGELICA ([facility]) ID Date Data Source [id number] 05/20/2020 11:26:00 AM EST ANGELICA ([facility]) Name Value Range Interpretation Code Description Data Roz rce(s) Supporting Document(s) white blood count 5.3 10 4.0-10.0 White Blood Count ANGELICA ([facility]) hemoglobin 17.3 g/dL 13.5-17.5 Hemoglobin ANGELICA ([facility]) red blood count 5.84 10 4.30-6.10 Red Blood Count ATHE NA ([facility]) hematocrit 51.4 % 42.0-52.0 Hematocrit ANGELICA ([facility]) mean corpuscular volume 88.0 fL 80.0-96.0 Mean Corpusc ular Volume ANGELICA ([facility]) mean corpuscular hemoglobin 29.6 pg 27.0-33.0 Mean Cor puscular Hemoglobin ANGELICA ([facility]) mean corpuscular HGB conc 33.7 g/dL 32.0-36.5 Mean Corpu scular HGB Conc ANGELICA ([facility]) platelet count, automated 227 10 150-450 Platelet C ount, Automated ANGELICA ([facility]) neutrophils % 52.9 % 36.0-66.0 Neutrophils % ANGELICA ( [facility]) lymph % 35.5 % 24.0-44.0 Lymph % ANGELICA ([facility]) red cell distribution width 12.7 % 11.5-14.5 Red Cell Distribution Width ANGELICA ([facility]) immature granulocyte % 0.2 % 0-3.0 Immature Gran ulocyte % ANGELICA ([facility]) baso % 0.6 % 0.0-1.0 Baso % ANGELICA ([facility]) mono % 5.9 % 0.0-5.0 Above high normal [place] % ANGELICA ([facility]) eos % 4.9 % 0.0-3.0 Above high normal [place] % ANGELICA ([facility]) neutrophils # 2.8 10 1.5-8.5 Neutrophils # ANGELICA ( [facility]) nucleated red blood cell % 0.0 % 0-0 Nucleated Red Blood Cell % ANGELICA ([facility]) mono # 0.3 10 0.0-0.8 [place] # ANGELICA ([facility]) lymph # 1.9 10 1.5-5.0 Lymph # ANGELICA ([facility]) baso # 0.0 10 0.0-0.2 Baso # ANGELICA ([facility]) eos # 0.3 10 0.0-0.5 Eos # ANGELICA ([facility]) ID Date Data Source [id number] 05/20/2020 11:26:00 AM EST [facility] Name Value Range Interpretation Code Description Data Roz rce(s) Supporting Document(s) SARS coronavirus 2 RNA [facility] This lab was ordered by [facility] and reported by [facility]. Procedure Social History Code Duration Value Status Description Data Source(s ) Smoking 04/01/2021 12:00:00 AM EDT Unknown if ever smoked comp leted Unknown if ever smoked [facility] ([facility]) Smoking 03/12/2021 12:00:00 AM EDT Unknown if ever smoked comp leted Unknown if ever smoked [facility] ([facility]) Smoking 01/01/2021 12:00:00 AM EDT Unknown if ever smoked comp leted Unknown if ever smoked [facility] ([facility]) Smoking 12/19/2020 12:00:00 AM EDT Unknown if ever smoked comp leted Unknown if ever smoked [facility] ([facility]) Smoking 12/03/2020 12:00:00 AM EDT Unknown if ever smoked comp leted Unknown if ever smoked [facility] ([facility]) Smoking 11/28/2020 12:00:00 AM EDT Unknown if ever smoked comp leted Unknown if ever smoked [facility] ([facility]) Smoking 10/24/2020 12:00:00 AM EDT Unknown if ever smoked comp leted Unknown if ever smoked [facility] ([facility]) Smoking 10/09/2020 12:00:00 AM EDT Unknown if ever smoked comp leted Unknown if ever smoked [facility] ([facility]) Smoking 10/08/2020 12:00:00 AM EDT Unknown if ever smoked comp leted Unknown if ever smoked [facility] ([facility]) Smoking 09/17/2020 12:00:00 AM EDT Unknown if ever smoked comp leted Unknown if ever smoked [facility] ([facility]) Smoking 09/12/2020 12:00:00 AM EDT Unknown if ever smoked comp leted Unknown if ever smoked [facility] ([facility] Smoking 09/01/2020 12:00:00 AM EDT Unknown if ever smoked comp leted Unknown if ever smoked [facility] ([facility]) Smoking 08/29/2020 12:00:00 AM EST Unknown if ever smoked comp leted Unknown if ever smoked [facility] ([facility]) Smoking 08/08/2020 12:00:00 AM EST Unknown if ever smoked comp leted Unknown if ever smoked [facility] ([facility]) Smoking 07/25/2020 12:00:00 AM EST Unknown if ever smoked comp leted Unknown if ever smoked [facility] ([facility]) Smoking 07/18/2020 12:00:00 AM EST Unknown if ever smoked comp leted Unknown if ever smoked [facility] ([facility]) Smoking 07/02/2020 12:00:00 AM EST Unknown if ever smoked comp leted Unknown if ever smoked [facility] ([facility]) Smoking 06/04/2020 12:00:00 AM EST Unknown if ever smoked comp leted Unknown if ever smoked [facility] ([facility]) Smoking 04/25/2020 12:00:00 AM EST Unknown if ever smoked comp leted Unknown if ever smoked [facility] ([facility]) Smoking 04/17/2020 12:00:00 AM EDT Unknown if ever smoked comp leted Unknown if ever smoked [facility] ([facility]) Smoking 03/19/2020 12:00:00 AM EDT Unknown if ever smoked comp leted Unknown if ever smoked [facility] ([facility]) Vital Signs ID Date Data Source [id number] Name Value Range Interpretation Code Description Data Source(s) Diastolic blood pressure 79 mm[Hg] 79 mm[Hg] ANGELICA ([facility]) Body height 68.8 [in_i] 68.8 [in_i] ANGELICA ([facility]) Body mass index (BMI) [Ratio] 32.6 kg/m2 32.6 k g/m2 ANGELICA ([facility]) Systolic blood pressure 129 mm[Hg] 129 mm[Hg] A THENA ([facility]) Body weight 3510 [oz_av] 3510 [oz_av] ANGELICA ([facility]) Body height 68.8 [in_i] 68.8 [in_i] ANGELICA ([facility]) Body mass index (BMI) [Ratio] 31.4 kg/m2 31.4 k g/m2 ANGELICA ([facility]) Diastolic blood pressure 79 mm[Hg] 79 mm[Hg] ANGELICA ([facility]) Systolic blood pressure 122 mm[Hg] 122 mm[Hg] A THENA ([facility]) Body weight 3378 [oz_av] 3378 [oz_av] ANGELICA ([facility]) Diastolic blood pressure 79 mm[Hg] 79 mm[Hg] ANGELICA ([facility]) Body height 68.8 [in_i] 68.8 [in_i] ANGELICA ([facility]) Body mass index (BMI) [Ratio] 31.4 kg/m2 31.4 k g/m2 ANGELICA ([facility]) Systolic blood pressure 122 mm[Hg] 122 mm[Hg] A THENA ([facility]) Body weight 3378 [oz_av] 3378 [oz_av] ANGELICA ([facility]) Diastolic blood pressure 79 mm[Hg] 79 mm[Hg] ANGELICA ([facility]) Body height 68.8 [in_i] 68.8 [in_i] ANGELICA ([facility]) Body mass index (BMI) [Ratio] 31.4 kg/m2 31.4 k g/m2 NAGELICA ([facility]) Systolic blood pressure 122 mm[Hg] 122 mm[Hg] A THENA ([facility]) Body weight 3378 [oz_av] 3378 [oz_av] ANGELICA ([facility]) Diastolic blood pressure 79 mm[Hg] 79 mm[Hg] ANGELICA ([facility]) Body height 68.8 [in_i] 68.8 [in_i] ANGELICA ([facility]) Body mass index (BMI) [Ratio] 31.4 kg/m2 31.4 k g/m2 ANGELICA ([facility]) Systolic blood pressure 122 mm[Hg] 122 mm[Hg] A THENA ([facility]) Body weight 3378 [oz_av] 3378 [oz_av] ANGELICA ([facility]) Body height 0.00 in Normal (applies to non-numeric resu lts) 0.00 in [facility] ([facility]) Body weight Measured 0.00 lbs Normal (applies to n on-numeric results) 0.00 lbs [facility] ([facility]) Body mass index (BMI) [Ratio] 0.00 kg/m2 No rmal (applies to non-numeric results) 0.00 kg/m2 [facility] ([facility]) Systolic blood pressure 0 mm[Hg] Normal (applies t o non-numeric results) 0 mm[Hg] [facility] ([facility]) Diastolic blood pressure 0 mm[Hg] Normal (applies to non-numeric results) 0 mm[Hg] [facility] ([facility]) Body height 0.00 in Normal (applies to non-numeric resu lts) 0.00 in [facility] ([facility]) Body weight Measured 0.00 lbs Normal (applies to n on-numeric results) 0.00 lbs [facility] ([facility]) Body mass index (BMI) [Ratio] 0.00 kg/m2 No rmal (applies to non-numeric results) 0.00 kg[facility] Systolic blood pressure 0 mm[Hg] Normal (applies t o non-numeric results) 0 mm[Hg] [facility] ([facility]) Diastolic blood pressure 0 mm[Hg] Normal (applies to non-numeric results) 0 mm[Hg] [facility] Diastolic blood pressure 82 mm[Hg] 82 mm[Hg] ANGELICA ([facility]) Body height 68.8 [in_i] 68.8 [in_i] ANGELICA ([facility]) Body mass index (BMI) [Ratio] 26.8 kg/m2 26.8 k g/m2 ANGELICA ([facility]) Systolic blood pressure 129 mm[Hg] 129 mm[Hg] A THENA ([facility]) Body weight 2889.6 [oz_av] 2889.6 [oz_av] ATHEN A ([facility]) Systolic blood pressure 129 mm[Hg] 129 mm[Hg] A THENA ([facility]) Diastolic blood pressure 82 mm[Hg] 82 mm[Hg] ANGELICA ([facility]) Body height 68.8 [in_i] 68.8 [in_i] ANGELICA ([facility]) Body mass index (BMI) [Ratio] 26.8 kg/m2 26.8 k g/m2 ANGELICA ([facility]) Body weight 2889.6 [oz_av] 2889.6 [oz_av] ATHEN A ([facility]) Body weight 2889.6 [oz_av] 2889.6 [oz_av] ATHEN A ([facility]) Diastolic blood pressure 82 mm[Hg] 82 mm[Hg] ANGELICA ([facility]) Body height 68.8 [in_i] 68.8 [in_i] ANGELICA ([facility]) Body mass index (BMI) [Ratio] 26.8 kg/m2 26.8 k g/m2 ANGELICA ([facility]) Systolic blood pressure 129 mm[Hg] 129 mm[Hg] A THENA ([facility]) Diastolic blood pressure 82 mm[Hg] 82 mm[Hg] ANGELICA ([facility]) Body height 68.8 [in_i] 68.8 [in_i] ANGELICA ([facility]) Body mass index (BMI) [Ratio] 26.8 kg/m2 26.8 k g/m2 ANGELICA ([facility]) Systolic blood pressure 129 mm[Hg] 129 mm[Hg] A THENA ([facility]) Body weight 2889.6 [oz_av] 2889.6 [oz_av] ATHEN A ([facility]) Diastolic blood pressure 82 mm[Hg] 82 mm[Hg] ANGELICA ([facility]) Body height 68.8 [in_i] 68.8 [in_i] ANGELICA ([facility]) Body mass index (BMI) [Ratio] 26.8 kg/m2 26.8 k g/m2 ANGELICA ([facility]) Systolic blood pressure 129 mm[Hg] 129 mm[Hg] A THENA ([facility]) Body weight 2889.6 [oz_av] 2889.6 [oz_av] ATHEN A ([facility]) Diastolic blood pressure 82 mm[Hg] 82 mm[Hg] ANGELICA ([facility]) Body height 68.8 [in_i] 68.8 [in_i] ANGELICA ([facility]) Body mass index (BMI) [Ratio] 26.8 kg/m2 26.8 k g/m2 ANGELICA ([facility]) Systolic blood pressure 129 mm[Hg] 129 mm[Hg] A THENA ([facility]) Body weight 2889.6 [oz_av] 2889.6 [oz_av] ATHEN A ([facility]) Body height 0.00 in Normal (applies to non-numeric resu lts) 0.00 in [facility] ([facility]) Body weight Measured 0.00 lbs Normal (applies to n on-numeric results) 0.00 lbs [facility] Body mass index (BMI) [Ratio] 0.00 kg/m2 No rmal (applies to non-numeric results) 0.00 kg/m2 [facility] Systolic blood pressure 0 mm[Hg] Normal (applies t o non-numeric results) 0 mm[Hg] [facility] Diastolic blood pressure 0 mm[Hg] Normal (applies to non-numeric results) 0 mm[Hg] [facility] Body height 68.8 [in_i] 68.8 [in_i] ANGELICA ([facility]) Body height 68.8 [in_i] 68.8 [in_i] ANGELICA ([facility]) Body height 68.8 [in_i] 68.8 [in_i] ANGELICA ([facility]) Body height 68.8 [in_i] 68.8 [in_i] ANGELICA ([facility]) Body height 68.8 [in_i] 68.8 [in_i] ANGELICA ([facility]) Body height 68.8 [in_i] 68.8 [in_i] ANGELICA ([facility]) Body height 68.8 [in_i] 68.8 [in_i] ANGELICA ([facility]) Body height 68.8 [in_i] 68.8 [in_i] ANGELICA ([facility]) Body height 68.8 [in_i] 68.8 [in_i] ANGELICA ([facility]) Body height 68.8 [in_i] 68.8 [in_i] ANGELICA ([facility]) Body height 68.8 [in_i] 68.8 [in_i] ANGELICA ([facility]) Body height 68.8 [in_i] 68.8 [in_i] ANGELICA ([facility]) Body height 68.8 [in_i] 68.8 [in_i] ANGELICA ([facility]) Body height 68.8 [in_i] 68.8 [in_i] ANGELICA ([facility]) Body height 68.8 [in_i] 68.8 [in_i] ANGELICA ([facility]) Body height 0.00 in Normal (applies to non-numeric resu lts) 0.00 in [facility] ([facility]) Body weight Measured 0.00 lbs Normal (applies to n on-numeric results) 0.00 lbs [facility] Body mass index (BMI) [Ratio] 0.00 kg/m2 No rmal (applies to non-numeric results) 0.00 kg/m2 [facility] ([facility]) Systolic blood pressure 0 mm[Hg] Normal (applies t o non-numeric results) 0 mm[Hg] [facility] Diastolic blood pressure 0 mm[Hg] Normal (applies to non-numeric results) 0 mm[Hg] [facility] ([facility]) Diastolic blood pressure 82 mm[Hg] 82 mm[Hg] ANGELICA ([facility]) Body height 68.8 [in_i] 68.8 [in_i] ANGELICA ([facility]) Body mass index (BMI) [Ratio] 25.3 kg/m2 25.3 k g/m2 ANGELICA ([facility]) Systolic blood pressure 128 mm[Hg] 128 mm[Hg] [facility] Body weight 2720 [oz_av] 2720 [oz_av] ANGELICA ([facility]) Body weight 2720 [oz_av] 2720 [oz_av] ANGELICA ([facility]) Diastolic blood pressure 82 mm[Hg] 82 mm[Hg] ANGELICA ([facility]) Body height 68.8 [in_i] 68.8 [in_i] ANGELICA ([facility]) Body mass index (BMI) [Ratio] 25.3 kg/m2 25.3 k g/m2 ANGELICA ([facility]) Systolic blood pressure 128 mm[Hg] 128 mm[Hg] [facility] Diastolic blood pressure 82 mm[Hg] 82 mm[Hg] ANGELICA ([facility]) Body height 68.8 [in_i] 68.8 [in_i] ANGELICA ([facility]) Body mass index (BMI) [Ratio] 25.3 kg/m2 25.3 k g/m2 ANGELICA ([facility]) Systolic blood pressure 128 mm[Hg] 128 mm[Hg] A THENA ([facility]) Body weight 2720 [oz_av] 2720 [oz_av] ANGELICA ([facility]) Body mass index (BMI) [Ratio] 25.3 kg/m2 25.3 k g/m2 ANGELICA ([facility]) Diastolic blood pressure 82 mm[Hg] 82 mm[Hg] ANGELICA ([facility]) Body height 68.8 [in_i] 68.8 [in_i] ANGELICA ([facility]) Systolic blood pressure 128 mm[Hg] 128 mm[Hg] A THENA ([facility]) Body weight 2720 [oz_av] 2720 [oz_av] ANGELICA ([facility]) Diastolic blood pressure 82 mm[Hg] 82 mm[Hg] ANGELICA ([facility]) Body height 68.8 [in_i] 68.8 [in_i] ANGELICA ([facility]) Body mass index (BMI) [Ratio] 25.3 kg/m2 25.3 k g/m2 ANGELICA ([facility]) Systolic blood pressure 128 mm[Hg] 128 mm[Hg] A THENA ([facility]) Body weight 2720 [oz_av] 2720 [oz_av] ANGELICA ([facility]) Diastolic blood pressure 82 mm[Hg] 82 mm[Hg] ANGELICA ([facility]) Body height 68.8 [in_i] 68.8 [in_i] ANGELICA ([facility]) Body mass index (BMI) [Ratio] 25.3 kg/m2 25.3 k g/m2 ANGELICA ([facility]) Systolic blood pressure 128 mm[Hg] 128 mm[Hg] A THENA ([facility]) Body weight 2720 [oz_av] 2720 [oz_av] ANGELICA ([facility]) Diastolic blood pressure 82 mm[Hg] 82 mm[Hg] ANGELICA ([facility]) Body height 68.8 [in_i] 68.8 [in_i] ANGELICA ([facility]) Body mass index (BMI) [Ratio] 25.3 kg/m2 25.3 k g/m2 ANGLEICA ([facility]) Systolic blood pressure 128 mm[Hg] 128 mm[Hg] A THENA ([facility]) Body weight 2720 [oz_av] 2720 [oz_av] ANGELICA ([facility]) Diastolic blood pressure 82 mm[Hg] 82 mm[Hg] ANGELICA ([facility]) Body height 68.8 [in_i] 68.8 [in_i] ANGELICA ([facility]) Body mass index (BMI) [Ratio] 25.3 kg/m2 25.3 k g/m2 ANGELICA ([facility]) Systolic blood pressure 128 mm[Hg] 128 mm[Hg] [facility] Body weight 2720 [oz_av] 2720 [oz_av] ANGELICA ([facility]) Diastolic blood pressure 82 mm[Hg] 82 mm[Hg] ANGELICA ([facility]) Body height 68.8 [in_i] 68.8 [in_i] ANGELICA ([facility]) Body mass index (BMI) [Ratio] 25.3 kg/m2 25.3 k g/m2 ANGELICA ([facility]) Systolic blood pressure 128 mm[Hg] 128 mm[Hg] [facility] Body weight 2720 [oz_av] 2720 [oz_av] ANGELICA ([facility]) Diastolic blood pressure 78 mm[Hg] 78 mm[Hg] ANGELICA ([facility]) Body height 68.8 [in_i] 68.8 [in_i] ANGELICA ([facility]) Body mass index (BMI) [Ratio] 24.4 kg/m2 24.4 k g/m2 ANGELICA ([facility]) Systolic blood pressure 133 mm[Hg] 133 mm[Hg] [facility] Body weight 2632 [oz_av] 2632 [oz_av] ANGELICA ([facility]) Body mass index (BMI) [Ratio] 24.4 kg/m2 24.4 k g/m2 ANGELICA ([facility]) Systolic blood pressure 133 mm[Hg] 133 mm[Hg] [facility] Body weight 2632 [oz_av] 2632 [oz_av] ANGELICA ([facility]) Diastolic blood pressure 78 mm[Hg] 78 mm[Hg] ANGELICA ([facility]) Body height 68.8 [in_i] 68.8 [in_i] ANGELICA ([facility]) Diastolic blood pressure 78 mm[Hg] 78 mm[Hg] ANGELICA ([facility]) Body height 68.8 [in_i] 68.8 [in_i] ANGELICA ([facility]) Body mass index (BMI) [Ratio] 24.4 kg/m2 24.4 k g/m2 ANGELICA ([facility]) Systolic blood pressure 133 mm[Hg] 133 mm[Hg] A [facility] ([facility]) Body weight 2632 [oz_av] 2632 [oz_av] ANGELICA ([facility]) Diastolic blood pressure 78 mm[Hg] 78 mm[Hg] ANGELICA ([facility]) Body height 68.8 [in_i] 68.8 [in_i] ANGELICA ([facility]) Body mass index (BMI) [Ratio] 24.4 kg/m2 24.4 k g/m2 ANGELICA ([facility]) Systolic blood pressure 133 mm[Hg] 133 mm[Hg] A [facility] ([facility]) Body weight 2632 [oz_av] 2632 [oz_av] ANGELICA ([facility]) Diastolic blood pressure 78 mm[Hg] 78 mm[Hg] ANGELICA ([facility]) Body height 68.8 [in_i] 68.8 [in_i] ANGELICA ([facility]) Body mass index (BMI) [Ratio] 24.4 kg/m2 24.4 k g/m2 ANGELICA ([facility]) Systolic blood pressure 133 mm[Hg] 133 mm[Hg] [facility] Body weight 2632 [oz_av] 2632 [oz_av] ANGELICA ([facility]) Diastolic blood pressure 78 mm[Hg] 78 mm[Hg] ANGELICA ([facility]) Body height 68.8 [in_i] 68.8 [in_i] ANGELICA ([facility]) Body mass index (BMI) [Ratio] 24.4 kg/m2 24.4 k g/m2 ANGELICA ([facility]) Systolic blood pressure 133 mm[Hg] 133 mm[Hg] [facility] Body weight 2632 [oz_av] 2632 [oz_av] ANGELICA ([facility]) Diastolic blood pressure 78 mm[Hg] 78 mm[Hg] ANGELICA ([facility]) Body height 68.8 [in_i] 68.8 [in_i] ANGELICA ([facility]) Body mass index (BMI) [Ratio] 24.4 kg/m2 24.4 k g/m2 ANGELICA ([facility]) Systolic blood pressure 133 mm[Hg] 133 mm[Hg] [facility] Body weight 2632 [oz_av] 2632 [oz_av] ANGELICA ([facility]) Diastolic blood pressure 78 mm[Hg] 78 mm[Hg] ANGELICA ([facility]) Body height 68.8 [in_i] 68.8 [in_i] ANGELICA ([facility]) Body mass index (BMI) [Ratio] 24.4 kg/m2 24.4 k g/m2 ANGELICA ([facility]) Systolic blood pressure 133 mm[Hg] 133 mm[Hg] A THENA ([facility]) Body weight 2632 [oz_av] 2632 [oz_av] ANGELICA ([facility]) Diastolic blood pressure 78 mm[Hg] 78 mm[Hg] ANGELICA ([facility]) Body height 68.8 [in_i] 68.8 [in_i] ANGELICA ([facility]) Body mass index (BMI) [Ratio] 24.4 kg/m2 24.4 k g/m2 ANGELICA ([facility]) Systolic blood pressure 133 mm[Hg] 133 mm[Hg] A THENA ([facility]) Body weight 2632 [oz_av] 2632 [oz_av] ANGELCIA ([facility]) Diastolic blood pressure 78 mm[Hg] 78 mm[Hg] ANGELICA ([facility]) Body height 68.8 [in_i] 68.8 [in_i] ANGELICA ([facility]) Body mass index (BMI) [Ratio] 24.4 kg/m2 24.4 k g/m2 ANGELICA ([facility]) Systolic blood pressure 133 mm[Hg] 133 mm[Hg] A THENA ([facility]) Body weight 2632 [oz_av] 2632 [oz_av] ANGELICA ([facility]) Body weight Measured 0.00 lbs Normal (applies to n on-numeric results) 0.00 lbs [facility] ([facility]) Body height 0.00 in Normal (applies to non-numeric resu lts) 0.00 in [facility] ([facility]) Diastolic blood pressure 0 mm[Hg] Normal (applies to non-numeric results) 0 mm[Hg] [facility] ([facility]) Body mass index (BMI) [Ratio] 0.00 kg/m2 No rmal (applies to non-numeric results) 0.00 kg/m2 [facility] ([facility]) Systolic blood pressure 0 mm[Hg] Normal (applies t o non-numeric results) 0 mm[Hg] [facility] Care Planned Activity Planned Date Details Description Data Source (s) aripiprazole 30 MG Oral Tablet ANGELICA ([facility]) Amoxicillin 500 MG Oral Capsule ANGELICA ([facility]) aripiprazole 30 MG Oral Tablet ANGELICA ([facility]) Amoxicillin 500 MG Oral Capsule ANGELICA ([facility]) Prazosin 1 MG Oral Capsule A THENA ([facility]) Ondansetron 4 MG Disintegrating Oral Tablet ANGELICA ([facility]) methylphenidate ER 54 mg tablet,extended release 24 hr ANGELICA ([facility]) methylphenidate ER 36 mg tablet,extended release 24 hr ANGELICA ([facility]) [facility] Dival[facility] Sodium 250 MG Delayed Release Oral Tablet ANGELICA ([facility]) Clonidine Hydrochloride 0.2 MG Oral Tablet ANGELICA ([facility]) buspirone hydrochloride 5 MG Oral Tablet ANGELICA ([facility]) buspirone hydrochloride 15 MG Oral Tablet ANGELICA ([facility]) aripiprazole 30 MG Oral Tablet ANGELICA ([facility]) Amoxicillin 500 MG Oral Capsule ANGELICA ([facility]) Prazosin 1 MG Oral Capsule A THENA ([facility]) Ondansetron 4 MG Disintegrating Oral Tablet ANGELICA ([facility]) methylphenidate ER 36 mg tablet,extended release 24 hr ANGELICA ([facility]) Amoxicillin 500 MG Oral Capsule ANGELICA ([facility]) Prazosin 1 MG Oral Capsule A THENA ([facility]) Ondansetron 4 MG Disintegrating Oral Tablet ANGELICA ([facility]) methylphenidate ER 36 mg tablet,extended release 24 hr ANGELICA ([facility]) Amoxicillin 500 MG Oral Capsule ANGELICA ([facility]) Prazosin 1 MG Oral Capsule A THENA ([facility]) Ondansetron 4 MG Disintegrating Oral Tablet ANGELICA ([facility]) methylphenidate ER 36 mg tablet,extended release 24 hr ANGELICA ([facility]) Amoxicillin 500 MG Oral Capsule ANGELICA ([facility]) methylphenidate ER 36 mg tablet,extended release 24 hr ANGELICA ([facility]) Amoxicillin 500 MG Oral Capsule ANGELICA ([facility]) Vraylar 3 mg capsule ANGELICA ([facility]) Vraylar 1.5 mg capsule TAKE 3 CAPSULES 4.5MG BY MOUTH DAILY FOR M OOD ANGELICA ([facility]) Ondansetron 4 MG Disintegrating Oral Tablet ANGELICA ([facility]) methylphenidate ER 54 mg tablet,extended release 24 hr ANGELICA ([facility]) methylphenidate ER 36 mg tablet,extended release 24 hr ANGELICA ([facility]) Guanfacine 1 MG Oral Tablet ANGELICA ([facility]) Divalproex Sodium 250 MG Delayed Release Oral Tablet ANGELICA ([facility]) Clonidine Hydrochloride 0.2 MG Oral Tablet ANGELICA ([facility]) buspirone hydrochloride 5 MG Oral Tablet ANGELICA ([facility]) buspirone hydrochloride 15 MG Oral Tablet ANGELICA ([facility]) aripiprazole 30 MG Oral Tablet ANGELICA ([facility]) Amoxicillin 500 MG Oral Capsule ANGELICA ([facility]) Vraylar 3 mg capsule ANGELICA ([facility]) Vraylar 1.5 mg capsule TAKE 3 CAPSULES 4.5MG BY MOUTH DAILY FOR M OOD ANGELICA ([facility]) Ondansetron 4 MG Disintegrating Oral Tablet ANGELICA ([facility]) methylphenidate ER 54 mg tablet,extended release 24 hr ANGELICA ([facility]) methylphenidate ER 36 mg tablet,extended release 24 hr ANGELICA ([facility]) Guanfacine 1 MG Oral Tablet ANGELICA ([facility]) Divalproex Sodium 250 MG Delayed Release Oral Tablet ANGELICA ([facility]) Clonidine Hydrochloride 0.2 MG Oral Tablet ANGELICA ([facility]) buspirone hydrochloride 5 MG Oral Tablet ANGELICA ([facility]) buspirone hydrochloride 15 MG Oral Tablet ANGELICA ([facility]) Vraylar 3 mg capsule ANGELICA ([facility]) Vraylar 1.5 mg capsule TAKE 3 CAPSULES 4.5MG BY MOUTH DAILY FOR M OOD ANGELICA ([facility]) Ondansetron 4 MG Disintegrating Oral Tablet ANGELICA ([facility]) methylphenidate ER 54 mg tablet,extended release 24 hr ANGELICA ([facility]) methylphenidate ER 36 mg tablet,extended release 24 hr ANGELICA ([facility]) Guanfacine 1 MG Oral Tablet ANGELICA ([facility]) Divalproex Sodium 250 MG Delayed Release Oral Tablet ANGELICA ([facility]) Clonidine Hydrochloride 0.2 MG Oral Tablet ANGELICA ([facility]) buspirone hydrochloride 5 MG Oral Tablet ANGELICA ([facility]) buspirone hydrochloride 15 MG Oral Tablet ANGELICA ([facility]) Vraylar 3 mg capsule ANGELICA ([facility]) Vraylar 1.5 mg capsule TAKE 3 CAPSULES 4.5MG BY MOUTH DAILY FOR M OOD ANGELICA ([facility]) Ondansetron 4 MG Disintegrating Oral Tablet ANGELICA ([facility]) methylphenidate ER 54 mg tablet,extended release 24 hr ANGELICA ([facility]) methylphenidate ER 36 mg tablet,extended release 24 hr ANGELICA ([facility]) Guanfacine 1 MG Oral Tablet ANGELICA ([facility]) Divalproex Sodium 250 MG Delayed Release Oral Tablet ANGELICA ([facility]) Clonidine Hydrochloride 0.2 MG Oral Tablet ANGELICA ([facility]) buspirone hydrochloride 5 MG Oral Tablet ANGELICA ([facility]) buspirone hydrochloride 15 MG Oral Tablet ANGELICA ([facility]) aripiprazole 30 MG Oral Tablet ANGELICA ([facility]) Amoxicillin 500 MG Oral Capsule ANGELICA ([facility]) Prazosin 1 MG Oral Capsule A THENA ([facility]) Ondansetron 4 MG Disintegrating Oral Tablet ANGELICA ([facility]) methylphenidate ER 54 mg tablet,extended release 24 hr ANGELICA ([facility]) methylphenidate ER 36 mg tablet,extended release 24 hr ANGELICA ([facility]) Guanfacine 1 MG Oral Tablet ANGELICA ([facility]) Divalproex Sodium 250 MG Delayed Release Oral Tablet ANGELICA ([facility]) Clonidine Hydrochloride 0.2 MG Oral Tablet ANGELICA ([facility]) buspirone hydrochloride 5 MG Oral Tablet ANGELICA ([facility]) buspirone hydrochloride 15 MG Oral Tablet ANGELICA ([facility]) aripiprazole 30 MG Oral Tablet ANGELICA ([facility]) Amoxicillin 500 MG Oral Capsule ANGELICA ([facility])
== END 2021-04-30 00:54 | disposition home or self-care (01) ==
LOC: M ED 21:10
DX: S93.401A Sprain of unspecified ligament of right ankle, initial encounter (principal); X58.XXXA Exposure to other specified factors, initial encounter; Y92.9 Unspecified place or not applicable; Y93.9 Activity, unspecified; Y99.9 Unspecified external cause status; J45.909 Unspecified asthma, uncomplicated; F41.9 Anxiety disorder, unspecified; F31.89 Other bipolar disorder; F90.9 Attention-deficit hyperactivity disorder, unspecified type; E66.9 Obesity, unspecified; Z79.899 Other long term (current) drug therapy; Z91.018 Allergy to other foods

== ENCOUNTER 2021-10-26 16:12 | Emergency (ER) | payer OTHER, MEDICAID ==
[~2021-10-26] VITALS: Ht 160 cm; Wt 93.2 kg
[~2021-10-26 16:12] MED LIST changes: +IBUP80TA PO
[2021-10-26] MEDS ORDERED: HOME MED LIST COMPLETE! XX SCH (20:10)
[2021-10-26 20:28] VITALS: BP 137/81
== END 2021-10-26 20:31 | disposition home or self-care (01) ==
LOC: M ED 16:12
DX: F43.0 Acute stress reaction (principal); J45.909 Unspecified asthma, uncomplicated; F17.200 Nicotine dependence, unspecified, uncomplicated; Z91.018 Allergy to other foods

== ENCOUNTER 2021-12-10 11:31 | Inpatient (IN) | payer OTHER, MEDICAID ==
[~2021-12-10] VITALS: Ht 172.7 cm; Wt 93.0 kg
[2021-12-10 13:33] LABS: HEMATOCRIT 48.4 % (42.0-52.0); HEMOGLOBIN 16.3 g/dl (13.5-17.5); MEAN CORPUSCULAR HEMOGLOBIN 30.1 pg (27.0-33.0); MEAN CORPUSCULAR HGB CONC 33.7 g/dl (32.0-36.5); MEAN CORPUSCULAR VOLUME 89.5 fl (80.0-96.0); PLATELET COUNT, AUTOMATED 234 10^3/uL (150-450); RED BLOOD COUNT 5.41 10^6/uL (4.30-6.10); WHITE BLOOD COUNT 8.6 10^3/uL (4.0-10.0)
[2021-12-10 14:07] LABS: RSV AMPLIFICATION NEGATIVE (NEGATIVE)
[2021-12-10 14:09] LABS: AMPHETAMINES LEVEL URINE POSITIVE (NEGATIVE); BARBITURATES URINE NEGATIVE (NEGATIVE); BENZODIAZEPINES URINE NEGATIVE (NEGATIVE); CANNABINOIDS URINE POSITIVE (NEGATIVE); COCAINE METABOLITE URINE NEGATIVE (NEGATIVE); METHADONE URINE NEGATIVE (NEGATIVE); OPIATES URINE NEGATIVE (NEGATIVE); PHENCYCLIDINE URINE NEGATIVE (NEGATIVE)
[2021-12-10 14:32] LABS: ALBUMIN 4.3 GM/DL (3.2-5.2); ALT/SGPT 43 U/L (12-78); BILIRUBIN,DIRECT 0.3 MG/DL (0.0-0.2); BILIRUBIN,TOTAL 0.9 MG/DL (0.2-1.0); BLOOD UREA NITROGEN 20 MG/DL (7-18); CALCIUM LEVEL 9.1 MG/DL (8.5-10.1); CARBON DIOXIDE LEVEL 29 MEQ/L (21-32); CHLORIDE LEVEL 107 MEQ/L (98-107); CREATININE FOR GFR 1.12 MG/DL (0.70-1.30); ETHYL ALCOHOL (ETHANOL) 0.005 % (0.000-0.010); GLUCOSE, FASTING 119 MG/DL (70-100); POTASSIUM SERUM 4.1 MEQ/L (3.5-5.1); SALICYLATE LEVEL < 1.7 MG/DL (5.0-30.0); SODIUM LEVEL 141 MEQ/L (136-145); TOTAL PROTEIN 7.4 GM/DL (6.4-8.2)
[2021-12-10] MEDS ORDERED: HOME MED LIST COMPLETE! XX SCH (17:40)
[2021-12-10 18:57] LABS: ACETAMINOPHEN LEVEL < 2.0 UG/ML (10.0-30.0)
[2021-12-10] MEDS ORDERED: MAALOX 30 ML SUSP *UDC PO PRN (21:20)
[2021-12-10] MEDS ORDERED: MOM 30ML SUSPENSION UDC PO PRN (21:20)
[2021-12-10] MEDS ORDERED: ACETAMINOPHEN TAB 650MG DOSE (2X325MG) PO PRN (21:20)
[2021-12-10] MEDS ORDERED: traZODone 50 MG TAB PO PRN (21:20)
[2021-12-10 22:17] VITALS: BP 148/98
[2021-12-11 06:25] VITALS: BP 124/58
[2021-12-11 16:56] VITALS: BP 138/80
[2021-12-11] MEDS ORDERED: PALIPERIDONE 3 MG ER TAB (INVEGA) PO SCH (21:00)
[2021-12-12 06:15] VITALS: BP 131/75
[2021-12-12 16:57] VITALS: BP 123/68
[2021-12-12] MEDS ORDERED: PALIPERIDONE 3 MG ER TAB (INVEGA) PO SCH (21:00)
[2021-12-12] MEDS ORDERED: PALIPERIDONE 3 MG ER TAB (INVEGA) PO ONE (21:00)
[2021-12-13 06:29] VITALS: BP 118/58
[2021-12-13 16:17] VITALS: BP 134/68
[2021-12-14 07:20] VITALS: BP 117/70
[2021-12-14] MEDS: PALIPERIDONE 3 MG ER TAB (INVEGA) PO SCH ×2 (09:24→21:41)
[2021-12-14 18:00] VITALS: BP 137/85
[2021-12-14] MEDS ORDERED: PALIPERIDONE 3 MG ER TAB (INVEGA) PO SCH (21:00)
[2021-12-15 07:00] VITALS: BP 117/53
[2021-12-15] MEDS: PALIPERIDONE 3 MG ER TAB (INVEGA) PO SCH (09:55)
[2021-12-15] MEDS ORDERED: TRAZ-252 PO (10:35)
[2021-12-15] MEDS ORDERED: PALI1TAB2 PO (10:35)
== END 2021-12-15 11:49 | disposition home or self-care (01) | DRG 881 ==
LOC: M ED 11:31 → M ED INP 21:18 → M PSY 22:06
PROVIDERS: ADMIT Psychiatry & Neurology Psychiatry; ATTEND Psychiatry & Neurology Psychiatry
DX: F32.A Depression, unspecified (principal); R45.851 Suicidal ideations; F31.9 Bipolar disorder, unspecified; F60.89 Other specific personality disorders; F90.9 Attention-deficit hyperactivity disorder, unspecified type; F94.1 Reactive attachment disorder of childhood; Z91.018 Allergy to other foods; Z59.00 Homelessness unspecified

== ENCOUNTER 2022-02-27 23:27 | Emergency (ER) | payer OTHER, MEDICAID ==
[~2022-02-27] VITALS: Ht 182.9 cm; Wt 113.6 kg
[~2022-02-27 23:27] MED LIST changes: +PALI1TAB2 PO
[2022-02-27 23:36] VITALS: BP 159/107
[2022-02-28] MEDS ORDERED: LIDOCAINE 1% MDV 20ML VIAL SC ONE (01:25)
[2022-02-28] MEDS ORDERED: BACI500O8 TOP (01:58)
== END 2022-02-28 02:22 | disposition home or self-care (01) ==
LOC: M ED 23:27 → EDBD 23:27 → M ED 02-28 02:22
DX: S51.811A Laceration without foreign body of right forearm, initial encounter (principal); W26.8XXA Contact with other sharp object(s), not elsewhere classified, initial encounter; Y92.018 Other place in single-family (private) house as the place of occurrence of the external cause; J45.909 Unspecified asthma, uncomplicated; Z91.018 Allergy to other foods; Z79.899 Other long term (current) drug therapy

== ENCOUNTER 2022-03-08 23:08 | Inpatient (IN) | payer OTHER, MEDICAID ==
[~2022-03-08] VITALS: Ht 182.9 cm; Wt 111.4 kg
[~2022-03-08 23:08] MED LIST changes: +BACI500O8 TOP
[2022-03-09 00:30] LABS: HEMATOCRIT 42.6 % (42.0-52.0); HEMOGLOBIN 14.3 g/dl (13.5-17.5); MEAN CORPUSCULAR HEMOGLOBIN 29.7 pg (27.0-33.0); MEAN CORPUSCULAR HGB CONC 33.6 g/dl (32.0-36.5); MEAN CORPUSCULAR VOLUME 88.4 fl (80.0-96.0); PLATELET COUNT, AUTOMATED 301 10^3/uL (150-450); RED BLOOD COUNT 4.82 10^6/uL (4.30-6.10); WHITE BLOOD COUNT 6.5 10^3/uL (4.0-10.0)
[2022-03-09 00:36] LABS: AMPHETAMINES LEVEL URINE NEGATIVE (NEGATIVE); BARBITURATES URINE NEGATIVE (NEGATIVE); BENZODIAZEPINES URINE NEGATIVE (NEGATIVE); CANNABINOIDS URINE POSITIVE (NEGATIVE); COCAINE METABOLITE URINE NEGATIVE (NEGATIVE); METHADONE URINE NEGATIVE (NEGATIVE); OPIATES URINE NEGATIVE (NEGATIVE); PHENCYCLIDINE URINE NEGATIVE (NEGATIVE)
[2022-03-09 00:50] LABS: RSV AMPLIFICATION NEGATIVE (NEGATIVE)
[2022-03-09 01:02] LABS: ACETAMINOPHEN LEVEL < 2.0 UG/ML (10.0-30.0); ALBUMIN 3.7 GM/DL (3.2-5.2); ALT/SGPT 27 U/L (12-78); BILIRUBIN,DIRECT < 0.1 MG/DL (0.0-0.2); BILIRUBIN,TOTAL 0.3 MG/DL (0.2-1.0); BLOOD UREA NITROGEN 13 MG/DL (7-18); CALCIUM LEVEL 8.8 MG/DL (8.5-10.1); CARBON DIOXIDE LEVEL 30 MEQ/L (21-32); CHLORIDE LEVEL 110 MEQ/L (98-107); CREATININE FOR GFR 0.92 MG/DL (0.70-1.30); ETHYL ALCOHOL (ETHANOL) < 0.003 % (0.000-0.010); GLUCOSE, FASTING 67 MG/DL (70-100); POTASSIUM SERUM 3.9 MEQ/L (3.5-5.1); SALICYLATE LEVEL < 1.7 MG/DL (5.0-30.0); SODIUM LEVEL 145 MEQ/L (136-145); TOTAL PROTEIN 6.3 GM/DL (6.4-8.2)
[2022-03-09] MEDS ORDERED: TRAZ-252 PO (04:36)
[2022-03-09] MEDS ORDERED: INVE3TAB2 PO (04:36)
[2022-03-09] MEDS ORDERED: BACIOIN5 TOP (04:36)
[2022-03-09] MEDS ORDERED: HOME MED LIST COMPLETE! XX SCH (04:40)
[2022-03-09] MEDS ORDERED: MAALOX 30 ML SUSP *UDC PO PRN (16:30)
[2022-03-09] MEDS ORDERED: IBUPROFEN 400MG TAB PO PRN (16:30)
[2022-03-09] MEDS ORDERED: MOM 30ML SUSPENSION UDC PO PRN (16:30)
[2022-03-10 06:48] VITALS: BP 119/67
[2022-03-10] MEDS: NICOTINE 21MG/24HR 1 EA TRANSDERMAL TD SCH (09:00)
[2022-03-10] MEDS: FLUoxetine 20MG CAP PO SCH (14:04)
[2022-03-10 18:12] VITALS: BP 134/69
[2022-03-10] MEDS ORDERED: traZODone 50 MG TAB PO ONE (22:00)
[2022-03-11 06:21] VITALS: BP 127/69
[2022-03-11] MEDS: NICOTINE 21MG/24HR 1 EA TRANSDERMAL TD SCH (09:00)
[2022-03-11] MEDS: FLUoxetine 20MG CAP PO SCH (09:14)
[2022-03-11] MEDS: ATOMOXETINE HCL 40 MG CAP (STRATTERA) PO SCH (09:35)
[2022-03-11 18:07] VITALS: BP 120/66
[2022-03-11] MEDS: guanFACINE 1 MG TAB PO SCH (21:00)
[2022-03-11] MEDS ORDERED: traZODone 50 MG TAB PO SCH ×2 (21:00)
[2022-03-12 06:30] VITALS: BP 115/59
[2022-03-12] MEDS ORDERED: traZODone 50 MG TAB PO PRN (09:25)
[2022-03-12] MEDS: NICOTINE 21MG/24HR 1 EA TRANSDERMAL TD SCH (10:59)
[2022-03-12] MEDS: FLUoxetine 20MG CAP PO SCH (10:59)
[2022-03-12] MEDS: ATOMOXETINE HCL 40 MG CAP (STRATTERA) PO SCH (10:59)
[2022-03-12] MEDS ORDERED: FLUoxetine 20MG CAP PO ONE (13:15)
[2022-03-12 18:20] VITALS: BP 127/63
[2022-03-12] MEDS: guanFACINE 1 MG TAB PO SCH (20:14)
[2022-03-13] MEDS: NICOTINE 21MG/24HR 1 EA TRANSDERMAL TD SCH (08:56)
[2022-03-13] MEDS: FLUoxetine 20MG CAP PO SCH (08:56)
[2022-03-13] MEDS ORDERED: NICOTINE POLACRILEX 2 MG GUM PO PRN (16:25)
[2022-03-13 18:16] VITALS: BP 126/73
[2022-03-13] MEDS ORDERED: LORazepam 0.5 MG TAB PO ONE (22:00)
[2022-03-13] MEDS: guanFACINE 1 MG TAB PO SCH (22:04)
[2022-03-14] MEDS: FLUoxetine 20MG CAP PO SCH (09:20)
[2022-03-14] MEDS: LORazepam 0.5 MG TAB PO PRN ×2 (10:53→19:55)
[2022-03-14 18:18] VITALS: BP 116/64
[2022-03-14] MEDS: guanFACINE 1 MG TAB PO SCH (20:55)
[2022-03-15] MEDS: FLUoxetine 20MG CAP PO SCH (09:00)
[2022-03-15] MEDS ORDERED: PROPRANOLOL 20 MG TAB PO PRN (09:55)
[2022-03-15] MEDS: LORazepam 0.5 MG TAB PO PRN (13:04)
[2022-03-15] MEDS ORDERED: ARIPiprazole 2 MG TAB PO SCH (21:00)
[2022-03-15 21:38] VITALS: BP 116/64
[2022-03-15] MEDS: guanFACINE 1 MG TAB PO SCH (21:38)
[2022-03-16 06:46] VITALS: BP 136/72
[2022-03-16] MEDS ORDERED: GUAN1TA PO (09:14)
[2022-03-16] MEDS ORDERED: ABIL1TAB13 PO (09:14)
[2022-03-16] MEDS ORDERED: TRAZ-252 PO (09:14)
[2022-03-16] MEDS ORDERED: NICO2GUM PO (09:14)
== END 2022-03-16 13:10 | disposition home or self-care (01) | DRG 885 ==
LOC: M ED 23:08 → M ED INP 03-09 16:28 → M PSY 03-09 17:36
PROVIDERS: ADMIT Student in an Organized Health Care Education/Training Program; ATTEND Student in an Organized Health Care Education/Training Program
DX: F32.89 Other specified depressive episodes (principal); R45.851 Suicidal ideations; F43.9 Reaction to severe stress, unspecified; F60.2 Antisocial personality disorder; F63.9 Impulse disorder, unspecified; F90.9 Attention-deficit hyperactivity disorder, unspecified type; Z20.822 Contact with and (suspected) exposure to COVID-19; Z59.00 Homelessness unspecified; Z91.52 Personal history of nonsuicidal self-harm; F17.290 Nicotine dependence, other tobacco product, uncomplicated; Z79.899 Other long term (current) drug therapy; Z91.018 Allergy to other foods; J45.909 Unspecified asthma, uncomplicated; R82.998 Other abnormal findings in urine; Z91.51 Personal history of suicidal behavior

== ENCOUNTER 2022-06-05 01:06 | Inpatient (IN) | payer OTHER, MEDICAID ==
[~2022-06-05] VITALS: Ht 182.9 cm; Wt 79.4 kg
[~2022-06-05 01:06] MED LIST changes: +ABIL1TAB13 PO; +BACIOIN5 TOP; +INVE3TAB2 PO; +NICO2GUM PO
[2022-06-05 02:12] LABS: HEMATOCRIT 48.3 % (42.0-52.0); HEMOGLOBIN 16.5 g/dl (13.5-17.5); MEAN CORPUSCULAR HEMOGLOBIN 29.9 pg (27.0-33.0); MEAN CORPUSCULAR HGB CONC 34.2 g/dl (32.0-36.5); MEAN CORPUSCULAR VOLUME 87.5 fl (80.0-96.0); PLATELET COUNT, AUTOMATED 235 10^3/uL (150-450); RED BLOOD COUNT 5.52 10^6/uL (4.30-6.10); WHITE BLOOD COUNT 7.4 10^3/uL (4.0-10.0)
[2022-06-05 02:27] LABS: AMPHETAMINES LEVEL URINE NEGATIVE (NEGATIVE); BARBITURATES URINE NEGATIVE (NEGATIVE); BENZODIAZEPINES URINE NEGATIVE (NEGATIVE); COCAINE METABOLITE URINE NEGATIVE (NEGATIVE)
[2022-06-05 02:28] LABS: CANNABINOIDS URINE NEGATIVE (NEGATIVE); METHADONE URINE NEGATIVE (NEGATIVE); OPIATES URINE NEGATIVE (NEGATIVE); PHENCYCLIDINE URINE NEGATIVE (NEGATIVE)
[2022-06-05 02:30] LABS: ETHYL ALCOHOL (ETHANOL) 0.003 % (0.000-0.010)
[2022-06-05 02:32] LABS: BILIRUBIN,DIRECT 0.1 MG/DL (<0.4); SALICYLATE LEVEL < 3.0 MG/DL (<30)
[2022-06-05 02:33] LABS: ACETAMINOPHEN LEVEL < 2.0 UG/ML (10.0-20.0); ALBUMIN 4.2 G/DL (3.2-5.2); ALKALINE PHOSPHATASE 107 U/L (46-116); ALT/SGPT 26 U/L (7.0-40); AST/SGOT 20 U/L (<34); BILIRUBIN,TOTAL 0.4 MG/DL (0.3-1.2); BLOOD UREA NITROGEN 11 MG/DL (9-23); CALCIUM LEVEL 9.9 MG/DL (8.5-10.1); CARBON DIOXIDE LEVEL 25 MMOL/L (20-31); CHLORIDE LEVEL 104 MMOL/L (98-107); CREATININE FOR GFR 0.64 MG/DL (0.70-1.30); GLUCOSE, FASTING 98 MG/DL (60-100); POTASSIUM SERUM 3.9 MMOL/L (3.5-5.1); SODIUM LEVEL 140 MMOL/L (136-145); TOTAL PROTEIN 7.3 G/DL (5.7-8.2)
[2022-06-05 02:35] LABS: THYROID STIMULATING HORMONE 1.036 uIU/ML (0.48-4.17)
[2022-06-05 02:49] LABS: RSV AMPLIFICATION NEGATIVE (NEGATIVE)
[2022-06-05] MEDS ORDERED: MAALOX 30 ML SUSP *UDC PO PRN (04:10)
[2022-06-05] MEDS ORDERED: ACETAMINOPHEN TAB 650MG DOSE (2X325MG) PO PRN (04:10)
[2022-06-05] MEDS ORDERED: MOM 30ML SUSPENSION UDC PO PRN (04:10)
[2022-06-05] MEDS ORDERED: HOME MED LIST COMPLETE! XX SCH (04:45)
[2022-06-05 04:50] VITALS: BP 123/74
[2022-06-05] MEDS: SERTRALINE HCL 50 MG TAB PO SCH (11:41)
[2022-06-05] MEDS: NICOTINE 14 MG/24 HR TRANSDERMAL TD SCH (11:42)
[2022-06-05 18:32] VITALS: BP 111/52
[2022-06-06] MEDS: NICOTINE 14 MG/24 HR TRANSDERMAL TD SCH (09:00)
[2022-06-06] MEDS: SERTRALINE HCL 50 MG TAB PO SCH (09:13)
[2022-06-06] MEDS: NICOTINE POLACRILEX 2 MG GUM PO PRN ×2 (13:54→21:15)
[2022-06-06 18:12] VITALS: BP 134/65
[2022-06-06] MEDS: traZODone 50 MG TAB PO PRN (21:15)
[2022-06-07] MEDS: SERTRALINE HCL 50 MG TAB PO SCH (08:41)
[2022-06-07 16:24] VITALS: BP 142/88
[2022-06-07] MEDS ORDERED: OLANZapine 10 MG TAB PO ONE (18:25)
[2022-06-07] MEDS ORDERED: OLANZapine 5 MG TAB PO PRN (22:00)
[2022-06-08 06:33] VITALS: BP 94/55
[2022-06-08] MEDS: SERTRALINE HCL 50 MG TAB PO SCH (07:58)
[2022-06-08] MEDS: NICOTINE POLACRILEX 2 MG GUM PO PRN (13:25)
[2022-06-08 16:50] VITALS: BP 137/81
[2022-06-09 06:48] VITALS: BP 125/66
[2022-06-09] MEDS: SERTRALINE HCL 50 MG TAB PO SCH (08:46)
[2022-06-09 16:35] VITALS: BP 132/76
[2022-06-09] MEDS: NICOTINE POLACRILEX 2 MG GUM PO PRN (17:55)
[2022-06-09] MEDS: traZODone 50 MG TAB PO PRN (22:45)
[2022-06-10] MEDS: SERTRALINE HCL 50 MG TAB PO SCH (08:13)
[2022-06-10] MEDS ORDERED: SERT50TA29 PO (11:42)
== END 2022-06-10 13:10 | disposition home or self-care (01) | DRG 885 ==
LOC: M ED 01:06 → UNDOADMIN 04:08 → M ED INP 04:08 → M PSY 04:47
PROVIDERS: ADMIT Psychiatry & Neurology Psychiatry; ATTEND Psychiatry & Neurology Psychiatry
DX: F33.2 Major depressive disorder, recurrent severe without psychotic features (principal); R45.851 Suicidal ideations; F60.89 Other specific personality disorders; F17.200 Nicotine dependence, unspecified, uncomplicated; F12.10 Cannabis abuse, uncomplicated; Z59.00 Homelessness unspecified; Z91.018 Allergy to other foods; Z91.51 Personal history of suicidal behavior

== ENCOUNTER 2022-07-19 14:00 | Emergency (ER) | payer OTHER, MEDICAID ==
[~2022-07-19] VITALS: Ht 185.4 cm; Wt 83.1 kg
[~2022-07-19 14:00] MED LIST changes: +DIPH-435 PO; -DIPH25CA32 PO; +SERT50TA29 PO
[2022-07-19] MEDS ORDERED: CEPH500C PO (17:27)
[2022-07-19] MEDS ORDERED: CEPHALEXIN 500 MG CAP PO ONE (17:30)
[2022-07-19 17:58] VITALS: BP 129/79
[2022-07-19] MEDS ORDERED: IBUPROFEN 600MG TAB PO ONE (18:00)
== END 2022-07-19 18:04 | disposition home or self-care (01) ==
LOC: EDBD 14:00 → M ED 14:00
DX: J03.90 Acute tonsillitis, unspecified (principal); F32.A Depression, unspecified; Z91.018 Allergy to other foods; Z79.52 Long term (current) use of systemic steroids; Z79.2 Long term (current) use of antibiotics

== ENCOUNTER 2022-07-29 00:19 | Emergency (ER) | payer OTHER, MEDICAID ==
[~2022-07-29] VITALS: Ht 185.4 cm; Wt 82.2 kg
[~2022-07-29 00:19] MED LIST changes: +CEPH500C PO
[2022-07-29 01:46] LABS: HEMATOCRIT 43.8 % (42.0-52.0); HEMOGLOBIN 14.5 g/dl (13.5-17.5); MEAN CORPUSCULAR HEMOGLOBIN 29.4 pg (27.0-33.0); MEAN CORPUSCULAR HGB CONC 33.1 g/dl (32.0-36.5); MEAN CORPUSCULAR VOLUME 88.8 fl (80.0-96.0); PLATELET COUNT, AUTOMATED 371 10^3/uL (150-450); RED BLOOD COUNT 4.93 10^6/uL (4.30-6.10); WHITE BLOOD COUNT 7.4 10^3/uL (4.0-10.0)
[2022-07-29 02:05] LABS: ETHYL ALCOHOL (ETHANOL) 0.003 % (0.000-0.010)
[2022-07-29 02:07] LABS: ACETAMINOPHEN LEVEL < 2.0 UG/ML (10.0-20.0); SALICYLATE LEVEL < 3.0 MG/DL (<30)
[2022-07-29 02:18] LABS: ALBUMIN 3.8 G/DL (3.2-5.2); ALKALINE PHOSPHATASE 80 U/L (46-116); ALT/SGPT 22 U/L (7.0-40); AST/SGOT 23 U/L (<34); BILIRUBIN,DIRECT 0.2 MG/DL (<0.4); BILIRUBIN,TOTAL 0.4 MG/DL (0.3-1.2); BLOOD UREA NITROGEN 10 MG/DL (9-23); CALCIUM LEVEL 9.2 MG/DL (8.5-10.1); CARBON DIOXIDE LEVEL 30 MMOL/L (20-31); CHLORIDE LEVEL 103 MMOL/L (98-107); CREATININE FOR GFR 0.91 MG/DL (0.70-1.30); GLUCOSE, FASTING 91 MG/DL (60-100); POTASSIUM SERUM 4.6 MMOL/L (3.5-5.1); SODIUM LEVEL 140 MMOL/L (136-145); THYROID STIMULATING HORMONE 0.876 uIU/ML (0.48-4.17)
[2022-07-29 02:21] LABS: AMPHETAMINES LEVEL URINE NEGATIVE (NEGATIVE); BARBITURATES URINE NEGATIVE (NEGATIVE); BENZODIAZEPINES URINE NEGATIVE (NEGATIVE); COCAINE METABOLITE URINE NEGATIVE (NEGATIVE); METHADONE URINE NEGATIVE (NEGATIVE); OPIATES URINE NEGATIVE (NEGATIVE); PHENCYCLIDINE URINE NEGATIVE (NEGATIVE)
[2022-07-29 02:23] LABS: CANNABINOIDS URINE POSITIVE (NEGATIVE)
[2022-07-29 03:49] LABS: TOTAL PROTEIN 6.6 G/DL (5.7-8.2)
[2022-07-29] MEDS ORDERED: HOME MED LIST COMPLETE! XX SCH (05:00)
[2022-07-29 21:48] VITALS: BP 113/61
== END 2022-07-29 22:00 ==
LOC: M ED 00:19
DX: R45.851 Suicidal ideations (principal); F32.A Depression, unspecified; F31.9 Bipolar disorder, unspecified; F17.200 Nicotine dependence, unspecified, uncomplicated; F12.10 Cannabis abuse, uncomplicated; F10.10 Alcohol abuse, uncomplicated; Z91.018 Allergy to other foods

== ENCOUNTER 2022-09-20 12:12 | Emergency (ER) | payer OTHER, MEDICAID ==
[~2022-09-20] VITALS: Ht 175.3 cm; Wt 79.5 kg
[2022-09-20 12:13] VITALS: BP 112/73
[2022-09-20 16:15] LABS: RSV AMPLIFICATION NEGATIVE (NEGATIVE)
[2022-09-20 16:28] LABS: BASO % 0.3 % (0.0-1.0); EOS % 0.6 % (0.0-3.0); HEMATOCRIT 48.1 % (42.0-52.0); HEMOGLOBIN 16.2 g/dl (13.5-17.5); LYMPH # 1.6 10^3/uL (1.5-5.0); LYMPH % 22.2 % (24.0-44.0); MEAN CORPUSCULAR HEMOGLOBIN 29.8 pg (27.0-33.0); MEAN CORPUSCULAR HGB CONC 33.7 g/dl (32.0-36.5); MEAN CORPUSCULAR VOLUME 88.4 fl (80.0-96.0); MONO # 0.2 10^3/uL (0.0-0.8); NEUTROPHILS # 5.2 10^3/uL (1.5-8.5); NEUTROPHILS % 73.6 % (36.0-66.0); PLATELET COUNT, AUTOMATED 233 10^3/uL (150-450); RED BLOOD COUNT 5.44 10^6/uL (4.30-6.10)
[2022-09-20] MEDS ORDERED: ONDA4TAB6 PO (17:46)
[2022-09-20] MEDS ORDERED: METR-265 PO (18:02)
[2022-09-22] MEDS ORDERED: DOXY-443 PO (07:38)
== END 2022-09-20 18:15 | disposition home or self-care (01) ==
LOC: M ED 12:12
DX: E16.2 Hypoglycemia, unspecified (principal); A59.9 Trichomoniasis, unspecified; J45.909 Unspecified asthma, uncomplicated; F90.9 Attention-deficit hyperactivity disorder, unspecified type; F31.9 Bipolar disorder, unspecified; F17.290 Nicotine dependence, other tobacco product, uncomplicated

== ENCOUNTER 2022-09-23 16:48 | Emergency (ER) | payer OTHER, MEDICAID ==
[~2022-09-23] VITALS: Ht 175.3 cm; Wt 89.5 kg
[~2022-09-23 16:48] MED LIST changes: +DOXY-443 PO; +METR-265 PO
[2022-09-23] MEDS ORDERED: IBUPROFEN 600MG TAB PO ONE (17:50)
[2022-09-23 18:51] VITALS: BP 122/84
== END 2022-09-23 18:57 | disposition home or self-care (01) ==
LOC: M ED 16:48
DX: S60.212A Contusion of left wrist, initial encounter (principal); Y04.8XXA Assault by other bodily force, initial encounter; Y92.099 Unspecified place in other non-institutional residence as the place of occurrence of the external cause; J45.909 Unspecified asthma, uncomplicated; F41.9 Anxiety disorder, unspecified; F32.9 Major depressive disorder, single episode, unspecified; F17.290 Nicotine dependence, other tobacco product, uncomplicated; Z91.018 Allergy to other foods

== ENCOUNTER 2022-11-22 10:22 | Inpatient (IN) | payer MEDICAID, OTHER ==
[~2022-11-22] VITALS: Ht 177.8 cm; Wt 36.4 kg
[2022-11-22 13:09] LABS: HEMATOCRIT 43.2 % (42.0-52.0); HEMOGLOBIN 14.2 g/dl (13.5-17.5); MEAN CORPUSCULAR HGB CONC 32.9 g/dl (32.0-36.5); MEAN CORPUSCULAR VOLUME 91.1 fl (80.0-96.0); PLATELET COUNT, AUTOMATED 208 10^3/uL (150-450); RED BLOOD COUNT 4.74 10^6/uL (4.30-6.10); WHITE BLOOD COUNT 7.3 10^3/uL (4.0-10.0)
[2022-11-22 13:28] LABS: AMPHETAMINES LEVEL URINE NEGATIVE (NEGATIVE); METHADONE URINE NEGATIVE (NEGATIVE); OPIATES URINE NEGATIVE (NEGATIVE); PHENCYCLIDINE URINE NEGATIVE (NEGATIVE)
[2022-11-22 13:29] LABS: ETHYL ALCOHOL (ETHANOL) < 0.003 % (0.000-0.010)
[2022-11-22 13:29] LABS: BARBITURATES URINE NEGATIVE (NEGATIVE); BENZODIAZEPINES URINE NEGATIVE (NEGATIVE); COCAINE METABOLITE URINE NEGATIVE (NEGATIVE)
[2022-11-22 13:31] LABS: CANNABINOIDS URINE POSITIVE (NEGATIVE)
[2022-11-22 13:31] LABS: SALICYLATE LEVEL < 3.0 MG/DL (<30)
[2022-11-22 13:32] LABS: ACETAMINOPHEN LEVEL < 2.0 UG/ML (10.0-20.0); ALBUMIN 3.8 G/DL (3.2-5.2); ALKALINE PHOSPHATASE 80 U/L (46-116); ALT/SGPT 12 U/L (7.0-40); AST/SGOT 8 U/L (<34); BILIRUBIN,DIRECT 0.3 MG/DL (<0.4); BILIRUBIN,TOTAL 0.7 MG/DL (0.3-1.2); BLOOD UREA NITROGEN 12 MG/DL (9-23); CALCIUM LEVEL 8.4 MG/DL (8.5-10.1); CARBON DIOXIDE LEVEL 30 MMOL/L (20-31); CHLORIDE LEVEL 107 MMOL/L (98-107); CREATININE FOR GFR 0.77 MG/DL (0.70-1.30); GLUCOSE, FASTING 77 MG/DL (60-100); POTASSIUM SERUM 4.1 MMOL/L (3.5-5.1); SODIUM LEVEL 142 MMOL/L (136-145); TOTAL PROTEIN 6.2 G/DL (5.7-8.2)
[2022-11-22 13:34] LABS: THYROID STIMULATING HORMONE 0.869 uIU/ML (0.48-4.17)
[2022-11-22] MEDS ORDERED: KETOROLAC 30 MG/ML 1ML VIAL IM ONE (14:10)
[2022-11-22] MEDS ORDERED: diphenhydrAMINE 25MG CAP PO PRN (14:30)
[2022-11-22] MEDS ORDERED: traZODone 50 MG TAB PO PRN (14:30)
[2022-11-22] MEDS ORDERED: ACETAMINOPHEN TAB 650MG DOSE (2X325MG) PO PRN (14:30)
[2022-11-22] MEDS ORDERED: MOM 30ML SUSPENSION UDC PO PRN (14:30)
[2022-11-22] MEDS ORDERED: MAALOX 30 ML SUSP *UDC PO PRN (14:30)
[2022-11-22] MEDS ORDERED: IBUPROFEN 400MG TAB PO PRN (14:30)
[2022-11-22] MEDS: NICOTINE 21MG/24HR 1 EA TRANSDERMAL TD SCH (14:45)
[2022-11-22] MEDS ORDERED: HOME MED LIST COMPLETE! XX SCH (14:45)
[2022-11-23 06:45] VITALS: BP 150/76; TEMP 97.6; O2SAT 98
[2022-11-23] MEDS: NICOTINE 21MG/24HR 1 EA TRANSDERMAL TD SCH (09:18)
[2022-11-23] MEDS ORDERED: ZYPR2.5T2 PO (11:43)
[2022-11-23] MEDS ORDERED: NICO21PAT TD (11:43)
== END 2022-11-23 14:46 | disposition home or self-care (01) | DRG 755 ==
LOC: M ED 10:22 → M ED INP 14:26 → M PSY 15:32
PROVIDERS: ADMIT Student in an Organized Health Care Education/Training Program; ATTEND Student in an Organized Health Care Education/Training Program
DX: F43.20 Adjustment disorder, unspecified (principal); F60.3 Borderline personality disorder; F12.90 Cannabis use, unspecified, uncomplicated; F17.200 Nicotine dependence, unspecified, uncomplicated; F60.2 Antisocial personality disorder

== ENCOUNTER 2023-01-12 17:17 | Emergency (ER) | payer OTHER, MEDICAID ==
[~2023-01-12] VITALS: Ht 175.3 cm; Wt 70.1 kg
[~2023-01-12 17:17] MED LIST changes: +NICO21PAT TD; +ZYPR2.5T2 PO
[2023-01-12 20:24] VITALS: BP 130/74; TEMP 97.4; O2SAT 98
== END 2023-01-12 23:49 | disposition left against medical advice (07) ==
LOC: M ED 17:17
DX: Z53.21 Procedure and treatment not carried out due to patient leaving prior to being seen by health care provider (principal)

== ENCOUNTER 2023-01-19 23:40 | Inpatient (IN) | payer MEDICAID, OTHER ==
[~2023-01-19] VITALS: Ht 175.3 cm; Wt 71.5 kg
[2023-01-20 00:45] LABS: AMPHETAMINES LEVEL URINE NEGATIVE (NEGATIVE); BARBITURATES URINE NEGATIVE (NEGATIVE); BENZODIAZEPINES URINE NEGATIVE (NEGATIVE); COCAINE METABOLITE URINE NEGATIVE (NEGATIVE); METHADONE URINE NEGATIVE (NEGATIVE); OPIATES URINE NEGATIVE (NEGATIVE); PHENCYCLIDINE URINE NEGATIVE (NEGATIVE)
[2023-01-20 00:47] LABS: ETHYL ALCOHOL (ETHANOL) 0.005 % (0.000-0.010)
[2023-01-20 00:49] LABS: ACETAMINOPHEN LEVEL < 2.0 UG/ML (10.0-20.0); ALBUMIN 4.1 G/DL (3.2-5.2); ALKALINE PHOSPHATASE 95 U/L (46-116); ALT/SGPT 17 U/L (7.0-40); AST/SGOT < 8 U/L (<34); BILIRUBIN,DIRECT 0.2 MG/DL (<0.4); BILIRUBIN,TOTAL 0.4 MG/DL (0.3-1.2); BLOOD UREA NITROGEN 17 MG/DL (9-23); CALCIUM LEVEL 9.3 MG/DL (8.5-10.1); CARBON DIOXIDE LEVEL 31 MMOL/L (20-31); CHLORIDE LEVEL 106 MMOL/L (98-107); GLOMERULAR FILTRATION RATE > 60.0 (>60); GLUCOSE, FASTING 87 MG/DL (60-100); POTASSIUM SERUM 3.7 MMOL/L (3.5-5.1); SALICYLATE LEVEL < 3.0 MG/DL (<30); SODIUM LEVEL 142 MMOL/L (136-145); TOTAL PROTEIN 7.1 G/DL (5.7-8.2)
[2023-01-20 00:51] LABS: THYROID STIMULATING HORMONE 4.584 uIU/ML (0.55-4.78)
[2023-01-20 00:57] LABS: HEMATOCRIT 45.7 % (42.0-52.0); MEAN CORPUSCULAR HEMOGLOBIN 29.5 pg (27.0-33.0); MEAN CORPUSCULAR HGB CONC 32.8 g/dl (32.0-36.5); MEAN CORPUSCULAR VOLUME 89.8 fl (80.0-96.0); PLATELET COUNT, AUTOMATED 266 10^3/uL (150-450); RED BLOOD COUNT 5.09 10^6/uL (4.30-6.10); WHITE BLOOD COUNT 10.8 10^3/uL (4.0-10.0)
[2023-01-20 01:19] LABS: CANNABINOIDS URINE POSITIVE (NEGATIVE)
[2023-01-20] MEDS ORDERED: HOME MED LIST COMPLETE! XX SCH (05:45)
[2023-01-20] MEDS ORDERED: MELA3TAB30 PO (05:46)
[2023-01-20] MEDS ORDERED: MOM 30ML SUSPENSION UDC PO PRN (11:25)
[2023-01-20] MEDS ORDERED: ACETAMINOPHEN TAB 650MG DOSE (2X325MG) PO PRN (11:25)
[2023-01-20] MEDS ORDERED: IBUPROFEN 400MG TAB PO PRN (11:25)
[2023-01-20] MEDS ORDERED: MAALOX 30 ML SUSP *UDC PO PRN (11:25)
[2023-01-20 15:49] VITALS: BP 122/67; TEMP 97.5; O2SAT 98
[2023-01-20] MEDS: SERTRALINE HCL 50 MG TAB PO SCH (17:08)
[2023-01-21 06:28] VITALS: BP 109/56; TEMP 98.4; O2SAT 96
[2023-01-21] MEDS: diphenhydrAMINE 25MG CAP PO PRN ×2 (09:07→16:11)
[2023-01-21] MEDS: SERTRALINE HCL 50 MG TAB PO SCH (09:09)
[2023-01-21] MEDS: OLANZapine ORAL DISINTEGRATING TAB 5MG PO PRN (14:39)
[2023-01-21 16:37] VITALS: BP 133/74; TEMP 97.9; O2SAT 97
[2023-01-21] MEDS: traZODone 50 MG TAB PO PRN (20:53)
[2023-01-21] MEDS: OLANZapine 5 MG TAB PO SCH (20:53)
[2023-01-22 06:49] VITALS: BP 116/61; TEMP 97.9; O2SAT 100
[2023-01-22] MEDS: SERTRALINE HCL 50 MG TAB PO SCH (08:22)
[2023-01-22] MEDS: OLANZapine ORAL DISINTEGRATING TAB 5MG PO PRN ×2 (08:22→22:07)
[2023-01-22 16:19] VITALS: BP 124/60; TEMP 97.8; O2SAT 98
[2023-01-22] MEDS: OLANZapine 5 MG TAB PO SCH (21:26)
[2023-01-22] MEDS: diphenhydrAMINE 25MG CAP PO PRN (22:07)
[2023-01-23 06:36] VITALS: BP 132/60; TEMP 97.6; O2SAT 97
[2023-01-23] MEDS: diphenhydrAMINE 25MG CAP PO PRN (09:23)
[2023-01-23] MEDS: SERTRALINE HCL 50 MG TAB PO SCH (09:23)
[2023-01-23] MEDS: OLANZapine ORAL DISINTEGRATING TAB 5MG PO PRN (14:10)
[2023-01-23 16:20] VITALS: BP 131/70; TEMP 97.8; O2SAT 98
[2023-01-23] MEDS: MIRTAZAPINE 15 MG TAB PO SCH (21:42)
[2023-01-23] MEDS: traZODone 50 MG TAB PO PRN (21:42)
[2023-01-23] MEDS: OLANZapine 5 MG TAB PO SCH (21:42)
[2023-01-24 06:19] VITALS: BP 110/62; TEMP 97.1; O2SAT 100
[2023-01-24] MEDS: diphenhydrAMINE 25MG CAP PO PRN (09:22)
[2023-01-24] MEDS: BACLOFEN 5MG PER 1/2 TABLET PO SCH ×2 (13:45→17:31)
[2023-01-24] MEDS: SERTRALINE HCL 50 MG TAB PO SCH (13:46)
[2023-01-24] MEDS: NICOTINE POLACRILEX 2 MG GUM PO PRN (13:47)
[2023-01-24] MEDS ORDERED: ONDANSETRON 4MG ORAL DISINTEGRATING TAB PO PRN (14:25)
[2023-01-24] MEDS: OLANZapine ORAL DISINTEGRATING TAB 5MG PO PRN (16:43)
[2023-01-24] MEDS: cloNIDine 0.1MG TABLET PO SCH ×2 (16:43→21:00)
[2023-01-24 18:00] VITALS: BP 140/89; TEMP 98.6; O2SAT 100
[2023-01-24] MEDS: MIRTAZAPINE 15 MG TAB PO SCH (21:00)
[2023-01-24] MEDS: OLANZapine 5 MG TAB PO SCH (21:00)
[2023-01-25] MEDS: BACLOFEN 5MG PER 1/2 TABLET PO SCH ×5 (06:08→23:28)
[2023-01-25] MEDS: cloNIDine 0.1MG TABLET PO SCH ×3 (08:58→20:17)
[2023-01-25] MEDS: SERTRALINE HCL 50 MG TAB PO SCH (08:58)
[2023-01-25] MEDS: NICOTINE POLACRILEX 2 MG GUM PO PRN ×2 (09:54→18:34)
[2023-01-25 17:55] VITALS: BP 111/56; TEMP 96.8; O2SAT 96
[2023-01-25] MEDS: traZODone 50 MG TAB PO PRN (20:17)
[2023-01-25] MEDS: MIRTAZAPINE 15 MG TAB PO SCH (20:18)
[2023-01-25] MEDS: OLANZapine 5 MG TAB PO SCH (20:18)
[2023-01-26] MEDS: BACLOFEN 5MG PER 1/2 TABLET PO SCH ×3 (05:18→18:02)
[2023-01-26 06:16] VITALS: BP 100/52; TEMP 97.6; O2SAT 96
[2023-01-26] MEDS: SERTRALINE HCL 50 MG TAB PO SCH (09:23)
[2023-01-26] MEDS: cloNIDine 0.1MG TABLET PO SCH ×4 (09:23→21:08)
[2023-01-26 17:14] VITALS: BP 100/54; TEMP 96.4; O2SAT 99
[2023-01-26] MEDS: OLANZapine 5 MG TAB PO SCH (21:08)
[2023-01-26] MEDS: MIRTAZAPINE 15 MG TAB PO SCH (21:08)
[2023-01-27] MEDS: BACLOFEN 5MG PER 1/2 TABLET PO SCH ×3 (00:07→11:12)
[2023-01-27 06:43] VITALS: BP 94/50; TEMP 96.8; O2SAT 98
[2023-01-27] MEDS: NICOTINE POLACRILEX 2 MG GUM PO PRN (08:36)
[2023-01-27] MEDS: SERTRALINE HCL 50 MG TAB PO SCH (08:36)
[2023-01-27 08:40] VITALS: BP 126/67
[2023-01-27] MEDS: cloNIDine 0.1MG TABLET PO SCH (08:40)
[2023-01-27] MEDS ORDERED: CLONI1TA PO (09:36)
[2023-01-27] MEDS ORDERED: SERT50TA29 PO (09:36)
[2023-01-27] MEDS ORDERED: OLAN1TAB16 PO (09:36)
[2023-01-27] MEDS ORDERED: TRAZ-252 PO (09:36)
[2023-01-27] MEDS ORDERED: MIRT-10 PO (09:36)
== END 2023-01-27 14:00 | disposition home or self-care (01) | DRG 754 ==
LOC: M ED 23:40 → M ED INP 01-20 11:21 → M PSY 01-20 15:40
PROVIDERS: ADMIT Student in an Organized Health Care Education/Training Program; ATTEND Student in an Organized Health Care Education/Training Program
DX: F32.A Depression, unspecified (principal); F12.10 Cannabis abuse, uncomplicated; F17.200 Nicotine dependence, unspecified, uncomplicated; F60.3 Borderline personality disorder; F60.2 Antisocial personality disorder; R45.851 Suicidal ideations; Z91.51 Personal history of suicidal behavior; Z56.0 Unemployment, unspecified; Z20.822 Contact with and (suspected) exposure to COVID-19; Z91.018 Allergy to other foods

== ENCOUNTER 2023-04-13 17:37 | Inpatient (IN) | payer MEDICAID, SELFPAY ==
[~2023-04-13] VITALS: Ht 175.3 cm; Wt 77.1 kg
[~2023-04-13 17:37] MED LIST changes: +CLONI1TA PO; +MELA3TAB30 PO; +MIRT-10 PO; +OLAN1TAB16 PO
[2023-04-13 18:20] LABS: HEMATOCRIT 45.7 % (42.0-52.0); HEMOGLOBIN 16.3 g/dl (13.5-17.5); MEAN CORPUSCULAR HEMOGLOBIN 30.9 pg (27.0-33.0); MEAN CORPUSCULAR HGB CONC 35.7 g/dl (32.0-36.5); MEAN CORPUSCULAR VOLUME 86.6 fl (80.0-96.0); PLATELET COUNT, AUTOMATED 249 10^3/uL (150-450); RED BLOOD COUNT 5.28 10^6/uL (4.30-6.10); WHITE BLOOD COUNT 6.5 10^3/uL (4.0-10.0)
[2023-04-13 18:40] LABS: AMPHETAMINES LEVEL URINE NEGATIVE (NEGATIVE); BARBITURATES URINE NEGATIVE (NEGATIVE); BENZODIAZEPINES URINE NEGATIVE (NEGATIVE); COCAINE METABOLITE URINE NEGATIVE (NEGATIVE); METHADONE URINE NEGATIVE (NEGATIVE); OPIATES URINE NEGATIVE (NEGATIVE); PHENCYCLIDINE URINE NEGATIVE (NEGATIVE)
[2023-04-13] MEDS ORDERED: ACETAMINOPHEN 325 MG TAB PO ONE (18:40)
[2023-04-13 18:42] LABS: CANNABINOIDS URINE POSITIVE (NEGATIVE)
[2023-04-13 18:42] LABS: ETHYL ALCOHOL (ETHANOL) < 0.003 % (0.000-0.010)
[2023-04-13 18:44] LABS: ALBUMIN 4.3 G/DL (3.2-5.2); ALKALINE PHOSPHATASE 77 U/L (46-116); ALT/SGPT 28 U/L (7.0-40); AST/SGOT 13 U/L (<34); BILIRUBIN,DIRECT 0.2 MG/DL (<0.4); BILIRUBIN,TOTAL 0.4 MG/DL (0.3-1.2); BLOOD UREA NITROGEN 14 MG/DL (9-23); CALCIUM LEVEL 9.1 MG/DL (8.5-10.1); CARBON DIOXIDE LEVEL 27 MMOL/L (20-31); CHLORIDE LEVEL 105 MMOL/L (98-107); CREATININE FOR GFR 0.73 MG/DL (0.70-1.30); GLOMERULAR FILTRATION RATE > 60.0 (>60); GLUCOSE, FASTING 147 MG/DL (60-100); POTASSIUM SERUM 3.9 MMOL/L (3.5-5.1); SALICYLATE LEVEL < 3.0 MG/DL (<30); SODIUM LEVEL 140 MMOL/L (136-145); TOTAL PROTEIN 7.2 G/DL (5.7-8.2)
[2023-04-13 18:46] LABS: THYROID STIMULATING HORMONE 1.101 uIU/ML (0.55-4.78)
[2023-04-13] MEDS ORDERED: NICOTINE POLACRILEX 2 MG GUM PO ONE (18:55)
[2023-04-13] MEDS ORDERED: IBUPROFEN 400MG TAB PO PRN (19:55)
[2023-04-13] MEDS ORDERED: MOM 30ML SUSPENSION UDC PO PRN (19:55)
[2023-04-13] MEDS ORDERED: diphenhydrAMINE 25MG CAP PO PRN (19:55)
[2023-04-13] MEDS ORDERED: MAALOX 30 ML SUSP *UDC PO PRN (19:55)
[2023-04-13] MEDS ORDERED: ACETAMINOPHEN TAB 650MG DOSE (2X325MG) PO PRN (19:55)
[2023-04-13] MEDS ORDERED: TRAZ-252 PO (21:21)
[2023-04-13] MEDS ORDERED: OLAN1TAB16 PO (21:21)
[2023-04-13] MEDS ORDERED: SERT50TA29 PO (21:21)
[2023-04-13] MEDS ORDERED: CLON-412 PO (21:21)
[2023-04-13] MEDS ORDERED: MIRT-10 PO (21:21)
[2023-04-13] MEDS ORDERED: HOME MED LIST COMPLETE! XX SCH (21:25)
[2023-04-13 23:56] VITALS: BP 101/59; TEMP 97; O2SAT 96
[2023-04-14 06:06] VITALS: BP 101/54; TEMP 97.9; O2SAT 98
[2023-04-14] MEDS: NICOTINE 21MG/24HR 1 EA TRANSDERMAL TD SCH ×2 (09:00→13:11)
[2023-04-14] MEDS ORDERED: INFLUENZA QUADRIVALENT PF VACCINE 0.5ML SYRINGE IM.IMMUN ONE (10:00)
[2023-04-14] MEDS: FLUoxetine 20MG CAP PO SCH (10:06)
[2023-04-14 18:25] VITALS: BP 141/88; TEMP 97.2
[2023-04-14] MEDS: DICLOFENAC EPOLAMINE 1.3% PATCH TOP SCH (21:49)
[2023-04-15 06:05] VITALS: BP 136/68; TEMP 97.7; O2SAT 97
[2023-04-15] MEDS: DICLOFENAC EPOLAMINE 1.3% PATCH TOP SCH ×2 (08:25→20:35)
[2023-04-15] MEDS: FLUoxetine 20MG CAP PO SCH (08:25)
[2023-04-15] MEDS: NICOTINE 21MG/24HR 1 EA TRANSDERMAL TD SCH ×2 (08:26→13:00)
[2023-04-15 16:34] VITALS: BP 140/84; TEMP 97.1; O2SAT 99
[2023-04-15] MEDS: traZODone 50 MG TAB PO PRN (20:35)
[2023-04-16 06:48] VITALS: BP 124/62; TEMP 97.2; O2SAT 98
[2023-04-16] MEDS: FLUoxetine 20MG CAP PO SCH (08:11)
[2023-04-16] MEDS: DICLOFENAC EPOLAMINE 1.3% PATCH TOP SCH ×2 (08:12→20:20)
[2023-04-16] MEDS: NICOTINE 21MG/24HR 1 EA TRANSDERMAL TD SCH (08:12)
[2023-04-16] MEDS ORDERED: ARIPiprazole MONOHYDRATE 400 MG INJ (ABILIFY)(FREE PSY INPT ONLY) IM ONE (12:00)
[2023-04-16 16:15] VITALS: BP 132/72; TEMP 98; O2SAT 98
[2023-04-16] MEDS: traZODone 50 MG TAB PO PRN (20:20)
[2023-04-17 06:56] VITALS: BP 131/58; TEMP 97.8; O2SAT 97
[2023-04-17] MEDS: NICOTINE 21MG/24HR 1 EA TRANSDERMAL TD SCH (07:49)
[2023-04-17] MEDS: FLUoxetine 20MG CAP PO SCH (07:49)
[2023-04-17] MEDS: DICLOFENAC EPOLAMINE 1.3% PATCH TOP SCH ×2 (07:50→20:27)
[2023-04-17] MEDS: busPIRone 10 MG TAB PO SCH ×2 (10:56→20:28)
[2023-04-17 15:59] VITALS: BP 137/66; TEMP 97.9; O2SAT 99
[2023-04-17] MEDS: OLANZapine ORAL DISINTEGRATING TAB 5MG PO PRN (18:12)
[2023-04-17] MEDS: traZODone 50 MG TAB PO PRN (20:28)
[2023-04-18 06:31] VITALS: BP 106/56; TEMP 98.3; O2SAT 97
[2023-04-18] MEDS: NICOTINE 21MG/24HR 1 EA TRANSDERMAL TD SCH (08:20)
[2023-04-18] MEDS: FLUoxetine 20MG CAP PO SCH (08:20)
[2023-04-18] MEDS: DICLOFENAC EPOLAMINE 1.3% PATCH TOP SCH ×2 (08:20→20:28)
[2023-04-18] MEDS: busPIRone 10 MG TAB PO SCH ×2 (08:20→20:27)
[2023-04-18] MEDS: OLANZapine ORAL DISINTEGRATING TAB 5MG PO PRN (11:10)
[2023-04-18 16:08] VITALS: BP 134/80; TEMP 98.2; O2SAT 98
[2023-04-18] MEDS: traZODone 50 MG TAB PO PRN (20:27)
[2023-04-19 06:10] VITALS: BP 103/52; TEMP 97.3; O2SAT 99
[2023-04-19] MEDS: busPIRone 10 MG TAB PO SCH ×2 (08:16→20:06)
[2023-04-19] MEDS: NICOTINE 21MG/24HR 1 EA TRANSDERMAL TD SCH (08:16)
[2023-04-19] MEDS: FLUoxetine 20MG CAP PO SCH (08:16)
[2023-04-19] MEDS: DICLOFENAC EPOLAMINE 1.3% PATCH TOP SCH ×2 (08:17→20:07)
[2023-04-19 17:55] VITALS: BP 133/70; TEMP 98.4; O2SAT 96
[2023-04-19] MEDS: OLANZapine ORAL DISINTEGRATING TAB 5MG PO PRN (17:58)
[2023-04-19] MEDS: traZODone 50 MG TAB PO PRN (20:06)
[2023-04-20 06:11] VITALS: BP 116/57; TEMP 97; O2SAT 98
[2023-04-20] MEDS: busPIRone 10 MG TAB PO SCH (08:33)
[2023-04-20] MEDS: FLUoxetine 20MG CAP PO SCH (08:33)
[2023-04-20] MEDS: NICOTINE 21MG/24HR 1 EA TRANSDERMAL TD SCH (08:34)
[2023-04-20] MEDS: DICLOFENAC EPOLAMINE 1.3% PATCH TOP SCH (08:34)
[2023-04-20] MEDS ORDERED: FLUO20CA22 PO (08:38)
[2023-04-20] MEDS ORDERED: ABIL1INJ2 IM (08:38)
[2023-04-20] MEDS ORDERED: BUSP10TA PO (08:38)
[2023-04-20] MEDS ORDERED: NICO21PAT TD (08:38)
[2023-04-20] MEDS ORDERED: OLAN5ZYD PO (08:38)
[2023-04-20] MEDS ORDERED: ABIL1TAB11 PO (08:38)
[2023-04-20] MEDS ORDERED: TRAZ-252 PO (08:38)
== END 2023-04-20 11:11 | disposition home or self-care (01) | DRG 751 ==
LOC: M ED 17:37 → M ED INP 19:52 → M PSY 23:56
PROVIDERS: ADMIT Student in an Organized Health Care Education/Training Program; ATTEND Student in an Organized Health Care Education/Training Program
DX: F29 Unspecified psychosis not due to a substance or known physiological condition (principal); F32.A Depression, unspecified; F12.90 Cannabis use, unspecified, uncomplicated; F15.90 Other stimulant use, unspecified, uncomplicated; F60.3 Borderline personality disorder; F60.2 Antisocial personality disorder; Z91.128 Patient's intentional underdosing of medication regimen for other reason; Z59.00 Homelessness unspecified; R45.851 Suicidal ideations; Z91.018 Allergy to other foods; F17.200 Nicotine dependence, unspecified, uncomplicated; M54.59 Other low back pain; Z79.899 Other long term (current) drug therapy

== ENCOUNTER 2023-04-27 10:08 | Emergency (ER) | payer SELFPAY ==
[~2023-04-27 10:08] MED LIST changes: +ABIL1INJ2 IM; +ABIL1TAB11 PO; +BUSP10TA PO; +CLON-412 PO; +FLUO20CA22 PO; +OLAN5ZYD PO
[2023-04-27] MEDS ORDERED: MED REC IN PROGRESS XX SCH (10:45)
[2023-04-27 12:08] LABS: HEMATOCRIT 45.1 % (42.0-52.0); HEMOGLOBIN 15.5 g/dl (13.5-17.5); MEAN CORPUSCULAR HEMOGLOBIN 30.8 pg (27.0-33.0); MEAN CORPUSCULAR HGB CONC 34.4 g/dl (32.0-36.5); MEAN CORPUSCULAR VOLUME 89.5 fl (80.0-96.0); PLATELET COUNT, AUTOMATED 213 10^3/uL (150-450); RED BLOOD COUNT 5.04 10^6/uL (4.30-6.10); WHITE BLOOD COUNT 5.7 10^3/uL (4.0-10.0)
[2023-04-27 12:24] LABS: ETHYL ALCOHOL (ETHANOL) < 0.003 % (0.000-0.010)
[2023-04-27 12:26] LABS: ALBUMIN 4.1 G/DL (3.2-5.2); ALKALINE PHOSPHATASE 82 U/L (46-116); ALT/SGPT 32 U/L (7.0-40); AST/SGOT 16 U/L (<34); BILIRUBIN,DIRECT 0.2 MG/DL (<0.4); BILIRUBIN,TOTAL 0.6 MG/DL (0.3-1.2); BLOOD UREA NITROGEN 16 MG/DL (9-23); CALCIUM LEVEL 9.5 MG/DL (8.5-10.1); CARBON DIOXIDE LEVEL 28 MMOL/L (20-31); CHLORIDE LEVEL 107 MMOL/L (98-107); CREATININE FOR GFR 0.79 MG/DL (0.70-1.30); GLOMERULAR FILTRATION RATE > 60.0 (>60); GLUCOSE, FASTING 103 MG/DL (60-100); POTASSIUM SERUM 3.9 MMOL/L (3.5-5.1); SALICYLATE LEVEL < 3.0 MG/DL (<30); SODIUM LEVEL 143 MMOL/L (136-145); TOTAL PROTEIN 6.9 G/DL (5.7-8.2)
[2023-04-27 12:28] LABS: THYROID STIMULATING HORMONE 2.095 uIU/ML (0.55-4.78)
[2023-04-27 12:41] LABS: AMPHETAMINES LEVEL URINE NEGATIVE (NEGATIVE); BARBITURATES URINE NEGATIVE (NEGATIVE); BENZODIAZEPINES URINE NEGATIVE (NEGATIVE); COCAINE METABOLITE URINE NEGATIVE (NEGATIVE); METHADONE URINE NEGATIVE (NEGATIVE); OPIATES URINE NEGATIVE (NEGATIVE); PHENCYCLIDINE URINE NEGATIVE (NEGATIVE)
[2023-04-27 12:42] LABS: CANNABINOIDS URINE POSITIVE (NEGATIVE)
[2023-04-27] MEDS ORDERED: HOME MED LIST COMPLETE! XX SCH (13:15)
[2023-04-28 10:14] VITALS: BP 111/59; TEMP 97; O2SAT 98
[2023-04-28] MEDS ORDERED: ABIL1TAB11 PO (12:18)
[2023-04-28] MEDS ORDERED: BUSP10TA79 PO (12:18)
[2023-04-28] MEDS ORDERED: OLAN5ZYD GT (12:18)
[2023-04-28] MEDS ORDERED: TRAZ-252 PO (12:18)
[2023-04-28] MEDS ORDERED: FLUO20CA22 PO (12:18)
[2023-04-28] MEDS ORDERED: FLUoxetine 20MG CAP PO SCH (13:00)
[2023-04-28] MEDS ORDERED: busPIRone 10 MG TAB PO SCH ×2 (13:00→21:00)
[2023-04-29] MEDS ORDERED: FLUoxetine 20MG CAP PO SCH (09:00)
== END 2023-04-28 13:45 | disposition home or self-care (01) ==
LOC: M ED 10:08
DX: R45.851 Suicidal ideations (principal); F32.A Depression, unspecified; F17.200 Nicotine dependence, unspecified, uncomplicated; Z79.899 Other long term (current) drug therapy

== ENCOUNTER 2023-08-01 20:19 | Inpatient (IN) | payer MEDICAID, SELFPAY ==
[~2023-08-01] VITALS: Ht 172.7 cm; Wt 155.0 kg
[~2023-08-01 20:19] MED LIST changes: +BUSP10TA79 PO; +OLAN5ZYD GT
[2023-08-01 21:25] LABS: ETHYL ALCOHOL (ETHANOL) < 0.003 % (0.000-0.010)
[2023-08-01 21:27] LABS: ALBUMIN 4.6 G/DL (3.2-5.2); ALKALINE PHOSPHATASE 87 U/L (46-116); ALT/SGPT 37 U/L (7.0-40); AST/SGOT 16 U/L (<34); BILIRUBIN,DIRECT 0.2 MG/DL (<0.4); BILIRUBIN,TOTAL 0.6 MG/DL (0.3-1.2); BLOOD UREA NITROGEN 15 MG/DL (9-23); CALCIUM LEVEL 9.6 MG/DL (8.5-10.1); CARBON DIOXIDE LEVEL 25 MMOL/L (20-31); CHLORIDE LEVEL 106 MMOL/L (98-107); CREATININE FOR GFR 0.84 MG/DL (0.70-1.30); GLOMERULAR FILTRATION RATE > 60.0 (>60); GLUCOSE, FASTING 80 MG/DL (60-100); POTASSIUM SERUM 4.2 MMOL/L (3.5-5.1); SALICYLATE LEVEL < 3.0 MG/DL (<30); SODIUM LEVEL 139 MMOL/L (136-145); TOTAL PROTEIN 7.6 G/DL (5.7-8.2)
[2023-08-01 21:29] LABS: THYROID STIMULATING HORMONE 2.325 uIU/ML (0.55-4.78)
[2023-08-01 21:35] LABS: AMPHETAMINES LEVEL URINE NEGATIVE (NEGATIVE); BARBITURATES URINE NEGATIVE (NEGATIVE); BENZODIAZEPINES URINE NEGATIVE (NEGATIVE); COCAINE METABOLITE URINE NEGATIVE (NEGATIVE); METHADONE URINE NEGATIVE (NEGATIVE); OPIATES URINE NEGATIVE (NEGATIVE); PHENCYCLIDINE URINE NEGATIVE (NEGATIVE)
[2023-08-01 21:36] LABS: CANNABINOIDS URINE POSITIVE (NEGATIVE)
[2023-08-01 21:41] LABS: HEMATOCRIT 51.3 % (42.0-52.0); HEMOGLOBIN 17.8 g/dl (13.5-17.5); MEAN CORPUSCULAR HEMOGLOBIN 31.2 pg (27.0-33.0); MEAN CORPUSCULAR HGB CONC 34.7 g/dl (32.0-36.5); MEAN CORPUSCULAR VOLUME 89.8 fl (80.0-96.0); PLATELET COUNT, AUTOMATED 242 10^3/uL (150-450); RED BLOOD COUNT 5.71 10^6/uL (4.30-6.10); WHITE BLOOD COUNT 8.9 10^3/uL (4.0-10.0)
[2023-08-01] MEDS ORDERED: MOM 30ML SUSPENSION UDC PO PRN (22:15)
[2023-08-01] MEDS ORDERED: IBUPROFEN 400MG TAB PO PRN (22:15)
[2023-08-01] MEDS ORDERED: HOME MED LIST COMPLETE! XX SCH (22:15)
[2023-08-01] MEDS ORDERED: diphenhydrAMINE 25MG CAP PO PRN (22:15)
[2023-08-01] MEDS ORDERED: MAALOX 30 ML SUSP *UDC PO PRN (22:15)
[2023-08-01] MEDS ORDERED: ACETAMINOPHEN TAB 650MG DOSE (2X325MG) PO PRN (22:15)
[2023-08-01 23:39] VITALS: BP 106/72; TEMP 98; O2SAT 95
[2023-08-02 06:03] VITALS: BP 140/74; TEMP 97.2; O2SAT 95
[2023-08-02] MEDS: busPIRone 10 MG TAB PO SCH (09:25)
[2023-08-02] MEDS: FLUoxetine 20MG CAP PO SCH (09:25)
[2023-08-02 18:26] VITALS: BP 100/55; TEMP 97.8; O2SAT 96
[2023-08-03 06:38] VITALS: BP 138/62; TEMP 96.8; O2SAT 96
[2023-08-03 09:26] LABS: CHOLESTEROL RISK RATIO 4.08 (<5); HDL CHOLESTEROL 28.4 MG/DL (>40); LDL CHOLESTEROL 76.2 MG/DL (<100); NON-HDL-C 87.6 MG/DL
[2023-08-03] MEDS: ONDANSETRON 4MG ORAL DISINTEGRATING TAB PO PRN (14:02)
[2023-08-03] MEDS: NICOTINE 21MG/24HR 1 EA TRANSDERMAL TD SCH (15:48)
[2023-08-03 18:20] VITALS: BP 142/97; TEMP 97.6
[2023-08-03] MEDS: traZODone 50 MG TAB PO PRN (21:34)
[2023-08-04 06:40] VITALS: BP 139/78; TEMP 98.5; O2SAT 98
[2023-08-04] MEDS: ARIPiprazole MONOHYDRATE 400 MG INJ (ABILIFY)(FREE PSY INPT ONLY) IM ONE (11:28)
== END 2023-08-04 12:57 | disposition home or self-care (01) | DRG 751 ==
LOC: M ED 20:19 → M ED INP 22:15 → M PSY 23:09
PROVIDERS: ADMIT Student in an Organized Health Care Education/Training Program; ATTEND Student in an Organized Health Care Education/Training Program
DX: F33.1 Major depressive disorder, recurrent, moderate (principal); U07.1 COVID-19; R45.851 Suicidal ideations; Z91.119 Patient's noncompliance with dietary regimen due to unspecified reason; Z91.148 Patient's other noncompliance with medication regimen for other reason; F12.90 Cannabis use, unspecified, uncomplicated; F15.90 Other stimulant use, unspecified, uncomplicated; F60.3 Borderline personality disorder; F60.2 Antisocial personality disorder; Z91.018 Allergy to other foods; J45.909 Unspecified asthma, uncomplicated; F90.9 Attention-deficit hyperactivity disorder, unspecified type

== ENCOUNTER 2025-01-04 14:48 | Inpatient (IN) | payer MEDICAID, OTHER ==
[~2025-01-04] VITALS: Ht 177.8 cm; Wt 86.4 kg
[~2025-01-04 14:48] MED LIST changes: -ARIP1TAB44; +ARIP30TA38; -DEPA250T32 PO; +DIVA-65 PO; +DOXY-441 PO; -DOXY-443 PO; +FLUO-365 PO; -FLUO20CA22 PO; +ONDA-282 PO; -ONDA4TAB6 PO
[2025-01-04 16:10] LABS: BASO # 0.0 10^3/uL (0.0-0.2); BASO % 0.5 % (0.0-1.0); EOS # 0.1 10^3/uL (0.0-0.5); EOS % 0.7 % (0.0-3.0); LYMPH # 1.8 10^3/uL (1.5-5.0); LYMPH % 23.1 % (24.0-44.0); MONO # 0.4 10^3/uL (0.0-0.8); MONO % 5.0 % (2.0-8.0); NEUTROPHILS # 5.4 10^3/uL (1.5-8.5); NEUTROPHILS % 70.4 % (36.0-66.0); PLATELET COUNT, AUTOMATED 221 10^3/uL (150-450)
[2025-01-04 17:18] LABS: CALCIUM LEVEL 9.3 MG/DL (8.5-10.1); CARBON DIOXIDE LEVEL 25 MMOL/L (20-31); CHLORIDE LEVEL 107 MMOL/L (98-107); CK-MB VALUE MASS < 1.0 NG/ML (<3.6); CREATININE FOR GFR 0.86 MG/DL (0.70-1.30); GLOMERULAR FILTRATION RATE > 90.0 (>60); MAGNESIUM LEVEL 2.0 MG/DL (1.8-2.4); POTASSIUM SERUM 3.8 MMOL/L (3.5-5.1); SODIUM LEVEL 144 MMOL/L (136-145)
[2025-01-04 17:19] LABS: CPK CREATINE PHOSPHOKINASE 218 U/L (46-171)
[2025-01-04] MEDS ORDERED: ABIL1INJ2 IM (20:22)
[2025-01-04] MEDS ORDERED: TRAZ-186 PO (20:22)
[2025-01-04] MEDS ORDERED: BUSP10TA PO (20:22)
[2025-01-04] MEDS ORDERED: HOME MED LIST COMPLETE! XX SCH (20:25)
[2025-01-05] MEDS ORDERED: MOM 30 ML SUSPENSION UDC PO PRN (02:30)
[2025-01-05] MEDS ORDERED: MAALOX 30 ML SUSP *UDC PO PRN (02:30)
[2025-01-05] MEDS ORDERED: ACETAMINOPHEN 325 MG TAB PO PRN (02:30)
[2025-01-05] MEDS ORDERED: IBUPROFEN 400 MG TAB PO PRN (02:30)
[2025-01-05 02:59] LABS: AMPHETAMINES LEVEL URINE NEGATIVE (NEGATIVE); BENZODIAZEPINES URINE NEGATIVE (NEGATIVE)
[2025-01-05 03:00] LABS: BARBITURATES URINE NEGATIVE (NEGATIVE); COCAINE METABOLITE URINE NEGATIVE (NEGATIVE); METHADONE URINE NEGATIVE (NEGATIVE); OPIATES URINE NEGATIVE (NEGATIVE); PHENCYCLIDINE URINE NEGATIVE (NEGATIVE)
[2025-01-05 03:02] LABS: CANNABINOIDS URINE POSITIVE (NEGATIVE)
[2025-01-05 04:34] VITALS: BP 118/80; TEMP 97.2; O2SAT 99
[2025-01-05 06:12] VITALS: BP 118/64; TEMP 98.3; O2SAT 96
[2025-01-05] MEDS: FLUoxetine 20 MG CAP PO SCH ×2 (09:00→09:33)
[2025-01-05 09:47] VITALS: BP 156/78; TEMP 97.8; O2SAT 97
[2025-01-05] MEDS: ARIPiprazole MONOHYDRATE 400 MG INJ (FREE PSY INPT ONLY) IM ONE (11:42)
[2025-01-05 14:45] VITALS: BP 131/74; TEMP 97.5; O2SAT 97
[2025-01-05] MEDS: LORazepam 1 MG TAB PO STA (14:55)
[2025-01-05 18:15] VITALS: BP 135/72; TEMP 97.6; O2SAT 94
[2025-01-05] MEDS: ONDANSETRON 4MG ORAL DISINTEGRATING TAB PO PRN (18:36)
[2025-01-05] MEDS: traZODone 50 MG TAB PO PRN (21:50)
[2025-01-06 06:30] VITALS: BP 136/76; TEMP 98; O2SAT 95
[2025-01-06] MEDS: NICOTINE 21 MG/24 HR 1 EA TRANSDERMAL TD PRN (11:32)
[2025-01-06 14:48] VITALS: BP 143/81; TEMP 98.6; O2SAT 94
[2025-01-06] MEDS: HALOPERIDOL 5 MG TAB PO ONE (15:22)
[2025-01-06] MEDS: LORazepam 1 MG TAB PO ONE (15:22)
[2025-01-07 06:00] VITALS: BP 109/63; TEMP 97.6; O2SAT 91
[2025-01-07 16:09] VITALS: BP 149/71; TEMP 97.5; O2SAT 97
[2025-01-07] MEDS: OLANZapine ORAL DISINTEGRATING TAB 5MG PO PRN (18:07)
[2025-01-08 06:41] VITALS: BP 128/72; TEMP 97.2; O2SAT 99
[2025-01-08 15:04] VITALS: BP 153/77; TEMP 97.9; O2SAT 97
[2025-01-09 06:38] VITALS: BP 128/62; TEMP 97.4; O2SAT 97
[2025-01-09] MEDS ORDERED: TRAZ-252 PO (11:59)
[2025-01-09] MEDS ORDERED: BUSP10TA PO (11:59)
[2025-01-09] MEDS ORDERED: FLUO-365 PO (11:59)
== END 2025-01-09 14:25 | disposition home or self-care (01) | DRG 753 ==
LOC: M ED 14:48 → M ED INP 01-05 02:26 → M PSY 01-05 03:51
PROVIDERS: ADMIT Psychiatry & Neurology Neurology; ATTEND Psychiatry & Neurology Neurology
DX: F31.64 Bipolar disorder, current episode mixed, severe, with psychotic features (principal); F60.3 Borderline personality disorder; F15.90 Other stimulant use, unspecified, uncomplicated; F12.90 Cannabis use, unspecified, uncomplicated; F60.6 Avoidant personality disorder; Z91.018 Allergy to other foods; F17.200 Nicotine dependence, unspecified, uncomplicated; F41.9 Anxiety disorder, unspecified; F60.2 Antisocial personality disorder; Z91.199 Patient's noncompliance with other medical treatment and regimen due to unspecified reason; Z91.148 Patient's other noncompliance with medication regimen for other reason; Z59.00 Homelessness unspecified; Z79.899 Other long term (current) drug therapy

== ENCOUNTER 2025-05-05 12:21 | Inpatient (IN) | payer MEDICAID, OTHER ==
[~2025-05-05] VITALS: Ht 180.3 cm; Wt 85.0 kg
[~2025-05-05 12:21] MED LIST changes: +TRAZ-186 PO
[2025-05-05 12:57] LABS: PLATELET COUNT, AUTOMATED 202 10^3/uL (150-450)
[2025-05-05 13:25] LABS: AMPHETAMINES LEVEL URINE NEGATIVE (NEGATIVE); BARBITURATES URINE NEGATIVE (NEGATIVE); BENZODIAZEPINES URINE NEGATIVE (NEGATIVE); COCAINE METABOLITE URINE NEGATIVE (NEGATIVE); METHADONE URINE NEGATIVE (NEGATIVE); OPIATES URINE NEGATIVE (NEGATIVE); PHENCYCLIDINE URINE NEGATIVE (NEGATIVE)
[2025-05-05 13:27] LABS: ETHYL ALCOHOL (ETHANOL) < 0.003 % (0.000-0.010)
[2025-05-05 13:29] LABS: ALT/SGPT 17 U/L (7.0-40); AST/SGOT 12 U/L (<34); CALCIUM LEVEL 9.4 MG/DL (8.5-10.1); CARBON DIOXIDE LEVEL 27 MMOL/L (20-31); CHLORIDE LEVEL 108 MMOL/L (98-107); CREATININE FOR GFR 0.89 MG/DL (0.70-1.30); GLOMERULAR FILTRATION RATE > 90.0 (>60); POTASSIUM SERUM 3.9 MMOL/L (3.5-5.1); SALICYLATE LEVEL < 3.0 MG/DL (<30); SODIUM LEVEL 145 MMOL/L (136-145)
[2025-05-05 13:30] LABS: CANNABINOIDS URINE POSITIVE (NEGATIVE)
[2025-05-05] MEDS ORDERED: BUSP5TA PO (14:25)
[2025-05-05] MEDS ORDERED: BUSP10TA PO (14:25)
[2025-05-05] MEDS ORDERED: traZODone 50 MG TAB PO PRN (14:30)
[2025-05-05] MEDS ORDERED: FLUO-96 PO (15:06)
[2025-05-05] MEDS ORDERED: HOME MED LIST COMPLETE! XX SCH (15:10)
[2025-05-05] MEDS ORDERED: ACETAMINOPHEN 325 MG TAB PO PRN (15:25)
[2025-05-05] MEDS ORDERED: LORazepam 1 MG TAB PO PRN (15:25)
[2025-05-05] MEDS ORDERED: IBUPROFEN 400 MG TAB PO PRN (15:25)
[2025-05-05] MEDS ORDERED: HALOPERIDOL 5 MG TAB PO PRN (15:25)
[2025-05-05] MEDS ORDERED: MOM 30 ML SUSPENSION UDC PO PRN (15:25)
[2025-05-05] MEDS ORDERED: MAALOX 30 ML SUSP *UDC PO PRN (15:25)
[2025-05-05] MEDS: NICOTINE 14 MG/24 HR TRANSDERMAL TD SCH (20:22)
[2025-05-05] MEDS: traZODone 50 MG TAB PO PRN (20:23)
[2025-05-05] MEDS: busPIRone 5 MG TAB PO SCH (20:23)
[2025-05-05 20:26] VITALS: BP 115/73; TEMP 98; O2SAT 99
[2025-05-06 06:38] VITALS: BP 137/72; TEMP 97.1; O2SAT 96
[2025-05-06] MEDS ORDERED: FLUoxetine 20 MG CAP PO SCH (09:00)
[2025-05-06] MEDS: FLUoxetine 20 MG CAP PO SCH (09:11)
[2025-05-06 10:08] VITALS: BP 134/88; O2SAT 99
[2025-05-06] MEDS: ONDANSETRON 4MG ORAL DISINTEGRATING TAB PO PRN (10:27)
[2025-05-06] MEDS: OLANZapine 5 MG TAB PO PRN (14:05)
[2025-05-06 16:11] VITALS: BP 150/84; TEMP 98; O2SAT 96
[2025-05-07 06:31] VITALS: BP 124/76; TEMP 97.5; O2SAT 96
[2025-05-07 16:38] VITALS: BP 142/84; TEMP 97.4; O2SAT 97
[2025-05-08 06:23] VITALS: BP 111/68; TEMP 96.8; O2SAT 100
[2025-05-08] MEDS ORDERED: BUSP15TA48 PO (09:54)
[2025-05-08] MEDS ORDERED: NICO14PA TD (09:54)
[2025-05-08] MEDS ORDERED: HYDR-643 PO (09:54)
[2025-05-08] MEDS: ARIPiprazole MONOHYDRATE 400 MG INJ (FREE PSY INPT ONLY) IM ONE (10:34)
== END 2025-05-08 11:15 | disposition home or self-care (01) | DRG 751 ==
LOC: M ED 12:21 → M ED INP 15:22 → M PSY 20:02
PROVIDERS: ADMIT Internal Medicine; ATTEND Internal Medicine
DX: F33.1 Major depressive disorder, recurrent, moderate (principal); F15.90 Other stimulant use, unspecified, uncomplicated; F12.90 Cannabis use, unspecified, uncomplicated; F60.3 Borderline personality disorder; R45.851 Suicidal ideations; Z63.5 Disruption of family by separation and divorce; F90.9 Attention-deficit hyperactivity disorder, unspecified type; Z90.49 Acquired absence of other specified parts of digestive tract; Z79.899 Other long term (current) drug therapy; Z91.018 Allergy to other foods; Z56.0 Unemployment, unspecified